=== PATIENT | female | born 1945 | race Asian ===

== ENCOUNTER 2024-04-27 08:39 | Emergency (ER) | payer MEDICARE, SELFPAY ==
--- NOTE | ~2024-04-27 | CT_ITS ---
EXAMINATION: CT head for stroke CLINICAL INFORMATION: R sided deficits COMPARISON: CT head 03/20/2018 TECHNIQUE: Contiguous axial imaging was performed from the skull base to vertex without intravenous contrast. This CT examination was performed using dose optimization techniques as appropriate, variously including the following: * Automated exposure control * Adjustment of mA and/or kV according to patient size (this includes techniques or standardized protocols for targeted exams where dose is matched to indication/reason for exam; i.e. extremities or head) * Use of iterative reconstruction technique DLP: 699 mGy-cm. FINDINGS: There is no evidence of acute intracranial hemorrhage or territorial infarction. Melgar to white matter differentiation is well preserved. No abnormal mass effect or midline shift is seen. No extra-axial fluid collections are identified. No hydrocephalus. Cavum septum pellucidum. No significant volume loss. Patchy periventricular and deep white matter hypoattenuation is consistent with moderate small vessel ischemic changes. The cerebellar tonsils are well positioned. No acute osseous or soft tissue abnormality. There is a stable 0.7 cm likely calcified meningioma along the right para midline frontal skull. Mild hyperostosis frontalis interna. Bilateral lens extraction. Mild mucoperiosteal thickening in the left maxillary sinus. The remaining visualized paranasal sinuses and mastoid air cells are well-aerated. Small volume cerumen in the bilateral external auditory canals. CT/CT head for stroke IMPRESSION: 1. No acute intracranial hemorrhage or territorial infarction. 2. Moderate chronic microangiopathy. These results were discussed with Tsering Gomez DO by telephone on 04/27/2024 at 8:59 AM and it was ascertained that the content of the report was understood at the time of direct communication. Electronically signed by: Natalie Heaton DO 04/27/2024 09:04 AM EDT
--- NOTE | ~2024-04-27 | CT_ITS ---
EXAMINATION: CTA NECK WITH CONTRAST (STROKE) CTA BRAIN WITH CONTRAST (STROKE) CLINICAL INFORMATION: Right-sided deficit, aphasia COMPARISON: None available. TECHNIQUE: CTA of the head and neck was performed in the axial plane from the mediastinum to the skull vertex using 70 mL Omnipaque 350 intravenous contrast. Additional reformatted multiplanar images including maximum intensity projection MIP images are generated on the CT workstation. This CT examination was performed using dose optimization techniques as appropriate, variously including the following: *Automated exposure control *Adjustment of mA and/or kV according to patient size (this includes techniques or standardized protocols for targeted exams where dose is matched to indication/reason for exam; i.e. extremities or head) *Use of iterative reconstruction technique DLP: 1477 mGy-cm FINDINGS: The degree of stenosis determined by criteria similar to NASCET. CTA NECK: Three-vessel aortic arch. Atherosclerotic calcifications at the origins of the great vessels without significant stenosis. The origins and cervical segments of the common carotid arteries are patent bilaterally. The common carotid artery bifurcations demonstrate mural calcifications, worse on the right and extending into the proximal segments of the cervical internal carotid arteries. There is 30% focal stenosis of the right carotid bulb. The remaining cervical segments of the ICAs are patent bilaterally. Atherosclerotic calcifications at the origins of the vertebral arteries resulting in moderate focal stenosis bilaterally. There is asymmetric hypoenhancement to majority of the cervical segments of the right vertebral artery with reconstitution in the very distal V2. The left cervical vertebral arteries is present. No aneurysm. The visualized branches of the external carotid arteries are unremarkable. CTA HEAD: Mild to moderate atherosclerotic calcifications of the bilateral carotid siphons. Anterior circulation: The petrous, cavernous, and supraclinoid segments of the internal carotid arteries are patent bilaterally. There is tapering of contrast opacification through the proximal segment of the left M2 superior division with complete occlusion distally. The remaining major branches of the anterior and middle cerebral arteries as well as anterior communicating artery complex are patent. No saccular aneurysm or dissection. Posterior circulation: The intracranial vertebral arteries are patent bilaterally. The basilar artery is normal in course and caliber. The posterior cerebral and superior cerebellar arteries arise normally from the basilar summit. No aneurysm. No filling defect. No abnormal intraparenchymal Soft tissues: No suspicious neck mass or cervical adenopathy. Lungs: Clear. Bones: No acute osseous abnormality. No lytic or blastic osseous lesions. Multilevel degenerative changes of the visualized spine. 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 -Asymmetric hypoenhancement through the majority of the right cervical vertebral arteries with reconstitution distally in the right V2. Findings are concerning for slow flow. Electronically signed by: Arminda Duron MD 04/27/2024 10:05 AM EDT
[2024-04-27 08:42] VITALS: BP 184/95; PULSE 87; O2SAT 95
--- NOTE | 2024-04-27 08:43 | ECG_ITS ---
Test Reason : WEAKNESS Blood Pressure : / mmHG Vent. Rate : 085 BPM Atrial Rate : 085 BPM P-R Int : 152 ms QRS Dur : 072 ms QT Int : 382 ms P-R-T Axes : 069 012 022 degrees QTc Int : 454 ms Sinus rhythm with Premature atrial complexes Nonspecific ST and T wave abnormality Abnormal ECG When compared with ECG of 20-MAR-2018 20:58, Premature atrial complexes are now Present ST now depressed in Anterior leads Nonspecific T wave abnormality now evident in Anterior leads Referred By: Tsering Gomez Electronically Signed By:AVA QUINTERO MD
[2024-04-27 08:50] VITALS: BP 198/75; PULSE 86; RESP 17; TEMP 37.1; O2SAT 97; BMI 26.1
--- NOTE | 2024-04-27 08:50 | PC.NURSE ---
Pt to ED via EMS from home after pt knocked on neighbor's door. Pt has noticeable right facial drop, global aphasia and right sided weakness. Pt nonverbal at this time, not pt's baseline. Pt taken immediately to CT for imagaging. BP 198/75, MD Gomez made aware.
[2024-04-27 08:51] LABS: Glucose, Whole Blood 149 mg/dL (60-115)
--- NOTE | 2024-04-27 08:59 | ED.NEUROSD ---
HPI - Neuro Symptoms/Deficit General Chief Complaint: Stroke Stated Complaint: ?STROKE,UNK LKWT,NO SPEECH,+DROOP PER EMS Source: EMS and old records reviewed Mode of arrival: EMS Limitations: altered mental status History of Present Illness ED Provider: ANIL DAHL Narrative: 78 yo female with PMH of HTN, DM, HLD, breast cancer this is based off all of her medication lists I see no thinners on it and EMS did not find any bottles of it in the house reportedly patient walked to neighbors this morning and had R facial droop, confusion and complete aphasia. We have no known last well other than patient seemed to have nodded that she was okay prior to bed last night at 9pm and got up to urinate at 2am. She uses her fingers to communicate. On arrival R facial droop, making sounds , diffuse weakness, R hand weakness. Seems to intermittently nod head but is not consistent and is having a hard time following commands. Onset (ago): unknown Last Observed Normal: 02:00 Timing confirmed by: other (self) Location: speech, right face, right arm and altered History of same: No Severity: severe Quality: weak Relieving factors: none Exacerbating factors: none Context: other (unknown) On Anticoagulants: No Associated symptoms: confusion Treatments Prior to Arrival: none Related Data Home Medications ?Medication ?Instructions ?Recorded ?Confirmed allopurinol 100 mg tablet 100 mg PO DAILY 04/27/24 04/27/24 amlodipine 2.5 mg tablet 2.5 mg PO DAILY 04/27/24 04/27/24 anastrozole 1 mg tablet 1 mg PO DAILY 04/27/24 04/27/24 atorvastatin 40 mg tablet 40 mg PO DAILY 04/27/24 04/27/24 lisinopril 40 mg tablet 40 mg PO DAILY 04/27/24 04/27/24 metformin 500 mg tablet 500 mg PO BID 04/27/24 04/27/24 metoprolol succinate 100 mg 100 mg PO DAILY 04/27/24 04/27/24 tablet,extended release 24 hr Allergies Allergy/AdvReac Type Severity Reaction Status Date / Time SEAFOOD Allergy Severe ANAPHYLAXIS Uncoded 04/27/24 09:48 Review of Systems Review of Systems: ROS unable to be obtained due to aphasia PMFSH Past Medical History Attestation statement: The following information was validated with the patient. Source: old records reviewed Medical History Breast cancer Hyperlipidemia Diabetes HTN (hypertension) Social History Social History (Updated 04/27/24 @ 09:04 by Tsering Gomez DO) Patient Tobacco Use Status: Tobacco use Unknown Physical Exam Vital Signs: Vital Signs: Last Vital Signs Temp 98.7 F 04/27/24 08:50 Pulse 88 04/27/24 10:39 Resp 16 04/27/24 10:39 BP 186/82 H 04/27/24 10:39 Pulse Ox 99 04/27/24 10:39 O2 Del Method Room Air 04/27/24 10:39 BMI result Body Mass Index 26.1 Appearance: She is alert she seems to be trying to communicate but is not consistent with shaking hands and is not consistent following commands. Moderate acute distress. she is able to express with nodding and fingers she went to bed at 9pm and was fine. She urinated in the middle of the night at 2am and was normal she holds up 2 fingers on R finger stating she was last okay at 2am. Eyes: Pupils equal, round and reactive to light. ENT: Pharynx normal. atraumatic Neck: Normal inspection. Neck supple. CVS: Normal heart rate and rhythm. Pulses normal. Respiratory: No respiratory distress. Breath sounds normal. Abdomen: Soft and nontender. Skin: Skin warm and dry. Normal skin color. Normal skin turgor. Extremities: No lower extremity edema. No calf ttp Neuro: cannot speak some muffled sounds, aphasia, R facial droop can wiggle both feet, R hand weakness Course Course Course Narrative: able to reach edgardo Williamson [phone] he is not fully aware of her medical issues, he doesn't think she is on blood thinners she has no contraindications to MRI at this time he states she has no metal or PPM. Reevaluation(s) Reevaluation #1: called arnav on CTA report read no discussion with radiologist just report put in system without report of critical findings read noted at 1010am. now read in in delayed 1010am M2 occlusion will review with Dr. Altamirano STAT call out stroke line picked up immediately Dr. Altamirano recommends discussion with neuro IR Dr. Stahl connected from [facility] will take for CT perfusion - send to ED edgardo Williamson he aware of transfer Medications Administered Discontinued Medications Generic Name Dose Route Start Last Admin Trade Name Alva PRN Reason Stop Dose Admin Iohexol 100 ml 04/27/24 08:59 04/27/24 09:00 Iohexol 350 Mg/Ml 100 Ml Infus..Btl IV 04/27/24 09:00 70 ml ONCE ONE Administration Medical Decision Making Medical Decision Making [facility] Narrative: 78 yo female with PMH of HTN, DM, HLD, breast cancer here with c/o R facial droop, R hand weakness, severe aphasia with some muffled sounds but no words after repeat ask and her using her fingers it appears last known well using bathroom was 2am. She got up this AM and was not okay so she walked to her neighbors and asked for help as she couldn't call herself. She has symptoms concerning for stroke - STAT CT head/CTA she is 7 hours out of last known well not a candidate for TNK, It is very hard to get a history from her and she has limited use of her fingers as well. We have put a call out to her sons but no call back and we are asking for records from [facility]. If LVO present she would be candidate to thrombectomy given confirmed last known by patient is 2am. Differential Diagnosis Differential Diagnoses: The differential diagnosis associated with the presentation includes stroke, LVO, ICH Admission/Observation Consideration of admission/observation: Escalation of care including admission/observation considered transfer to [facility] for CT perfusion per Dr. Stahl Consult Healthcare Provider Management of the patient was discussed with: [employer] Lab Data [facility] Lab Attestation statement: I reviewed the patient's lab results. 04/27/24 09:23 04/27/24 09:23 Labs: Lab Results 04/27/24 04/27/24 04/27/24 Range/Units 08:47 09:13 09:22 WBC (4.8-10.8) X10*3/uL RBC (4.20-5.50) X10*6/uL Hgb (12.0-16.0) g/dl Hct (37.0-47.0) % MCV (80.0-98.0) fL MCH (27.0-33.0) pg MCHC (31.0-35.0) g/dl RDW (11.0-16.0) % Plt Count (160-400) X10*3/uL MPV (9.4-12.3) fL Immature Gran % (Auto) (0.0-0.4) % Neut % (Auto) (45-73) % Lymph % (Auto) (20-40) % [place] % (Auto) (2-11) % Eos % (Auto) (0-4) % Baso % (Auto) (0-2) % Lymph # (Auto) (1.2-4.9) X10*3/uL [place] # (Auto) (0.1-1.2) X10*3/uL Eos # (Auto) (0.0-0.4) X10*3/uL Baso # (Auto) (0.0-0.2) X10*3/uL Abs Immat Gran (auto) (0.00-0.03) X10*3/uL Absolute Neuts (auto) (2.0-8.3) x10*3/uL Absolute Nucleated RBC (0.0-0.012) X10*3/uL Nucleated RBC % (auto) (0.0-0.2) /100WBC PT (10.9-12.4) SEC INR (0.9-1.1) APTT (26.0-36.8) SEC Sodium (135-145) mmol/L Potassium (3.3-5.1) mmol/L Chloride (96-108) mmol/L Carbon Dioxide (22-29) mmol/L Anion Gap (12-20) BUN (9-16) mg/dL Creatinine (0.5-1.4) mg/dL Estim Creat Clear Calc Estimated GFR POC Glucose 149 H (60-115) mg/dL Random Glucose (60-115) mg/dL Estimat Average Glucose 128 mg/dL Hemoglobin A1c % 6.1 H (<6.0) % Calcium (8.4-10.2) mg/dL Magnesium (1.6-2.6) mg/dL Total Bilirubin (0.0-1.0) mg/dL Direct Bilirubin (0.0-0.5) mg/dL AST (5-31) U/L ALT (0-31) U/L Alkaline Phosphatase (39-117) U/L Ammonia 30 (13-55) umol/L Total Creatine Kinase (26-140) U/L C-Reactive Protein (< or = 0.50) mg/dL Total Protein (6.5-8.0) g/dL Albumin (3.5-5.0) g/dL Triglycerides (<150) mg/dL Cholesterol (<200) mg/dL LDL Cholesterol, Calc (<100) mg/dL HDL Cholesterol (>40) mg/dL Urine Color Urine Appearance Urine pH (5.0-9.0) Ur Specific [place] (1.005-1.025) Urine Protein (Neg-Trace) mg/dL Urine Glucose (UA) (Negative) mg/dL Urine Ketones (Negative) mg/dL Urine Blood (Negative) Urine Nitrite (Negative) Ur Leukocyte Esterase (Negative) Influenza Type A (PCR) NEGATIVE (Negative) Influenza Type B (PCR) NEGATIVE (Negative) RSV RNA Qual (PCR) NEGATIVE (Negative) SARS-CoV-2 RNA (RT-PCR) POSITIVE A (Negative) 04/27/24 04/27/24 Range/Units 09:23 09:35 WBC 8.5 (4.8-10.8) X10*3/uL RBC 4.56 (4.20-5.50) X10*6/uL Hgb 12.5 (12.0-16.0) g/dl Hct 36.8 L (37.0-47.0) % MCV 80.7 (80.0-98.0) fL MCH 27.4 (27.0-33.0) pg MCHC 34.0 (31.0-35.0) g/dl RDW 13.8 (11.0-16.0) % Plt Count 250 (160-400) X10*3/uL MPV 9.7 (9.4-12.3) fL Immature Gran % (Auto) 0.8 H (0.0-0.4) % Neut % (Auto) 75.3 H (45-73) % Lymph % (Auto) 19.4 L (20-40) % [place] % (Auto) 3.8 (2-11) % Eos % (Auto) 0.5 (0-4) % Baso % (Auto) 0.2 (0-2) % Lymph # (Auto) 1.7 (1.2-4.9) X10*3/uL [place] # (Auto) 0.3 (0.1-1.2) X10*3/uL Eos # (Auto) 0.0 (0.0-0.4) X10*3/uL Baso # (Auto) 0.0 (0.0-0.2) X10*3/uL Abs Immat Gran (auto) 0.07 H (0.00-0.03) X10*3/uL Absolute Neuts (auto) 6.4 (2.0-8.3) x10*3/uL Absolute Nucleated RBC 0.000 (0.0-0.012) X10*3/uL Nucleated RBC % (auto) 0.0 (0.0-0.2) /100WBC PT 11.3 (10.9-12.4) SEC INR 1.0 (0.9-1.1) APTT 34.1 (26.0-36.8) SEC Sodium 143 (135-145) mmol/L Potassium 3.5 (3.3-5.1) mmol/L Chloride 108 (96-108) mmol/L Carbon Dioxide 25 (22-29) mmol/L Anion Gap 14 (12-20) BUN 18 H (9-16) mg/dL Creatinine 0.88 (0.5-1.4) mg/dL Estim Creat Clear Calc 53.8 Estimated GFR > 60 POC Glucose (60-115) mg/dL Random Glucose 151 H (60-115) mg/dL Estimat Average Glucose mg/dL Hemoglobin A1c % (<6.0) % Calcium 9.2 (8.4-10.2) mg/dL Magnesium 1.8 (1.6-2.6) mg/dL Total Bilirubin 0.5 (0.0-1.0) mg/dL Direct Bilirubin 0.2 (0.0-0.5) mg/dL AST 15 (5-31) U/L ALT 13 (0-31) U/L Alkaline Phosphatase 79 (39-117) U/L Ammonia (13-55) umol/L Total Creatine Kinase 59 (26-140) U/L C-Reactive Protein 0.76 H (< or = 0.50) mg/dL Total Protein 7.2 (6.5-8.0) g/dL Albumin 4.1 (3.5-5.0) g/dL Triglycerides 139 (<150) mg/dL Cholesterol 167 (<200) mg/dL LDL Cholesterol, Calc 95 (<100) mg/dL HDL Cholesterol 45 (>40) mg/dL Urine Color Yellow Urine Appearance Clear Urine pH 7.0 (5.0-9.0) Ur Specific [place] 1.020 (1.005-1.025) Urine Protein Negative (Neg-Trace) mg/dL Urine Glucose (UA) Negative (Negative) mg/dL Urine Ketones Negative (Negative) mg/dL Urine Blood Negative (Negative) Urine Nitrite Negative (Negative) Ur Leukocyte Esterase Negative (Negative) Influenza Type A (PCR) (Negative) Influenza Type B (PCR) (Negative) RSV RNA Qual (PCR) (Negative) SARS-CoV-2 RNA (RT-PCR) (Negative) Independent Interpretation I performed an independent interpretation of an: EKG, Plain X-Ray and CT Scan Interpretation: Rate: 85 Rhythm: NSR [place]: normal Normal P waves. Normal DORCAS. Normal QRS complex. ST T wave : inverted t waves v1, nonspecific ST T wave changes lateral leads, no CRISTIANO qTC: 454 prior studies: no acute ischemia, none available The study has been interpreted contemporaneously by me. . Radiology Impression Discussion of test interpretation with radiology: I discussed test interpretation with the radiologist and I have reviewed the radiologist's reading. Radiologist Impression: 859am CT scan dry negative FINDINGS: The degree of stenosis determined by criteria similar to NASCET. CTA NECK: Three-vessel aortic arch. Atherosclerotic calcifications at the origins of the great vessels without significant stenosis. The origins and cervical segments of the common carotid arteries are patent bilaterally. The common carotid artery bifurcations demonstrate mural calcifications, worse on the right and extending into the proximal segments of the cervical internal carotid arteries. There is 30% focal stenosis of the right carotid bulb. The remaining cervical segments of the ICAs are patent bilaterally. Atherosclerotic calcifications at the origins of the vertebral arteries resulting in moderate focal stenosis bilaterally. There is asymmetric hypoenhancement to majority of the cervical segments of the right vertebral artery with reconstitution in the very distal V2. The left cervical vertebral arteries is present. No aneurysm. The visualized branches of the external carotid arteries are unremarkable. CTA HEAD: Mild to moderate atherosclerotic calcifications of the bilateral carotid siphons. Anterior circulation: The petrous, cavernous, and supraclinoid segments of the internal carotid arteries are patent bilaterally. There is tapering of contrast opacification through the proximal segment of the left M2 superior division with complete occlusion distally. The remaining major branches of the anterior and middle cerebral arteries as well as anterior communicating artery complex are patent. No saccular aneurysm or dissection. Posterior circulation: The intracranial vertebral arteries are patent bilaterally. The basilar artery is normal in course and caliber. The posterior cerebral and superior cerebellar arteries arise normally from the basilar summit. No aneurysm. No filling defect. No abnormal intraparenchymal Soft tissues: No suspicious neck mass or cervical adenopathy. Lungs: Clear. Bones: No acute osseous abnormality. No lytic or blastic osseous lesions. Multilevel degenerative changes of the visualized spine. 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 -Asymmetric hypoenhancement through the majority of the right cervical vertebral arteries with reconstitution distally in the right V2. Findings are concerning for slow flow. Electronically signed by: Arminda Duron MD 04/27/2024 10:05 AM EDT Independent Historian Clinical information obtained from an independent historian. History obtained from or confirmed by: EMS External Record Review External record reviewed: Outpatient record NIH Stroke Scale Internal: Initial- Upon Arrival Level of Consciousness: Alert Level of Consciousness Questions: Answers one question correctly Level of Consciousness Commands: Performs one task correctly Best Gaze: Normal Visual: No visual loss Facial Palsy: Partial paralysis Motor Arm (Right): Drift Motor Arm (Left): No drift Motor Leg (Right): No drift Motor Leg (Left): No drift Limb Ataxia: Absent Sensory: Normal Best Language: Mute, global aphasia Dysarthia: Mild to moderate dysarthria Extinction and Inattention: Visual, tactile, auditory, spatial, or personal inattention Score: 10 Critical Care Time Critical Care Time Critical Care Time: Yes Total Critical Care Time: 60 Attestation: stroke protocol, transfer to tertiary center, consult Discharge Plan Discharge Clinical Impression: COVID-19 Cerebrovascular accident Qualifiers: CVA mechanism: occlusion Precerebral and cerebral artery: middle cerebral artery Laterality of affected vessel: left Qualified Code(s): I63.512 - Cerebral infarction due to unspecified occlusion or stenosis of left middle cerebral artery Patient Disposition: [facility] Transfer Details: [facility] Prescriptions: No Action allopurinol 100 mg Tablet 100 mg PO DAILY atorvastatin 40 mg Tablet 40 mg PO DAILY metformin 500 mg Tablet 500 mg PO BID anastrozole 1 mg Tablet 1 mg PO DAILY metoprolol succinate 100 mg Tablet Extended Release 24 Hr 100 mg PO DAILY amlodipine 2.5 mg Tablet 2.5 mg PO DAILY lisinopril 40 mg Tablet 40 mg PO DAILY Print Language: Cypriot
[2024-04-27] MEDS: iohexoL 350 MG/ML 100 ML INFUS..BTL IV (09:00)
[2024-04-27 09:29] LABS: MANUAL DIFF FLAG NO
[2024-04-27 09:32] LABS: Basophils Percent Auto 0.2 % (0-2); Eosinophils Percent Auto 0.5 % (0-4); Hematocrit 36.8 % (37.0-47.0); Hemoglobin 12.5 g/dl (12.0-16.0); Imm Gran Abs Auto 0.07 X10*3/uL (0.00-0.03); Imm Gran Pct Auto 0.8 % (0.0-0.4); Lymphocytes Absolute Auto 1.7 X10*3/uL (1.2-4.9); Lymphocytes Percent Auto 19.4 % (20-40); Mean Corpuscular Hemoglobin 27.4 pg (27.0-33.0); Mean Corpuscular Volume 80.7 fL (80.0-98.0); Mean Platelet Volume 9.7 fL (9.4-12.3); Monocytes Absolute Auto 0.3 X10*3/uL (0.1-1.2); Monocytes Percent Auto 3.8 % (2-11); Neutrophils Absolute Auto 6.4 x10*3/uL (2.0-8.3); Neutrophils Percent Auto 75.3 % (45-73); Platelet Count 250 X10*3/uL (160-400); Red Blood Count 4.56 X10*6/uL (4.20-5.50); Red Cell Distribution Width 13.8 % (11.0-16.0); White Blood Count 8.5 X10*3/uL (4.8-10.8)
[2024-04-27 09:37] LABS: Prothrombin Time 11.3 SEC (10.9-12.4)
[2024-04-27 09:38] LABS: Estimated Average Glucose 128 mg/dL; Hemoglobin A1C 141.5542 umol/L; Hemoglobin A1c % 6.1 % (<6.0); Total Hemoglobin (HGBA1C) 3251.4515 umol/L
[2024-04-27 09:39] LABS: Ammonia 30 umol/L (13-55)
--- NOTE | 2024-04-27 09:39 | PC.NURSE ---
Pt straight catheterized for urine sample, tolerated well.
[2024-04-27 09:40] LABS: Partial Thromboplastin Time 34.1 SEC (26.0-36.8)
[2024-04-27 09:47] LABS: Appearance Urine Clear; Color Urine Yellow; Glucose Urine UA Negative (Negative); Leukocyte Esterase Urine Negative (Negative); Nitrite Urine Negative (Negative); Urine Blood Negative (Negative); Urine Ketones Negative (Negative); Urine Protein Negative (Neg-Trace)
[2024-04-27 09:55] LABS: Alanine Aminotransferase 13 U/L (0-31); Albumin Level 4.1 g/dL (3.5-5.0); Alkaline Phosphatase 79 U/L (39-117); Anion Gap 14 (12-20); Aspartate Amino Transferase 15 U/L (5-31); Bilirubin Direct 0.2 mg/dL (0.0-0.5); Bilirubin Total 0.5 mg/dL (0.0-1.0); Blood Urea Nitrogen 18 mg/dL (9-16); C Reactive Protein 0.76 mg/dL (< or = 0.50); Calcium 9.2 mg/dL (8.4-10.2); Carbon Dioxide 25 mmol/L (22-29); Chloride 108 mmol/L (96-108); Cholesterol 167 mg/dL (<200); Creatinine Clr Calc Pharmacy 53.8; Estimated Glomerular Filt Rate > 60; Glucose Random 151 mg/dL (60-115); HDL Cholesterol 45 mg/dL (>40); LDL Cholesterol Calculated 95 mg/dL (<100); Magnesium 1.8 mg/dL (1.6-2.6); Potassium 3.5 mmol/L (3.3-5.1); Sodium 143 mmol/L (135-145); Total Protein 7.2 g/dL (6.5-8.0); Triglycerides 139 mg/dL (<150)
[2024-04-27 09:58] LABS: Influenza A PCR NEGATIVE (Negative); Influenza B PCR NEGATIVE (Negative); Resp Syncy Virus RNA Qual PCR NEGATIVE (Negative); SARS COV2 PCR INHOUSE POSITIVE (Negative)
--- NOTE | 2024-04-27 10:24 | PC.NURSE ---
Son at the bedside at this time.
[2024-04-27 10:39] VITALS: BP 186/82; PULSE 88; RESP 16; O2SAT 99
[2024-04-27] MEDS: Aspirin 300 MG SUPP.RECT PR (10:42)
--- OUTSIDE RECORDS SUMMARY | 2024-04-27 10:46 | XMS_ITS | Continuity of Care Document ---
Author Organization [facility] Address [address] [place] [address]- Care Team Providers Care Jailkeeper Name Role Phone Kassandra MELCHOR, Sunny Lubin Primary Care Physician [phone] Encounter [facility] Date(s): 03/14/20 - 04/13/20 [facility] Adult [address] [place] [address]- [facility] Allergies, Adverse Reactions, Alerts Substance Reaction Severity Status NKA Active Immunizations Given and Recorded Vaccine Date Status Refusal Reason influenza virus vaccine, inactivated 05/03/18 Brett rded influenza virus vaccine, inactivated 1 05/03/17 Gi addie influenza virus vaccine, inactivated 2 04/30/16 Re corded influenza virus vaccine, inactivated 08/07/15 Give n influenza virus vaccine, inactivated 3 04/20/14 Gi addie influenza virus vaccine, inactivated 4 04/19/13 Gi addie pneumococcal 13-valent vaccine 12/31/14 Given Pneumococcal Vaccine (oldterm) 04/05/12 Given Fluvirin (oldterm) 5 04/01/12 Given Tet/diphth/pertussis, acel (oldterm) 04/08/11 Give n FluLaval (oldterm) 04/08/11 Given 1Result Comment: [05/03/2017] [facility] [id number] [phone] 2Result Comment: [05/08/2016] [facility] 3Admin Note: Fluzone High dose [facility] 4Admin Note: [facility] 5Admin Note: [facility] 04-01- Medications Acetaminophen 0 Refills, Maintenance, 03/27/16 8:06:31 Start Date: 03/27/16 Status: Ordered allopurinol 100 mg oral tablet 100 mg, 1, tablet, By Mouth, Daily, # 90 tablet, Refills 1, Tot. Refills 1, Maintenance, 01/11/20 11:36:00 EDT, Route to Pharmacy Electronically, [facility] #[id number], D/C RX FOR THE 90 DAY SUPPLY PREVIOUSLY SENT, 150.5, cm, 08/02/18 14:01:00 E... Start Date: 01/11/20 Status: Ordered amLODIPine 2.5 mg oral tablet 1 tablet, By Mouth, Daily, # 90 tablet, 1 Refills, Maintenance, 02/27/20 15:44:00 EDT, [facility] #[id number], 150.5, cm, 02/19/20 11:58:00 EDT, Height Start Date: 02/27/20 Status: Ordered aspirin 81 mg oral tablet 1 tablet = 81 mg, By Mouth, Daily, # 30 tablet, 0 Refills, Maintenance Start Date: 10/06/10 Status: Ordered atorvastatin 40 mg oral tablet 1 tablet, By Mouth, Daily at bedtime, # 90 tablet, 3 Refills, Maintenance, 09/18/19 13:19:00 EST, [facility] #[id number], 150.5, cm, 08/02/18 14:01:00 EST, Height Start Date: 09/18/19 Status: Ordered Calcium 600 +D oral tablet 1 tablet, By Mouth, 3 times a day, 0 Refills, Maintenance, 06/28/14 15:57:57 Start Date: 06/28/14 Status: Ordered lisinopril 40 mg oral tablet 1 tablet = 40 mg, By Mouth, Daily, # 60 tablet, 0 Refills, Maintenance, 02/13/20 10:57:00 EDT, Tablet, [facility] #[id number], 150.5, cm, 08/02/18 14:01:00 EST, Height Start Date: 02/13/20 Status: Ordered metFORMIN 500 mg oral tablet 1 tablet = 500 mg, By Mouth, 2 times a day, # 60 tablet, 11 Refills, Maintenance, 07/14/19 16:00:00EST, Tablet, [facility] #[id number], 150.5, cm, 08/02/18 14:01:00 EST, Height Start Date: 07/14/19 Status: Ordered Metoprolol Succinate ER 100 mg oral tablet, extended release 1 tablet = 100 mg, By Mouth, Daily, # 90 tablet, 1 Refills, Maintenance, 01/11/20 11:36:00 EDT, [facility] #[id number], 150.5, cm, 08/02/18 14:01:00 EST, Height Start Date: 01/11/20 Status: Ordered spironolactone 25 mg oral tablet See Instructions, TAKE 1 TABLET BY MOUTH TWICE DAILY LABS NEEDED FOR ADDITIONAL REFILLS, # 180 tablet, Refills 0, Tot. Refills 0, Soft Stop, 03/15/20 8:49:00 EDT, Instructions Replace Required Details, Route to Pharmacy Electronically, [facility]... Start Date: 03/15/20 Status: Ordered Zinc = 140 mg, By Mouth, Daily, 0 Refills, Maintenance, 02/19/20 12:01:00 EDT Start Date: 02/19/20 Status: Ordered Problem List Condition Effective Dates Status Health Status Inform ant Adult-onset obesity(Confirmed) Active Bruit L carotid(Confirmed) Active Diabetes mellitus - adult onset(Confirmed) Active Acute pain of right foot(Confirmed) Active Gout(Confirmed) Active Hypercholesterolemia(Confirmed) Active Hypertension(Confirmed) Active Social History Social History Type Response Smoking Status Never smoker entered on: 10/13/16 Sex
--- OUTSIDE RECORDS SUMMARY | 2024-04-27 10:46 | XMS_ITS | Continuity of Care Document ---
Author Organization [facility] Corona Henrry lt Address [address] [place] [address]- Care Team Providers Care Cardiovascular Invasive Specialist Name Role Phone Devyn MORALES, Elizabeth Novak Primary Care Physician [place] [facility] [place](s): 06/30/22 - 07/30/22 [facility] Adult [address] [place] [address]- Allergies, Adverse Reactions, Alerts Substance Reaction Severity Status Seafood Active Immunizations Given and Recorded Vaccine Date Status Refusal Reason influenza virus vaccine, inactivated 04/22/22 Brett rded influenza virus vaccine, inactivated 04/23/21 Brett rded influenza virus vaccine, inactivated 03/07/20 Brett rded influenza virus vaccine, inactivated 05/03/18 Brett rded influenza virus vaccine, inactivated 1 05/03/17 Gi addie influenza virus vaccine, inactivated 2 04/30/16 Re corded influenza virus vaccine, inactivated 08/07/15 Give n influenza virus vaccine, inactivated 3 04/20/14 Gi addie influenza virus vaccine, inactivated 4 04/19/13 Gi addie Influenza Virus Vaccine (oldterm) 06/19/21 Recorde d SARS-CoV-2 (COVID-19) mRNA BNT-162b2 vac 06/19/21 Recorded SARS-CoV-2 (COVID-19) mRNA BNT-162b2 vac 10/09/20 Recorded SARS-CoV-2 (COVID-19) mRNA BNT-162b2 vac 09/18/20 Recorded pneumococcal 13-valent vaccine 12/31/14 Given Pneumococcal Vaccine (oldterm) 04/05/12 Given Fluvirin (oldterm) 5 04/01/12 Given Tet/diphth/pertussis, acel (oldterm) 04/08/11 Give n FluLaval (oldterm) 04/08/11 Given 1Result Comment: [05/03/2017] [facility] [id number] 2Result Comment: [05/08/2016] [employer] 3Admin Note: Fluzone High dose [facility] 4Admin Note: [facility] 5Admin Note: [facility] 04-01-12 Medications Acetaminophen = 500 mg, By Mouth, Daily at bedtime, 2 tabs, 0 Refills, Maintenance, 03/27/16 8:06:31 EDT Start Date: 03/27/16 Status: Ordered allopurinol 100 mg oral tablet 1, tablet, By Mouth, Daily, # 90 tablet, Refills 3, Tot. Refills 3, 05/20/22 7:38:00 EDT, Route to Pharmacy Electronically, [facility] #[id number], 149.3, cm, 05/12/22 9:17:00 EDT, Height, 75, kg, 05/12/22 9:17:00 EDT, Dry Weight Start Date: 05/20/22 Status: Ordered amLODIPine 2.5 mg oral tablet 1 tablet, By Mouth, Daily, # 90 tablet, 3 Refills, Maintenance, 06/30/22 10:38:00 EST, [facility] #[id number], 149.3, cm, 05/12/22 9:17:00 EDT, Height, 75, kg, 05/12/22 9:17:00 EDT, Dry Weight Start Date: 06/30/22 Status: Ordered anastrozole 1 mg oral tablet 1 tablet, By Mouth, Daily, # 90 tablet, 3 Refills, Maintenance, 05/12/22 22:16:00 EDT, [facility] #[id number], 149.3, cm, 05/12/22 9:17:00 EDT, Height, 75, kg, 05/12/22 9:17:00 EDT, Dry Weight Start Date: 05/12/22 Status: Ordered aspirin 81 mg oral tablet 1 tablet = 81 mg, By Mouth, Daily, # 30 tablet, 0 Refills, Maintenance Start Date: 10/06/10 Status: Ordered atorvastatin 40 mg oral tablet 1 tablet, By Mouth, Daily at bedtime, # 90 tablet, 1 Refills, [facility] #[id number], 149.3, cm, 11/06/21 13:21:00 EDT, Height, 76.3, kg, 11/06/21 13:21:00 EDT, Dry Weight Start Date: 12/30/21 Status: Ordered lisinopril 40 mg oral tablet 1 tablet, By Mouth, Daily, # 90 tablet, 1 Refills, Maintenance, 05/19/22 17:17:00 EDT, [facility] #[id number], 149.3, cm, 05/12/22 9:17:00 EDT, Height, 75, kg, 05/12/22 9:17:00 EDT, Dry Weight Start Date: 05/19/22 Status: Ordered metFORMIN 500 mg oral tablet 1 tablet, By Mouth, 2 times a day, # 60 tablet, 2 Refills, Maintenance, 04/11/22 5:47:00 EDT, [facility] #[id number], 149.3, cm, 02/24/22 7:27:00 EDT, Height, 76.3, kg, 11/06/21 13:21:00 EDT, Dry Weight Start Date: 04/11/22 Status: Ordered Metoprolol Succinate ER 100 mg oral tablet, extended release 1 tablet, By Mouth, Daily, # 90 tablet, 1 Refills, Maintenance, 12/30/21 12:34:00 EDT, [facility] #[id number], 149.3, cm, 11/06/21 13:21:00 EDT, Height, 76.3, kg, 11/06/21 13:21:00 EDT, Dry Weight Start Date: 12/30/21 Status: Ordered Problem List Condition Confirmation Course Effective Dates Status Health Status Informant Adult-onset obesity Confirmed Active Arthritis Confirmed Active Asthma Confirmed Active Bruit L carotid Confirmed Active Diabetes mellitus - adult onset Confirmed Active Gout Confirmed Active Hypercholesterolemia Confirmed Active Hypertension Confirmed Active 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, estrogen receptor positive Confirmed 12/2020 Active Obese class I Confirmed Active Social History Social History Type Response Smoking Status Never smoker entered on: 10/13/16 Sex Patient Care team information Care Team Personnel Name: Zoila Dorsey Position: [facility] Onco RN Member Role: Primary Care Nurse Name: Elizabeth Shepard NP Position: [facility] PCO Associate Professional Member Role: PCP Address: Address: [address] [place] [address]- Care Team Related Persons Name: MAC ZAMORANO Address: home [address] [address] Name: DEBRA ZAMORANO Address: home [facility]
--- OUTSIDE RECORDS SUMMARY | 2024-04-27 10:46 | XMS_ITS | Continuity of Care Document ---
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, estrogen receptor positive(Discharge Diagnosis) - 02/21/21 Gout(Discharge Diagnosis) - 02/21/21 Hypercholesterolemia(Discharge Diagnosis) - 02/21/21 Hypertension(Discharge Diagnosis) - 02/21/21 Attending Physician: Sunny Cannon MD Allergies, Adverse Reactions, Alerts Substance Reaction Severity Status Seafood Active Immunizations Given and Recorded Vaccine Date Status Refusal Reason SARS-CoV-2 (COVID-19) mRNA BNT-162b2 vac 10/09/20 Recorded SARS-CoV-2 (COVID-19) mRNA BNT-162b2 vac 09/18/20 Recorded influenza virus vaccine, inactivated 03/07/20 Brett rded [...] FluLaval (oldterm) 04/08/11 Given 1Result Comment: [05/03/2017] [facility] [id number] Comment: [05/08/2016] [facility]} 3Admin Note: Fluzone High dose [facility] 4Admin Note: [facility] 5Admin Note: [facility] 04-01-12 Medications Acetaminophen = 500 mg, By Mouth, Daily at bedtime, 2 tabs, 0 Refills, Maintenance, 03/27/16 8:06:31 EDT Start Date: 03/27/16 Status: Ordered allopurinol 100 mg oral tablet 100 mg, 1, tablet, By Mouth, Daily, # 90 tablet, Refills 1, Tot. Refills 1, Maintenance, 10/17/20 9:52:00 EDT, Route to Pharmacy Electronically, [facility] #[id number], D/C RX FOR THE 90 DAY SUPPLY PREVIOUSLY SENT, 150.5, cm, 02/19/20 11:58:00 ED... Start Date: 10/17/20 Status: Ordered amLODIPine 2.5 mg oral tablet 1 tablet, By Mouth, Daily, # 90 tablet, 3 Refills, Maintenance, 02/21/21 9:09:00 EDT, [facility] #[id number], 149.3, cm, 02/21/21 8:42:00 EDT, Height, 73.7, kg, 01/23/21 10:06:00 EDT, Dry Weight Start Date: 02/21/21 Stop Date: 08/20/21 Status: Ordered anastrozole 1 mg oral tablet 1 tablet, By Mouth, Daily, # 90 tablet, 0 Refills, Maintenance, 01/21/21 15:10:00 EDT, [facility] #[id number], 149.86, cm, 01/21/21 14:09:00 EDT, Height, 73.8, kg, 01/21/21 14:09:00 EDT, Dry Weight Start Date: 01/21/21 Status: Ordered aspirin 81 mg oral tablet 1 tablet = 81 mg, By Mouth, Daily, # 30 tablet, 0 Refills, Maintenance Start Date: 10/06/10 Status: Ordered atorvastatin 40 mg oral tablet 1 tablet, By Mouth, Daily at bedtime, # 90 tablet, 3 Refills, Maintenance, 09/18/19 13:19:00 EST, [facility] #[id number], 150.5, cm, 08/02/18 14:01:00 EST, Height Start Date: 09/18/19 Status: Ordered lisinopril 40 mg oral tablet 1 tablet = 40 mg, By Mouth, Daily, # 90 tablet, 0 Refills, Maintenance, 12/31/20 15:29:00 EDT, Tablet, [facility] #[id number], Office visit needed for further refills., 150.5, cm, 12/27/20 13:27:00 EDT, Height Start Date: 12/31/20 Status: Ordered metFORMIN 500 mg oral tablet 1 tablet, By Mouth, 2 times a day, # 60 tablet, 2 Refills, Maintenance, 01/16/21 9:01:00 EDT, [facility] #[id number], 149.86, cm, 01/10/21 6:27:00 EDT, Height, 74.2, kg, 01/10/21 6:27:00 EDT, Dry Weight Start Date: 01/16/21 Status: Ordered Metoprolol Succinate ER 100 mg oral tablet, extended release 1 tablet = 100 mg, By Mouth, Daily, # 90 tablet, 1 Refills, Maintenance, 01/11/20 11:36:00 EDT, [facility] #[id number], 150.5, cm, 08/02/18 14:01:00 EST, Height Start Date: 01/11/20 Status: Ordered spironolactone 25 mg oral tablet 1, tablet, By Mouth, 2 times a day, LABS NEEDED FOR ADDITIONAL REFILLS, # 180 tablet, Refills 0, Tot. Refills 0, Maintenance, 07/18/20 17:58:00 EST, Route to Pharmacy Electronically, [facility] #[id number], 150.5, cm, 02/19/20 11:58:00 EDT, Height Start Date: 07/18/20 Status: Ordered Problem List Condition Effective Dates Status Health Status Inform ant Adult-onset obesity(Confirmed) Active Arthritis(Confirmed) Active Asthma(Confirmed) Active Bruit L carotid(Confirmed) Active Diabetes mellitus - adult onset(Confirmed) Active Gout(Confirmed) Active Hypercholesterolemia(Confirmed) Active Hypertension(Confirmed) Active Carcinoma of lower-inner marcus drant of right breast in female, 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 Diagnosis Diagnosis Type Effective Dates Health Status Clinical Service Informant 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, estrogen receptor positive Discharge Diagnosis 02/21/21 Diabetes mellitus - adult onset Discharge Diagnosis 02/21/21 Hypertension Discharge Diagnosis 02/21/21 Hypercholesterolemia Discharge Diagnosis 02/21/21 Gout Discharge Diagnosis 02/21/21 General medical exam Discharge Diagnosis 02/21/21 Vital Signs Most recent to oldest [Reference Range]: 1 2 Height 149.3 cm (02/21/21 8:42 AM) 149.3 cm (02/21/21 8:33 AM) Weight 74.2 kg (02/21/21 8:33 AM) Oxygen Saturation [94-100 %] 98 % (02/21/21 8:33 AM) Pulse Rate [55-90 bpm] 64 bpm (02/21/21 8:33 AM) Body Mass Index [18.5-24.99] 33.29 *>HHI* (02/21/21 8:33 AM) Blood Pressure [90-138/55-84 mm Hg] 108/ 62mm Hg (02/21/21 8:42 AM) 114/62mm Hg (02/21/21 8:33 AM) Temperature [96.8-100.4 DegF] 98.1 DegF (02/21/21 8:33 AM) Mode of Delivery (Oxygen) Room air (02/21/21 8:33 AM) Blood pressure sites Arm, left (02/21/21 8:42 AM) Arm, left (02/21/21 8:33 AM) Temperature Route Oral (02/21/21 8:33 AM) Weight Obtained Via Standing scale (02/21/21 8:33 AM) Social History Social History Type Response Smoking Status Never smoker entered on: 10/13/16 Sex
--- OUTSIDE RECORDS SUMMARY | 2024-04-27 10:46 | XMS_ITS | Continuity of Care Document ---
Author Organization [facility] [employer] ter Address [address] [place] [address]- Care Team Providers Care Director Of Student Financial Aid Name Role Phone Sunny Cannon MD Primary Care Physician [phone] Encounter [facility] Date(s): 02/26/20 - 07/17/[address] [address] Attending Physician: Sunny Cannon MD Admitting Physician: Sunny Cannon MD Referring Physician: Sunny Cannon MD Allergies, Adverse Reactions, [...] FluLaval (oldterm) 04/08/11 Given 1Result Comment: [05/03/2017] [facility] [id number] 2Result Comment: [05/08/2016] [facility] 3Admin Note: Fluzone High dose [facility] 4Admin Note: [facility] 5Admin Note: [facility] 04-01-12 Medications Acetaminophen 0 Refills, Maintenance, 03/27/16 8:06:31 Start Date: 03/27/16 Status: Ordered allopurinol 100 mg oral tablet 100 mg, 1, tablet, By Mouth, Daily, # 90 tablet, Refills 1, Tot. Refills 1, Maintenance, 01/11/20 11:36:00 EDT, Route to Pharmacy Electronically, [facility] #[id number], D/C RX FOR THE 90 DAY SUPPLY PREVIOUSLY SENT, 150.5, cm, 08/02/18 14:01:00 E... Start Date: 01/11/20 Status: Ordered amLODIPine 2.5 mg oral tablet 1 tablet, By Mouth, Daily, # 90 tablet, 1 Refills, Maintenance, 02/27/20 15:44:00 EDT, [facility] #[id number], 150.5, cm, 02/19/20 11:58:00 EDT, Height Start Date: 02/27/20 Status: Ordered aspirin 81 mg oral tablet 1 tablet = 81 mg, By Mouth, Daily, # 30 tablet, 0 Refills, Maintenance Start Date: 10/06/10 Status: Ordered atorvastatin 40 mg oral tablet 1 tablet, By Mouth, Daily at bedtime, # 90 tablet, 3 Refills, Maintenance, 09/18/19 13:19:00 EST, [facility] #[id number], 150.5, cm, 08/02/18 14:01:00 EST, Height Start Date: 09/18/19 Status: Ordered Calcium 600 +D oral tablet 1 tablet, By Mouth, 3 times a day, 0 Refills, Maintenance, 06/28/14 15:57:57 Start Date: 06/28/14 Status: Ordered lisinopril 40 mg oral tablet 1 tablet = 40 mg, By Mouth, Daily, # 90 tablet, 3 Refills, Maintenance, 04/29/20 16:56:00 EDT, Tablet, [facility] #[id number], 150.5, cm, 02/19/20 11:58:00 EDT, Height Start Date: 04/29/20 Status: Ordered metFORMIN 500 mg oral tablet 1 tablet = 500 mg, By Mouth, 2 times a day, # 60 tablet, 11 Refills, Maintenance, 07/14/19 16:00:00EST, Tablet, [facility] #[id number], 150.5, cm, 08/02/18 14:01:00 EST, Height Start Date: 12/27/19 Status: Ordered Metoprolol Succinate ER 100 mg oral tablet, extended release 1 tablet = 100 mg, By Mouth, Daily, # 90 tablet, 1 Refills, Maintenance, 01/11/20 11:36:00 EDT, [facility] #[id number], 150.5, cm, 08/02/18 14:01:00 EST, Height Start Date: 01/11/20 Status: Ordered spironolactone 25 mg oral tablet See Instructions, TAKE 1 TABLET BY MOUTH TWICE DAILY LABS NEEDED FOR ADDITIONAL REFILLS, # 180 tablet, Refills 0, Tot. Refills 0, Soft Stop, 03/15/20 8:49:00 EDT, Instructions Replace Required Details, Route to Pharmacy Electronically, [facility]... Start Date: 03/15/20 Status: Ordered Zinc = [...]
--- OUTSIDE RECORDS SUMMARY | 2024-04-27 10:46 | XMS_ITS | Continuity of Care Document ---
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, estrogen receptor positive(Discharge Diagnosis) - 08/27/21 Diabetes mellitus - adult onset(Discharge Diagnosis) - 08/27/21 Asthma(Discharge Diagnosis) - 08/27/21 Hypertension(Discharge Diagnosis) - 08/27/21 Hypercholesterolemia(Discharge Diagnosis) - 08/27/21 Cerumen impaction(Discharge Diagnosis) - 08/27/21 Attending Physician: Sunny Cannon MD Allergies, Adverse Reactions, Alerts Substance Reaction Severity Status Seafood Active Immunizations Given and Recorded Vaccine Date Status Refusal Reason Influenza Virus Vaccine (oldterm) 06/19/21 Recorde d [...] FluLaval (oldterm) 04/08/11 Given 1Result Comment: [05/03/2017] [facility] [id number] Comment: [05/08/2016] [facility] 3Admin Note: Fluzone High dose [facility] 4Admin Note: [facility] 5Admin Note: [facility] 04-01-12 Medications Acetaminophen = 500 mg, By Mouth, Daily at bedtime, 2 tabs, 0 Refills, Maintenance, 03/27/16 8:06:31 EDT Start Date: 03/27/16 Status: Ordered allopurinol 100 mg oral tablet 1, tablet, By Mouth, Daily, # 90 tablet, Refills 1, Tot. Refills 1, 07/09/21 9:53:00 EST, Route to Pharmacy Electronically, [facility] #[id number], 149.3, cm, 05/27/21 11:52:00 EST, Height, 75, kg, 05/08/21 10:48:00 EDT, Dry Weight Start Date: 07/09/21 Status: Ordered amLODIPine 2.5 mg oral tablet 1 tablet, By Mouth, Daily, # 90 tablet, 3 Refills, Maintenance, 02/21/21 9:09:00 EDT, [facility] #[id number], 149.3, cm, 02/21/21 8:42:00 EDT, Height, 73.7, kg, 01/23/21 10:06:00 EDT, Dry Weight Start Date: 02/21/21 Stop Date: 08/20/21 Status: Ordered anastrozole 1 mg oral tablet 1 tablet, By Mouth, Daily, # 90 tablet, 3 Refills, Maintenance, 04/30/21 16:05:00 EDT, [facility] #[id number], 149.3, cm, 02/21/21 8:42:00 EDT, Height, 73.7, kg, 01/23/21 10:06:00 EDT, Dry Weight Start Date: 04/30/21 Status: Ordered aspirin 81 mg oral tablet 1 tablet = 81 mg, By Mouth, Daily, # 30 tablet, 0 Refills, Maintenance Start Date: 10/06/10 Status: Ordered atorvastatin 40 mg oral tablet 1 tablet, By Mouth, Daily at bedtime, # 90 tablet, 3 Refills, Maintenance, 09/18/19 13:19:00 EST, [facility] #[id number], 150.5, cm, 08/02/18 14:01:00 EST, Height Start Date: 09/18/19 Status: Ordered lisinopril 40 mg oral tablet 1 tablet = 40 mg, By Mouth, Daily, # 90 tablet, 0 Refills, Maintenance, 08/05/21 12:50:00 EST, Tablet, [facility] #[id number], Office visit needed for further refills., 149.3, cm, 05/27/21 11:52:00 EST, Height, 75, kg, 05/08/21 10:48:00 EDT, Dry... Start Date: 08/05/21 Status: Ordered metFORMIN 500 mg oral tablet 1 tablet, By Mouth, 2 times a day, # 60 tablet, 2 Refills, Maintenance, 01/16/21 9:01:00 EDT, [facility] #[id number], 149.86, cm, 01/10/21 6:27:00 EDT, Height, 74.2, kg, 01/10/21 6:27:00 EDT, Dry Weight Start Date: 01/16/21 Status: Ordered Metoprolol Succinate ER 100 mg oral tablet, extended release 1 tablet = 100 mg, By Mouth, Daily, # 90 tablet, 1 Refills, Maintenance, 06/16/21 9:00:00 EST, [facility] #[id number], 149.3, cm, 05/27/21 11:52:00 EST, Height, 75, kg, 05/08/21 10:48:00 EDT, Dry Weight Start Date: 06/16/21 Status: Ordered spironolactone 25 mg oral tablet 1, tablet, By Mouth, 2 times a day, LABS NEEDED FOR ADDITIONAL REFILLS, # 180 tablet, Refills 3, Route to Pharmacy Electronically, [facility] #[id number], 149.3, cm, 02/21/21 8:42:00 EDT, Height, 73.7, kg, 01/23/21 10:06:00 EDT, Dry Weight Start Date: 04/08/21 Status: Ordered Problem List Condition Effective Dates Status Health Status Inform ant Adult-onset obesity(Confirmed) Active Arthritis(Confirmed) Active Asthma(Confirmed) Active Bruit L carotid(Confirmed) Active Diabetes mellitus - adult onset(Confirmed) Active Gout(Confirmed) Active Hypercholesterolemia(Confirmed) Active Hypertension(Confirmed) Active Carcinoma of lower-inner marcus drant of right breast in female, 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 Obese class I(Confirmed) Active Diagnosis Diagnosis Type Effective Dates Health Status Clinical Service Informant 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, estrogen receptor positive Discharge Diagnosis 08/27/21 Diabetes mellitus - adult onset Discharge Diagnosis 08/27/21 Asthma Discharge Diagnosis 08/27/21 Hypertension Discharge Diagnosis 08/27/21 Hypercholesterolemia Discharge Diagnosis 08/27/21 Cerumen impaction Discharge Diagnosis 08/27/21 Vital Signs Most recent to oldest [Reference Range]: 1 2 Height 149.3 cm (08/27/21 9:29 AM) 149.3 cm (08/27/21 9:03 AM) Weight 76.1 kg (08/27/21 9:03 AM) Oxygen Saturation [94-100 %] 100 % (08/27/21 9:03 AM) Pulse Rate [55-90 bpm] 59 bpm (08/27/21 9:03 AM) Body Mass Index [18.5-24.99] 34.14 *>HHI* (08/27/21 9:03 AM) Blood Pressure [90-138/55-84 mm Hg] 130/ 64mm Hg (08/27/21 9:29 AM) 147/80mm Hg *H* (08/27/21 9:03 AM) Temperature [96.8-100.4 DegF] 97.9 DegF (08/27/21 9:03 AM) Blood pressure sites Arm, left (08/27/21 9:03 AM) Temperature Route Oral (08/27/21 9:03 AM) Weight Obtained Via Standing scale (08/27/21 9:03 AM) Social History Social History Type Response Smoking Status Never smoker entered on: 10/13/16 Sex
--- OUTSIDE RECORDS SUMMARY | 2024-04-27 10:46 | XMS_ITS | Continuity of Care Document ---
Author Organization [facility] Henrry lt Address [address] [place] [address]- Care Team Providers Care Back Roller Name Role Phone Devyn MORALES, Elizabeth Novak Primary Care Physician [phone] Encounter [facility] Date(s): 07/23/23 - 08/22/23 [facility] Adult [address] [place] [address]- Allergies, Adverse Reactions, Alerts Substance Reaction Severity Status Seafood Active Immunizations Given and Recorded Vaccine Date Status Refusal Reason Influenza Virus Vaccine (oldterm) 1 04/20/23 Recor ded Influenza Virus Vaccine (oldterm) 06/19/21 Recorde d SARS-CoV-2 mRNA (tldkhhx-dxfw-xezuh) vax 2 04/20/23 Recorded pneumococcal 20-valent conjugate vaccine 03/05/23 Given influenza virus vaccine, inactivated 04/22/22 Brett rded influenza virus vaccine, inactivated 04/23/21 Brett rded influenza virus vaccine, inactivated 03/07/20 Brtet rded influenza virus vaccine, inactivated 05/03/18 Brett rded influenza virus vaccine, inactivated 3 05/03/17 Gi addie influenza virus vaccine, inactivated 4 04/30/16 Re corded influenza virus vaccine, inactivated 08/07/15 Give n influenza virus vaccine, inactivated 5 04/20/14 Gi addie influenza virus vaccine, inactivated 6 04/19/13 Gi addie SARS-CoV-2 (COVID-19) mRNA BNT-162b2 vac 06/19/21 Recorded SARS-CoV-2 (COVID-19) mRNA BNT-162b2 vac 10/09/20 Recorded SARS-CoV-2 (COVID-19) mRNA BNT-162b2 vac 09/18/20 Recorded pneumococcal 13-valent vaccine 12/31/14 Given Pneumococcal Vaccine (oldterm) 04/05/12 Given Fluvirin (oldterm) 7 04/01/12 Given Tet/diphth/pertussis, acel (oldterm) 04/08/11 Give n FluLaval (oldterm) 04/08/11 Given 1Result Comment: [facility] [place] 2Result Comment: [facility] [place] 3Result Comment: [05/03/2017] [facility] [id number] [phone] [id number] 4Result Comment: [05/08/2016] [facility] 5Admin Note: Fluzone High dose [facility] 6Admin Note: [facility] 7Admin Note: [facility] 04-01-12 Medications Acetaminophen = 500 mg, By Mouth, Daily at bedtime, 2 tabs, 0 Refills, Maintenance, 03/27/16 8:06:31 EDT Start Date: 03/27/16 Status: Ordered allopurinol 100 mg oral tablet 1, tablet, By Mouth, Daily, # 90 tablet, Refills 1, Tot. Refills 1, Maintenance, 07/23/23 4:36:00 EST, Route to Pharmacy Electronically, [facility] #[id number], 149.3, cm, 06/17/23 9:58:00 EST, Height, 73.2, kg, 06/17/23 9:58:00 EST, Dry Weight Start Date: 07/23/23 Status: Ordered amLODIPine 2.5 mg oral tablet 1 tablet, By Mouth, Daily, # 90 tablet, 3 Refills, Maintenance, 06/30/22 10:38:00 EST, [facility] #[id number], 149.3, cm, 05/12/22 9:17:00 EDT, Height, 75, kg, 05/12/22 9:17:00 EDT, Dry Weight Start Date: 06/30/22 Status: Ordered anastrozole 1 mg oral tablet 1 tablet, By Mouth, Daily, # 90 tablet, 3 Refills, Maintenance, 06/15/23 17:01:00 EST, [facility] #[id number], 149.3, cm, 03/05/23 8:16:00 EDT, Height, 73.9, kg, 11/11/22 9:18:00 EDT, Dry Weight Start Date: 06/15/23 Status: Ordered aspirin 81 mg oral tablet 1 tablet = 81 mg, By Mouth, Daily, # 30 tablet, 0 Refills, Maintenance Start Date: 10/06/10 Status: Ordered atorvastatin 40 mg oral tablet 1 tablet, By Mouth, Daily at bedtime, # 90 tablet, 2 Refills, 12/24/22 6:43:00 EDT, [facility] #[id number], 149.3, cm, 11/11/22 9:18:00 EDT, Height, 73.9, kg, 11/11/22 9:18:00 EDT, Dry Weight Start Date: 12/24/22 Status: Ordered lisinopril 40 mg oral tablet 1 tablet, By Mouth, Daily, # 90 tablet, 0 Refills, Maintenance, 07/23/23 11:31:00 EST, [facility] #[id number], 149.3, cm, 06/17/23 9:58:00 EST, Height, 73.2, kg, 06/17/23 9:58:00 EST, Dry Weight Start Date: 07/23/23 Status: Ordered metFORMIN 500 mg oral tablet 1 tablet, By Mouth, 2 times a day, # 60 tablet, 2 Refills, Maintenance, 04/11/22 5:47:00 EDT, [facility] #[id number], 149.3, cm, 02/24/22 7:27:00 EDT, Height, 76.3, kg, 11/06/21 13:21:00 EDT, Dry Weight Start Date: 04/11/22 Status: Ordered metFORMIN 500 mg oral tablet 1 tablet = 500 mg, By Mouth, 2 times a day, # 60 tablet, 6 Refills, Maintenance, 03/29/23 13:27:00 EDT, [facility] #[id number], 149.3, cm, 03/05/23 8:16:00 EDT, Height, 73.9, kg, 11/11/22 9:18:00 EDT, Dry Weight Start Date: 03/29/23 Stop Date: 10/25/23 Status: Ordered Metoprolol Succinate ER 100 mg oral tablet, extended release 1 tablet, By Mouth, Daily, # 90 tablet, 1 Refills, Maintenance, 04/24/23 18:25:00 EDT, [facility] #[id number], 149.3, cm, 03/05/23 8:16:00 EDT, Height, 73.9, kg, 11/11/22 9:18:00 EDT, Dry Weight Start Date: 04/24/23 Status: Ordered Problem List Condition Confirmation Course [...] Care Team Personnel Name: Zoila Dorsey Position: [facility] Onco RN Member Role: Primary Care Nurse Name: Elizabeth Shepard NP Position: [facility] PCO Associate Professional Member Role: PCP Address: Address: [address] [place] [address] [place] [address]- Care Team Related Persons Name: MAC ZAMORANO Address: home [address] [place] [address] [place] [address] Name: DEBRA ZAMORANO Address: home
--- OUTSIDE RECORDS SUMMARY | 2024-04-27 10:46 | XMS_ITS | Continuity of Care Document ---
Author Organization [facility] an[facility] Care Address [address] [place] [address]- Care Team Providers Care Chief Embalmer Name Role Phone Devyn MORALES, Elizabeth Novak Primary Care Physician Encounter [facility] Date(s): 05/12/22 - 06/11/22 [facility] Care [address] [place] [id number] Allergies, Adverse Reactions, Alerts Substance Reaction Severity [...] FluLaval (oldterm) 04/08/11 Given 1Result Comment: [05/03/2017] [facility] [id number] 2Result Comment: [05/08/2016] [facility] 3Admin Note: Fluzone High dose [facility] [...] 05/20/22 7:38:00 EDT, Route to Pharmacy Electronically, [facility] #[id number], 149.3, cm, 05/12/22 9:17:00 EDT, Height, 75, kg, 05/12/22 9:17:00 EDT, Dry Weight Start Date: 05/20/22 Status: Ordered amLODIPine 2.5 mg oral tablet 1 tablet, By Mouth, Daily, # 90 tablet, 3 Refills, Maintenance, 02/21/21 9:09:00 EDT, [facility] #[id number], 149.3, cm, 02/21/21 8:42:00 EDT, Height, 73.7, kg, 01/23/21 10:06:00 EDT, Dry Weight Start Date: 02/21/21 Stop Date: 08/20/21 Status: Ordered anastrozole 1 mg oral tablet 1 tablet, By Mouth, Daily, # 90 tablet, 3 Refills, Maintenance, 05/12/22 22:16:00 EDT, [facility] #[id number], 149.3, cm, 05/12/22 9:17:00 EDT, Height, 75, kg, 05/12/22 9:17:00 EDT, Dry Weight Start Date: 05/12/22 Status: Ordered aspirin 81 mg oral tablet 1 tablet = 81 mg, By Mouth, Daily, # 30 tablet, 0 Refills, Maintenance Start Date: 10/06/10 Status: Ordered atorvastatin 40 mg oral tablet 1 tablet, By Mouth, Daily at bedtime, # 90 tablet, 1 Refills, [facility] #38529, 149.3, cm, 11/06/21 13:21:00 EDT, Height, 76.3, kg, 11/06/21 13:21:00 EDT, Dry Weight Start Date: 12/30/21 Status: Ordered lisinopril 40 mg oral tablet 1 tablet, By Mouth, Daily, # 90 tablet, 1 Refills, Maintenance, 05/19/22 17:17:00 EDT, [facility] #[id number], 149.3, cm, 05/12/22 9:17:00 EDT, Height, 75, kg, 05/12/22 9:17:00 EDT, Dry Weight Start Date: 05/19/22 Status: Ordered metFORMIN 500 mg oral tablet 1 tablet, By Mouth, 2 times a day, # 60 tablet, 2 Refills, Maintenance, 04/11/22 5:47:00 EDT, [facility] #[id number], 149.3, cm, 02/24/22 7:27:00 EDT, Height, 76.3, kg, 11/06/21 13:21:00 EDT, Dry Weight Start Date: 04/11/22 Status: Ordered Metoprolol Succinate ER 100 mg oral tablet, extended release 1 tablet, By Mouth, Daily, # 90 tablet, 1 Refills, Maintenance, 12/30/21 12:34:00 EDT, [facility] #[id number], 149.3, cm, 11/06/21 13:21:00 EDT, Height, 76.3, [...] Care Team Personnel Name: Zoila Dorsey Position: [facility] Onco RN Member Role: Primary Care Nurse Name: Devyn MORALES, Elizabeth Novak Position: [facility] PCO Associate Professional Member Role: PCP Address: Address: [address] [facility] [place] [address]- Care Team Related Persons Name: MAC ZAMORANO Address: home [address] [place] [address] Name: DEBRA ZAMORANO Address: home [facility]
--- OUTSIDE RECORDS SUMMARY | 2024-04-27 10:46 | XMS_ITS | Continuity of Care Document ---
Author Organization [facility] Henr[facility] lt Address [address] [place] [address]- Care Team Providers Care Air Export Coordinator Name Role Phone Devyn MORALES, Elizabeth Novak Primary Care Physician Encounter [facility] [id number] Date(s): 09/14/23 - 09/21/23 [facility] Adult [address] [place] [address]- Encounter Diagnosis Hypertension(Discharge Diagnosis) - 09/14/23 Attending Physician: Elizabeth Shepard NP Referring Physician: Leander Greer MD Allergies, Adverse Reactions, Alerts Substance Reaction Severity Status Seafood Active Immunizations Given and Recorded Vaccine Date Status Refusal Reason Influenza Virus Vaccine (oldterm) 1 04/20/23 Recor ded Influenza Virus Vaccine (oldterm) 06/19/21 Recorde d SARS-CoV-2 mRNA (zckttdz-pldd-tvyle) vax 2 04/20/23 Recorded pneumococcal 20-valent conjugate [...] n FluLaval (oldterm) 04/08/11 Given 1Result Comment: [facility] [place] 2Result Comment: [facility] [place] 3Result Comment: [05/03/2017] [facility] [id number] [phone] 4Result Comment: [05/08/2016] [facility] 5Admin [...] 07/23/23 4:36:00 EST, Route to Pharmacy Electronically, [facility] #[id number], 149.3, cm, 06/17/23 9:58:00 EST, Height, 73.2, kg, 06/17/23 9:58:00 EST, Dry Weight Start Date: 07/23/23 Status: Ordered amLODIPine 2.5 mg oral tablet 1 tablet, By Mouth, Daily, # 90 tablet, 3 Refills, Maintenance, 06/30/22 10:38:00 EST, [facility] #[id number], 149.3, cm, 05/12/22 9:17:00 EDT, Height, 75, kg, 05/12/22 9:17:00 EDT, Dry Weight Start Date: 06/30/22 Status: Ordered anastrozole 1 mg oral tablet 1 tablet, By Mouth, Daily, # 90 tablet, 3 Refills, Maintenance, 06/15/23 17:01:00 EST, [facility] #[id number], 149.3, cm, 03/05/23 8:16:00 EDT, Height, 73.9, kg, 11/11/22 9:18:00 EDT, Dry Weight Start Date: 06/15/23 Status: Ordered aspirin 81 mg oral tablet 1 tablet = 81 mg, By Mouth, Daily, # 30 tablet, 0 Refills, Maintenance Start Date: 10/06/10 Status: Ordered atorvastatin 40 mg oral tablet 1 tablet, By Mouth, Daily at bedtime, # 90 tablet, 2 Refills, 12/24/22 6:43:00 EDT, [facility] #[id number], 149.3, cm, 11/11/22 9:18:00 EDT, Height, 73.9, kg, 11/11/22 9:18:00 EDT, Dry Weight Start Date: 12/24/22 Status: Ordered lisinopril 40 mg oral tablet 1 tablet, By Mouth, Daily, # 90 tablet, 0 Refills, Maintenance, 07/23/23 11:31:00 EST, [facility] #[id number], 149.3, cm, 06/17/23 9:58:00 EST, Height, 73.2, kg, 06/17/23 9:58:00 EST, Dry Weight Start Date: 07/23/23 Status: Ordered metFORMIN 500 mg oral tablet 1 tablet = 500 mg, By Mouth, 2 times a day, # 60 tablet, 6 Refills, Maintenance, 03/29/23 13:27:00 EDT, [facility] #[id number], 149.3, cm, 03/05/23 8:16:00 EDT, Height, 73.9, kg, 11/11/22 9:18:00 EDT, Dry Weight Start Date: 03/29/23 Stop Date: 10/25/23 Status: Ordered Metoprolol Succinate ER 100 mg oral tablet, extended release 1 tablet, By Mouth, Daily, # 90 tablet, 1 Refills, Maintenance, 04/24/23 18:25:00 EDT, [facility] #[id number], 149.3, cm, 03/05/23 8:16:00 EDT, Height, 73.9, [...] 12/2020 Active Obese class I Confirmed Active Diagnosis Diagnosis Type Effective Dates Health Status Cl inical Service Informant Hypertension Discharge Diagnosis 09/14/23 Vital Signs Most recent to oldest [Reference Range]: 1 2 3 Height 149.3 cm (09/14/23 8:57 AM) 149.3 cm (09/14/23 8:43 AM) Weight 73.1 kg (09/14/23 8:43 AM) Oxygen Saturation [94-100 %] 100 % (09/14/23 8:43 AM) Pulse Rate [55-90 bpm] 74 bpm (09/14/23 8:43 AM) Body Mass Index [18.5-24.99 kg/m2] 32.79 kg/m2 *>HHI* (09/14/23 8:43 AM) Blood Pressure [90-138/55-84 mm Hg] 140/88mm Hg *H* (09/14/23 9:09 AM) 184/95mm Hg *H* (09/14/23 8:57 AM) 180/93mm Hg *H* (09/14/23 8:43 AM) Blood pressure sites Arm, left (09/14/23 9:09 AM) Arm, left (09/14/23 8:57 AM) Arm, left (09/14/23 8:43 AM) Weight Obtained Via Standing scale (09/14/23 8:43 AM) Social History Social History Type Response Smoking Status Never smoker entered on: 10/13/16 Sex Patient Care team information Care Team Personnel Name: Zoila Dorsey Position: [facility] Onco RN Member Role: Primary Care Nurse Name: Devyn MORALES, Elizabeth Novak Position: [facility] PCO Associate Professional Member Role: PCP Address: Address: [address] [place] [address] [place] [address]- Care Team Related Persons Name: MAC ZAMORANO Address: [address] [place] [address] Name: DEBRA ZAMORANO Address: home
--- OUTSIDE RECORDS SUMMARY | 2024-04-27 10:46 | XMS_ITS | Continuity of Care Document ---
Author Organization [facility] Address [address] [place] [address]- Care Team Providers Care Airport Shuttle Driver Name Role Phone Sunny Cannon MD Primary Care Physician [place] [facility] [place] 05/07/21 - 06/06/21 [facility] [address] [place] [address]- Attending Physician: Admgalileo, Fang Admitting Physician: Admtr, Fang Referring Physician: Admtr, Ar8 Allergies, Adverse Reactions, Alerts Substance Reaction Severity [...] FluLaval (oldterm) 04/08/11 Given 1Result Comment: [05/03/2017] [facility] [id number] 2Result Comment: [05/08/2016] [facility] 3Admin Note: Fluzone High dose [facility] 4Admin Note: [facility] 5Admin Note: [facility] 04-01-12 Medications Acetaminophen = 500 mg, By Mouth, Daily at bedtime, 2 tabs, 0 Refills, Maintenance, 03/27/16 8:06:31 EDT Start Date: 03/27/16 Status: Ordered allopurinol 100 mg oral tablet 1, tablet, By Mouth, Daily, # 90 tablet, Refills 1, Route to Pharmacy Electronically, [facility] #[id number], 149.3, cm, 02/21/21 8:42:00 EDT, Height, 73.7, kg, 01/23/21 10:06:00 EDT, Dry Weight Start Date: 04/15/21 Status: Ordered amLODIPine 2.5 mg oral tablet 1 tablet, By Mouth, Daily, # 90 tablet, 3 Refills, Maintenance, 02/21/21 9:09:00 EDT, [facility] #[id number], 149.3, cm, 02/21/21 8:42:00 EDT, Height, 73.7, kg, 01/23/21 10:06:00 EDT, Dry Weight Start Date: 02/21/21 Stop Date: 08/20/21 Status: Ordered anastrozole 1 mg oral tablet 1 tablet, By Mouth, Daily, # 90 tablet, 3 Refills, Maintenance, 04/30/21 16:05:00 EDT, [facility] #[id number], 149.3, cm, 02/21/21 8:42:00 EDT, Height, 73.7, kg, 01/23/21 10:06:00 EDT, Dry Weight Start Date: 04/30/21 Status: Ordered aspirin 81 mg oral tablet 1 tablet = 81 mg, By Mouth, Daily, # 30 tablet, 0 Refills, Maintenance Start Date: 10/06/10 Status: Ordered atorvastatin 40 mg oral tablet 1 tablet, By Mouth, Daily at bedtime, # 90 tablet, 3 Refills, Maintenance, 09/18/19 13:19:00 EST, [facility] #[id number], 150.5, cm, 08/02/18 14:01:00 EST, Height Start Date: 09/18/19 Status: Ordered lisinopril 40 mg oral tablet 1 tablet = 40 mg, By Mouth, Daily, # 90 tablet, 0 Refills, Maintenance, 12/31/20 15:29:00 EDT, Tablet, [facility] #[id number], Office visit needed for further refills., 150.5, cm, 12/27/20 13:27:00 EDT, Height Start Date: 12/31/20 Status: Ordered metFORMIN 500 mg oral tablet 1 tablet, By Mouth, 2 times a day, # 60 tablet, 2 Refills, Maintenance, 01/16/21 9:01:00 EDT, [facility] #21427, 149.86, cm, 01/10/21 6:27:00 EDT, Height, 74.2, kg, 01/10/21 6:27:00 EDT, Dry Weight Start Date: 01/16/21 Status: Ordered Metoprolol Succinate ER 100 mg oral tablet, extended release 1 tablet = 100 mg, By Mouth, Daily, # 90 tablet, 1 Refills, Maintenance, 01/11/20 11:36:00 EDT, [facility] #[id number], 150.5, cm, 08/02/18 14:01:00 EST, Height Start Date: 01/11/20 Status: Ordered spironolactone 25 mg oral tablet 1, tablet, By Mouth, 2 times a day, LABS NEEDED FOR ADDITIONAL REFILLS, # 180 tablet, Refills 3, Route to Pharmacy Electronically, [facility] #[id number], 149.3, cm, 02/21/21 8:42:00 EDT, Height, 73.7, [...] in female, 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 Social History Social History Type Response Smoking Status Never smoker entered on: 10/13/16 Sex
--- OUTSIDE RECORDS SUMMARY | 2024-04-27 10:46 | XMS_ITS | Continuity of Care Document ---
Author Organization [facility] Hen[facility] lt Address [address] [place] [address]- Care Team Providers Care Java Developer Consultant Name Role Phone Devyn MORALES, Elizabeth Novak Primary Care Physician [phone] Encounter [facility] Date(s): 11/03/23 - 12/03/23 [facility] Adult [address] [place] [address]- Allergies, Adverse Reactions, Alerts Substance Reaction Severity Status Seafood Active Immunizations Given and Recorded Vaccine Date Status Refusal Reason Influenza Virus Vaccine (oldterm) 1 04/20/23 Recor ded Influenza Virus Vaccine (oldterm) 06/19/21 Recorde d SARS-CoV-2 mRNA (sfwmqul-riij-apbls) vax 2 04/20/23 Recorded pneumococcal 20-valent conjugate [...] (oldterm) 04/08/11 Given 1Result Comment: [facility] [place] 2Result Comment: [facility] [place] 3Result Comment: [05/03/2017] [facility] [id number] 4Result Comment: [05/08/2016] [facility] 5Admin [...] 07/23/23 4:36:00 EST, Route to Pharmacy Electronically, [facility] #[id number], 149.3, cm, 06/17/23 9:58:00 EST, Height, 73.2, kg, 06/17/23 9:58:00 EST, Dry Weight Start Date: 07/23/23 Status: Ordered amLODIPine 2.5 mg oral tablet 1 tablet, By Mouth, Daily, # 90 tablet, 0 Refills, Maintenance, 10/06/23 16:30:00 EDT, [facility] #[id number], 149.3, cm, 09/14/23 8:57:00 EST, Height, 73.2, kg, 06/17/23 9:58:00 EST, Dry Weight Start Date: 10/06/23 Status: Ordered anastrozole 1 mg oral tablet 1 tablet, By Mouth, Daily, # 90 tablet, 3 Refills, Maintenance, 06/15/23 17:01:00 EST, [facility] #[id number], 149.3, cm, 03/05/23 8:16:00 EDT, Height, 73.9, kg, 11/11/22 9:18:00 EDT, Dry Weight Start Date: 06/15/23 Status: Ordered aspirin 81 mg oral tablet 1 tablet = 81 mg, By Mouth, Daily, # 30 tablet, 0 Refills, Maintenance Start Date: 10/06/10 Status: Ordered atorvastatin 40 mg oral tablet 1 tablet, By Mouth, Daily at bedtime, # 90 tablet, 1 Refills, Maintenance, 11/17/23 9:07:00 EDT, [facility] #[id number], 149.3, cm, 09/14/23 8:57:00 EST, Height, 73.2, kg, 06/17/23 9:58:00 EST, Dry Weight Start Date: 11/17/23 Status: Ordered lisinopril 40 mg oral tablet 1 tablet, By Mouth, Daily, # 90 tablet, 1 Refills, Maintenance, 11/03/23 0:09:00 EDT, [facility] #[id number], Please ask patient to call the office and schedule an appt for further refills, 149.3, cm, 09/14/23 8:57:00 EST, Height, 73.2, kg, 06/17... Start Date: 11/03/23 Status: Ordered metFORMIN 500 mg oral tablet 1 tablet = 500 mg, By Mouth, 2 times a day, # 60 tablet, 6 Refills, Maintenance, 03/29/23 13:27:00 EDT, [facility] #[id number], 149.3, cm, 03/05/23 8:16:00 EDT, Height, 73.9, kg, 11/11/22 9:18:00 EDT, Dry Weight Start Date: 03/29/23 Stop Date: 10/25/23 Status: Ordered Metoprolol Succinate ER 100 mg oral tablet, extended release 1 tablet, By Mouth, Daily, # 90 tablet, 1 Refills, Maintenance, 11/17/23 9:07:00 EDT, [facility] #09727, 149.3, cm, 09/14/23 8:57:00 EST, Height, 73.2, kg, 06/17/23 9:58:00 EST, Dry Weight Start Date: 11/17/23 Status: Ordered Problem List Condition Confirmation Course [...] Care team information Care Team Personnel Name: Willian , Zoila Position: [facility] Onco RN Member Role: Primary Care Nurse Name: Elizabeth Shepard NP Position: [facility] PCO Associate Professional Member Role: PCP Address: Address: [address] [place] [address]- Care Team Related Persons Name: MAC ZAMORANO Address: home [address] [place] [address] [place] [address] Name: DEBRA ZAMORANO Address: home
--- OUTSIDE RECORDS SUMMARY | 2024-04-27 10:46 | XMS_ITS | Continuity of Care Document ---
Author Organization [facility] lt Address [address] [place] [address]- Care Team Providers Care Gore Seamer Name Role Phone Devyn MORALES, Elizabeth Novak Primary Care Physician Encounter [facility] Date(s): 02/27/22 - 03/29/22 [facility] Adult [address] [place] [address]- Allergies, Adverse Reactions, Alerts Substance Reaction Severity [...] FluLaval (oldterm) 04/08/11 Given 1Result Comment: [05/03/2017] [facility] [id number] 2Result Comment: [05/08/2016] [facility] 3Admin [...] 07/09/21 9:53:00 EST, Route to Pharmacy Electronically, [facility] #[id number], 149.3, cm, 05/27/21 11:52:00 EST, Height, 75, kg, 05/08/21 10:48:00 EDT, Dry Weight Start Date: 07/09/21 Status: Ordered amLODIPine 2.5 mg oral tablet 1 tablet, By Mouth, Daily, # 90 tablet, 3 Refills, Maintenance, 02/21/21 9:09:00 EDT, [facility] #[id number], 149.3, cm, 02/21/21 8:42:00 EDT, Height, 73.7, kg, 01/23/21 10:06:00 EDT, Dry Weight Start Date: 02/21/21 Stop Date: 08/20/21 Status: Ordered anastrozole 1 mg oral tablet 1 tablet, By Mouth, Daily, # 90 tablet, 3 Refills, Maintenance, 04/30/21 16:05:00 EDT, [facility] #[id number], 149.3, cm, 02/21/21 8:42:00 EDT, Height, 73.7, kg, 01/23/21 10:06:00 EDT, Dry Weight Start Date: 04/30/21 Status: Ordered aspirin 81 mg oral tablet 1 tablet = 81 mg, By Mouth, Daily, # 30 tablet, 0 Refills, Maintenance Start Date: 10/06/10 Status: Ordered atorvastatin 40 mg oral tablet 1 tablet, By Mouth, Daily at bedtime, # 90 tablet, 1 Refills, [facility] #27813, 149.3, cm, 11/06/21 13:21:00 EDT, Height, 76.3, kg, 11/06/21 13:21:00 EDT, Dry Weight Start Date: 12/30/21 Status: Ordered lisinopril 40 mg oral tablet 1 tablet = 40 mg, By Mouth, Daily, # 90 tablet, 1 Refills, Maintenance, 11/06/21 8:56:00 EDT, Tablet, [facility] #[id number], 149.3, cm, 08/27/21 9:29:00 EST, Height, 75, kg, 05/08/21 10:48:00 EDT, Dry Weight Start Date: 11/06/21 Status: Ordered metFORMIN 500 mg oral tablet 1 tablet, By Mouth, 2 times a day, # 60 tablet, 5 Refills, Maintenance, 09/30/21 13:26:00 EDT, [facility] #[id number], 149.3, cm, 08/27/21 9:29:00 EST, Height, 75, kg, 05/08/21 10:48:00 EDT, DryWeight Start Date: 09/30/21 Status: Ordered Metoprolol Succinate ER 100 mg oral tablet, extended release 1 tablet, By Mouth, Daily, # 90 tablet, 1 Refills, Maintenance, 12/30/21 12:34:00 EDT, [facility] #[id number], 149.3, cm, 11/06/21 13:21:00 EDT, Height, 76.3, kg, 11/06/21 13:21:00 EDT, Dry Weight Start Date: 12/30/21 Status: Ordered Problem List Condition Effective Dates Status Health Status Inform ant Adult-onset obesity(Confirmed) Active Arthritis(Confirmed) Active Asthma(Confirmed) Active Bruit L carotid(Confirmed) Active Diabetes mellitus - adult onset(Confirmed) Active Gout(Confirmed) Active Hypercholesterolemia(Confirmed) Active Hypertension(Confirmed) Active 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
--- OUTSIDE RECORDS SUMMARY | 2024-04-27 10:47 | XMS_ITS | Continuity of Care Document ---
Author Organization [facility] Corona Henrry lt Address [address] [place] [address]- Care Team Providers Care Sales Recruiter Name Role Phone Devyn MORALES, Elizabeth Novak Primary Care Physician [phone] Encounter [facility] Date(s): 12/19/21 - 01/18/22 [facility] Adult [address] [place] [address]- Allergies, Adverse Reactions, Alerts Substance Reaction Severity [...] FluLaval (oldterm) 04/08/11 Given 1Result Comment: [05/03/2017] [facility] [id number] 2Result Comment: [05/08/2016] pia 3Admin [...] 07/09/21 9:53:00 EST, Route to Pharmacy Electronically, [facility] #[id number], 149.3, cm, 05/27/21 11:52:00 EST, Height, 75, kg, 05/08/21 10:48:00 EDT, Dry Weight Start Date: 07/09/21 Status: Ordered amLODIPine 2.5 mg oral tablet 1 tablet, By Mouth, Daily, # 90 tablet, 3 Refills, Maintenance, 02/21/21 9:09:00 EDT, [facility] #[id number], 149.3, cm, 02/21/21 8:42:00 EDT, Height, 73.7, kg, 01/23/21 10:06:00 EDT, Dry Weight Start Date: 02/21/21 Stop Date: 08/20/21 Status: Ordered anastrozole 1 mg oral tablet 1 tablet, By Mouth, Daily, # 90 tablet, 3 Refills, Maintenance, 04/30/21 16:05:00 EDT, [facility] #[id number], 149.3, cm, 02/21/21 8:42:00 EDT, Height, 73.7, kg, 01/23/21 10:06:00 EDT, Dry Weight Start Date: 04/30/21 Status: Ordered aspirin 81 mg oral tablet 1 tablet = 81 mg, By Mouth, Daily, # 30 tablet, 0 Refills, Maintenance Start Date: 10/06/10 Status: Ordered atorvastatin 40 mg oral tablet 1 tablet, By Mouth, Daily at bedtime, # 90 tablet, 1 Refills, [facility] #[id number], 149.3, cm, 11/06/21 13:21:00 EDT, Height, 76.3, kg, 11/06/21 13:21:00 EDT, Dry Weight Start Date: 12/30/21 Status: Ordered lisinopril 40 mg oral tablet 1 tablet = 40 mg, By Mouth, Daily, # 90 tablet, 1 Refills, Maintenance, 11/06/21 8:56:00 EDT, Tablet, [facility] #[id number], 149.3, cm, 08/27/21 9:29:00 EST, Height, 75, kg, 05/08/21 10:48:00 EDT, Dry Weight Start Date: 11/06/21 Status: Ordered metFORMIN 500 mg oral tablet 1 tablet, By Mouth, 2 times a day, # 60 tablet, 5 Refills, Maintenance, 09/30/21 13:26:00 EDT, [facility] #[id number], 149.3, cm, 08/27/21 9:29:00 EST, Height, 75, kg, 05/08/21 10:48:00 EDT, DryWeight Start Date: 09/30/21 Status: Ordered Metoprolol Succinate ER 100 mg oral tablet, extended release 1 tablet, By Mouth, Daily, # 90 tablet, 1 Refills, Maintenance, 12/30/21 12:34:00 EDT, [facility] #[id number], 149.3, cm, 11/06/21 13:21:00 EDT, Height, 76.3, kg, 11/06/21 13:21:00 EDT, Dry Weight Start Date: 12/30/21 Status: Ordered spironolactone 25 mg oral tablet 1, tablet, By Mouth, 2 times a day, LABS NEEDED FOR ADDITIONAL REFILLS, # 180 tablet, Refills 3, Route to Pharmacy Electronically, [facility] #[id number], 149.3, cm, 02/21/21 8:42:00 EDT, Height, 73.7, [...]
--- OUTSIDE RECORDS SUMMARY | 2024-04-27 10:47 | XMS_ITS | Continuity of Care Document ---
Author Organization [facility] Corona Henrry lt Address [address] [place] [address]- Care Team Providers Care Branch Employment Coordinator Name Role Phone Devyn MORALES, Elizabeth Novak Primary Care Physician [phone] Encounter [facility] Date(s): 11/16/23 - 12/16/23 [facility] Adult [address] [place] [address]- Allergies, Adverse Reactions, Alerts Substance Reaction Severity Status Seafood Active Immunizations Given and Recorded Vaccine Date Status Refusal Reason Influenza Virus Vaccine (oldterm) 1 04/20/23 Recor ded Influenza Virus Vaccine (oldterm) 06/19/21 Recorde d SARS-CoV-2 mRNA ([id number]) vax 2 04/20/23 Recorded pneumococcal 20-valent conjugate [...] (oldterm) 04/08/11 Given 1Result Comment: [facility] [place] 2Result Comment: [facility] [place] 3Result Comment: [05/03/2017] [facility] [id number] 4Result Comment: [05/08/2016] [facility] 5Admin [...] 07/23/23 4:36:00 EST, Route to Pharmacy Electronically, [facility] #[id number], 149.3, cm, 06/17/23 9:58:00 EST, Height, 73.2, kg, 06/17/23 9:58:00 EST, Dry Weight Start Date: 07/23/23 Status: Ordered amLODIPine 2.5 mg oral tablet 1 tablet, By Mouth, Daily, # 90 tablet, 0 Refills, Maintenance, 10/06/23 16:30:00 EDT, [facility] #[id number], 149.3, cm, 09/14/23 8:57:00 EST, Height, 73.2, kg, 06/17/23 9:58:00 EST, Dry Weight Start Date: 10/06/23 Status: Ordered anastrozole 1 mg oral tablet 1 tablet, By Mouth, Daily, # 90 tablet, 3 Refills, Maintenance, 06/15/23 17:01:00 EST, [facility] #[id number], 149.3, cm, 03/05/23 8:16:00 EDT, Height, 73.9, kg, 11/11/22 9:18:00 EDT, Dry Weight Start Date: 06/15/23 Status: Ordered aspirin 81 mg oral tablet 1 tablet = 81 mg, By Mouth, Daily, # 30 tablet, 0 Refills, Maintenance Start Date: 10/06/10 Status: Ordered atorvastatin 40 mg oral tablet 1 tablet, By Mouth, Daily at bedtime, # 90 tablet, 1 Refills, Maintenance, 11/17/23 9:07:00 EDT, [facility] #[id number], 149.3, cm, 09/14/23 8:57:00 EST, Height, 73.2, kg, 06/17/23 9:58:00 EST, Dry Weight Start Date: 11/17/23 Status: Ordered lisinopril 40 mg oral tablet 1 tablet, By Mouth, Daily, # 90 tablet, 1 Refills, Maintenance, 11/03/23 0:09:00 EDT, [facility] #[id number], Please ask patient to call the office and schedule an appt for further refills, 149.3, cm, 09/14/23 8:57:00 EST, Height, 73.2, kg, 06/17... Start Date: 11/03/23 Status: Ordered metFORMIN 500 mg oral tablet 1 tablet = 500 mg, By Mouth, 2 times a day, # 60 tablet, 6 Refills, Maintenance, 03/29/23 13:27:00 EDT, [facility] #[id number], 149.3, cm, 03/05/23 8:16:00 EDT, Height, 73.9, kg, 11/11/22 9:18:00 EDT, Dry Weight Start Date: 03/29/23 Stop Date: 10/25/23 Status: Ordered Metoprolol Succinate ER 100 mg oral tablet, extended release 1 tablet, By Mouth, Daily, # 90 tablet, 1 Refills, Maintenance, 11/17/23 9:07:00 EDT, [facility] #[id number], 149.3, cm, 09/14/23 8:57:00 EST, Height, 73.2, [...] female, estrogen receptor positive Confirmed 12/2020 Active Breast cancer Confirmed Active Obese class I Confirmed Active Osteoporosis Confirmed Active Social History Social History Type Response Smoking Status Never smoker entered on: 10/13/16 Sex Patient Care team information Care Team Personnel Name: Zoila Dorsey Position: [facility] Onco RN Member Role: Primary Care Nurse Name: Elizabeth Shepard NP Position: [facility] PCO Associate Professional Member Role: PCP Address: Address: [address] [place] [id number]- Care Team Related Persons Name: MAC ZAMORANO Address: home [address] [place] [address] [place] [address] Name: DEBRA ZAMORANO Address: home
--- OUTSIDE RECORDS SUMMARY | 2024-04-27 10:47 | XMS_ITS | Continuity of Care Document ---
Author Organization [facility] Address [address] [place] [address]- Care Team Providers Care Webmethods Consultant Name Role Phone Sunny Cannon MD Primary Care Physician [phone] Encounter [facility] Date(s): 12/31/20 - 01/30/21 [facility] [address] [place] [id number] Attending Physician: Fang Parker Admitting Physician: AdmtrFang Referring Physician: Admtr, Fang Allergies, Adverse Reactions, Alerts Substance Reaction Severity [...] FluLaval (oldterm) 04/08/11 Given 1Result Comment: [05/03/2017] [facility] [id number] 2Result Comment: [05/08/2016] p[facility] 3Admin [...] 10/17/20 9:52:00 EDT, Route to Pharmacy Electronically, [facility] #[id number], D/C RX FOR THE 90 DAY SUPPLY PREVIOUSLY SENT, 150.5, cm, 02/19/20 11:58:00 ED... Start Date: 10/17/20 Status: Ordered amLODIPine 2.5 mg oral tablet 1 tablet, By Mouth, Daily, # 90 tablet, 1 Refills, Maintenance, 10/25/20 8:14:00 EDT, [facility] #[id number], 150.5, cm, 02/19/20 11:58:00 EDT, Height Start Date: 10/25/20 Stop Date: 04/23/21 Status: Ordered anastrozole 1 mg oral tablet 1 tablet, By Mouth, Daily, # 90 tablet, 0 Refills, Maintenance, 01/21/21 15:10:00 EDT, [facility] #[id number], 149.86, cm, 01/21/21 14:09:00 EDT, Height, 73.8, kg, 01/21/21 14:09:00 EDT, Dry Weight Start Date: 01/21/21 Status: Ordered aspirin 81 mg oral tablet 1 tablet = 81 mg, By Mouth, Daily, # 30 tablet, 0 Refills, Maintenance Start Date: 10/06/10 Status: Ordered atorvastatin 40 mg oral tablet 1 tablet, By Mouth, Daily at bedtime, # 90 tablet, 3 Refills, Maintenance, 09/18/19 13:19:00 EST, [facility] #[id number], 150.5, cm, 08/02/18 14:01:00 EST, Height Start Date: 09/18/19 Status: Ordered lisinopril 40 mg oral tablet 1 tablet = 40 mg, By Mouth, Daily, # 90 tablet, 0 Refills, Maintenance, 12/31/20 15:29:00 EDT, Tablet, [facility] #[id number], Office visit needed for further refills., 150.5, cm, 12/27/20 13:27:00 EDT, Height Start Date: 12/31/20 Status: Ordered metFORMIN 500 mg oral tablet 1 tablet, By Mouth, 2 times a day, # 60 tablet, 2 Refills, Maintenance, 01/16/21 9:01:00 EDT, [facility] #[id number], 149.86, cm, 01/10/21 6:27:00 EDT, Height, 74.2, kg, 01/10/21 6:27:00 EDT, Dry Weight Start Date: 01/16/21 Status: Ordered Metoprolol Succinate ER 100 mg oral tablet, extended release 1 tablet = 100 mg, By Mouth, Daily, # 90 tablet, 1 Refills, Maintenance, 01/11/20 11:36:00 EDT, [facility] #[id number], 150.5, cm, 08/02/18 14:01:00 EST, Height Start Date: 01/11/20 Status: Ordered spironolactone 25 mg oral tablet 1, tablet, By Mouth, 2 times a day, LABS NEEDED FOR ADDITIONAL REFILLS, # 180 tablet, Refills 0, Tot. Refills 0, Maintenance, 07/18/20 17:58:00 EST, Route to Pharmacy Electronically, [facility] #[id number], 150.5, cm, 02/19/20 11:58:00 EDT, Height Start [...]
--- OUTSIDE RECORDS SUMMARY | 2024-04-27 10:47 | XMS_ITS | Continuity of Care Document ---
Author Organization [facility] Address [address] [place] [address]- Care Team Providers Care Ore Feeder Name Role Phone Devyn MORALES, Elizabeth Novak Primary Care Physician Encounter [facility] R [id number] Date(s): 10/30/21 - 11/29/21 [facility] [address] [place] [id number] Attending Physician: Fang Parker Admitting Physician: AdmtrFang Referring Physician: Admtr, Ar8 Allergies, Adverse Reactions, [...] FluLaval (oldterm) 04/08/11 Given 1Result Comment: [05/03/2017] [facility] [id number] 2Result Comment: [05/08/2016] [facility] 3Admin Note: Fluzone High dose Stop & [...] 07/09/21 9:53:00 EST, Route to Pharmacy Electronically, [facility] #[id number], 149.3, cm, 05/27/21 11:52:00 EST, Height, 75, kg, 05/08/21 10:48:00 EDT, Dry Weight Start Date: 07/09/21 Status: Ordered amLODIPine 2.5 mg oral tablet 1 tablet, By Mouth, Daily, # 90 tablet, 3 Refills, Maintenance, 02/21/21 9:09:00 EDT, [facility] #[id number], 149.3, cm, 02/21/21 8:42:00 EDT, Height, 73.7, kg, 01/23/21 10:06:00 EDT, Dry Weight Start Date: 02/21/21 Stop Date: 08/20/21 Status: Ordered anastrozole 1 mg oral tablet 1 tablet, By Mouth, Daily, # 90 tablet, 3 Refills, Maintenance, 04/30/21 16:05:00 EDT, [facility] #[id number], 149.3, cm, 02/21/21 8:42:00 EDT, Height, 73.7, kg, 01/23/21 10:06:00 EDT, Dry Weight Start Date: 04/30/21 Status: Ordered aspirin 81 mg oral tablet 1 tablet = 81 mg, By Mouth, Daily, # 30 tablet, 0 Refills, Maintenance Start Date: 10/06/10 Status: Ordered atorvastatin 40 mg oral tablet 1 tablet, By Mouth, Daily at bedtime, # 90 tablet, 0 Refills, Maintenance, 09/24/21 12:38:00 EST, [facility] #[id number], 149.3, cm, 08/27/21 9:29:00 EST, Height, 75, kg, 05/08/21 10:48:00 EDT, Dry Weight Start Date: 09/24/21 Status: Ordered lisinopril 40 mg oral tablet 1 tablet = 40 mg, By Mouth, Daily, # 90 tablet, 1 Refills, Maintenance, 11/06/21 8:56:00 EDT, Tablet, [facility] #[id number], 149.3, cm, 08/27/21 9:29:00 EST, Height, 75, kg, 05/08/21 10:48:00 EDT, Dry Weight Start Date: 11/06/21 Status: Ordered metFORMIN 500 mg oral tablet 1 tablet, By Mouth, 2 times a day, # 60 tablet, 5 Refills, Maintenance, 09/30/21 13:26:00 EDT, [facility] #[id number], 149.3, cm, 08/27/21 9:29:00 EST, Height, 75, kg, 05/08/21 10:48:00 EDT, DryWeight Start Date: 09/30/21 Status: Ordered Metoprolol Succinate ER 100 mg oral tablet, extended release 1 tablet = 100 mg, By Mouth, Daily, # 90 tablet, 1 Refills, Maintenance, 06/16/21 9:00:00 EST, [facility] #[id number], 149.3, cm, 05/27/21 11:52:00 EST, Height, 75, kg, 05/08/21 10:48:00 EDT, Dry Weight Start Date: 06/16/21 Status: Ordered spironolactone 25 mg oral tablet 1, tablet, By Mouth, 2 times a day, LABS NEEDED FOR ADDITIONAL REFILLS, # 180 tablet, Refills 3, Route to Pharmacy Electronically, [facility] #[id number], 149.3, cm, 02/21/21 8:42:00 EDT, Height, 73.7, [...]
--- OUTSIDE RECORDS SUMMARY | 2024-04-27 10:47 | XMS_ITS | Continuity of Care Document ---
Author Organization [facility] Corona Henrry lt Address [address] [place] [address]- Care Team Providers Care International Relations Professor Name Role Phone Kassandra MELCHOR, Sunny Lubin Primary Care Physician [phone] Encounter [facility] Date(s): 02/26/20 - 03/27/20 [facility] Adult [address] [place] [address]- [facility] Allergies, Adverse Reactions, Alerts Substance Reaction Severity [...] Given 1Result Comment: [05/03/2017] [facility] [id number] 2Result Comment: [05/08/2016] [facility] 3Admin [...] 01/11/20 11:36:00 EDT, Route to Pharmacy Electronically, [facility] #[id number], D/C RX FOR THE 90 DAY SUPPLY PREVIOUSLY SENT, 150.5, cm, 08/02/18 14:01:00 E... Start Date: 01/11/20 Status: Ordered amLODIPine 2.5 mg oral tablet 1 tablet, By Mouth, Daily, # 90 tablet, 1 Refills, Maintenance, 02/27/20 15:44:00 EDT, [facility] #[id number], 150.5, cm, 02/19/20 11:58:00 EDT, Height Start Date: 02/27/20 Status: Ordered aspirin 81 mg oral tablet 1 tablet = 81 mg, By Mouth, Daily, # 30 tablet, 0 Refills, Maintenance Start Date: 10/06/10 Status: Ordered atorvastatin 40 mg oral tablet 1 tablet, By Mouth, Daily at bedtime, # 90 tablet, 3 Refills, Maintenance, 09/18/19 13:19:00 EST, [facility] #[id number], 150.5, cm, 08/02/18 14:01:00 EST, Height Start Date: 09/18/19 Status: Ordered Calcium 600 +D oral tablet 1 tablet, By Mouth, 3 times a day, 0 Refills, Maintenance, 06/28/14 15:57:57 Start Date: 06/28/14 Status: Ordered lisinopril 40 mg oral tablet 1 tablet = 40 mg, By Mouth, Daily, # 60 tablet, 0 Refills, Maintenance, 02/13/20 10:57:00 EDT, Tablet, [facility] #[id number], 150.5, cm, 08/02/18 14:01:00 EST, Height Start Date: 02/13/20 Status: Ordered metFORMIN 500 mg oral tablet 1 tablet = 500 mg, By Mouth, 2 times a day, # 60 tablet, 11 Refills, Maintenance, 07/14/19 16:00:00EST, Tablet, [facility] #[id number], 150.5, cm, 08/02/18 14:01:00 EST, Height Start Date: 07/14/19 Status: Ordered Metoprolol Succinate ER 100 mg oral tablet, extended release 1 tablet = 100 mg, By Mouth, Daily, # 90 tablet, 1 Refills, Maintenance, 01/11/20 11:36:00 EDT, [facility] #[id number], 150.5, cm, 08/02/18 14:01:00 EST, Height Start Date: 01/11/20 Status: Ordered spironolactone 25 mg oral tablet See Instructions, TAKE 1 TABLET BY MOUTH TWICE DAILY LABS NEEDED FOR ADDITIONAL REFILLS, # 180 tablet, Refills 0, Tot. Refills 0, Soft Stop, 03/15/20 8:49:00 EDT, Instructions Replace Required Details, Route to Pharmacy Electronically, [facility]... Start Date: 03/15/20 Status: Ordered Zinc = [...]
--- OUTSIDE RECORDS SUMMARY | 2024-04-27 10:47 | XMS_ITS | Continuity of Care Document ---
Author Organization [facility] Address [address] [place] [address]- Care Team Providers Care Timber Harvester Operator Name Role Phone Sunny Cannon MD Primary Care Physician Encounter [facility] Date(s): 05/27/21 - 06/26/21 [facility] [address] [place] [address]- Attending Physician: AdmFang gurrola Admitting Physician: Admtr, Fang Referring Physician: Admtr, [...] FluLaval (oldterm) 04/08/11 Given 1Result Comment: [05/03/2017] [facility] [id number] 2Result Comment: [05/08/2016] [facility] 3Admin [...] tablet, Refills 1, Route to Pharmacy Electronically, [facility] #[id number], 149.3, cm, 02/21/21 8:42:00 EDT, Height, 73.7, kg, 01/23/21 10:06:00 EDT, Dry Weight Start Date: 04/15/21 Status: Ordered amLODIPine 2.5 mg oral tablet 1 tablet, By Mouth, Daily, # 90 tablet, 3 Refills, Maintenance, 02/21/21 9:09:00 EDT, [facility] #[id number], 149.3, cm, 02/21/21 8:42:00 EDT, Height, 73.7, kg, 01/23/21 10:06:00 EDT, Dry Weight Start Date: 02/21/21 Stop Date: 08/20/21 Status: Ordered anastrozole 1 mg oral tablet 1 tablet, By Mouth, Daily, # 90 tablet, 3 Refills, Maintenance, 04/30/21 16:05:00 EDT, [facility] #[id number], 149.3, cm, 02/21/21 8:42:00 EDT, Height, 73.7, kg, 01/23/21 10:06:00 EDT, Dry Weight Start Date: 04/30/21 Status: Ordered aspirin 81 mg oral tablet 1 tablet = 81 mg, By Mouth, Daily, # 30 tablet, 0 Refills, Maintenance Start Date: 10/06/10 Status: Ordered atorvastatin 40 mg oral tablet 1 tablet, By Mouth, Daily at bedtime, # 90 tablet, 3 Refills, Maintenance, 09/18/19 13:19:00 EST, [facility] #[id number], 150.5, cm, 08/02/18 14:01:00 EST, Height Start Date: 09/18/19 Status: Ordered lisinopril 40 mg oral tablet 1 tablet = 40 mg, By Mouth, Daily, # 90 tablet, 0 Refills, Maintenance, 12/31/20 15:29:00 EDT, Tablet, [facility] #[id number], Office visit needed for further refills., 150.5, cm, 12/27/20 13:27:00 EDT, Height Start Date: 12/31/20 Status: Ordered metFORMIN 500 mg oral tablet 1 tablet, By Mouth, 2 times a day, # 60 tablet, 2 Refills, Maintenance, 01/16/21 9:01:00 EDT, [facility] #[id number], 149.86, cm, 01/10/21 6:27:00 EDT, Height, 74.2, kg, 01/10/21 6:27:00 EDT, Dry Weight Start Date: 01/16/21 Status: Ordered Metoprolol Succinate ER 100 mg oral tablet, extended release 1 tablet = 100 mg, By Mouth, Daily, # 90 tablet, 1 Refills, Maintenance, 06/16/21 9:00:00 EST, [facility] #[id number], 149.3, cm, 05/27/21 11:52:00 EST, Height, 75, kg, 05/08/21 10:48:00 EDT, Dry Weight Start Date: 06/16/21 Status: Ordered spironolactone 25 mg oral tablet 1, tablet, By Mouth, 2 times a day, LABS NEEDED FOR ADDITIONAL REFILLS, # 180 tablet, Refills 3, Route to Pharmacy Electronically, [facility] #[id number], 149.3, cm, 02/21/21 8:42:00 EDT, Height, 73.7, [...]
--- OUTSIDE RECORDS SUMMARY | 2024-04-27 10:47 | XMS_ITS | Continuity of Care Document ---
Author Organization [facility] Corona Henrry lt Address [address] [place] [address]- Care Team Providers Care Table Games Dealer Name Role Phone Devyn MORALES, Elizabeth Novak Primary Care Physician Encounter [facility] Date(s): 02/25/22 - 03/27/22 [facility] Adult [address] [place] [address]- Allergies, Adverse Reactions, Alerts Substance Reaction Severity [...] Comment: [05/03/2017] [facility] [id number] 2Result Comment: [05/08/2016] p[facility] 3Admin [...] 07/09/21 9:53:00 EST, Route to Pharmacy Electronically, [facility] #[id number], 149.3, cm, 05/27/21 11:52:00 EST, Height, 75, kg, 05/08/21 10:48:00 EDT, Dry Weight Start Date: 07/09/21 Status: Ordered amLODIPine 2.5 mg oral tablet 1 tablet, By Mouth, Daily, # 90 tablet, 3 Refills, Maintenance, 02/21/21 9:09:00 EDT, [facility] #[id number], 149.3, cm, 02/21/21 8:42:00 EDT, Height, 73.7, kg, 01/23/21 10:06:00 EDT, Dry Weight Start Date: 02/21/21 Stop Date: 08/20/21 Status: Ordered anastrozole 1 mg oral tablet 1 tablet, By Mouth, Daily, # 90 tablet, 3 Refills, Maintenance, 04/30/21 16:05:00 EDT, [facility] #[id number], 149.3, cm, 02/21/21 8:42:00 EDT, Height, 73.7, kg, 01/23/21 10:06:00 EDT, Dry Weight Start Date: 04/30/21 Status: Ordered aspirin 81 mg oral tablet 1 tablet = 81 mg, By Mouth, Daily, # 30 tablet, 0 Refills, Maintenance Start Date: 10/06/10 Status: Ordered atorvastatin 40 mg oral tablet 1 tablet, By Mouth, Daily at bedtime, # 90 tablet, 1 Refills, [facility] #[id number], 149.3, cm, 11/06/21 13:21:00 EDT, Height, 76.3, kg, 11/06/21 13:21:00 EDT, Dry Weight Start Date: 12/30/21 Status: Ordered lisinopril 40 mg oral tablet 1 tablet = 40 mg, By Mouth, Daily, # 90 tablet, 1 Refills, Maintenance, 11/06/21 8:56:00 EDT, Tablet, [facility] #[id number], 149.3, cm, 08/27/21 9:29:00 EST, Height, 75, kg, 05/08/21 10:48:00 EDT, Dry Weight Start Date: 11/06/21 Status: Ordered metFORMIN 500 mg oral tablet 1 tablet, By Mouth, 2 times a day, # 60 tablet, 5 Refills, Maintenance, 09/30/21 13:26:00 EDT, [facility] #[id number], 149.3, cm, 08/27/21 9:29:00 EST, Height, 75, kg, 05/08/21 10:48:00 EDT, DryWeight Start Date: 09/30/21 Status: Ordered Metoprolol Succinate ER 100 mg oral tablet, extended release 1 tablet, By Mouth, Daily, # 90 tablet, 1 Refills, Maintenance, 12/30/21 12:34:00 EDT, [facility] #[id number], 149.3, cm, 11/06/21 13:21:00 EDT, Height, 76.3, [...] Team Personnel Name: Elizabeth Shepard NP Address: [address] [place] [id number]
--- OUTSIDE RECORDS SUMMARY | 2024-04-27 10:47 | XMS_ITS | Continuity of Care Document ---
Author Organization [facility] Corona Hernry lt Address [address] [place] [address]- Care Team Providers Care Manager Transplant Name Role Phone Devyn MORALES, Elizabeth Novak Primary Care Physician [phone] Encounter [facility] [place] Date(s): 03/29/23 - 04/28/23 [facility] Adult [address] [place] [address]- Allergies, Adverse Reactions, Alerts Substance Reaction Severity Status Seafood Active Immunizations Given and Recorded Vaccine Date Status Refusal Reason pneumococcal 20-valent conjugate vaccine 03/05/23 Given influenza [...] FluLaval (oldterm) 04/08/11 Given 1Result Comment: [05/03/2017] [facility] [id number] 2Result Comment: [05/08/2016] [facility] 3Admin Note: Fluzone High dose Stop [...] 05/20/22 7:38:00 EDT, Route to Pharmacy Electronically, [facility] #[id number], 149.3, cm, 05/12/22 9:17:00 EDT, Height, 75, kg, 05/12/22 9:17:00 EDT, Dry Weight Start Date: 05/20/22 Status: Ordered amLODIPine 2.5 mg oral tablet 1 tablet, By Mouth, Daily, # 90 tablet, 3 Refills, Maintenance, 06/30/22 10:38:00 EST, [facility] #[id number], 149.3, cm, 05/12/22 9:17:00 EDT, Height, 75, kg, 05/12/22 9:17:00 EDT, Dry Weight Start Date: 06/30/22 Status: Ordered anastrozole 1 mg oral tablet 1 tablet, By Mouth, Daily, # 90 tablet, 3 Refills, Maintenance, 05/12/22 22:16:00 EDT, [facility] #[id number], 149.3, cm, 05/12/22 9:17:00 EDT, Height, 75, kg, 05/12/22 9:17:00 EDT, Dry Weight Start Date: 05/12/22 Status: Ordered aspirin 81 mg oral tablet 1 tablet = 81 mg, By Mouth, Daily, # 30 tablet, 0 Refills, Maintenance Start Date: 10/06/10 Status: Ordered atorvastatin 40 mg oral tablet 1 tablet, By Mouth, Daily at bedtime, # 90 tablet, 2 Refills, 12/24/22 6:43:00 EDT, [facility] #[id number], 149.3, cm, 11/11/22 9:18:00 EDT, Height, 73.9, kg, 11/11/22 9:18:00 EDT, Dry Weight Start Date: 12/24/22 Status: Ordered lisinopril 40 mg oral tablet 1 tablet, By Mouth, Daily, # 90 tablet, 1 Refills, Maintenance, 12/16/22 18:30:00 EDT, [facility] #[id number], 149.3, cm, 11/11/22 9:18:00 EDT, Height, 73.9, kg, 11/11/22 9:18:00 EDT, Dry Weight Start Date: 12/16/22 Status: Ordered metFORMIN 500 mg oral tablet 1 tablet, By Mouth, 2 times a day, # 60 tablet, 2 Refills, Maintenance, 04/11/22 5:47:00 EDT, [facility] #[id number], 149.3, cm, 02/24/22 7:27:00 EDT, Height, 76.3, kg, 11/06/21 13:21:00 EDT, Dry Weight Start Date: 04/11/22 Status: Ordered metFORMIN 500 mg oral tablet 1 tablet = 500 mg, By Mouth, 2 times a day, # 60 tablet, 6 Refills, Maintenance, 03/29/23 13:27:00 EDT, [facility] #[id number], 149.3, cm, 03/05/23 8:16:00 EDT, Height, 73.9, kg, 11/11/22 9:18:00 EDT, Dry Weight Start Date: 03/29/23 Stop Date: 10/25/23 Status: Ordered Metoprolol Succinate ER 100 mg oral tablet, extended release 1 tablet, By Mouth, Daily, # 90 tablet, 1 Refills, Maintenance, 04/24/23 18:25:00 EDT, [facility] #[id number], 149.3, cm, 03/05/23 8:16:00 EDT, Height, 73.9, [...] Care Team Personnel Name: Zoila Dorsey Position: [facility] Onco RN Member Role: Primary Care Nurse Name: Devyn MORALES, Elizabeth Novak Position: [facility] PCO Associate Professional Member Role: PCP Address: Address: [address] [place] [id number]- Care Team Related Persons Name: MAC ZAMORANO Address: home [address] [place] [address] [place] [address] Name: DEBRA ZAMORANO Address: home
--- OUTSIDE RECORDS SUMMARY | 2024-04-27 10:47 | XMS_ITS | Continuity of Care Document ---
Author Organization [facility] Corona Henrry lt Address [address] [place] [address]- Care Team Providers Care Automobile Mechanic Name Role Phone Devyn MORALES, Elizabeth Novak Primary Care Physician [place] [facility] [place]14/23 - 10/14/23 [facility] Adult [address] [place] [address]- Attending Physician: Admtr, Ar8 Admitting Physician: Admtr, Ar8 Referring Physician: Admtr, Ar8 Allergies, Adverse Reactions, Alerts Substance Reaction Severity Status Seafood Active Immunizations Given and Recorded Vaccine Date Status Refusal Reason Influenza Virus Vaccine (oldterm) 1 04/20/23 Recor ded Influenza Virus Vaccine (oldterm) 06/19/21 Recorde d SARS-CoV-2 mRNA ([id number]) vax 2 04/20/23 Recorded pneumococcal 20-valent conjugate [...] n FluLaval (oldterm) 04/08/11 Given 1Result Comment: [facility] in [facility] 2Result Comment: [facility] in [facility] 3Result Comment: [05/03/2017] [facility] [id number] 4Result Comment: [05/08/2016] [facility] 5Admin [...] 07/23/23 4:36:00 EST, Route to Pharmacy Electronically, [facility] #[id number], 149.3, cm, 06/17/23 9:58:00 EST, Height, 73.2, kg, 06/17/23 9:58:00 EST, Dry Weight Start Date: 07/23/23 Status: Ordered amLODIPine 2.5 mg oral tablet 1 tablet, By Mouth, Daily, # 90 tablet, 0 Refills, Maintenance, 10/06/23 16:30:00 EDT, [facility] #[id number], 149.3, cm, 09/14/23 8:57:00 EST, Height, 73.2, kg, 06/17/23 9:58:00 EST, Dry Weight Start Date: 10/06/23 Status: Ordered anastrozole 1 mg oral tablet 1 tablet, By Mouth, Daily, # 90 tablet, 3 Refills, Maintenance, 06/15/23 17:01:00 EST, [facility] #[id number], 149.3, cm, 03/05/23 8:16:00 EDT, Height, 73.9, kg, 11/11/22 9:18:00 EDT, Dry Weight Start Date: 06/15/23 Status: Ordered aspirin 81 mg oral tablet 1 tablet = 81 mg, By Mouth, Daily, # 30 tablet, 0 Refills, Maintenance Start Date: 10/06/10 Status: Ordered atorvastatin 40 mg oral tablet 1 tablet, By Mouth, Daily at bedtime, # 90 tablet, 2 Refills, 12/24/22 6:43:00 EDT, [facility] #[id number], 149.3, cm, 11/11/22 9:18:00 EDT, Height, 73.9, kg, 11/11/22 9:18:00 EDT, Dry Weight Start Date: 12/24/22 Status: Ordered lisinopril 40 mg oral tablet 1 tablet, By Mouth, Daily, # 90 tablet, 0 Refills, Maintenance, 07/23/23 11:31:00 EST, [facility] #[id number], 149.3, cm, 06/17/23 9:58:00 EST, Height, 73.2, kg, 06/17/23 9:58:00 EST, Dry Weight Start Date: 07/23/23 Status: Ordered metFORMIN 500 mg oral tablet 1 tablet = 500 mg, By Mouth, 2 times a day, # 60 tablet, 6 Refills, Maintenance, 03/29/23 13:27:00 EDT, [facility] #[id number], 149.3, cm, 03/05/23 8:16:00 EDT, Height, 73.9, kg, 11/11/22 9:18:00 EDT, Dry Weight Start Date: 03/29/23 Stop Date: 10/25/23 Status: Ordered Metoprolol Succinate ER 100 mg oral tablet, extended release 1 tablet, By Mouth, Daily, # 90 tablet, 1 Refills, Maintenance, 04/24/23 18:25:00 EDT, [facility] #[id number], 149.3, cm, 03/05/23 8:16:00 EDT, Height, 73.9, [...] Status Never smoker entered on: 10/13/16 Sex Cardiology * Event Display: Non BH Cardiovascular Results Authored Date: * Event Display: Cardiology Office Note, Non-BH Authored Date: * Yecenia Vazquez: PERFORM Event Display: Cardiovascular Results Scanned Authored Date: * Susan Sanderson.: PERFORM Event Display: Cardiovascular Results Scanned Authored Date: Cardiology Outpatient Note * Yecenia Vazquez: PERFORM Event Display: Cardiology Note Office Authored Date: Radiology * Event Display: X-Ray Knee, Non- BH Authored Date: * Event Display: X-Ray Hip/Groin, Non- BH Authored Date: * Event Display: Bone Density Authored Date: * Event Display: Radiology Result Scanned Authored Date: * Sunny Cannon MD: REVIEW Event Display: Radiology Result Scanned Authored Date: * Yecenia Gao: PERFORM Event Display: Radiology Results Scanned Authored Date: Patient Care team information Care Team Personnel Name: Zoila Dorsey Position: [facility] Onco RN Member Role: Primary Care Nurse Name: Elizabeth Shepard NP Position: [facility] PCO Associate Professional Member Role: PCP Address: Address: [address] [place] [address]- Care Team Related Persons Name: MAC ZAMORANO Address: home [address] [place] [address] [place] [address] Name: DEBRA ZAMORANO Address: home
--- OUTSIDE RECORDS SUMMARY | 2024-04-27 10:47 | XMS_ITS | Continuity of Care Document ---
Author Organization [facility] Address [address] [facility] [address] [place] [address]- Care Team Providers Care Associate Professor Of Psychology Name Role Phone Kassandra MELCHOR, Sunny Lubin Primary Care Physician Encounter 05/19/21 - 05/26/21 [facility] [address] [facility] [address] [facility], [address] [place] [address]- Attending Physician: Robyn Umaña MD Admitting Physician: Robyn Umaña MD Referring Physician: Robyn Umaña MD Allergies, Adverse Reactions, Alerts Substance Reaction [...] Given 1Result Comment: [05/03/2017] [facility] [id number] 2Result Comment: [05/08/2016] [facility] 3Admin [...] tablet, Refills 1, Route to Pharmacy Electronically, [facility] #[id number], 149.3, cm, 02/21/21 8:42:00 EDT, Height, 73.7, kg, 01/23/21 10:06:00 EDT, Dry Weight Start Date: 04/15/21 Status: Ordered amLODIPine 2.5 mg oral tablet 1 tablet, By Mouth, Daily, # 90 tablet, 3 Refills, Maintenance, 02/21/21 9:09:00 EDT, [facility] #[id number], 149.3, cm, 02/21/21 8:42:00 EDT, Height, 73.7, kg, 01/23/21 10:06:00 EDT, Dry Weight Start Date: 02/21/21 Stop Date: 08/20/21 Status: Ordered anastrozole 1 mg oral tablet 1 tablet, By Mouth, Daily, # 90 tablet, 3 Refills, Maintenance, 04/30/21 16:05:00 EDT, [facility] #[id number], 149.3, cm, 02/21/21 8:42:00 EDT, Height, 73.7, kg, 01/23/21 10:06:00 EDT, Dry Weight Start Date: 04/30/21 Status: Ordered aspirin 81 mg oral tablet 1 tablet = 81 mg, By Mouth, Daily, # 30 tablet, 0 Refills, Maintenance Start Date: 10/06/10 Status: Ordered atorvastatin 40 mg oral tablet 1 tablet, By Mouth, Daily at bedtime, # 90 tablet, 3 Refills, Maintenance, 09/18/19 13:19:00 EST, [facility] #[id number], 150.5, cm, 08/02/18 14:01:00 EST, Height Start Date: 09/18/19 Status: Ordered lisinopril 40 mg oral tablet 1 tablet = 40 mg, By Mouth, Daily, # 90 tablet, 0 Refills, Maintenance, 12/31/20 15:29:00 EDT, Tablet, [facility] #[id number], Office visit needed for further refills., 150.5, cm, 12/27/20 13:27:00 EDT, Height Start Date: 12/31/20 Status: Ordered metFORMIN 500 mg oral tablet 1 tablet, By Mouth, 2 times a day, # 60 tablet, 2 Refills, Maintenance, 01/16/21 9:01:00 EDT, [facility] #[id number], 149.86, cm, 01/10/21 6:27:00 EDT, Height, 74.2, kg, 01/10/21 6:27:00 EDT, Dry Weight Start Date: 01/16/21 Status: Ordered Metoprolol Succinate ER 100 mg oral tablet, extended release 1 tablet = 100 mg, By Mouth, Daily, # 90 tablet, 1 Refills, Maintenance, 01/11/20 11:36:00 EDT, [facility] #[id number], 150.5, cm, 08/02/18 14:01:00 EST, Height Start Date: 01/11/20 Status: Ordered spironolactone 25 mg oral tablet 1, tablet, By Mouth, 2 times a day, LABS NEEDED FOR ADDITIONAL REFILLS, # 180 tablet, Refills 3, Route to Pharmacy Electronically, [facility] #[id number], 149.3, cm, 02/21/21 8:42:00 EDT, Height, 73.7, [...]
--- OUTSIDE RECORDS SUMMARY | 2024-04-27 10:47 | XMS_ITS | Continuity of Care Document ---
Author Organization [facility] Address [address] [place] [address]- Care Team Providers Care Insurance Claims Adjuster Name Role Phone Sunny Cannon MD Primary Care Physician [place] [facility] 05/07[place]21 - 07/08/21 [facility] [address] [place] [address]- Discharge Disposition: A-D/C Home Attending Physician: Robyn Umaña MD Admitting Physician: Robyn Umaña MD Referring Physician: Sunny Cannon MD Allergies, [...] FluLaval (oldterm) 04/08/11 Given 1Result Comment: [05/03/2017] [facility] [id number] 2Result Comment: [05/08/2016] [facility] 3Admin [...] tablet, Refills 1, Route to Pharmacy Electronically, [facility] #[id number], 149.3, cm, 02/21/21 8:42:00 EDT, Height, 73.7, kg, 01/23/21 10:06:00 EDT, Dry Weight Start Date: 04/15/21 Status: Ordered amLODIPine 2.5 mg oral tablet 1 tablet, By Mouth, Daily, # 90 tablet, 3 Refills, Maintenance, 02/21/21 9:09:00 EDT, [facility] #[id number], 149.3, cm, 02/21/21 8:42:00 EDT, Height, 73.7, kg, 01/23/21 10:06:00 EDT, Dry Weight Start Date: 02/21/21 Stop Date: 08/20/21 Status: Ordered anastrozole 1 mg oral tablet 1 tablet, By Mouth, Daily, # 90 tablet, 3 Refills, Maintenance, 04/30/21 16:05:00 EDT, [facility] #[id number], 149.3, cm, 02/21/21 8:42:00 EDT, Height, 73.7, kg, 01/23/21 10:06:00 EDT, Dry Weight Start Date: 04/30/21 Status: Ordered aspirin 81 mg oral tablet 1 tablet = 81 mg, By Mouth, Daily, # 30 tablet, 0 Refills, Maintenance Start Date: 10/06/10 Status: Ordered atorvastatin 40 mg oral tablet 1 tablet, By Mouth, Daily at bedtime, # 90 tablet, 3 Refills, Maintenance, 09/18/19 13:19:00 EST, [facility] #[id number], 150.5, cm, 08/02/18 14:01:00 EST, Height Start Date: 09/18/19 Status: Ordered lisinopril 40 mg oral tablet 1 tablet = 40 mg, By Mouth, Daily, # 90 tablet, 0 Refills, Maintenance, 12/31/20 15:29:00 EDT, Tablet, [facility] #[id number], Office visit needed for further refills., 150.5, cm, 12/27/20 13:27:00 EDT, Height Start Date: 12/31/20 Status: Ordered metFORMIN 500 mg oral tablet 1 tablet, By Mouth, 2 times a day, # 60 tablet, 2 Refills, Maintenance, 01/16/21 9:01:00 EDT, [facility] #60004, 149.86, cm, 01/10/21 6:27:00 EDT, Height, 74.2, kg, 01/10/21 6:27:00 EDT, Dry Weight Start Date: 01/16/21 Status: Ordered Metoprolol Succinate ER 100 mg oral tablet, extended release 1 tablet = 100 mg, By Mouth, Daily, # 90 tablet, 1 Refills, Maintenance, 06/16/21 9:00:00 EST, [facility] #[id number], 149.3, cm, 05/27/21 11:52:00 EST, Height, 75, kg, 05/08/21 10:48:00 EDT, Dry Weight Start Date: 06/16/21 Status: Ordered spironolactone 25 mg oral tablet 1, tablet, By Mouth, 2 times a day, LABS NEEDED FOR ADDITIONAL REFILLS, # 180 tablet, Refills 3, Route to Pharmacy Electronically, [facility] #[id number], 149.3, cm, 02/21/21 8:42:00 EDT, Height, 73.7, [...] in female, 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 Vital Signs Most recent to oldest [Reference Range]: 1 Height 149.3 cm (05/08/21 10:48 AM) Weight 75 kg (05/08/21 10:48 AM) Pulse Rate [55-90 bpm] 76 bpm (05/08/21 10:48 AM) Body Mass Index [18.5-24.99] 33.65 *>HHI* (05/08/21 10:48 AM) Blood Pressure [90-138/55-84 mm Hg] 125/ 65mm Hg (05/08/21 10:48 AM) Temperature [96.8-100.4 DegF] 98.7 DegF (05/08/21 10:48 AM) Blood pressure sites Arm, right (05/08/21 10:48 AM) Temperature Route Temporal (05/08/21 10:48 AM) Dry Weight 75 kg (05/08/21 10:48 AM) Weight Obtained Via Standing scale (05/08/21 10:48 AM) Dry Weight Obtained Via Standing scale (05/08/21 10:48 AM) Social History Social History Type Response Smoking Status Never smoker entered on: 10/13/16 Sex
--- OUTSIDE RECORDS SUMMARY | 2024-04-27 10:47 | XMS_ITS | Continuity of Care Document ---
Author Organization [facility] Address [address] [place] [address]- Care Team Providers Care Fisher Dip Net Name Role Phone Devyn MORALES, Elizabeth Novak Primary Care Physician Encounter [facility] [id number] Date(s): 11/09/22 - 12/09/22 [facility] [address] [place] [id number] Attending Physician: Fang Parker Admitting Physician: [...] (oldterm) 5 04/01/12 Given Tet/diphth/pertussis, acel (oldterm) 9/21/11 Give n FluLaval (oldterm) 04/08/11 Given 1Result Comment: [05/03/2017] [facility] [id number] 2Result Comment: [05/08/2016] [facility] 3Admin [...] 05/20/22 7:38:00 EDT, Route to Pharmacy Electronically, [facility] #[id number], 149.3, cm, 05/12/22 9:17:00 EDT, Height, 75, kg, 05/12/22 9:17:00 EDT, Dry Weight Start Date: 05/20/22 Status: Ordered amLODIPine 2.5 mg oral tablet 1 tablet, By Mouth, Daily, # 90 tablet, 3 Refills, Maintenance, 06/30/22 10:38:00 EST, [facility] #[id number], 149.3, cm, 05/12/22 9:17:00 EDT, Height, 75, kg, 05/12/22 9:17:00 EDT, Dry Weight Start Date: 06/30/22 Status: Ordered anastrozole 1 mg oral tablet 1 tablet, By Mouth, Daily, # 90 tablet, 3 Refills, Maintenance, 05/12/22 22:16:00 EDT, [facility] #[id number], 149.3, cm, 05/12/22 9:17:00 EDT, Height, 75, kg, 05/12/22 9:17:00 EDT, Dry Weight Start Date: 05/12/22 Status: Ordered aspirin 81 mg oral tablet 1 tablet = 81 mg, By Mouth, Daily, # 30 tablet, 0 Refills, Maintenance Start Date: 10/06/10 Status: Ordered atorvastatin 40 mg oral tablet 1 tablet, By Mouth, Daily at bedtime, # 90 tablet, 1 Refills, [facility] #[id number], 149.3, cm, 11/06/21 13:21:00 EDT, Height, 76.3, kg, 11/06/21 13:21:00 EDT, Dry Weight Start Date: 12/30/21 Status: Ordered lisinopril 40 mg oral tablet 1 tablet, By Mouth, Daily, # 90 tablet, 1 Refills, Maintenance, 05/19/22 17:17:00 EDT, [facility] #[id number], 149.3, cm, 05/12/22 9:17:00 EDT, Height, 75, kg, 05/12/22 9:17:00 EDT, Dry Weight Start Date: 05/19/22 Status: Ordered metFORMIN 500 mg oral tablet 1 tablet, By Mouth, 2 times a day, # 60 tablet, 2 Refills, Maintenance, 04/11/22 5:47:00 EDT, [facility] #[id number], 149.3, cm, 02/24/22 7:27:00 EDT, Height, 76.3, kg, 11/06/21 13:21:00 EDT, Dry Weight Start Date: 04/11/22 Status: Ordered metFORMIN 500 mg oral tablet See Instructions, TAKE 1 TABLET BY MOUTH TWICE DAILY, # 60 tablet, 0 Refills, Maintenance, :56:00 EST, [facility] #[id number], 149.3, cm, 08/27/22 8:35:00 EST, Height, 75, kg, :17:00 EDT, Dry Weight Start Date: 08/27/22 Status: Ordered Metoprolol Succinate ER 100 mg oral tablet, extended release 1 tablet, By Mouth, Daily, # 90 tablet, 1 Refills, Maintenance, 12/30/21 12:34:00 EDT, [facility] #[id number], 149.3, cm, 11/06/21 13:21:00 EDT, Height, 76.3, [...] Care Team Personnel Name: Zoila Dorsey Position: [facility] Onco RN Member Role: Primary Care Nurse Name: Elizabeth Shepard NP Position: [facility] PCO Associate Professional Member Role: PCP Address: Address: [address] [place] [address]- Care Team Related Persons Name: MAC ZAMORANO Address: home [address] [place] [address] [place] [address] Name: DEBRA ZAMORANO Address: home
--- OUTSIDE RECORDS SUMMARY | 2024-04-27 10:47 | XMS_ITS | Continuity of Care Document ---
Author Organization [facility] Prashanth Jeter Henrry lt Address [address] [place] [address]- Care Team Providers Care Education Finance Processor Name Role Phone Sunny Cannon MD Primary Care Physician [facility]counter [facility] Date(s): 01/22/21 - 02/21/21 [facility] Adult [address] [place] [address]- Allergies, Adverse Reactions, Alerts Substance Reaction Severity [...] FluLaval (oldterm) 04/08/11 Given 1Result Comment: [05/03/2017] [facility] [id number] 401 [id number] 2Result Comment: [05/08/2016] [facility] 3Admin Note: Fluzone High dose Stop & [...] 10/17/20 9:52:00 EDT, Route to Pharmacy Electronically, [facility] #[id number], D/C RX FOR THE 90 DAY SUPPLY PREVIOUSLY SENT, 150.5, cm, 02/19/20 11:58:00 ED... Start Date: 10/17/20 Status: Ordered amLODIPine 2.5 mg oral tablet 1 tablet, By Mouth, Daily, # 90 tablet, 3 Refills, Maintenance, 02/21/21 9:09:00 EDT, [facility] #[id number], 149.3, cm, 02/21/21 8:42:00 EDT, Height, 73.7, kg, 01/23/21 10:06:00 EDT, Dry Weight Start Date: 02/21/21 Stop Date: 08/20/21 Status: Ordered anastrozole 1 mg oral tablet 1 tablet, By Mouth, Daily, # 90 tablet, 0 Refills, Maintenance, 01/21/21 15:10:00 EDT, [facility] #[id number], 149.86, cm, 01/21/21 14:09:00 EDT, Height, 73.8, kg, 01/21/21 14:09:00 EDT, Dry Weight Start Date: 01/21/21 Status: Ordered aspirin 81 mg oral tablet 1 tablet = 81 mg, By Mouth, Daily, # 30 tablet, 0 Refills, Maintenance Start Date: 10/06/10 Status: Ordered atorvastatin 40 mg oral tablet 1 tablet, By Mouth, Daily at bedtime, # 90 tablet, 3 Refills, Maintenance, 09/18/19 13:19:00 EST, [facility] #42639, 150.5, cm, 08/02/18 14:01:00 EST, Height Start Date: 09/18/19 Status: Ordered lisinopril 40 mg oral tablet 1 tablet = 40 mg, By Mouth, Daily, # 90 tablet, 0 Refills, Maintenance, 12/31/20 15:29:00 EDT, Tablet, [facility] #21294, Office visit needed for further refills., 150.5, cm, 12/27/20 13:27:00 EDT, Height Start Date: 12/31/20 Status: Ordered metFORMIN 500 mg oral tablet 1 tablet, By Mouth, 2 times a day, # 60 tablet, 2 Refills, Maintenance, 01/16/21 9:01:00 EDT, [facility] #08389, 149.86, cm, 01/10/21 6:27:00 EDT, Height, 74.2, kg, 01/10/21 6:27:00 EDT, Dry Weight Start Date: 01/16/21 Status: Ordered Metoprolol Succinate ER 100 mg oral tablet, extended release 1 tablet = 100 mg, By Mouth, Daily, # 90 tablet, 1 Refills, Maintenance, 01/11/20 11:36:00 EDT, [facility] #45081, 150.5, cm, 08/02/18 14:01:00 EST, Height Start Date: 01/11/20 Status: Ordered spironolactone 25 mg oral tablet 1, tablet, By Mouth, 2 times a day, LABS NEEDED FOR ADDITIONAL REFILLS, # 180 tablet, Refills 0, Tot. Refills 0, Maintenance, 07/18/20 17:58:00 EST, Route to Pharmacy Electronically, [facility] #[id number], 150.5, cm, 02/19/20 11:58:00 EDT, Height Start [...]
--- OUTSIDE RECORDS SUMMARY | 2024-04-27 10:47 | XMS_ITS | Continuity of Care Document ---
Author Organization [facility] Address [address] [place] [address]- Care Team Providers Care Cable Tower Operator Name Role Phone Kassandra MELCHOR, Sunny Lubin Primary Care Physician [phone] [place] [facility] [place]s): 05/08/21 - 06/07/21 [facility] [address] [place] [address] Allergies, Adverse Reactions, Alerts Substance Reaction [...] (oldterm) 04/08/11 Given 1Result Comment: [05/03/2017] [facility] [id number] 401 [id number] 2Result Comment: [05/08/2016] [facility] 3Admin [...] tablet, Refills 1, Route to Pharmacy Electronically, [facility] #38195, 149.3, cm, 02/21/21 8:42:00 EDT, Height, 73.7, kg, 01/23/21 10:06:00 EDT, Dry Weight Start Date: 04/15/21 Status: Ordered amLODIPine 2.5 mg oral tablet 1 tablet, By Mouth, Daily, # 90 tablet, 3 Refills, Maintenance, 02/21/21 9:09:00 EDT, [facility] #[id number], 149.3, cm, 02/21/21 8:42:00 EDT, Height, 73.7, kg, 01/23/21 10:06:00 EDT, Dry Weight Start Date: 02/21/21 Stop Date: 08/20/21 Status: Ordered anastrozole 1 mg oral tablet 1 tablet, By Mouth, Daily, # 90 tablet, 3 Refills, Maintenance, 04/30/21 16:05:00 EDT, [facility] #61454, 149.3, cm, 02/21/21 8:42:00 EDT, Height, 73.7, kg, 01/23/21 10:06:00 EDT, Dry Weight Start Date: 04/30/21 Status: Ordered aspirin 81 mg oral tablet 1 tablet = 81 mg, By Mouth, Daily, # 30 tablet, 0 Refills, Maintenance Start Date: 10/06/10 Status: Ordered atorvastatin 40 mg oral tablet 1 tablet, By Mouth, Daily at bedtime, # 90 tablet, 3 Refills, Maintenance, 09/18/19 13:19:00 EST, [facility] #73205, 150.5, cm, 08/02/18 14:01:00 EST, Height Start Date: 09/18/19 Status: Ordered lisinopril 40 mg oral tablet 1 tablet = 40 mg, By Mouth, Daily, # 90 tablet, 0 Refills, Maintenance, 12/31/20 15:29:00 EDT, Tablet, [facility] #65475, Office visit needed for further refills., 150.5, cm, 12/27/20 13:27:00 EDT, Height Start Date: 12/31/20 Status: Ordered metFORMIN 500 mg oral tablet 1 tablet, By Mouth, 2 times a day, # 60 tablet, 2 Refills, Maintenance, 01/16/21 9:01:00 EDT, [facility] #51859, 149.86, cm, 01/10/21 6:27:00 EDT, Height, 74.2, kg, 01/10/21 6:27:00 EDT, Dry Weight Start Date: 01/16/21 Status: Ordered Metoprolol Succinate ER 100 mg oral tablet, extended release 1 tablet = 100 mg, By Mouth, Daily, # 90 tablet, 1 Refills, Maintenance, 01/11/20 11:36:00 EDT, [facility] #[id number], 150.5, cm, 08/02/18 14:01:00 EST, Height Start Date: 01/11/20 Status: Ordered spironolactone 25 mg oral tablet 1, tablet, By Mouth, 2 times a day, LABS NEEDED FOR ADDITIONAL REFILLS, # 180 tablet, Refills 3, Route to Pharmacy Electronically, [facility] #[id number], 149.3, cm, 02/21/21 8:42:00 EDT, Height, 73.7, [...]
--- OUTSIDE RECORDS SUMMARY | 2024-04-27 10:47 | XMS_ITS | Continuity of Care Document ---
Author Organization [facility] ancer Care Address [address] [place] [address]- Care Team Providers Care Mobile Patrol Officer Name Role Phone Devyn MORALES, Elizabeth Novak Primary Care Physician En[place] [facility] [place] Date(s): 06/17/23 - 07/17/23 [facility] Care [address] [place] [id number] Allergies, Adverse Reactions, Alerts Substance Reaction Severity Status Seafood Active Immunizations Given and Recorded Vaccine Date Status Refusal Reason Influenza Virus Vaccine (oldterm) 1 04/20/23 Recor ded Influenza Virus Vaccine (oldterm) 06/19/21 Recorde d SARS-CoV-2 mRNA (rattktu-rcpt-vdyva) vax 2 04/20/23 Recorded pneumococcal 20-valent conjugate [...] n FluLaval (oldterm) 04/08/11 Given 1Result Comment: [facility] [place] 2Result Comment: [facility] [place] 3Result Comment: [05/03/2017[facility] [id number] 4Result Comment: [05/08/2016] [facility] 5Admin Note: Fluzone High dose [facility] 6Admin Note[facility] 7Admin Note: [facility] 04-01-12 Medications Acetaminophen = 500 mg, By Mouth, Daily at bedtime, 2 tabs, 0 Refills, Maintenance, 03/27/16 8:06:31 EDT Start Date: 03/27/16 Status: Ordered allopurinol 100 mg oral tablet 1, tablet, By Mouth, Daily, # 90 tablet, Refills 0, Tot. Refills 0, 06/15/23 17:20:00 EST, Route toPharmacy Electronically, [facility] #[id number], 149.3, cm, 03/05/23 8:16:00 EDT, Height, 73.9, kg, 11/11/22 9:18:00 EDT, Dry Weight Start Date: 06/15/23 Status: Ordered amLODIPine 2.5 mg oral tablet 1 tablet, By Mouth, Daily, # 90 tablet, 3 Refills, Maintenance, 06/30/22 10:38:00 EST, [facility] #[id number], 149.3, cm, 05/12/22 9:17:00 EDT, Height, 75, kg, 05/12/22 9:17:00 EDT, Dry Weight Start Date: 06/30/22 Status: Ordered anastrozole 1 mg oral tablet 1 tablet, By Mouth, Daily, # 90 tablet, 3 Refills, Maintenance, 06/15/23 17:01:00 EST, [facility] #[id number], 149.3, cm, 03/05/23 8:16:00 EDT, Height, 73.9, kg, 11/11/22 9:18:00 EDT, Dry Weight Start Date: 06/15/23 Status: Ordered aspirin 81 mg oral tablet 1 tablet = 81 mg, By Mouth, Daily, # 30 tablet, 0 Refills, Maintenance Start Date: 10/06/10 Status: Ordered atorvastatin 40 mg oral tablet 1 tablet, By Mouth, Daily at bedtime, # 90 tablet, 2 Refills, 12/24/22 6:43:00 EDT, [facility] #[id number], 149.3, cm, 11/11/22 9:18:00 EDT, Height, 73.9, kg, 11/11/22 9:18:00 EDT, Dry Weight Start Date: 12/24/22 Status: Ordered lisinopril 40 mg oral tablet 1 tablet, By Mouth, Daily, # 90 tablet, 1 Refills, Maintenance, 12/16/22 18:30:00 EDT, [facility] [place] #[id number], 149.3, cm, 11/11/22 9:18:00 EDT, Height, 73.9, kg, 11/11/22 9:18:00 EDT, Dry Weight Start Date: 12/16/22 Status: Ordered metFORMIN 500 mg oral tablet 1 tablet, By Mouth, 2 times a day, # 60 tablet, 2 Refills, Maintenance, 04/11/22 5:47:00 EDT, [facility] #[id number], 149.3, cm, 02/24/22 7:27:00 EDT, Height, 76.3, kg, 11/06/21 13:21:00 EDT, Dry Weight Start Date: 04/11/22 Status: Ordered metFORMIN 500 mg oral tablet 1 tablet = 500 mg, By Mouth, 2 times a day, # 60 tablet, 6 Refills, Maintenance, 03/29/23 13:27:00 EDT, [facility] #[id number], 149.3, cm, 03/05/23 8:16:00 EDT, Height, 73.9, kg, 11/11/22 9:18:00 EDT, Dry Weight Start Date: 03/29/23 Stop Date: 10/25/23 Status: Ordered Metoprolol Succinate ER 100 mg oral tablet, extended release 1 tablet, By Mouth, Daily, # 90 tablet, 1 Refills, Maintenance, 04/24/23 18:25:00 EDT, [facility] #[id number], 149.3, cm, 03/05/23 8:16:00 EDT, Height, 73.9, [...] Care Team Personnel Name: Zoila Dorsey Position: [facility] Onco RN Member Role: Primary Care Nurse Name: Devyn MORALES, Elizabeth Novak Position: [facility] PCO Associate Professional Member Role: PCP Address: Address: [address] [place] [address]- Care Team Related Persons Name: MAC ZAMORANO Address: home [address] [place] [address] [place] [address] Name: DEBRA ZAMORANO Address: home
--- OUTSIDE RECORDS SUMMARY | 2024-04-27 10:47 | XMS_ITS | Continuity of Care Document ---
Author Organization [facility] lt Address [address] [place] [address]- Care Team Providers Care Medical Practice Assistant Name Role Phone Devyn MORALES, Elizabeth Novak Primary Care Physician [place] [facility] [place](s): 03/16/22 - 04/15/22 [facility] Adult [address] [place] [address]- Allergies, Adverse Reactions, Alerts Substance Reaction Severity [...] FluLaval (oldterm) 04/08/11 Given 1Result Comment: [05/03/2017] [facility] [id number] 2Result Comment: [05/08/2016] [facility] 3[facility] [...] 07/09/21 9:53:00 EST, Route to Pharmacy Electronically, [facility] #[id number], 149.3, cm, 05/27/21 11:52:00 EST, Height, 75, kg, 05/08/21 10:48:00 EDT, Dry Weight Start Date: 07/09/21 Status: Ordered amLODIPine 2.5 mg oral tablet 1 tablet, By Mouth, Daily, # 90 tablet, 3 Refills, Maintenance, 02/21/21 9:09:00 EDT, [facility] #[id number], 149.3, cm, 02/21/21 8:42:00 EDT, Height, 73.7, kg, 01/23/21 10:06:00 EDT, Dry Weight Start Date: 02/21/21 Stop Date: 08/20/21 Status: Ordered anastrozole 1 mg oral tablet 1 tablet, By Mouth, Daily, # 90 tablet, 3 Refills, Maintenance, 04/30/21 16:05:00 EDT, [facility] #[id number], 149.3, cm, 02/21/21 8:42:00 EDT, Height, 73.7, kg, 01/23/21 10:06:00 EDT, Dry Weight Start Date: 04/30/21 Status: Ordered aspirin 81 mg oral tablet 1 tablet = 81 mg, By Mouth, Daily, # 30 tablet, 0 Refills, Maintenance Start Date: 10/06/10 Status: Ordered atorvastatin 40 mg oral tablet 1 tablet, By Mouth, Daily at bedtime, # 90 tablet, 1 Refills, [facility] #[id number], 149.3, cm, 11/06/21 13:21:00 EDT, Height, 76.3, kg, 11/06/21 13:21:00 EDT, Dry Weight Start Date: 12/30/21 Status: Ordered lisinopril 40 mg oral tablet 1 tablet = 40 mg, By Mouth, Daily, # 90 tablet, 1 Refills, Maintenance, 11/06/21 8:56:00 EDT, Tablet, [facility] #[id number], 149.3, cm, 08/27/21 9:29:00 EST, Height, 75, kg, 05/08/21 10:48:00 EDT, Dry Weight Start Date: 11/06/21 Status: Ordered metFORMIN 500 mg oral tablet 1 tablet, By Mouth, 2 times a day, # 60 tablet, 2 Refills, Maintenance, 04/11/22 5:47:00 EDT, [facility] #[id number], 149.3, cm, 02/24/22 7:27:00 EDT, Height, 76.3, kg, 11/06/21 13:21:00 EDT, Dry Weight Start Date: 04/11/22 Status: Ordered Metoprolol Succinate ER 100 mg oral tablet, extended release 1 tablet, By Mouth, Daily, # 90 tablet, 1 Refills, Maintenance, 12/30/21 12:34:00 EDT, [facility] #[id number], 149.3, cm, 11/06/21 13:21:00 EDT, Height, 76.3, [...] on: 10/13/16 Sex Patient Care team information Personnel Name: Elizabeth Shepard NP Address: Address: [address] [place] [id number]
--- OUTSIDE RECORDS SUMMARY | 2024-04-27 10:47 | XMS_ITS | Continuity of Care Document ---
Author Organization [facility] Address [address] [place] [address]- Care Team Providers Care Fabricator Artificial Breast Name Role Phone Devyn MORALES, Elizabeth Novak Primary Care Physician Encounter [facility] Date(s): 02/07/24 - 03/08/24 [facility] [address] [place] [id number] Attending Physician: AdmFang gurrola Admitting Physician: Admtr, Fang Referring Physician: Admtr, Ar8 Allergies, Adverse Reactions, Alerts Substance Reaction Severity Status Seafood Active Immunizations Given and Recorded Vaccine Date Status Refusal Reason Influenza Virus Vaccine (oldterm) 1 04/20/23 Recor ded Influenza Virus Vaccine (oldterm) 06/19/21 Recorde d SARS-CoV-2 mRNA (qqjwkli-vydd-nydle) vax 2 04/20/23 Recorded pneumococcal 20-valent conjugate [...] n FluLaval (oldterm) 04/08/11 Given 1Result Comment: [facility] [place] 2Result Comment: [facility] [place] 3Result Comment: [05/03/2017] [facility] [id number] 4Result Comment: [05/08/2016] [facility] 5Admin Note: Fluzone High dose [facility] 6Admin Note: [facility] 7Admin Note: [facility] 04-01-12 Medications Acetaminophen = 500 mg, By Mouth, Daily at bedtime, 2 tabs, 0 Refills, Maintenance, 03/27/16 8:06:31 EDT Start Date: 03/27/16 Status: Ordered alendronate 70 mg oral tablet 1 tablet = 70 mg, By Mouth, Every week, # 13 tablet, 3 Refills, Maintenance, 02/07/24 14:39:00 EDT,[facility] #[id number], Partial fill upon patient request if the prescription is for a schedule II opioid drug., 148.7, cm, 02/07/24 14:21:00 EDT,... Start Date: 02/07/24 Stop Date: 02/01/25 Status: Ordered allopurinol 100 mg oral tablet 1, tablet, By Mouth, Daily, # 90 tablet, Refills 1, Tot. Refills 1, Maintenance, 07/23/23 4:36:00 EST, Route to Pharmacy Electronically, [facility] #[id number], 149.3, cm, 06/17/23 9:58:00 EST, Height, 73.2, kg, 06/17/23 9:58:00 EST, Dry Weight Start Date: 07/23/23 Status: Ordered amLODIPine 2.5 mg oral tablet 1 tablet, By Mouth, Daily, # 90 tablet, 1 Refills, Maintenance, 01/13/24 13:57:00 EDT, [facility] #[id number], 149.3, cm, 12/15/23 9:10:00 EDT, Height, 72.8, kg, 12/15/23 9:36:00 EDT, Dry Weight Start Date: 01/13/24 Status: Ordered anastrozole 1 mg oral tablet 1 tablet, By Mouth, Daily, # 90 tablet, 3 Refills, Maintenance, 06/15/23 17:01:00 EST, [facility] #[id number], 149.3, cm, 03/05/23 8:16:00 EDT, Height, 73.9, kg, 11/11/22 9:18:00 EDT, Dry Weight Start Date: 06/15/23 Status: Ordered aspirin 81 mg oral tablet 1 tablet = 81 mg, By Mouth, Daily, # 30 tablet, 0 Refills, Maintenance Start Date: 10/06/10 Status: Ordered atorvastatin 40 mg oral tablet 1 tablet, By Mouth, Daily at bedtime, # 90 tablet, 1 Refills, Maintenance, 11/17/23 9:07:00 EDT, [facility] #[id number], 149.3, cm, 09/14/23 8:57:00 EST, Height, 73.2, kg, 06/17/23 9:58:00 EST, Dry Weight Start Date: 11/17/23 Status: Ordered lisinopril 40 mg oral tablet 1 tablet, By Mouth, Daily, # 90 tablet, 1 Refills, Maintenance, 11/03/23 0:09:00 EDT, [facility] #[id number], Please ask patient to call the office and schedule an appt for further refills, 149.3, cm, 09/14/23 8:57:00 EST, Height, 73.2, kg, 06/17... Start Date: 11/03/23 Status: Ordered metFORMIN 500 mg oral tablet 1 tablet = 500 mg, By Mouth, 2 times a day, # 60 tablet, 6 Refills, Maintenance, 03/29/23 13:27:00 EDT, [facility] #[id number], 149.3, cm, 03/05/23 8:16:00 EDT, Height, 73.9, kg, 11/11/22 9:18:00 EDT, Dry Weight Start Date: 03/29/23 Stop Date: 10/25/23 Status: Ordered Metoprolol Succinate ER 100 mg oral tablet, extended release 1 tablet, By Mouth, Daily, # 90 tablet, 1 Refills, Maintenance, 11/17/23 9:07:00 EDT, [facility] #[id number], 149.3, cm, 09/14/23 8:57:00 EST, Height, 73.2, [...] Care Team Personnel Name: Zoila Dorsey Position: [facility] Onco RN Member Role: Primary Care Nurse Name: Elizabeth Shepard NP Position: [facility] PCO Associate Professional Member Role: PCP Address: Address: [address] [place] [address]- Care Team Related Persons Name: MAC ZAMORANO Address: home [address] [place] [address] [place] [address] Name: DEBRA ZAMORANO Address: home
--- OUTSIDE RECORDS SUMMARY | 2024-04-27 10:47 | XMS_ITS | Continuity of Care Document ---
Author Organization [facility] Hen[facility] lt Address [address] [place] [address]- Care Team Providers Care Professor Of Musicology Name Role Phone Devyn MORALES, Elizabeth Novak Primary Care Physician [place] [facility] [place] 04/25/23 [facility] Adult [address] [place] [address]- Attending Physician: Admtr, Ar8 Admitting Physician: Admtr, [...] FluLaval (oldterm) 04/08/11 Given 1Result Comment: [05/03/2017] [facility] [id number] 2Result Comment: [05/08/2016] [facility] 3Admin Note: Fluzone High dose [facility] [...] 05/20/22 7:38:00 EDT, Route to Pharmacy Electronically, [facility] #[id number], 149.3, cm, 05/12/22 9:17:00 EDT, Height, 75, kg, 05/12/22 9:17:00 EDT, Dry Weight Start Date: 05/20/22 Status: Ordered amLODIPine 2.5 mg oral tablet 1 tablet, By Mouth, Daily, # 90 tablet, 3 Refills, Maintenance, 06/30/22 10:38:00 EST, [facility] #[id number], 149.3, cm, 05/12/22 9:17:00 EDT, Height, 75, kg, 05/12/22 9:17:00 EDT, Dry Weight Start Date: 06/30/22 Status: Ordered anastrozole 1 mg oral tablet 1 tablet, By Mouth, Daily, # 90 tablet, 3 Refills, Maintenance, 05/12/22 22:16:00 EDT, [facility] #[id number], 149.3, cm, 05/12/22 9:17:00 EDT, Height, 75, kg, 05/12/22 9:17:00 EDT, Dry Weight Start Date: 05/12/22 Status: Ordered aspirin 81 mg oral tablet 1 tablet = 81 mg, By Mouth, Daily, # 30 tablet, 0 Refills, Maintenance Start Date: 10/06/10 Status: Ordered atorvastatin 40 mg oral tablet 1 tablet, By Mouth, Daily at bedtime, # 90 tablet, 2 Refills, 12/24/22 6:43:00 EDT, [facility] #[id number], 149.3, cm, 11/11/22 9:18:00 EDT, Height, 73.9, kg, 11/11/22 9:18:00 EDT, Dry Weight Start Date: 12/24/22 Status: Ordered lisinopril 40 mg oral tablet 1 tablet, By Mouth, Daily, # 90 tablet, 1 Refills, Maintenance, 12/16/22 18:30:00 EDT, [facility] #[id number], 149.3, cm, 11/11/22 9:18:00 EDT, Height, 73.9, kg, 11/11/22 9:18:00 EDT, Dry Weight Start Date: 12/16/22 Status: Ordered metFORMIN 500 mg oral tablet 1 tablet, By Mouth, 2 times a day, # 60 tablet, 2 Refills, Maintenance, 04/11/22 5:47:00 EDT, [facility] #[id number], 149.3, cm, 02/24/22 7:27:00 EDT, Height, 76.3, kg, 11/06/21 13:21:00 EDT, Dry Weight Start Date: 04/11/22 Status: Ordered metFORMIN 500 mg oral tablet 1 tablet = 500 mg, By Mouth, 2 times a day, # 60 tablet, 6 Refills, Maintenance, 03/29/23 13:27:00 EDT, [facility] #[id number], 149.3, cm, 03/05/23 8:16:00 EDT, Height, 73.9, kg, 11/11/22 9:18:00 EDT, Dry Weight Start Date: 03/29/23 Stop Date: 10/25/23 Status: Ordered Metoprolol Succinate ER 100 mg oral tablet, extended release 1 tablet, By Mouth, Daily, # 90 tablet, 1 Refills, Maintenance, 04/24/23 18:25:00 EDT, [facility] #[id number], 149.3, cm, 03/05/23 8:16:00 EDT, Height, 73.9, [...] Care Team Personnel Name: Zoila Dorsey Position: [facility] Onco RN Member Role: Primary Care Nurse Name: Elizabeth Shepard NP Position: [facility] PCO Associate Professional Member Role: PCP Address: Address: [address] [place] [id number]- Care Team Related Persons Name: MAC ZAMORANO Address: [address] [place] [address] Name: DEBRA ZAMORANO Address: home
--- OUTSIDE RECORDS SUMMARY | 2024-04-27 10:48 | XMS_ITS | Continuity of Care Document ---
Author Organization [facility] Address [address] [place] [address]- Care Team Providers Care Fisher Hand Line Name Role Phone Devyn MORALES, Elizabeth Novak Primary Care Physician Encounter [facility] R [id number] Date(s): 05/10/23 - 06/09/23 [facility] [address] [place] [id number] Attending Physician: Fang Parker Admitting Physician: AdmtrFang Referring Physician: Admtr, ArJulita Allergies, Adverse Reactions, Alerts Substance Reaction Severity Status Seafood Active Immunizations Given and Recorded Vaccine Date Status Refusal Reason Influenza Virus Vaccine (oldterm) 1 04/20/23 Recor ded Influenza Virus Vaccine (oldterm) 06/19/21 Recorde d SARS-CoV-2 mRNA (rxalddp-cyca-mkean) vax 2 04/20/23 Recorded pneumococcal 20-valent conjugate [...] n FluLaval (oldterm) 04/08/11 Given 1Result Comment: [facility] [place] 2Result Comment: [facility] [place] 3Result Comment: [05/03/2017] [facility] [id number] 4Result Comment: [05/08/2016] [facility] 5Admin [...] 05/20/22 7:38:00 EDT, Route to Pharmacy Electronically, [facility] #[id number], 149.3, cm, 05/12/22 9:17:00 EDT, Height, 75, kg, 05/12/22 9:17:00 EDT, Dry Weight Start Date: 05/20/22 Status: Ordered amLODIPine 2.5 mg oral tablet 1 tablet, By Mouth, Daily, # 90 tablet, 3 Refills, Maintenance, 06/30/22 10:38:00 EST, [facility] #[id number], 149.3, cm, 05/12/22 9:17:00 EDT, Height, 75, kg, 05/12/22 9:17:00 EDT, Dry Weight Start Date: 06/30/22 Status: Ordered anastrozole 1 mg oral tablet 1 tablet, By Mouth, Daily, # 90 tablet, 3 Refills, Maintenance, 05/12/22 22:16:00 EDT, [facility] #[id number], 149.3, cm, 05/12/22 9:17:00 EDT, Height, 75, kg, 05/12/22 9:17:00 EDT, Dry Weight Start Date: 05/12/22 Status: Ordered aspirin 81 mg oral tablet 1 tablet = 81 mg, By Mouth, Daily, # 30 tablet, 0 Refills, Maintenance Start Date: 10/06/10 Status: Ordered atorvastatin 40 mg oral tablet 1 tablet, By Mouth, Daily at bedtime, # 90 tablet, 2 Refills, 12/24/22 6:43:00 EDT, [facility] #[id number], 149.3, cm, 11/11/22 9:18:00 EDT, Height, 73.9, kg, 11/11/22 9:18:00 EDT, Dry Weight Start Date: 12/24/22 Status: Ordered lisinopril 40 mg oral tablet 1 tablet, By Mouth, Daily, # 90 tablet, 1 Refills, Maintenance, 12/16/22 18:30:00 EDT, [facility] #[id number], 149.3, cm, 11/11/22 9:18:00 EDT, Height, 73.9, kg, 11/11/22 9:18:00 EDT, Dry Weight Start Date: 12/16/22 Status: Ordered metFORMIN 500 mg oral tablet 1 tablet, By Mouth, 2 times a day, # 60 tablet, 2 Refills, Maintenance, 04/11/22 5:47:00 EDT, [facility] #[id number], 149.3, cm, 02/24/22 7:27:00 EDT, Height, 76.3, kg, 11/06/21 13:21:00 EDT, Dry Weight Start Date: 04/11/22 Status: Ordered metFORMIN 500 mg oral tablet 1 tablet = 500 mg, By Mouth, 2 times a day, # 60 tablet, 6 Refills, Maintenance, 03/29/23 13:27:00 EDT, [facility] #[id number], 149.3, cm, 03/05/23 8:16:00 EDT, Height, 73.9, kg, 11/11/22 9:18:00 EDT, Dry Weight Start Date: 03/29/23 Stop Date: 10/25/23 Status: Ordered Metoprolol Succinate ER 100 mg oral tablet, extended release 1 tablet, By Mouth, Daily, # 90 tablet, 1 Refills, Maintenance, 04/24/23 18:25:00 EDT, [facility] #[id number], 149.3, cm, 03/05/23 8:16:00 EDT, Height, 73.9, [...] Care Team Personnel Name: Zoila Dorsey Position: [facility] Onco RN Member Role: Primary Care Nurse Name: Elizabeth Shepard NP Position: [facility] PCO Associate Professional Member Role: PCP Address: Address: [address] [place] [id number]- Care Team Related Persons Name: MAC ZAMORANO Address: home [address] [place] [address] [place] [address] Name: DEBRA ZAMORANO Address: home
--- OUTSIDE RECORDS SUMMARY | 2024-04-27 10:48 | XMS_ITS | Continuity of Care Document ---
Author Organization [facility] Henrry lt Address [address] [place] [address]- Care Team Providers Care Senior J2Ee Developer Name Role Phone Devyn MORALES, Elizabeth Novak Primary Care Physician Encounter 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, estrogen receptor positive(Discharge Diagnosis) - 08/27/22 Diabetes mellitus - adult onset(Discharge Diagnosis) - 08/27/22 Hypertension(Discharge Diagnosis) - 08/27/22 Hypercholesterolemia(Discharge Diagnosis) - 08/27/22 Attending Physician: Devyn MORALES, Elizabeth Novak Referring Physician: Leander Greer MD Allergies, Adverse [...] FluLaval (oldterm) 04/08/11 Given 1Result Comment: [05/03/2017] [facility] [id number] 2Result Comment: [05/08/2016] [facility] 3Admin Note: Fluzone High dose Stop & [...] 05/20/22 7:38:00 EDT, Route to Pharmacy Electronically, [facility] #[id number], 149.3, cm, 05/12/22 9:17:00 EDT, Height, 75, kg, 05/12/22 9:17:00 EDT, Dry Weight Start Date: 05/20/22 Status: Ordered amLODIPine 2.5 mg oral tablet 1 tablet, By Mouth, Daily, # 90 tablet, 3 Refills, Maintenance, 06/30/22 10:38:00 EST, [facility] #[id number], 149.3, cm, 05/12/22 9:17:00 EDT, Height, 75, kg, 05/12/22 9:17:00 EDT, Dry Weight Start Date: 06/30/22 Status: Ordered anastrozole 1 mg oral tablet 1 tablet, By Mouth, Daily, # 90 tablet, 3 Refills, Maintenance, 05/12/22 22:16:00 EDT, [facility] #[id number], 149.3, cm, 05/12/22 9:17:00 EDT, Height, 75, kg, 05/12/22 9:17:00 EDT, Dry Weight Start Date: 05/12/22 Status: Ordered aspirin 81 mg oral tablet 1 tablet = 81 mg, By Mouth, Daily, # 30 tablet, 0 Refills, Maintenance Start Date: 10/06/10 Status: Ordered atorvastatin 40 mg oral tablet 1 tablet, By Mouth, Daily at bedtime, # 90 tablet, 1 Refills, [facility] #[id number], 149.3, cm, 11/06/21 13:21:00 EDT, Height, 76.3, kg, 11/06/21 13:21:00 EDT, Dry Weight Start Date: 12/30/21 Status: Ordered lisinopril 40 mg oral tablet 1 tablet, By Mouth, Daily, # 90 tablet, 1 Refills, Maintenance, 05/19/22 17:17:00 EDT, [facility] #[id number], 149.3, cm, 05/12/22 9:17:00 EDT, Height, 75, kg, 05/12/22 9:17:00 EDT, Dry Weight Start Date: 05/19/22 Status: Ordered metFORMIN 500 mg oral tablet 1 tablet, By Mouth, 2 times a day, # 60 tablet, 2 Refills, Maintenance, 04/11/22 5:47:00 EDT, [facility] #[id number], 149.3, cm, 02/24/22 7:27:00 EDT, Height, 76.3, kg, 11/06/21 13:21:00 EDT, Dry Weight Start Date: 04/11/22 Status: Ordered metFORMIN 500 mg oral tablet See Instructions, TAKE 1 TABLET BY MOUTH TWICE DAILY, # 60 tablet, 0 Refills, Maintenance, :56:00 EST, [facility] #[id number], 149.3, cm, 08/27/22 8:35:00 EST, Height, 75, kg, :17:00 EDT, Dry Weight Start Date: 08/27/22 Status: Ordered Metoprolol Succinate ER 100 mg oral tablet, extended release 1 tablet, By Mouth, Daily, # 90 tablet, 1 Refills, Maintenance, 12/30/21 12:34:00 EDT, [facility] #[id number], 149.3, cm, 11/06/21 13:21:00 EDT, Height, 76.3, [...] Effective Dates Health Status Clinical Service Informant Asthma Discharge Diagnosis 08/27/22 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, estrogen receptor positive Discharge Diagnosis 08/27/22 Diabetes mellitus - adult onset Discharge Diagnosis 08/27/22 Hypertension Discharge Diagnosis 08/27/22 Hypercholesterolemia Discharge Diagnosis 08/27/22 Vital Signs Most recent to oldest [Reference Range]: 1 Height 149.3 cm (08/27/22 8:35 AM) Weight 75.8 kg (08/27/22 8:35 AM) Oxygen Saturation [94-100 %] 100 % (08/27/22 8:35 AM) Pulse Rate [55-90 bpm] 56 bpm (08/27/22 8:35 AM) Body Mass Index [18.5-24.99 kg/m2] 34.01 kg/m2 *>HHI* (08/27/22 8:35 AM) Blood Pressure [90-138/55-84 mm Hg] 122/ 72mm Hg (08/27/22 8:35 AM) Blood pressure sites Arm, left (08/27/22 8:35 AM) Weight Obtained Via Standing scale (08/27/22 8:35 AM) Social History Social History Type Response Smoking Status Never smoker entered on: 10/13/16 Sex Note * Yecenia Landers: PERFORM, SIGN, VERIFY Event Display: Patient Education/Instruction Authored Date: [id number] [facility] *STEVEN Aguirre Clinical Summary Name GURWINDER ZAMORANO Age 77 Years 1945 PCP Devyn MORALES, Elizabeth Novak PCP Visit Date 08/27/2022 08:32:00 Additional Instructions: Scheduled Appointments?? Future Appointments ?No Future Appointments Scheduled Follow-Up Instructions ?? With: Address: When: Devyn MORALES, Elizabeth Novak [address] [place] [address] [phone] In 6 months Comments: AWV Diagnosis Type 2 diabetes mellitus without complications; Pure hypercholesterolemia, unspecified; Unspecifiedasthma, uncomplicated; Malignant neoplasm of lower-inner quadrant of right female breast; Essential(primary) hypertension Medications: Please continue your medications until treatment is completed or stopped by your provider. Discuss any questions related to medications with your provider. Medications to Continue Taking That Have Changed These medications were not printed or sent to your pharmacy - Metformin (metFORMIN 500 mg oral tablet) TAKE 1 TABLET BY MOUTH TWICE DAILY. Refills: 0. Next Dose: - Metformin (metFORMIN 500 mg oral tablet) 1 tab(s) Oral twice a day. Refills: 2. Next Dose: Medications to Continue with No Changes These medications were not printed or sent to your pharmacy Acetaminophen 500 Milligram Oral Daily at Bedtime. 2 tabs. Next Dose: Allopurinol (allopurinol 100 mg oral tablet) 1 tab(s) Oral Daily. Refills: 3. Next Dose: Amlodipine (amLODIPine 2.5 mg oral tablet) 1 tab(s) Oral Daily. Refills: 3. Next Dose: Anastrozole (anastrozole 1 mg oral tablet) 1 tab(s) Oral Daily. Refills: 3. Next Dose: Aspirin (aspirin 81 mg oral tablet) 1 tab(s) Oral Daily. Refills: 0. Next Dose: Atorvastatin (atorvastatin 40 mg oral tablet) 1 tab(s) Oral Daily at Bedtime. Refills: 1. Next Dose: Lisinopril (lisinopril 40 mg oral tablet) 1 tab(s) Oral Daily. Refills: 1. Next Dose: Metoprolol (Metoprolol Succinate ER 100 mg oral tablet, extended release) 1 tab(s) Oral Daily. Refills: 1. Next Dose: Allergy Info:?? Seafood Medications Given This Visit Future Orders ?No future orders Vital Signs Height 149.3 cm Weight 75.8 kg BMI 34.01 kg/m2 Blood Pressure 122 mm Hg/72 mm Hg Temperature Pulse Rate 56 bpm Respiratory Rate 02 Sat Mode of Delivery 100 %/ You can now view a summary of your hospital visit from the comfort of your home through a free online portal called [employer]. [employer] is a website that allows you to securely view your medical information including discharge summary, medications and follow-up visits. ??You can alsosend a secure electronic message to your doctor???s office to request appointments, renew medications or just ask a question. You can enroll at [email or web address] or register during your next office visit. Disclaimer:?? The information provided is of a general nature and is intended to be used in conjunction with the recommendations and advice of your health care practitioner. ??Every effort has been made to ensure that the information provided is accurate and complete at the time it is provided to you however, as your needs change, or, as new ??information becomes available, different or additional instructions may be required. If you have questions, please consult with your primary care provider or pharmacist, as appropriate. ??This information is not intended to serve as substitution for assessment and evaluation by a qualified health care provider. If you do not have a primary care provider, you may find a [facility] provider by calling [facility] at [phone]. For information about the plan of care including goals and instructions for your diagnosis, please see the patient education orders section of this document. Patient Education Materials?? The content of this educational material or handout may have been modified, supplemented, or adapted from its original content and format to support your individualized medical care. Patient Care team information Care Team Personnel Name: Zoila Dorsey Position: [facility] Onco RN Member Role: Primary Care Nurse Name: Elizabeth Shepard NP Position: [facility] PCO Associate Professional Member Role: PCP Address: Address: [address] [place] [address]- Care Team Related Persons Name: MAC ZAMORANO Address: home [address] [place] [address] [place] [address] Name: DEBRA ZAMORANO Address: home
--- OUTSIDE RECORDS SUMMARY | 2024-04-27 10:48 | XMS_ITS | Continuity of Care Document ---
Author Organization [facility] Henrry lt Address [address] [place] [address]- Care Team Providers Care Retail Cosmetics Sales Beauty Advisor Name Role Phone Devyn MORALES, Elizabeth Novak Primary Care Physician [phone] [place] [facility] Date(s): 03/05/23 - 03/12/23 [facility] Adult [address] [place] [address]- Encounter Diagnosis Medicare annual wellness visit, subsequent(Discharge Diagnosis) - 03/05/23 Asthma(Discharge Diagnosis) - 03/05/23 Diabetes mellitus - adult onset(Discharge Diagnosis) - 03/05/23 Hypertension(Discharge Diagnosis) - 03/05/23 Hypercholesterolemia(Discharge Diagnosis) - 03/05/23 Cerumen impaction(Discharge Diagnosis) - 03/05/23 Attending Physician: Elizabeth Shepard NP Referring Physician: [...] (oldterm) 04/08/11 Given 1Result Comment: [05/03/2017] [facility] [id number] [phone] [id number] 2Result Comment: [05/08/2016] [facility] 3Admin Note: Fluzone High dose Stop & [...] 05/20/22 7:38:00 EDT, Route to Pharmacy Electronically, [facility] #[id number], 149.3, cm, 05/12/22 9:17:00 EDT, Height, 75, kg, 05/12/22 9:17:00 EDT, Dry Weight Start Date: 05/20/22 Status: Ordered amLODIPine 2.5 mg oral tablet 1 tablet, By Mouth, Daily, # 90 tablet, 3 Refills, Maintenance, 06/30/22 10:38:00 EST, [facility] #[id number], 149.3, cm, 05/12/22 9:17:00 EDT, Height, 75, kg, 05/12/22 9:17:00 EDT, Dry Weight Start Date: 06/30/22 Status: Ordered anastrozole 1 mg oral tablet 1 tablet, By Mouth, Daily, # 90 tablet, 3 Refills, Maintenance, 05/12/22 22:16:00 EDT, [facility] #[id number], 149.3, cm, 05/12/22 9:17:00 EDT, Height, 75, kg, 05/12/22 9:17:00 EDT, Dry Weight Start Date: 05/12/22 Status: Ordered aspirin 81 mg oral tablet 1 tablet = 81 mg, By Mouth, Daily, # 30 tablet, 0 Refills, Maintenance Start Date: 10/06/10 Status: Ordered atorvastatin 40 mg oral tablet 1 tablet, By Mouth, Daily at bedtime, # 90 tablet, 2 Refills, 12/24/22 6:43:00 EDT, [facility] #[id number], 149.3, cm, 11/11/22 9:18:00 EDT, Height, 73.9, kg, 11/11/22 9:18:00 EDT, Dry Weight Start Date: 12/24/22 Status: Ordered lisinopril 40 mg oral tablet 1 tablet, By Mouth, Daily, # 90 tablet, 1 Refills, Maintenance, 12/16/22 18:30:00 EDT, [facility] #[id number], 149.3, cm, 11/11/22 9:18:00 EDT, Height, 73.9, kg, 11/11/22 9:18:00 EDT, Dry Weight Start Date: 12/16/22 Status: Ordered metFORMIN 500 mg oral tablet 1 tablet, By Mouth, 2 times a day, # 60 tablet, 2 Refills, Maintenance, 04/11/22 5:47:00 EDT, [facility] #[id number], 149.3, cm, 02/24/22 7:27:00 EDT, Height, 76.3, kg, 11/06/21 13:21:00 EDT, Dry Weight Start Date: 04/11/22 Status: Ordered metFORMIN 500 mg oral tablet See Instructions, TAKE 1 TABLET BY MOUTH TWICE DAILY, # 60 tablet, 0 Refills, Maintenance, :56:00 EST, [facility] #[id number], 149.3, cm, 08/27/22 8:35:00 EST, Height, 75, kg, :17:00 EDT, Dry Weight Start Date: 08/27/22 Status: Ordered Metoprolol Succinate ER 100 mg oral tablet, extended release 1 tablet, By Mouth, Daily, # 90 tablet, 1 Refills, Maintenance, 12/30/21 12:34:00 EDT, [facility] #[id number], 149.3, cm, 11/06/21 13:21:00 EDT, Height, 76.3, [...] Effective Dates Health Status Clinical Service Informant Medicare annual wellness visit, subsequent Discharge Diagnosis 03/05/23 Asthma Discharge Diagnosis 03/05/23 Diabetes mellitus - adult onset Discharge Diagnosis 03/05/23 Hypertension Discharge Diagnosis 03/05/23 Hypercholesterolemia Discharge Diagnosis 03/05/23 Cerumen impaction Discharge Diagnosis 03/05/23 Vital Signs Most recent to oldest [Reference Range]: 1 Height 149.3 cm (03/05/23 8:16 AM) Weight 74.2 kg (03/05/23 8:16 AM) Oxygen Saturation [94-100 %] 98 % (03/05/23 8:16 AM) Pulse Rate [55-90 bpm] 51 bpm *L* (03/05/23 8:16 AM) Body Mass Index [18.5-24.99 kg/m2] 33.29 kg/m2 *>HHI* (03/05/23 8:16 AM) Blood Pressure [90-138/55-84 mm Hg] 105/ 65mm Hg (03/05/23 8:16 AM) Blood pressure sites Arm, right (03/05/23 8:16 AM) Weight Obtained Via Standing scale (03/05/23 8:16 AM) Social History Social History Type Response Smoking Status Never smoker entered on: 10/13/16 Sex Note * Josefa Onofre: PERFORM, SIGN, VERIFY Event Display: Patient Education/Instruction Authored Date: [id number] [facility] *BMP Marija Aguirre Clinical Summary Name GURWINDER ZAMORANO Age 77 Years 1945 PCP Elizabeth Shepard NP PCP Visit Date 03/05/2023 08:12:00 Additional Instructions: Scheduled Appointments?? Future Appointments ?No Future Appointments Scheduled Follow-Up Instructions ?? With: Address: When: Elizabeth Shepard NP [address] [place] [address] In 6 months Comments: long Diagnosis Type 2 diabetes mellitus without complications; Impacted cerumen, unspecified ear; Unspecified asthma, uncomplicated; Encounter for general adult medical examination without abnormal findings; Pure hypercholesterolemia, unspecified; Essential (primary) hypertension Medications: Please continue your medications until treatment is completed or stopped by your provider. Discuss any questions related to medications with your provider. Medications to Continue with No Changes These [...] 1 tab(s) Oral Daily at Bedtime. Refills: 2. Next Dose: Lisinopril (lisinopril 40 mg oral tablet) 1 tab(s) Oral Daily. Refills: 1. Next Dose: Metformin (metFORMIN 500 mg oral tablet) 1 tab(s) Oral twice a day. Refills: 2. Next Dose: Metformin (metFORMIN 500 mg oral tablet) TAKE 1 TABLET BY MOUTH TWICE DAILY. Refills: 0. Next Dose: Metoprolol (Metoprolol Succinate ER 100 mg oral tablet, extended release) 1 tab(s) Oral Daily. Refills: 1. Next Dose: Allergy Info:?? Seafood Medications Given This Visit Medication Dose Route pneumococcal 20-valent conjugate vaccine (pneumococcal 20-valent vacc) 0.5 mL Intramuscular Future Orders ?Hemoglobin A1C (Monitoring)? Order Date:03/05/23?- Complete on or after?03/05/23 ?Comprehensive Metabolic Panel? Order Date:03/05/23?- Complete on or after?03/05/23 ?Lipid Panel? Order Date:03/05/23?- Complete on or after?03/05/23 ?Uric Acid? Order Date:03/05/23?- Complete on or after?03/05/23 Vital Signs Height 149.3 cm Weight 74.2 kg BMI 33.29 kg/m2 Blood Pressure 105 mm Hg/65 mm Hg Temperature Pulse Rate 51 bpm Respiratory Rate 02 Sat Mode of Delivery 98 %/ You can now view a summary of your hospital visit from the comfort of your home through a free online portal called [email or web address]. [email or web address] is a website that allows you to securely view your medical information including discharge summary, medications and follow-up visits. ??You can alsosend a secure electronic message to your doctor???s office to request appointments, renew medications or just ask a question. You can enroll at [email or web address] or register during your next office visit. [...] primary care provider, you may find a [facility] provider by calling [facility] [employer] at [phone]. For information about the plan of care [...] Care Team Personnel Name: Zoila Dorsey Position: [facility] Onco RN Member Role: Primary Care Nurse Name: Elizabeth Shepard NP Position: [facility] PCO Associate Professional Member Role: PCP Address: Address: [address] [place] [address]- Care Team Related Persons Name: MAC ZAMORANO Address: home [address] [address] Name: DEBRA ZAMORANO Address: home
--- OUTSIDE RECORDS SUMMARY | 2024-04-27 10:48 | XMS_ITS | Continuity of Care Document ---
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 Role Phone Devyn MORALES, Elizabeth Novak Primary Care Physician Encounter [facility] Date(s): 03/26/23 - 04/25/23 [facility] Adult [address] [place] [address]- Allergies, Adverse Reactions, Alerts Substance Reaction Severity [...] FluLaval (oldterm) 04/08/11 Given 1Result Comment: [05/03/2017] [facility] [id number] 2Result Comment: [05/08/2016] [facility] 3Admin Note: Fluzone High dose Stop & [...] 05/20/22 7:38:00 EDT, Route to Pharmacy Electronically, [facility] #[id number], 149.3, cm, 05/12/22 9:17:00 EDT, Height, 75, kg, 05/12/22 9:17:00 EDT, Dry Weight Start Date: 05/20/22 Status: Ordered amLODIPine 2.5 mg oral tablet 1 tablet, By Mouth, Daily, # 90 tablet, 3 Refills, Maintenance, 06/30/22 10:38:00 EST, [facility] #[id number], 149.3, cm, 05/12/22 9:17:00 EDT, Height, 75, kg, 05/12/22 9:17:00 EDT, Dry Weight Start Date: 06/30/22 Status: Ordered anastrozole 1 mg oral tablet 1 tablet, By Mouth, Daily, # 90 tablet, 3 Refills, Maintenance, 05/12/22 22:16:00 EDT, [facility] #[id number], 149.3, cm, 05/12/22 9:17:00 EDT, Height, 75, kg, 05/12/22 9:17:00 EDT, Dry Weight Start Date: 05/12/22 Status: Ordered aspirin 81 mg oral tablet 1 tablet = 81 mg, By Mouth, Daily, # 30 tablet, 0 Refills, Maintenance Start Date: 10/06/10 Status: Ordered atorvastatin 40 mg oral tablet 1 tablet, By Mouth, Daily at bedtime, # 90 tablet, 2 Refills, 12/24/22 6:43:00 EDT, [facility] #[id number], 149.3, cm, 11/11/22 9:18:00 EDT, Height, 73.9, kg, 11/11/22 9:18:00 EDT, Dry Weight Start Date: 12/24/22 Status: Ordered lisinopril 40 mg oral tablet 1 tablet, By Mouth, Daily, # 90 tablet, 1 Refills, Maintenance, 12/16/22 18:30:00 EDT, [facility] #[id number], 149.3, cm, 11/11/22 9:18:00 EDT, Height, 73.9, kg, 11/11/22 9:18:00 EDT, Dry Weight Start Date: 12/16/22 Status: Ordered metFORMIN 500 mg oral tablet 1 tablet, By Mouth, 2 times a day, # 60 tablet, 2 Refills, Maintenance, 04/11/22 5:47:00 EDT, [facility] #[id number], 149.3, cm, 02/24/22 7:27:00 EDT, Height, 76.3, kg, 11/06/21 13:21:00 EDT, Dry Weight Start Date: 04/11/22 Status: Ordered metFORMIN 500 mg oral tablet 1 tablet = 500 mg, By Mouth, 2 times a day, # 60 tablet, 6 Refills, Maintenance, 03/29/23 13:27:00 EDT, [facility] #[id number], 149.3, cm, 03/05/23 8:16:00 EDT, Height, 73.9, kg, 11/11/22 9:18:00 EDT, Dry Weight Start Date: 03/29/23 Stop Date: 10/25/23 Status: Ordered Metoprolol Succinate ER 100 mg oral tablet, extended release 1 tablet, By Mouth, Daily, # 90 tablet, 1 Refills, Maintenance, 04/24/23 18:25:00 EDT, [facility] #[id number], 149.3, cm, 03/05/23 8:16:00 EDT, Height, 73.9, [...] Care Team Personnel Name: Zoila Dorsey Position: [facility] Onco RN Member Role: Primary Care Nurse Name: Devyn MORALES, Elizabeth Novak Position: [facility] PCO Associate Professional Member Role: PCP Address: Address: [address] [place] [address] [place] [address]- Care Team Related Persons Name: MAC ZAMORANO Address: home [address] [place] [address] [place] [address] Name: DEBRA ZAMORANO Address: home
--- OUTSIDE RECORDS SUMMARY | 2024-04-27 10:48 | XMS_ITS | Continuity of Care Document ---
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 Role Phone Devyn MORALES, Elizabeth Novak Primary Care Physician Encounter [facility] Date(s): 10/20/23 - 11/19/23 [facility] Care [address] [place] [id number] Allergies, Adverse Reactions, Alerts Substance Reaction Severity Status Seafood Active Immunizations Given and Recorded Vaccine Date Status Refusal Reason Influenza Virus Vaccine (oldterm) 1 04/20/23 Recor ded Influenza Virus Vaccine (oldterm) 06/19/21 Recorde d SARS-CoV-2 mRNA ([id number]) vax 2 04/20/23 Recorded pneumococcal 20-valent conjugate [...] (oldterm) 04/08/11 Given 1Result Comment: [facility] [place] 2Result Comment: [facility] [place] 3Result Comment: [05/03/2017] [facility] [id number] 4Result Comment: [05/08/2016] [facility] 5Admin [...] 07/23/23 4:36:00 EST, Route to Pharmacy Electronically, [facility] #[id number], 149.3, cm, 06/17/23 9:58:00 EST, Height, 73.2, kg, 06/17/23 9:58:00 EST, Dry Weight Start Date: 07/23/23 Status: Ordered amLODIPine 2.5 mg oral tablet 1 tablet, By Mouth, Daily, # 90 tablet, 0 Refills, Maintenance, 10/06/23 16:30:00 EDT, [facility] #[id number], 149.3, cm, 09/14/23 8:57:00 EST, Height, 73.2, kg, 06/17/23 9:58:00 EST, Dry Weight Start Date: 10/06/23 Status: Ordered anastrozole 1 mg oral tablet 1 tablet, By Mouth, Daily, # 90 tablet, 3 Refills, Maintenance, 06/15/23 17:01:00 EST, [facility] #[id number], 149.3, cm, 03/05/23 8:16:00 EDT, Height, 73.9, kg, 11/11/22 9:18:00 EDT, Dry Weight Start Date: 06/15/23 Status: Ordered aspirin 81 mg oral tablet 1 tablet = 81 mg, By Mouth, Daily, # 30 tablet, 0 Refills, Maintenance Start Date: 10/06/10 Status: Ordered atorvastatin 40 mg oral tablet 1 tablet, By Mouth, Daily at bedtime, # 90 tablet, 1 Refills, Maintenance, 11/17/23 9:07:00 EDT, [facility] #[id number], 149.3, cm, 09/14/23 8:57:00 EST, Height, 73.2, kg, 06/17/23 9:58:00 EST, Dry Weight Start Date: 11/17/23 Status: Ordered lisinopril 40 mg oral tablet 1 tablet, By Mouth, Daily, # 90 tablet, 1 Refills, Maintenance, 11/03/23 0:09:00 EDT, [facility] #[id number], Please ask patient to call the office and schedule an appt for further refills, 149.3, cm, 09/14/23 8:57:00 EST, Height, 73.2, kg, 06/17... Start Date: 11/03/23 Status: Ordered metFORMIN 500 mg oral tablet 1 tablet = 500 mg, By Mouth, 2 times a day, # 60 tablet, 6 Refills, Maintenance, 03/29/23 13:27:00 EDT, [facility] #[id number], 149.3, cm, 03/05/23 8:16:00 EDT, Height, 73.9, kg, 11/11/22 9:18:00 EDT, Dry Weight Start Date: 03/29/23 Stop Date: 10/25/23 Status: Ordered Metoprolol Succinate ER 100 mg oral tablet, extended release 1 tablet, By Mouth, Daily, # 90 tablet, 1 Refills, Maintenance, 11/17/23 9:07:00 EDT, [facility] #[id number], 149.3, cm, 09/14/23 8:57:00 EST, Height, 73.2, [...] Care Team Personnel Name: Zoila Dorsey Position: [facility] Onco RN Member Role: Primary Care Nurse Name: Devyn MORALES, Elizabeth Novak Position: [facility] PCO Associate Professional Member Role: PCP Address: Address: [address] [place] [address]- Care Team Related Persons Name: MAC ZAMORANO Address: home [address] [place] [address] [place] [address] Name: DEBRA ZAMORANO Address: home
--- OUTSIDE RECORDS SUMMARY | 2024-04-27 10:48 | XMS_ITS | Continuity of Care Document ---
Author Organization [facility] Henrry lt Address [address] [place] [address]- Care Team Providers Care Firer Kiln Name Role Phone Devyn MORALES, Elizabeth Novak Primary Care Physician Encounter [facility] Date(s): 11/10/23 - 12/10/23 [facility] Adult [address] [place] [address]- Allergies, Adverse Reactions, Alerts Substance Reaction Severity Status Seafood Active Immunizations Given and Recorded Vaccine Date Status Refusal Reason Influenza Virus Vaccine (oldterm) 1 04/20/23 Recor ded Influenza Virus Vaccine (oldterm) 06/19/21 Recorde d SARS-CoV-2 mRNA ([id number]) vax 2 04/20/23 Recorded pneumococcal 20-valent conjugate [...] 13-valent vaccine 12/31/14 Given Pneumococcal Vaccine (oldterm) 9/18/12 Given Fluvirin (oldterm) 7 04/01/12 Given Tet/diphth/pertussis, acel (oldterm) 04/08/11 Give n FluLaval (oldterm) 04/08/11 Given 1Result Comment: [facility] [place] 2Result Comment: [facility] [place] 3Result Comment: [05/03/2017] [facility] [id number] 4Result Comment: [05/08/2016] [facility] 5Admin [...] 07/23/23 4:36:00 EST, Route to Pharmacy Electronically, [id number], 149.3, cm, 06/17/23 9:58:00 EST, Height, 73.2, kg, 06/17/23 9:58:00 EST, Dry Weight Start Date: 07/23/23 Status: Ordered amLODIPine 2.5 mg oral tablet 1 tablet, By Mouth, Daily, # 90 tablet, 0 Refills, Maintenance, 10/06/23 16:30:00 EDT, [facility] #[id number], 149.3, cm, 09/14/23 8:57:00 EST, Height, 73.2, kg, 06/17/23 9:58:00 EST, Dry Weight Start Date: 10/06/23 Status: Ordered anastrozole 1 mg oral tablet 1 tablet, By Mouth, Daily, # 90 tablet, 3 Refills, Maintenance, 06/15/23 17:01:00 EST, [facility] #[id number], 149.3, cm, 03/05/23 8:16:00 EDT, Height, 73.9, kg, 11/11/22 9:18:00 EDT, Dry Weight Start Date: 06/15/23 Status: Ordered aspirin 81 mg oral tablet 1 tablet = 81 mg, By Mouth, Daily, # 30 tablet, 0 Refills, Maintenance Start Date: 10/06/10 Status: Ordered atorvastatin 40 mg oral tablet 1 tablet, By Mouth, Daily at bedtime, # 90 tablet, 1 Refills, Maintenance, 11/17/23 9:07:00 EDT, [facility] #[id number], 149.3, cm, 09/14/23 8:57:00 EST, Height, 73.2, kg, 06/17/23 9:58:00 EST, Dry Weight Start Date: 11/17/23 Status: Ordered lisinopril 40 mg oral tablet 1 tablet, By Mouth, Daily, # 90 tablet, 1 Refills, Maintenance, 11/03/23 0:09:00 EDT, [facility] #[id number], Please ask patient to call the office and schedule an appt for further refills, 149.3, cm, 09/14/23 8:57:00 EST, Height, 73.2, kg, 06/17... Start Date: 11/03/23 Status: Ordered metFORMIN 500 mg oral tablet 1 tablet = 500 mg, By Mouth, 2 times a day, # 60 tablet, 6 Refills, Maintenance, 03/29/23 13:27:00 EDT, [facility] #[id number], 149.3, cm, 03/05/23 8:16:00 EDT, Height, 73.9, kg, 11/11/22 9:18:00 EDT, Dry Weight Start Date: 03/29/23 Stop Date: 10/25/23 Status: Ordered Metoprolol Succinate ER 100 mg oral tablet, extended release 1 tablet, By Mouth, Daily, # 90 tablet, 1 Refills, Maintenance, 11/17/23 9:07:00 EDT, [facility] #[id number], 149.3, cm, 09/14/23 8:57:00 EST, Height, 73.2, [...] Team Personnel Name: Willian , Zoila Position: [facility] Onco RN Member Role: Primary Care Nurse Name: Elizabeth Shepard NP Position: [facility] PCO Associate Professional Member Role: PCP Address: Address: [address] [place] [address] [place] [address]- Care Team Related Persons Name: MAC ZAMORANO Address: home [address] [place] [address] [place] [address] Name: DEBRA ZAMORANO Address: home
--- OUTSIDE RECORDS SUMMARY | 2024-04-27 10:48 | XMS_ITS | Continuity of Care Document ---
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, estrogen receptor positive(Discharge Diagnosis) - 02/24/22 Hypercholesterolemia(Discharge Diagnosis) - 02/24/22 Attending Physician: Elizabeth Shepard NP Referring Physician: Percy MELCHOR, Leander Sen Allergies, Adverse Reactions, Alerts Substance Reaction Severity [...] FluLaval (oldterm) 04/08/11 Given 1Result Comment: [05/03/2017] [facility] [id number] 2Result Comment: [05/08/2016] [facility] 3[facility] Note: Fluzone High dose Stop & [...] 07/09/21 9:53:00 EST, Route to Pharmacy Electronically, [facility] #[id number], 149.3, cm, 05/27/21 11:52:00 EST, Height, 75, kg, 05/08/21 10:48:00 EDT, Dry Weight Start Date: 07/09/21 Status: Ordered amLODIPine 2.5 mg oral tablet 1 tablet, By Mouth, Daily, # 90 tablet, 3 Refills, Maintenance, 02/21/21 9:09:00 EDT, [facility] #[id number], 149.3, cm, 02/21/21 8:42:00 EDT, Height, 73.7, kg, 01/23/21 10:06:00 EDT, Dry Weight Start Date: 02/21/21 Stop Date: 08/20/21 Status: Ordered anastrozole 1 mg oral tablet 1 tablet, By Mouth, Daily, # 90 tablet, 3 Refills, Maintenance, 04/30/21 16:05:00 EDT, [facility] #[id number], 149.3, cm, 02/21/21 8:42:00 EDT, Height, 73.7, kg, 01/23/21 10:06:00 EDT, Dry Weight Start Date: 04/30/21 Status: Ordered aspirin 81 mg oral tablet 1 tablet = 81 mg, By Mouth, Daily, # 30 tablet, 0 Refills, Maintenance Start Date: 10/06/10 Status: Ordered atorvastatin 40 mg oral tablet 1 tablet, By Mouth, Daily at bedtime, # 90 tablet, 1 Refills, [facility] #[id number], 149.3, cm, 11/06/21 13:21:00 EDT, Height, 76.3, kg, 11/06/21 13:21:00 EDT, Dry Weight Start Date: 12/30/21 Status: Ordered lisinopril 40 mg oral tablet 1 tablet = 40 mg, By Mouth, Daily, # 90 tablet, 1 Refills, Maintenance, 11/06/21 8:56:00 EDT, Tablet, [facility] #[id number], 149.3, cm, 08/27/21 9:29:00 EST, Height, 75, kg, 05/08/21 10:48:00 EDT, Dry Weight Start Date: 11/06/21 Status: Ordered metFORMIN 500 mg oral tablet 1 tablet, By Mouth, 2 times a day, # 60 tablet, 5 Refills, Maintenance, 09/30/21 13:26:00 EDT, [facility] #[id number], 149.3, cm, 08/27/21 9:29:00 EST, Height, 75, kg, 05/08/21 10:48:00 EDT, DryWeight Start Date: 09/30/21 Status: Ordered Metoprolol Succinate ER 100 mg oral tablet, extended release 1 tablet, By Mouth, Daily, # 90 tablet, 1 Refills, Maintenance, 12/30/21 12:34:00 EDT, [facility] #[id number], 149.3, cm, 11/06/21 13:21:00 EDT, Height, 76.3, [...] Medicare annual wellness visit, subsequent Discharge Diagnosis 02/24/22 Asthma Discharge Diagnosis 02/24/22 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, estrogen receptor positive Discharge Diagnosis 02/24/22 Hypercholesterolemia Discharge Diagnosis 02/24/22 Vital Signs Most recent to oldest [Reference Range]: 1 Height 149.3 cm (02/24/22 7:27 AM) Weight 72.4 kg (02/24/22 7:27 AM) Oxygen Saturation [94-100 %] 98 % (02/24/22 7:27 AM) Pulse Rate [55-90 bpm] 51 bpm *L* (02/24/22 7:27 AM) Body Mass Index [18.5-24.99] 32.48 *>HHI* (02/24/22 7:27 AM) Blood Pressure [90-138/55-84 mm Hg] 109/ 49mm Hg (02/24/22 7:27 AM) Temperature [96.8-100.4 DegF] 97.1 DegF (02/24/22 7:27 AM) Blood pressure sites Arm, right (02/24/22 7:27 AM) Temperature Route Temporal (02/24/22 7:27 AM) Weight Obtained Via Standing scale (02/24/22 7:27 AM) Social History Social History Type Response Smoking Status Never smoker entered on: 10/13/16 Sex
--- OUTSIDE RECORDS SUMMARY | 2024-04-27 10:48 | XMS_ITS | Continuity of Care Document ---
Author Organization [facility] Care Address [address] [place] [address]- Care Team Providers Care Nursing Program Coordinator Name Role Phone Devyn MORALES, Elizabeth Novak Primary Care Physician Encounter [facility] Date(s): 06/17/23 - 07/17/23 [facility] [address] [place] [id number] Allergies, Adverse Reactions, Alerts Substance Reaction Severity Status Seafood Active Immunizations Given and Recorded Vaccine Date Status Refusal Reason Influenza Virus Vaccine (oldterm) 1 04/20/23 Recor ded Influenza Virus Vaccine (oldterm) 06/19/21 Recorde d SARS-CoV-2 mRNA ([id number]) vax 2 04/20/23 Recorded pneumococcal 20-valent conjugate [...] (oldterm) 04/08/11 Given 1Result Comment: [facility] [place] 2Result Comment: [facility] [place] 3Result Comment: [05/03/2017] [facility] [id number] 4Result Comment: [05/08/2016] [facility] 5Admin [...] 0, 06/15/23 17:20:00 EST, Route toPharmacy Electronically, [facility] #[id number], 149.3, cm, 03/05/23 8:16:00 EDT, Height, 73.9, kg, 11/11/22 9:18:00 EDT, Dry Weight Start Date: 06/15/23 Status: Ordered amLODIPine 2.5 mg oral tablet 1 tablet, By Mouth, Daily, # 90 tablet, 3 Refills, Maintenance, 06/30/22 10:38:00 EST, [facility] #[id number], 149.3, cm, 05/12/22 9:17:00 EDT, Height, 75, kg, 05/12/22 9:17:00 EDT, Dry Weight Start Date: 06/30/22 Status: Ordered anastrozole 1 mg oral tablet 1 tablet, By Mouth, Daily, # 90 tablet, 3 Refills, Maintenance, 06/15/23 17:01:00 EST, [facility] #[id number], 149.3, cm, 03/05/23 8:16:00 EDT, Height, 73.9, kg, 11/11/22 9:18:00 EDT, Dry Weight Start Date: 06/15/23 Status: Ordered aspirin 81 mg oral tablet 1 tablet = 81 mg, By Mouth, Daily, # 30 tablet, 0 Refills, Maintenance Start Date: 10/06/10 Status: Ordered atorvastatin 40 mg oral tablet 1 tablet, By Mouth, Daily at bedtime, # 90 tablet, 2 Refills, 12/24/22 6:43:00 EDT, [facility] #[id number], 149.3, cm, 11/11/22 9:18:00 EDT, Height, 73.9, kg, 11/11/22 9:18:00 EDT, Dry Weight Start Date: 12/24/22 Status: Ordered lisinopril 40 mg oral tablet 1 tablet, By Mouth, Daily, # 90 tablet, 1 Refills, Maintenance, 12/16/22 18:30:00 EDT, [facility] #[id number], 149.3, cm, 11/11/22 9:18:00 EDT, Height, 73.9, kg, 11/11/22 9:18:00 EDT, Dry Weight Start Date: 12/16/22 Status: Ordered metFORMIN 500 mg oral tablet 1 tablet, By Mouth, 2 times a day, # 60 tablet, 2 Refills, Maintenance, 04/11/22 5:47:00 EDT, [facility] #[id number], 149.3, cm, 02/24/22 7:27:00 EDT, Height, 76.3, kg, 11/06/21 13:21:00 EDT, Dry Weight Start Date: 04/11/22 Status: Ordered metFORMIN 500 mg oral tablet 1 tablet = 500 mg, By Mouth, 2 times a day, # 60 tablet, 6 Refills, Maintenance, 03/29/23 13:27:00 EDT, [facility] #[id number], 149.3, cm, 03/05/23 8:16:00 EDT, Height, 73.9, kg, 11/11/22 9:18:00 EDT, Dry Weight Start Date: 03/29/23 Stop Date: 10/25/23 Status: Ordered Metoprolol Succinate ER 100 mg oral tablet, extended release 1 tablet, By Mouth, Daily, # 90 tablet, 1 Refills, Maintenance, 04/24/23 18:25:00 EDT, [facility] #[id number], 149.3, cm, 03/05/23 8:16:00 EDT, Height, 73.9, [...] Care Team Personnel Name: Zoila Dorsey Position: [facility] Onco RN Member Role: Primary Care Nurse Name: Elizabeth Shepard NP Position: [facility] PCO Associate Professional Member Role: PCP Address: Address: [address] [place] [id number]- Care Team Related Persons Name: MAC ZAMORANO Address: home [address] [place] [address] [place] [address] Name: DEBRA ZAMORANO Address: home
--- OUTSIDE RECORDS SUMMARY | 2024-04-27 10:48 | XMS_ITS | Continuity of Care Document ---
Author Organization [facility] Henrry lt Address [address] [place] [address]- Care Team Providers Care Mines Inspector Name Role Phone Devyn MORALES, Elizabeth Novak Primary Care Physician [phone] Encounter [facility] Date(s): 01/13/24 - 02/12/24 [facility] Adult [address] [place] [address]- Allergies, Adverse Reactions, Alerts Substance Reaction Severity Status Seafood Active Immunizations Given and Recorded Vaccine Date Status Refusal Reason Influenza Virus Vaccine (oldterm) 1 04/20/23 Recor ded Influenza Virus Vaccine (oldterm) 06/19/21 Recorde d SARS-CoV-2 mRNA ([id number]) vax 2 04/20/23 Recorded pneumococcal 20-valent conjugate [...] (oldterm) 04/08/11 Given 1Result Comment: [facility] [place] 2Result Comment: [facility] [place] 3Result Comment: [05/03/2017] [facility] [id number] 4Result Comment: [05/08/2016] [facility] 5Admin [...] 13 tablet, 3 Refills, Maintenance, 02/07/24 14:39:00 EDT,[facility] #[id number], Partial fill upon patient request if the prescription is for a schedule II opioid drug., 148.7, cm, 02/07/24 14:21:00 EDT,... Start Date: 02/07/24 Stop Date: 02/01/25 Status: Ordered allopurinol 100 mg oral tablet 1, tablet, By Mouth, Daily, # 90 tablet, Refills 1, Tot. Refills 1, Maintenance, 07/23/23 4:36:00 EST, Route to Pharmacy Electronically, [facility] #[id number], 149.3, cm, 06/17/23 9:58:00 EST, Height, 73.2, kg, 06/17/23 9:58:00 EST, Dry Weight Start Date: 07/23/23 Status: Ordered amLODIPine 2.5 mg oral tablet 1 tablet, By Mouth, Daily, # 90 tablet, 1 Refills, Maintenance, 01/13/24 13:57:00 EDT, [facility] #[id number], 149.3, cm, 12/15/23 9:10:00 EDT, Height, 72.8, kg, 12/15/23 9:36:00 EDT, Dry Weight Start Date: 01/13/24 Status: Ordered anastrozole 1 mg oral tablet 1 tablet, By Mouth, Daily, # 90 tablet, 3 Refills, Maintenance, 06/15/23 17:01:00 EST, [facility] #[id number], 149.3, cm, 03/05/23 8:16:00 EDT, Height, 73.9, kg, 11/11/22 9:18:00 EDT, Dry Weight Start Date: 06/15/23 Status: Ordered aspirin 81 mg oral tablet 1 tablet = 81 mg, By Mouth, Daily, # 30 tablet, 0 Refills, Maintenance Start Date: 10/06/10 Status: Ordered atorvastatin 40 mg oral tablet 1 tablet, By Mouth, Daily at bedtime, # 90 tablet, 1 Refills, Maintenance, 11/17/23 9:07:00 EDT, [facility] #[id number], 149.3, cm, 09/14/23 8:57:00 EST, Height, 73.2, kg, 06/17/23 9:58:00 EST, Dry Weight Start Date: 11/17/23 Status: Ordered lisinopril 40 mg oral tablet 1 tablet, By Mouth, Daily, # 90 tablet, 1 Refills, Maintenance, 11/03/23 0:09:00 EDT, [facility] #[id number], Please ask patient to call the office and schedule an appt for further refills, 149.3, cm, 09/14/23 8:57:00 EST, Height, 73.2, kg, 06/17... Start Date: 11/03/23 Status: Ordered metFORMIN 500 mg oral tablet 1 tablet = 500 mg, By Mouth, 2 times a day, # 60 tablet, 6 Refills, Maintenance, 03/29/23 13:27:00 EDT, [facility] #[id number], 149.3, cm, 03/05/23 8:16:00 EDT, Height, 73.9, kg, 11/11/22 9:18:00 EDT, Dry Weight Start Date: 03/29/23 Stop Date: 10/25/23 Status: Ordered Metoprolol Succinate ER 100 mg oral tablet, extended release 1 tablet, By Mouth, Daily, # 90 tablet, 1 Refills, Maintenance, 11/17/23 9:07:00 EDT, [facility] #[id number], 149.3, cm, 09/14/23 8:57:00 EST, Height, 73.2, [...] Professional Member Role: PCP Address: Address: [address] [place] [id number]- Care Team Related Persons Name: MAC ZAMORANO Address: home [address] [place] [address] [place] [address] Name: DEBRA ZAMORANO Address: home
--- OUTSIDE RECORDS SUMMARY | 2024-04-27 10:48 | XMS_ITS | Continuity of Care Document ---
Author Organization [facility] Address [address] [place] [address]- Care Team Providers Care Shoe Fitter Name Role Phone Kassandra MELCHOR, Sunny Lubin Primary Care Physician [phone] Encounter [facility] Date(s): 01/02/21 - 02/01/21 [facility] [address] [place], [place] [address] Allergies, Adverse Reactions, Alerts Substance [...] 04/08/11 Given 1Result Comment: [05/03/2017] [facility] [phone] 2Result Comment: [05/08/2016] [facility]Admin [...] 10/17/20 9:52:00 EDT, Route to Pharmacy Electronically, [facility] #[id number], D/C RX FOR THE 90 DAY SUPPLY PREVIOUSLY SENT, 150.5, cm, 02/19/20 11:58:00 ED... Start Date: 10/17/20 Status: Ordered amLODIPine 2.5 mg oral tablet 1 tablet, By Mouth, Daily, # 90 tablet, 1 Refills, Maintenance, 10/25/20 8:14:00 EDT, [facility] #[id number], 150.5, cm, 02/19/20 11:58:00 EDT, Height Start Date: 10/25/20 Stop Date: 04/23/21 Status: Ordered anastrozole 1 mg oral tablet 1 tablet, By Mouth, Daily, # 90 tablet, 0 Refills, Maintenance, 01/21/21 15:10:00 EDT, [facility] #[id number], 149.86, cm, 01/21/21 14:09:00 EDT, Height, 73.8, kg, 01/21/21 14:09:00 EDT, Dry Weight Start Date: 01/21/21 Status: Ordered aspirin 81 mg oral tablet 1 tablet = 81 mg, By Mouth, Daily, # 30 tablet, 0 Refills, Maintenance Start Date: 10/06/10 Status: Ordered atorvastatin 40 mg oral tablet 1 tablet, By Mouth, Daily at bedtime, # 90 tablet, 3 Refills, Maintenance, 09/18/19 13:19:00 EST, [facility] #[id number], 150.5, cm, 08/02/18 14:01:00 EST, Height Start Date: 09/18/19 Status: Ordered lisinopril 40 mg oral tablet 1 tablet = 40 mg, By Mouth, Daily, # 90 tablet, 0 Refills, Maintenance, 12/31/20 15:29:00 EDT, Tablet, [facility] #[id number], Office visit needed for further refills., 150.5, cm, 12/27/20 13:27:00 EDT, Height Start Date: 12/31/20 Status: Ordered metFORMIN 500 mg oral tablet 1 tablet, By Mouth, 2 times a day, # 60 tablet, 2 Refills, Maintenance, 01/16/21 9:01:00 EDT, [facility] #[id number], 149.86, cm, 01/10/21 6:27:00 EDT, Height, 74.2, kg, 01/10/21 6:27:00 EDT, Dry Weight Start Date: 01/16/21 Status: Ordered Metoprolol Succinate ER 100 mg oral tablet, extended release 1 tablet = 100 mg, By Mouth, Daily, # 90 tablet, 1 Refills, Maintenance, 01/11/20 11:36:00 EDT, [facility] #[id number], 150.5, cm, 08/02/18 14:01:00 EST, Height Start Date: 01/11/20 Status: Ordered spironolactone 25 mg oral tablet 1, tablet, By Mouth, 2 times a day, LABS NEEDED FOR ADDITIONAL REFILLS, # 180 tablet, Refills 0, Tot. Refills 0, Maintenance, 07/18/20 17:58:00 EST, Route to Pharmacy Electronically, [facility] #[id number], 150.5, cm, 02/19/20 11:58:00 EDT, Height Start [...]
--- OUTSIDE RECORDS SUMMARY | 2024-04-27 10:48 | XMS_ITS | Continuity of Care Document ---
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 Care [address] [place] [id number] Allergies, Adverse Reactions, Alerts Substance [...] (oldterm) 04/08/11 Given 1Result Comment: [05/03/2017] [facility] [id number] 2Result Comment: [05/08/2016] [facility] [...] tablet, Refills 1, Route to Pharmacy Electronically, [facility] #[id number], 149.3, cm, 02/21/21 8:42:00 EDT, Height, 73.7, kg, 01/23/21 10:06:00 EDT, Dry Weight Start Date: 04/15/21 Status: Ordered amLODIPine 2.5 mg oral tablet 1 tablet, By Mouth, Daily, # 90 tablet, 3 Refills, Maintenance, 02/21/21 9:09:00 EDT, [facility] #[id number], 149.3, cm, 02/21/21 8:42:00 EDT, Height, 73.7, kg, 01/23/21 10:06:00 EDT, Dry Weight Start Date: 02/21/21 Stop Date: 08/20/21 Status: Ordered anastrozole 1 mg oral tablet 1 tablet, By Mouth, Daily, # 90 tablet, 3 Refills, Maintenance, 04/30/21 16:05:00 EDT, [facility] #[id number], 149.3, cm, 02/21/21 8:42:00 EDT, Height, 73.7, kg, 01/23/21 10:06:00 EDT, Dry Weight Start Date: 04/30/21 Status: Ordered aspirin 81 mg oral tablet 1 tablet = 81 mg, By Mouth, Daily, # 30 tablet, 0 Refills, Maintenance Start Date: 10/06/10 Status: Ordered atorvastatin 40 mg oral tablet 1 tablet, By Mouth, Daily at bedtime, # 90 tablet, 3 Refills, Maintenance, 09/18/19 13:19:00 EST, [facility] #[id number], 150.5, cm, 08/02/18 14:01:00 EST, Height Start Date: 09/18/19 Status: Ordered lisinopril 40 mg oral tablet 1 tablet = 40 mg, By Mouth, Daily, # 90 tablet, 0 Refills, Maintenance, 12/31/20 15:29:00 EDT, Tablet, [facility] #[id number], Office visit needed for further refills., 150.5, cm, 12/27/20 13:27:00 EDT, Height Start Date: 12/31/20 Status: Ordered metFORMIN 500 mg oral tablet 1 tablet, By Mouth, 2 times a day, # 60 tablet, 2 Refills, Maintenance, 01/16/21 9:01:00 EDT, [facility] #[id number], 149.86, cm, 01/10/21 6:27:00 EDT, Height, 74.2, kg, 01/10/21 6:27:00 EDT, Dry Weight Start Date: 01/16/21 Status: Ordered Metoprolol Succinate ER 100 mg oral tablet, extended release 1 tablet = 100 mg, By Mouth, Daily, # 90 tablet, 1 Refills, Maintenance, 01/11/20 11:36:00 EDT, [facility] #[id number], 150.5, cm, 08/02/18 14:01:00 EST, Height Start Date: 01/11/20 Status: Ordered spironolactone 25 mg oral tablet 1, tablet, By Mouth, 2 times a day, LABS NEEDED FOR ADDITIONAL REFILLS, # 180 tablet, Refills 3, Route to Pharmacy Electronically, [facility] #[id number], 149.3, cm, 02/21/21 8:42:00 EDT, Height, 73.7, [...]
--- OUTSIDE RECORDS SUMMARY | 2024-04-27 10:48 | XMS_ITS | Continuity of Care Document ---
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 Name Role Phone Devyn MORALES, Elizabeth Novak Primary Care Physician Encounter [facility] Date(s): 05/08/22 - 07/12/22 [facility] Care [address] [place] [address]- Discharge Disposition: A-D/C Home Attending Physician: Robyn Umaña MD Admitting Physician: Robyn Umaña MD Referring Physician: Devyn MORALES, Elizabeth Novak Allergies, Adverse Reactions, Alerts Substance Reaction Severity [...] FluLaval (oldterm) 04/08/11 Given 1Result Comment: [05/03/2017] [facility] [id number] 2Result Comment: [05/08/2016] [facility] 3Admin Note: Fluzone High dose Stop [facility] [...] 05/20/22 7:38:00 EDT, Route to Pharmacy Electronically, [facility] #[id number], 149.3, cm, 05/12/22 9:17:00 EDT, Height, 75, kg, 05/12/22 9:17:00 EDT, Dry Weight Start Date: 05/20/22 Status: Ordered amLODIPine 2.5 mg oral tablet 1 tablet, By Mouth, Daily, # 90 tablet, 3 Refills, Maintenance, 06/30/22 10:38:00 EST, [facility] #[id number], 149.3, cm, 05/12/22 9:17:00 EDT, Height, 75, kg, 05/12/22 9:17:00 EDT, Dry Weight Start Date: 06/30/22 Status: Ordered anastrozole 1 mg oral tablet 1 tablet, By Mouth, Daily, # 90 tablet, 3 Refills, Maintenance, 05/12/22 22:16:00 EDT, [facility] #[id number], 149.3, cm, 05/12/22 9:17:00 EDT, Height, 75, kg, 05/12/22 9:17:00 EDT, Dry Weight Start Date: 05/12/22 Status: Ordered aspirin 81 mg oral tablet 1 tablet = 81 mg, By Mouth, Daily, # 30 tablet, 0 Refills, Maintenance Start Date: 10/06/10 Status: Ordered atorvastatin 40 mg oral tablet 1 tablet, By Mouth, Daily at bedtime, # 90 tablet, 1 Refills, [facility] #[id number], 149.3, cm, 11/06/21 13:21:00 EDT, Height, 76.3, kg, 11/06/21 13:21:00 EDT, Dry Weight Start Date: 12/30/21 Status: Ordered lisinopril 40 mg oral tablet 1 tablet, By Mouth, Daily, # 90 tablet, 1 Refills, Maintenance, 05/19/22 17:17:00 EDT, [facility] #[id number], 149.3, cm, 05/12/22 9:17:00 EDT, Height, 75, kg, 05/12/22 9:17:00 EDT, Dry Weight Start Date: 05/19/22 Status: Ordered metFORMIN 500 mg oral tablet 1 tablet, By Mouth, 2 times a day, # 60 tablet, 2 Refills, Maintenance, 04/11/22 5:47:00 EDT, [facility] #[id number], 149.3, cm, 02/24/22 7:27:00 EDT, Height, 76.3, kg, 11/06/21 13:21:00 EDT, Dry Weight Start Date: 04/11/22 Status: Ordered Metoprolol Succinate ER 100 mg oral tablet, extended release 1 tablet, By Mouth, Daily, # 90 tablet, 1 Refills, Maintenance, 12/30/21 12:34:00 EDT, [facility] #[id number], 149.3, cm, 11/06/21 13:21:00 EDT, Height, 76.3, [...] 12/2020 Active Obese class I Confirmed Active Vital Signs Most recent to oldest [Reference Range]: 1 Height 149.3 cm (05/12/22 9:17 AM) Weight 75.0 kg (05/12/22 9:17 AM) Oxygen Saturation [94-100 %] 100 % (05/12/22 9:17 AM) Pulse Rate [55-90 bpm] 65 bpm (05/12/22 9:17 AM) Body Mass Index [18.5-24.99 kg/m2] 33.65 kg/m2 *>HHI* (05/12/22 9:17 AM) Blood Pressure [90-138/55-84 mm Hg] 138/ 51mm Hg (05/12/22 9:17 AM) Temperature [96.8-100.4 DegF] 97.6 DegF (05/12/22 9:17 AM) Mode of Delivery (Oxygen) Room air (05/12/22 9:17 AM) Blood pressure sites Arm, left (05/12/22 9:17 AM) Temperature Route Temporal (05/12/22 9:17 AM) Dry Weight 75.0 kg (05/12/22 9:17 AM) Weight Obtained Via Standing scale (05/12/22 9:17 AM) Dry Weight Obtained Via Standing scale (05/12/22 9:17 AM) Social History Social History Type Response Smoking Status Never smoker entered on: 10/13/16 Sex Note * Jocelyn Lynch: PERFORM, SIGN, VERIFY Event Display: Patient Education/Instruction Authored Date: [id number] [facility] *Heme/Onc Adult Clinical Summary Name GURWINDER ZAMORANO Age 76 Years 1945 PCP Devyn MORALES, Elizabeth Novak PCP [facility]# [id number] Visit Date 05/08/2022 14:36:00 Additional Instructions: Scheduled Appointments?? Future Appointments ?No Future Appointments Scheduled Follow-Up Instructions ?? With: Address: When: Robyn [facility], [facility] [place] [address] Business (1) 05/18/2023 9:00 AM Diagnosis Medications: Please continue your medications until treatment [...] tab(s) Oral Daily. Refills: 1. Next Dose: Amlodipine (amLODIPine 2.5 mg oral [...] twice a day. Refills: 2. Next Dose: Metoprolol (Metoprolol Succinate ER 100 mg oral tablet, extended release) 1 tab(s) Oral Daily. Refills: 1. Next Dose: Allergy Info:?? Seafood Medications Given This Visit Future Orders ?No future orders Vital Signs Height 149.3 cm Weight 75.0 kg BMI 33.65 kg/m2 Blood Pressure 138 mm Hg/51 mm Hg Temperature 97.6 DegF Pulse Rate 65 bpm Respiratory Rate 02 Sat Mode of Delivery 100 %/Room air You can now view a summary of your hospital visit from the comfort of your home through a free online portal called [facility]. [facility] is a website that allows you to securely view your medical information including discharge summary, medications and follow-up visits. ??You can alsosend a secure electronic message to your doctor???s office to request appointments, renew medications or just ask a question. You can enroll at [email or web address] or register during your next office [...] primary care provider, you may find a [facility] provider by calling [facility] abcdexperts Link at [phone]. For information about the plan of care [...] Care Team Personnel Name: Zoila Dorsey Position: [facility] Onco RN Member Role: Primary Care Nurse Name: Devyn MORALES, Elizabeth Novak Position: [facility] PCO Associate Professional Member Role: PCP Address: Address: [address] [place] [address]- Care Team Related Persons Name: MAC ZAMORANO Address: [address] [place] [address] Name: DEBRA ZAMORANO Address: home
--- OUTSIDE RECORDS SUMMARY | 2024-04-27 10:48 | XMS_ITS | Continuity of Care Document ---
Author Organization [facility] Address [address] [place] [address]- Care Team Providers Care Traffic Maintenance Officer Name Role Phone Devyn MORALES, Elizabeth Novak Primary Care Physician [phone] Encounter [facility] Date(s): 08/28/21 - 09/27/21 [facility] Adult [address] [place] [address]- Allergies, Adverse Reactions, Alerts Substance Reaction Severity [...] Comment: [05/03/2017] [facility] [id number] 2Result Comment: [05/08/2016] [facility] 3Admin [...] 07/09/21 9:53:00 EST, Route to Pharmacy Electronically, [facility] #[id number], 149.3, cm, 05/27/21 11:52:00 EST, Height, 75, kg, 05/08/21 10:48:00 EDT, Dry Weight Start Date: 07/09/21 Status: Ordered amLODIPine 2.5 mg oral tablet 1 tablet, By Mouth, Daily, # 90 tablet, 3 Refills, Maintenance, 02/21/21 9:09:00 EDT, [facility] #[id number], 149.3, cm, 02/21/21 8:42:00 EDT, Height, 73.7, kg, 01/23/21 10:06:00 EDT, Dry Weight Start Date: 02/21/21 Stop Date: 08/20/21 Status: Ordered anastrozole 1 mg oral tablet 1 tablet, By Mouth, Daily, # 90 tablet, 3 Refills, Maintenance, 04/30/21 16:05:00 EDT, [facility] #[id number], 149.3, cm, 02/21/21 8:42:00 EDT, Height, 73.7, kg, 01/23/21 10:06:00 EDT, Dry Weight Start Date: 04/30/21 Status: Ordered aspirin 81 mg oral tablet 1 tablet = 81 mg, By Mouth, Daily, # 30 tablet, 0 Refills, Maintenance Start Date: 10/06/10 Status: Ordered atorvastatin 40 mg oral tablet 1 tablet, By Mouth, Daily at bedtime, # 90 tablet, 0 Refills, Maintenance, 09/24/21 12:38:00 EST, [facility] #[id number], 149.3, cm, 08/27/21 9:29:00 EST, Height, 75, kg, 05/08/21 10:48:00 EDT, Dry Weight Start Date: 09/24/21 Status: Ordered lisinopril 40 mg oral tablet 1 tablet = 40 mg, By Mouth, Daily, # 90 tablet, 0 Refills, Maintenance, 08/05/21 12:50:00 EST, Tablet, [facility] #[id number], Office visit needed for further refills., 149.3, cm, 05/27/21 11:52:00 EST, Height, 75, kg, 05/08/21 10:48:00 EDT, Dry... Start Date: 08/05/21 Status: Ordered metFORMIN 500 mg oral tablet 1 tablet, By Mouth, 2 times a day, # 60 tablet, 2 Refills, Maintenance, 01/16/21 9:01:00 EDT, [facility] #[id number], 149.86, cm, 01/10/21 6:27:00 EDT, Height, 74.2, kg, 01/10/21 6:27:00 EDT, Dry Weight Start Date: 01/16/21 Status: Ordered Metoprolol Succinate ER 100 mg oral tablet, extended release 1 tablet = 100 mg, By Mouth, Daily, # 90 tablet, 1 Refills, Maintenance, 06/16/21 9:00:00 EST, [facility] #[id number], 149.3, cm, 05/27/21 11:52:00 EST, Height, 75, kg, 05/08/21 10:48:00 EDT, Dry Weight Start Date: 06/16/21 Status: Ordered spironolactone 25 mg oral tablet 1, tablet, By Mouth, 2 times a day, LABS NEEDED FOR ADDITIONAL REFILLS, # 180 tablet, Refills 3, Route to Pharmacy Electronically, [facility] #[id number], 149.3, cm, 02/21/21 8:42:00 EDT, Height, 73.7, [...]
--- OUTSIDE RECORDS SUMMARY | 2024-04-27 10:48 | XMS_ITS | Continuity of Care Document ---
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 Name Role Phone Devyn MORALES, Elizabeth Novak Primary Care Physician Encounter [facility] Date(s): 12/09/23 - 02/14/24 [facility] [address] [place] [address] Encounter Diagnosis Osteoporosis(Discharge Diagnosis) - 12/15/23 Breast cancer(Discharge Diagnosis) - 12/15/23 Discharge Disposition: A-D/C Home Attending Physician: Francesco Graff MD Admitting Physician: Francesco Graff MD Referring Physician: Elizabeth Shepard NP Allergies, Adverse Reactions, Alerts Substance Reaction Severity Status Seafood Active Immunizations Given and Recorded Vaccine Date Status Refusal Reason Influenza Virus Vaccine (oldterm) 1 04/20/23 Recor ded Influenza Virus Vaccine (oldterm) 06/19/21 Recorde d SARS-CoV-2 mRNA ([id number]) vax 2 04/20/23 Recorded pneumococcal 20-valent conjugate [...] (oldterm) 04/08/11 Given 1Result Comment: [facility] [place] 2Result Comment: [facility] [place] 3Result Comment: [05/03/2017] [facility] [id number] [phone] 4Result Comment: [05/08/2016] [facility] 5Admin Note: Fluzone High dose [facility] 6Admin Note: [facility] 7Admin Note: [facility] 04-01-12 Medications Acetaminophen = 500 mg, By Mouth, Daily at bedtime, 2 tabs, 0 Refills, Maintenance, 03/27/16 8:06:31 EDT Start Date: 03/27/16 Status: Ordered alendronate 70 mg oral tablet 1 tablet = 70 mg, By Mouth, Every week, # 13 tablet, 3 Refills, Maintenance, 02/07/24 14:39:00 EDT,[facility] #[id number], Partial fill upon patient request if the prescription is for a schedule II opioid drug., 148.7, cm, 02/07/24 14:21:00 EDT,... Start Date: 02/07/24 Stop Date: 02/01/25 Status: Ordered allopurinol 100 mg oral tablet 1, tablet, By Mouth, Daily, # 90 tablet, Refills 1, Tot. Refills 1, Maintenance, 07/23/23 4:36:00 EST, Route to Pharmacy Electronically, [facility] #[id number], 149.3, cm, 06/17/23 9:58:00 EST, Height, 73.2, kg, 06/17/23 9:58:00 EST, Dry Weight Start Date: 07/23/23 Status: Ordered amLODIPine 2.5 mg oral tablet 1 tablet, By Mouth, Daily, # 90 tablet, 1 Refills, Maintenance, 01/13/24 13:57:00 EDT, [facility] #[id number], 149.3, cm, 12/15/23 9:10:00 EDT, Height, 72.8, kg, 12/15/23 9:36:00 EDT, Dry Weight Start Date: 01/13/24 Status: Ordered anastrozole 1 mg oral tablet 1 tablet, By Mouth, Daily, # 90 tablet, 3 Refills, Maintenance, 06/15/23 17:01:00 EST, [facility] #[id number], 149.3, cm, 03/05/23 8:16:00 EDT, Height, 73.9, kg, 11/11/22 9:18:00 EDT, Dry Weight Start Date: 06/15/23 Status: Ordered aspirin 81 mg oral tablet 1 tablet = 81 mg, By Mouth, Daily, # 30 tablet, 0 Refills, Maintenance Start Date: 10/06/10 Status: Ordered atorvastatin 40 mg oral tablet 1 tablet, By Mouth, Daily at bedtime, # 90 tablet, 1 Refills, Maintenance, 11/17/23 9:07:00 EDT, [facility] #[id number], 149.3, cm, 09/14/23 8:57:00 EST, Height, 73.2, kg, 06/17/23 9:58:00 EST, Dry Weight Start Date: 11/17/23 Status: Ordered lisinopril 40 mg oral tablet 1 tablet, By Mouth, Daily, # 90 tablet, 1 Refills, Maintenance, 11/03/23 0:09:00 EDT, [facility] #[id number], Please ask patient to call the office and schedule an appt for further refills, 149.3, cm, 09/14/23 8:57:00 EST, Height, 73.2, kg, 06/17... Start Date: 11/03/23 Status: Ordered metFORMIN 500 mg oral tablet 1 tablet = 500 mg, By Mouth, 2 times a day, # 60 tablet, 6 Refills, Maintenance, 03/29/23 13:27:00 EDT, [facility] #[id number], 149.3, cm, 03/05/23 8:16:00 EDT, Height, 73.9, kg, 11/11/22 9:18:00 EDT, Dry Weight Start Date: 03/29/23 Stop Date: 10/25/23 Status: Ordered Metoprolol Succinate ER 100 mg oral tablet, extended release 1 tablet, By Mouth, Daily, # 90 tablet, 1 Refills, Maintenance, 11/17/23 9:07:00 EDT, [facility] #[id number], 149.3, cm, 09/14/23 8:57:00 EST, Height, 73.2, [...] class I Confirmed Active Osteoporosis Confirmed Active Diagnosis Diagnosis Type Effective Dates Health Status Cl inical Service Informant Osteoporosis Discharge Diagnosis 12/15/23 Breast cancer Discharge Diagnosis 12/15/23 Vital Signs Most recent to oldest [Reference Range]: 1 Height 149.3 cm (12/15/23 9:10 AM) Weight 72.8 kg (12/15/23 9:10 AM) Oxygen Saturation [94-100 %] 98 % (12/15/23 9:10 AM) Pulse Rate [55-90 bpm] 61 bpm (12/15/23 9:10 AM) Body Mass Index [18.5-24.99 kg/m2] 32.66 kg/m2 *>HHI* (12/15/23 9:10 AM) Blood Pressure [90-138/55-84 mm Hg] 155/ 64mm Hg *H* (12/15/23 9:10 AM) Temperature [96.8-100.4 DegF] 97.4 DegF (12/15/23 9:10 AM) Mode of Delivery (Oxygen) Room air (12/15/23 9:10 AM) Blood pressure sites Arm, right (12/15/23 9:10 AM) Temperature Route Oral (12/15/23 9:10 AM) Dry Weight 72.8 kg (12/15/23 9:10 AM) Weight Obtained Via Standing scale (12/15/23 9:10 AM) Dry Weight Obtained Via Standing scale (12/15/23 9:10 AM) Social History Social History Type Response Smoking Status Never smoker entered on: 10/13/16 Sex Patient Care team information Care Team Personnel Name: Zoila Dorsey [facility] Onco RN Member Role: Primary Care Nurse Name: Devyn MORALES, Elizabeth Novak Position[facility] PCO Associate Professional Member Role: PCP Address: Address: [address] [place] [address]- Name: Francesco Graff MD Position: [facility] Physician - Oncology Med Service: Hematology & Oncology Member Role: Admitting Physician Address: Address: [address] [place] [address] [place] [address]- Care Team Related Persons Name: MAC ZAMORANO Address: [address] [place] [address] Name: DEBRA ZAMORANO Address: home
--- OUTSIDE RECORDS SUMMARY | 2024-04-27 10:48 | XMS_ITS | Continuity of Care Document ---
Author Organization [facility] Address [address] [place] [address]- Care Team Providers Care Teaching Aide Name Role Phone Devyn MORALES, Elizabeth Novak Primary Care Physician [phone] Encounter [facility] Date(s): 07/23/23 - 08/22/23 [facility] Adult [address] [place] [address]- Allergies, Adverse Reactions, Alerts Substance Reaction Severity Status Seafood Active Immunizations Given and Recorded Vaccine Date Status Refusal Reason Influenza Virus Vaccine (oldterm) 1 04/20/23 Recor ded Influenza Virus Vaccine (oldterm) 06/19/21 Recorde d SARS-CoV-2 mRNA ([id number]) vax 2 04/20/23 Recorded pneumococcal 20-valent conjugate [...] (oldterm) 04/08/11 Given 1Result Comment: [facility] [place] 2Result Comment: [facility] [place] 3Result Comment: [05/03/2017] [facility] [id number] 4Result Comment: [05/08/2016] [facility] 5Admin [...] 07/23/23 4:36:00 EST, Route to Pharmacy Electronically, [facility] #[id number], 149.3, cm, 06/17/23 9:58:00 EST, Height, 73.2, kg, 06/17/23 9:58:00 EST, Dry Weight Start Date: 07/23/23 Status: Ordered amLODIPine 2.5 mg oral tablet 1 tablet, By Mouth, Daily, # 90 tablet, 3 Refills, Maintenance, 06/30/22 10:38:00 EST, [facility] #[id number], 149.3, cm, 05/12/22 9:17:00 EDT, Height, 75, kg, 05/12/22 9:17:00 EDT, Dry Weight Start Date: 06/30/22 Status: Ordered anastrozole 1 mg oral tablet 1 tablet, By Mouth, Daily, # 90 tablet, 3 Refills, Maintenance, 06/15/23 17:01:00 EST, [facility] #[id number], 149.3, cm, 03/05/23 8:16:00 EDT, Height, 73.9, kg, 11/11/22 9:18:00 EDT, Dry Weight Start Date: 06/15/23 Status: Ordered aspirin 81 mg oral tablet 1 tablet = 81 mg, By Mouth, Daily, # 30 tablet, 0 Refills, Maintenance Start Date: 10/06/10 Status: Ordered atorvastatin 40 mg oral tablet 1 tablet, By Mouth, Daily at bedtime, # 90 tablet, 2 Refills, 12/24/22 6:43:00 EDT, [facility] #[id number], 149.3, cm, 11/11/22 9:18:00 EDT, Height, 73.9, kg, 11/11/22 9:18:00 EDT, Dry Weight Start Date: 12/24/22 Status: Ordered lisinopril 40 mg oral tablet 1 tablet, By Mouth, Daily, # 90 tablet, 0 Refills, Maintenance, 07/23/23 11:31:00 EST, [facility] #[id number], 149.3, cm, 06/17/23 9:58:00 EST, Height, 73.2, kg, 06/17/23 9:58:00 EST, Dry Weight Start Date: 07/23/23 Status: Ordered metFORMIN 500 mg oral tablet 1 tablet, By Mouth, 2 times a day, # 60 tablet, 2 Refills, Maintenance, 04/11/22 5:47:00 EDT, [facility] #[id number], 149.3, cm, 02/24/22 7:27:00 EDT, Height, 76.3, kg, 11/06/21 13:21:00 EDT, Dry Weight Start Date: 04/11/22 Status: Ordered metFORMIN 500 mg oral tablet 1 tablet = 500 mg, By Mouth, 2 times a day, # 60 tablet, 6 Refills, Maintenance, 03/29/23 13:27:00 EDT, [facility] #[id number], 149.3, cm, 03/05/23 8:16:00 EDT, Height, 73.9, kg, 11/11/22 9:18:00 EDT, Dry Weight Start Date: 03/29/23 Stop Date: 10/25/23 Status: Ordered Metoprolol Succinate ER 100 mg oral tablet, extended release 1 tablet, By Mouth, Daily, # 90 tablet, 1 Refills, Maintenance, 04/24/23 18:25:00 EDT, [facility] #[id number], 149.3, cm, 03/05/23 8:16:00 EDT, Height, 73.9, [...] Care Team Personnel Name: Zoila Dorsey Position: [facility] Onco RN Member Role: Primary Care Nurse Name: Elizabeth Shepard NP Position: [facility] PCO Associate Professional Member Role: PCP Address: Address: [address] [place] [address] [place] [address]- Care Team Related Persons Name: MAC ZAMORANO Address: home [address] [place] [address] [place] [address] Name: DEBRA ZAMORANO Address: home
--- OUTSIDE RECORDS SUMMARY | 2024-04-27 10:48 | XMS_ITS | Continuity of Care Document ---
Author Organization [facility] Address [address] [place] [address]- Care Team Providers Care Tool And Die Manager Name Role Phone Devyn MORALES, Elizabeth Novak Primary Care Physician [phone] Encounter [facility] Date(s): 08/28/22 - 09/27/22 [facility] Adult [address] [place] [address]- Allergies, Adverse Reactions, Alerts Substance Reaction Severity [...] (oldterm) 04/08/11 Given 1Result Comment: [05/03/2017] [facility] [id number] [phone] 2Result Comment: [05/08/2016] [facility] 3Admin Note: Fluzone High dose [facility] [...] 05/20/22 7:38:00 EDT, Route to Pharmacy Electronically, [facility] #[id number], 149.3, cm, 05/12/22 9:17:00 EDT, Height, 75, kg, 05/12/22 9:17:00 EDT, Dry Weight Start Date: 05/20/22 Status: Ordered amLODIPine 2.5 mg oral tablet 1 tablet, By Mouth, Daily, # 90 tablet, 3 Refills, Maintenance, 06/30/22 10:38:00 EST, [facility] #[id number], 149.3, cm, 05/12/22 9:17:00 EDT, Height, 75, kg, 05/12/22 9:17:00 EDT, Dry Weight Start Date: 06/30/22 Status: Ordered anastrozole 1 mg oral tablet 1 tablet, By Mouth, Daily, # 90 tablet, 3 Refills, Maintenance, 05/12/22 22:16:00 EDT, [facility] #[id number], 149.3, cm, 05/12/22 9:17:00 EDT, Height, 75, kg, 05/12/22 9:17:00 EDT, Dry Weight Start Date: 05/12/22 Status: Ordered aspirin 81 mg oral tablet 1 tablet = 81 mg, By Mouth, Daily, # 30 tablet, 0 Refills, Maintenance Start Date: 10/06/10 Status: Ordered atorvastatin 40 mg oral tablet 1 tablet, By Mouth, Daily at bedtime, # 90 tablet, 1 Refills, [facility] #[id number], 149.3, cm, 11/06/21 13:21:00 EDT, Height, 76.3, kg, 11/06/21 13:21:00 EDT, Dry Weight Start Date: 12/30/21 Status: Ordered lisinopril 40 mg oral tablet 1 tablet, By Mouth, Daily, # 90 tablet, 1 Refills, Maintenance, 05/19/22 17:17:00 EDT, [facility] #[id number], 149.3, cm, 05/12/22 9:17:00 EDT, Height, 75, kg, 05/12/22 9:17:00 EDT, Dry Weight Start Date: 05/19/22 Status: Ordered metFORMIN 500 mg oral tablet 1 tablet, By Mouth, 2 times a day, # 60 tablet, 2 Refills, Maintenance, 04/11/22 5:47:00 EDT, [facility] #[id number], 149.3, cm, 02/24/22 7:27:00 EDT, Height, 76.3, kg, 11/06/21 13:21:00 EDT, Dry Weight Start Date: 04/11/22 Status: Ordered metFORMIN 500 mg oral tablet See Instructions, TAKE 1 TABLET BY MOUTH TWICE DAILY, # 60 tablet, 0 Refills, Maintenance, :56:00 EST, [facility] #[id number], 149.3, cm, 08/27/22 8:35:00 EST, Height, 75, kg, :17:00 EDT, Dry Weight Start Date: 08/27/22 Status: Ordered Metoprolol Succinate ER 100 mg oral tablet, extended release 1 tablet, By Mouth, Daily, # 90 tablet, 1 Refills, Maintenance, 12/30/21 12:34:00 EDT, [facility] #[id number], 149.3, cm, 11/06/21 13:21:00 EDT, Height, 76.3, [...] Care Team Personnel Name: Zoila Dorsey Position: [facility] Onco RN Member Role: Primary Care Nurse Name: Devyn MORALES, Elizabeth Novak Position: [facility] PCO Associate Professional Member Role: PCP Address: Address: [address] [place] [address]- Care Team Related Persons Name: MCA ZAMORANO Address: home [address] [place] [address] [place] [address] Name: DEBRA ZAMORANO Address: home
--- OUTSIDE RECORDS SUMMARY | 2024-04-27 10:48 | XMS_ITS | Continuity of Care Document ---
Author Organization [facility] Address [address] [place] [address]- Care Team Providers Care Architectural Superintendent Name Role Phone Devyn MORALES, Elizabeth Novak Primary Care Physician [place] [facility] [facility] [place](s[place] 10/30/21 - 01/06/22 [facility] [address] [place] [address]- Discharge Disposition: A-D/C Home Attending Physician: Robyn Umaña MD Admitting Physician: Robyn Umaña MD Referring Physician: Elizabeth Shepard NP Allergies, [...] FluLaval (oldterm) 04/08/11 Given 1Result Comment: [05/03/2017] [facility] [id number] [phone] 2Result Comment: [05/08/2016] [facility] 3Admin Note: Fluzone High dose Stop & [...] 07/09/21 9:53:00 EST, Route to Pharmacy Electronically, [facility] #[id number], 149.3, cm, 05/27/21 11:52:00 EST, Height, 75, kg, 05/08/21 10:48:00 EDT, Dry Weight Start Date: 07/09/21 Status: Ordered amLODIPine 2.5 mg oral tablet 1 tablet, By Mouth, Daily, # 90 tablet, 3 Refills, Maintenance, 02/21/21 9:09:00 EDT, [facility] #[id number], 149.3, cm, 02/21/21 8:42:00 EDT, Height, 73.7, kg, 01/23/21 10:06:00 EDT, Dry Weight Start Date: 02/21/21 Stop Date: 08/20/21 Status: Ordered anastrozole 1 mg oral tablet 1 tablet, By Mouth, Daily, # 90 tablet, 3 Refills, Maintenance, 04/30/21 16:05:00 EDT, [facility] #[id number], 149.3, cm, 02/21/21 8:42:00 EDT, Height, 73.7, kg, 01/23/21 10:06:00 EDT, Dry Weight Start Date: 04/30/21 Status: Ordered aspirin 81 mg oral tablet 1 tablet = 81 mg, By Mouth, Daily, # 30 tablet, 0 Refills, Maintenance Start Date: 10/06/10 Status: Ordered atorvastatin 40 mg oral tablet 1 tablet, By Mouth, Daily at bedtime, # 90 tablet, 1 Refills, [facility] #[id number], 149.3, cm, 11/06/21 13:21:00 EDT, Height, 76.3, kg, 11/06/21 13:21:00 EDT, Dry Weight Start Date: 12/30/21 Status: Ordered lisinopril 40 mg oral tablet 1 tablet = 40 mg, By Mouth, Daily, # 90 tablet, 1 Refills, Maintenance, 11/06/21 8:56:00 EDT, Tablet, [facility] #[id number], 149.3, cm, 08/27/21 9:29:00 EST, Height, 75, kg, 05/08/21 10:48:00 EDT, Dry Weight Start Date: 11/06/21 Status: Ordered metFORMIN 500 mg oral tablet 1 tablet, By Mouth, 2 times a day, # 60 tablet, 5 Refills, Maintenance, 09/30/21 13:26:00 EDT, [facility] #[id number], 149.3, cm, 08/27/21 9:29:00 EST, Height, 75, kg, 05/08/21 10:48:00 EDT, DryWeight Start Date: 09/30/21 Status: Ordered Metoprolol Succinate ER 100 mg oral tablet, extended release 1 tablet, By Mouth, Daily, # 90 tablet, 1 Refills, Maintenance, 12/30/21 12:34:00 EDT, [facility] #[id number], 149.3, cm, 11/06/21 13:21:00 EDT, Height, 76.3, kg, 11/06/21 13:21:00 EDT, Dry Weight Start Date: 12/30/21 Status: Ordered spironolactone 25 mg oral tablet 1, tablet, By Mouth, 2 times a day, LABS NEEDED FOR ADDITIONAL REFILLS, # 180 tablet, Refills 3, Route to Pharmacy Electronically, [facility] #[id number], 149.3, cm, 02/21/21 8:42:00 EDT, Height, 73.7, [...] positive(Confirmed) 12/2020 Active Obese class I(Confirmed) Active Vital Signs Most recent to oldest [Reference Range]: 1 Height 149.3 cm (11/06/21 1:21 PM) Weight 76.3 kg (11/06/21 1:21 PM) Pulse Rate [55-90 bpm] 60 bpm (11/06/21 1:21 PM) Body Mass Index [18.5-24.99] 34.23 *>HHI* (11/06/21 1:21 PM) Blood Pressure [90-138/55-84 mm Hg] 130/ 58mm Hg (11/06/21 1:21 PM) Temperature [96.8-100.4 DegF] 97.8 DegF (11/06/21 1:21 PM) Blood pressure sites Arm, left (11/06/21 1:21 PM) Temperature Route Temporal (11/06/21 1:21 PM) Dry Weight 76.3 kg (11/06/21 1:21 PM) Weight Obtained Via Standing scale (11/06/21 1:21 PM) Dry Weight Obtained Via Standing scale (11/06/21 1:21 PM) Social History Social History Type Response Smoking Status Never smoker entered on: 10/13/16 Sex
--- OUTSIDE RECORDS SUMMARY | 2024-04-27 10:48 | XMS_ITS | Continuity of Care Document ---
Author Organization [facility] Address [address] [place] [address]- Care Team Providers Care Buncher Machine Name Role Phone Devyn MORALES, Elizabeth Novak Primary Care Physician [phone] [place] [facility] [place] 10/16/23 [facility] Adult [address] [place] [address]- Allergies, Adverse Reactions, Alerts Substance Reaction Severity Status Seafood Active Immunizations Given and Recorded Vaccine Date Status Refusal Reason Influenza Virus Vaccine (oldterm) 1 04/20/23 Recor ded Influenza Virus Vaccine (oldterm) 06/19/21 Recorde d SARS-CoV-2 mRNA ([id number]) vax 2 04/20/23 Recorded pneumococcal 20-valent conjugate [...] (oldterm) 04/08/11 Given 1Result Comment: [facility] [place] 2Result Comment: [facility] [place] 3Result Comment: [05/03/2017] [facility] [id number] [phone] 4Result Comment: [05/08/2016] [facility] 5Admin [...] 07/23/23 4:36:00 EST, Route to Pharmacy Electronically, [facility] #[id number], 149.3, cm, 06/17/23 9:58:00 EST, Height, 73.2, kg, 06/17/23 9:58:00 EST, Dry Weight Start Date: 07/23/23 Status: Ordered amLODIPine 2.5 mg oral tablet 1 tablet, By Mouth, Daily, # 90 tablet, 0 Refills, Maintenance, 10/06/23 16:30:00 EDT, [facility] #[id number], 149.3, cm, 09/14/23 8:57:00 EST, Height, 73.2, kg, 06/17/23 9:58:00 EST, Dry Weight Start Date: 10/06/23 Status: Ordered anastrozole 1 mg oral tablet 1 tablet, By Mouth, Daily, # 90 tablet, 3 Refills, Maintenance, 06/15/23 17:01:00 EST, [facility] #[id number], 149.3, cm, 03/05/23 8:16:00 EDT, Height, 73.9, kg, 11/11/22 9:18:00 EDT, Dry Weight Start Date: 06/15/23 Status: Ordered aspirin 81 mg oral tablet 1 tablet = 81 mg, By Mouth, Daily, # 30 tablet, 0 Refills, Maintenance Start Date: 10/06/10 Status: Ordered atorvastatin 40 mg oral tablet 1 tablet, By Mouth, Daily at bedtime, # 90 tablet, 2 Refills, 12/24/22 6:43:00 EDT, [facility] #[id number], 149.3, cm, 11/11/22 9:18:00 EDT, Height, 73.9, kg, 11/11/22 9:18:00 EDT, Dry Weight Start Date: 12/24/22 Status: Ordered lisinopril 40 mg oral tablet 1 tablet, By Mouth, Daily, # 90 tablet, 0 Refills, Maintenance, 07/23/23 11:31:00 EST, [facility] #[id number], 149.3, cm, 06/17/23 9:58:00 EST, Height, 73.2, kg, 06/17/23 9:58:00 EST, Dry Weight Start Date: 07/23/23 Status: Ordered metFORMIN 500 mg oral tablet 1 tablet = 500 mg, By Mouth, 2 times a day, # 60 tablet, 6 Refills, Maintenance, 03/29/23 13:27:00 EDT, [facility] #[id number], 149.3, cm, 03/05/23 8:16:00 EDT, Height, 73.9, kg, 11/11/22 9:18:00 EDT, Dry Weight Start Date: 03/29/23 Stop Date: 10/25/23 Status: Ordered Metoprolol Succinate ER 100 mg oral tablet, extended release 1 tablet, By Mouth, Daily, # 90 tablet, 1 Refills, Maintenance, 04/24/23 18:25:00 EDT, [facility] #[id number], 149.3, cm, 03/05/23 8:16:00 EDT, Height, 73.9, [...] Care Team Personnel Name: Zoila Dorsey Position: [facility] Onco RN Member Role: Primary Care Nurse Name: Elizabeth Shepard NP Position: [facility] PCO Associate Professional Member Role: PCP Address: Address: [address] [place] [address]- Care Team Related Persons Name: MAC ZAMORANO Address: home [address] [place] [address] [place] [address] Name: DBERA ZAMORANO Address: home
--- OUTSIDE RECORDS SUMMARY | 2024-04-27 10:48 | XMS_ITS | Continuity of Care Document ---
Author Organization [facility] Address [address] [place] [address]- Care Team Providers Care Grinder Hand Name Role Phone Devyn MORALES, Elizabeth Novak Primary Care Physician Encounter [facility] [place] [id number] Date(s): 12/09/23 - 01/08/24 [facility] [address] [place] [address] Attending Physician: Fang Parker Admitting Physician: AdmtrFang Referring Physician: Admtr, ArJulita Allergies, Adverse Reactions, Alerts Substance Reaction Severity Status Seafood Active Immunizations Given and Recorded Vaccine Date Status Refusal Reason Influenza Virus Vaccine (oldterm) 1 04/20/23 Recor ded Influenza Virus Vaccine (oldterm) 06/19/21 Recorde d SARS-CoV-2 mRNA ([id number]) vax 2 04/20/23 Recorded pneumococcal 20-valent conjugate [...] (oldterm) 04/08/11 Given 1Result Comment: [facility] [place] 2Result Comment: [facility] [place] 3Result Comment: [05/03/2017] [facility] [address] [phone] 4Result Comment: [05/08/2016] [facility] 5Admin [...] 07/23/23 4:36:00 EST, Route to Pharmacy Electronically, [email or web address] #[id number], 149.3, cm, 06/17/23 9:58:00 EST, Height, 73.2, kg, 06/17/23 9:58:00 EST, Dry Weight Start Date: 07/23/23 Status: Ordered amLODIPine 2.5 mg oral tablet 1 tablet, By Mouth, Daily, # 90 tablet, 0 Refills, Maintenance, 10/06/23 16:30:00 EDT, [facility] #[id number], 149.3, cm, 09/14/23 8:57:00 EST, Height, 73.2, kg, 06/17/23 9:58:00 EST, Dry Weight Start Date: 10/06/23 Status: Ordered anastrozole 1 mg oral tablet 1 tablet, By Mouth, Daily, # 90 tablet, 3 Refills, Maintenance, 06/15/23 17:01:00 EST, [facility] #[id number], 149.3, cm, 03/05/23 8:16:00 EDT, Height, 73.9, kg, 11/11/22 9:18:00 EDT, Dry Weight Start Date: 06/15/23 Status: Ordered aspirin 81 mg oral tablet 1 tablet = 81 mg, By Mouth, Daily, # 30 tablet, 0 Refills, Maintenance Start Date: 10/06/10 Status: Ordered atorvastatin 40 mg oral tablet 1 tablet, By Mouth, Daily at bedtime, # 90 tablet, 1 Refills, Maintenance, 11/17/23 9:07:00 EDT, [facility] #[id number], 149.3, cm, 09/14/23 8:57:00 EST, Height, 73.2, kg, 06/17/23 9:58:00 EST, Dry Weight Start Date: 11/17/23 Status: Ordered lisinopril 40 mg oral tablet 1 tablet, By Mouth, Daily, # 90 tablet, 1 Refills, Maintenance, 11/03/23 0:09:00 EDT, [email or web address] #[id number], Please ask patient to call the office and schedule an appt for further refills, 149.3, cm, 09/14/23 8:57:00 EST, Height, 73.2, kg, 06/17... Start Date: 11/03/23 Status: Ordered metFORMIN 500 mg oral tablet 1 tablet = 500 mg, By Mouth, 2 times a day, # 60 tablet, 6 Refills, Maintenance, 03/29/23 13:27:00 EDT, [facility] #[id number], 149.3, cm, 03/05/23 8:16:00 EDT, Height, 73.9, kg, 11/11/22 9:18:00 EDT, Dry Weight Start Date: 03/29/23 Stop Date: 10/25/23 Status: Ordered Metoprolol Succinate ER 100 mg oral tablet, extended release 1 tablet, By Mouth, Daily, # 90 tablet, 1 Refills, Maintenance, 11/17/23 9:07:00 EDT, [facility] #[id number], 149.3, cm, 09/14/23 8:57:00 EST, Height, 73.2, [...] Associate Professional Member Role: PCP Address: Address: [address] [place] [address]- Care Team Related Persons Name: MAC ZAMORANO Address: home [address] [place] [address] [place] [address] Name: DEBRA ZAMORANO Address: home
--- OUTSIDE RECORDS SUMMARY | 2024-04-27 10:48 | XMS_ITS | Continuity of Care Document ---
Author Organization [facility] Address [address] [place] [address]- Care Team Providers Care Pleat Taper Name Role Phone Devyn MORALES, Elizabeth Novak Primary Care Physician Encounter [facility] [place] Date(s): 11/09/22 - 01/11/23 [facility] [address] [place] [address]- Discharge Disposition: A-D/C Home Attending Physician: Robyn [...] [05/03/2017] [facility] [id number] [phone] 2Result Comment: [05/08/2016] [email or web address] 3Admin Note: Fluzone High dose Stop & [...] 05/20/22 7:38:00 EDT, Route to Pharmacy Electronically, [facility] #[id number], 149.3, cm, 05/12/22 9:17:00 EDT, Height, 75, kg, 05/12/22 9:17:00 EDT, Dry Weight Start Date: 05/20/22 Status: Ordered amLODIPine 2.5 mg oral tablet 1 tablet, By Mouth, Daily, # 90 tablet, 3 Refills, Maintenance, 06/30/22 10:38:00 EST, [facility] #[id number], 149.3, cm, 05/12/22 9:17:00 EDT, Height, 75, kg, 05/12/22 9:17:00 EDT, Dry Weight Start Date: 06/30/22 Status: Ordered anastrozole 1 mg oral tablet 1 tablet, By Mouth, Daily, # 90 tablet, 3 Refills, Maintenance, 05/12/22 22:16:00 EDT, [facility] #[id number], 149.3, cm, 05/12/22 9:17:00 EDT, Height, 75, kg, 05/12/22 9:17:00 EDT, Dry Weight Start Date: 05/12/22 Status: Ordered aspirin 81 mg oral tablet 1 tablet = 81 mg, By Mouth, Daily, # 30 tablet, 0 Refills, Maintenance Start Date: 10/06/10 Status: Ordered atorvastatin 40 mg oral tablet 1 tablet, By Mouth, Daily at bedtime, # 90 tablet, 2 Refills, 12/24/22 6:43:00 EDT, [facility] #[id number], 149.3, cm, 11/11/22 9:18:00 EDT, Height, 73.9, kg, 11/11/22 9:18:00 EDT, Dry Weight Start Date: 12/24/22 Status: Ordered lisinopril 40 mg oral tablet 1 tablet, By Mouth, Daily, # 90 tablet, 1 Refills, Maintenance, 12/16/22 18:30:00 EDT, [facility] #[id number], 149.3, cm, 11/11/22 9:18:00 EDT, Height, 73.9, kg, 11/11/22 9:18:00 EDT, Dry Weight Start Date: 12/16/22 Status: Ordered metFORMIN 500 mg oral tablet 1 tablet, By Mouth, 2 times a day, # 60 tablet, 2 Refills, Maintenance, 04/11/22 5:47:00 EDT, [facility] #[id number], 149.3, cm, 02/24/22 7:27:00 EDT, Height, 76.3, kg, 11/06/21 13:21:00 EDT, Dry Weight Start Date: 04/11/22 Status: Ordered metFORMIN 500 mg oral tablet See Instructions, TAKE 1 TABLET BY MOUTH TWICE DAILY, # 60 tablet, 0 Refills, Maintenance, :56:00 EST, [facility] #[id number], 149.3, cm, 08/27/22 8:35:00 EST, Height, 75, kg, :17:00 EDT, Dry Weight Start Date: 08/27/22 Status: Ordered Metoprolol Succinate ER 100 mg oral tablet, extended release 1 tablet, By Mouth, Daily, # 90 tablet, 1 Refills, Maintenance, 12/30/21 12:34:00 EDT, [facility] #[id number], 149.3, cm, 11/06/21 13:21:00 EDT, Height, 76.3, [...] oldest [Reference Range]: 1 Height 149.3 cm (11/11/22 9:18 AM) Weight 73.9 kg (11/11/22 9:18 AM) Oxygen Saturation [94-100 %] 100 % (11/11/22 9:18 AM) Pulse Rate [55-90 bpm] 56 bpm (11/11/22 9:18 AM) Body Mass Index [18.5-24.99 kg/m2] 33.15 kg/m2 *>HHI* (11/11/22 9:18 AM) Blood Pressure [90-138/55-84 mm Hg] 137/ 69mm Hg (11/11/22 9:18 AM) Temperature [96.8-100.4 DegF] 98 DegF (11/11/22 9:18 AM) Mode of Delivery (Oxygen) Room air (11/11/22 9:18 AM) Blood pressure sites Arm, left (11/11/22 9:18 AM) Temperature Route Temporal (11/11/22 9:18 AM) Dry Weight 73.9 kg (11/11/22 9:18 AM) Weight Obtained Via Standing scale (11/11/22 9:18 AM) Dry Weight Obtained Via Standing scale (11/11/22 9:18 AM) Social History Social History Type Response Smoking Status Never smoker entered on: 10/13/16 Sex Patient Care team information Care Team Personnel Name: Zoila Dorsey Position: [facility] Onco RN Member Role: Primary Care Nurse Name: Elizabeth hSepard NP Position: [facility] PCO Associate Professional Member Role: PCP Address: Address: [address] [place] [address]- Care Team Related Persons Name: MAC ZAMORANO Address: [address] [place] [address] Name: DEBRA ZAMORANO Address: home
--- OUTSIDE RECORDS SUMMARY | 2024-04-27 10:49 | XMS_ITS | Continuity of Care Document ---
Author Organization [facility] Address [address] [place] [address]- Care Team Providers Care Supervisor Alteration Workroom Name Role Phone Devyn MORALES, Elizabeth Novak Primary Care Physician Encounter [facility] ACCT R [id number] Date(s): 05/08/22 - 06/07/22 [facility] [address] [place] [address] Attending Physician: Fang Parker Admitting Physician: [...] FluLaval (oldterm) 04/08/11 Given 1Result Comment: [05/03/2017] [facility] [id number] [phone] 2Result Comment: [05/08/2016] [facility] [...] 05/20/22 7:38:00 EDT, Route to Pharmacy Electronically, [facility] #[id number], 149.3, cm, 05/12/22 9:17:00 EDT, Height, 75, kg, 05/12/22 9:17:00 EDT, Dry Weight Start Date: 05/20/22 Status: Ordered amLODIPine 2.5 mg oral tablet 1 tablet, By Mouth, Daily, # 90 tablet, 3 Refills, Maintenance, 02/21/21 9:09:00 EDT, [facility] #[id number], 149.3, cm, 02/21/21 8:42:00 EDT, Height, 73.7, kg, 01/23/21 10:06:00 EDT, Dry Weight Start Date: 02/21/21 Stop Date: 08/20/21 Status: Ordered anastrozole 1 mg oral tablet 1 tablet, By Mouth, Daily, # 90 tablet, 3 Refills, Maintenance, 05/12/22 22:16:00 EDT, [facility] #[id number], 149.3, cm, 05/12/22 9:17:00 EDT, Height, 75, kg, 05/12/22 9:17:00 EDT, Dry Weight Start Date: 05/12/22 Status: Ordered aspirin 81 mg oral tablet 1 tablet = 81 mg, By Mouth, Daily, # 30 tablet, 0 Refills, Maintenance Start Date: 10/06/10 Status: Ordered atorvastatin 40 mg oral tablet 1 tablet, By Mouth, Daily at bedtime, # 90 tablet, 1 Refills, [facility] #[id number], 149.3, cm, 11/06/21 13:21:00 EDT, Height, 76.3, kg, 11/06/21 13:21:00 EDT, Dry Weight Start Date: 12/30/21 Status: Ordered lisinopril 40 mg oral tablet 1 tablet, By Mouth, Daily, # 90 tablet, 1 Refills, Maintenance, 05/19/22 17:17:00 EDT, [facility] #[id number], 149.3, cm, 05/12/22 9:17:00 EDT, Height, 75, kg, 05/12/22 9:17:00 EDT, Dry Weight Start Date: 05/19/22 Status: Ordered metFORMIN 500 mg oral tablet 1 tablet, By Mouth, 2 times a day, # 60 tablet, 2 Refills, Maintenance, 04/11/22 5:47:00 EDT, [facility] #[id number], 149.3, cm, 02/24/22 7:27:00 EDT, Height, 76.3, kg, 11/06/21 13:21:00 EDT, Dry Weight Start Date: 04/11/22 Status: Ordered Metoprolol Succinate ER 100 mg oral tablet, extended release 1 tablet, By Mouth, Daily, # 90 tablet, 1 Refills, Maintenance, 12/30/21 12:34:00 EDT, [facility] #[id number], 149.3, cm, 11/06/21 13:21:00 EDT, Height, 76.3, [...] Care Team Personnel Name: Zoila Dorsey Position: [facility] Onco RN Member Role: Primary Care Nurse Name: Devyn MORALES, Elizabeth Novak Position: [facility] PCO Associate Professional Member Role: PCP Address: Address: [address] [place] [address]- Care Team Related Persons Name: MAC ZAMORANO Address: home [address] [place] [address] [place] [address] Name: DEBRA ZAMORANO Address: home
--- OUTSIDE RECORDS SUMMARY | 2024-04-27 10:49 | XMS_ITS | Summary of Care ---
Author Organization [facility] Address [address] [place] [address]- Encounter 04/02/16 - 04/14/16 [facility] [address] [place] [address]- Discharge Diagnosis: Arthritis Discharge Diagnosis: Diabetes mellitus Discharge Diagnosis: HTN - Hypertension Discharge Diagnosis: Hyperlipidemia Discharge Disposition: Discharged to Home or Self Care Attending Physician: Lakia Gonzalez MD Vital Signs Most recent to oldest [Reference Range]: 1 2 3 Temperature Oral F [96.4-99.1 DegF] 96.7 DegF (04/14/16 6:52 AM) 96.3 DegF *LOW* (04/13/16 3:46 PM) 97 DegF (04/13/16 5:22 AM) Peripheral Pulse Rate [60-100 bpm] 64 bpm (04/14/16 9:27 AM) 58 bpm *LOW* (04/14/16 6:52 AM) 59 bpm *LOW* (04/13/16 3:46 PM) Respiratory Rate [14-20 br/min] 18 br/min (04/14/16 6:52 AM) 18 br/min (04/13/16 3:46 PM) 20 br/min (04/13/16 5:22 AM) Blood Pressure [90-140/60-90 mmHg] 108/55mmHg (04/14/16 9:27 AM) Systolic Blood Pressure [90-140 mmHg] 152 mmHg *HI* (04/14/16 6:52 AM) 121 mmHg (04/13/16 3:46 PM) Diastolic Blood Pressure [60-90 mmHg] 65 mmHg (04/14/16 6:52 AM) 58 mmHg *LOW* (04/13/16 3:46 PM) Temperature Oral [36-37 DegC] 36 DegC (04/14/16 6:52 AM) 36 DegC (04/13/16 3:46 PM) 36 DegC (04/13/16 5:22 AM) Problem List Condition Effective Dates Status Health Status Inform ant Arthritis(Confirmed) Active Diabetes mellitus(Confirmed) Active HTN - Hypertension(Confirmed) Active Hyperlipidemia(Confirmed) Active Allergies, Adverse Reactions, Alerts Substance Reaction Severity Status Seafood Active Medications allopurinol 100 mg oral tablet 100 mg, = 1 tab, Tab, Oral, Daily, 30 tab, Refills 0, Print Requisition, 0 Start Date: 04/13/16 Status: Ordered aspirin 81 mg oral tablet, chewable 81 mg, = 1 tab, Tab-Chew, Oral, Daily, Refills 0 Start Date: 04/13/16 Status: Ordered lisinopril 20 mg oral tablet 40 mg, = 2 tab, Tab, Oral, Daily, 60 tab, Refills 0, Print Requisition, 0 Start Date: 04/13/16 Status: Ordered metFORMIN 500 mg oral tablet 500 mg, = 1 tab, Tab, Oral, BIDWM, 60 tab, Refills 0, Print Requisition, 0 Start Date: 04/13/16 Status: Ordered metoprolol succinate 50 mg oral tablet, extended release 100 mg, 2 tab, Tab-ER, Oral, Daily, 60 tab, Refills 0, Print Requisition, 0 Start Date: 04/13/16 Status: Ordered Protonix 40 mg oral delayed release tablet 40 mg, = 1 tab, Tab-DR, Oral, Before breakfast, 30 tab, Refills 0, Print Requisition, 0 Start Date: 04/13/16 Status: Ordered spironolactone 25 mg oral tablet 25 mg, = 1 tab, Tab, Oral, BID, 60 tab, Refills 0, Print Requisition, 0 Start Date: 04/13/16 Status: Ordered Results LABORATORY Most recent to oldest [Reference Range]: 1 2 3 Glucose POC RALS [74-106 mg/dL] 87 mg/dL (04/14/16 5:43 AM) 149 mg/dL *HI* (04/13/16 4:13 PM) 97 mg/dL (04/13/16 5:55 AM) Estimated Creatinine Clearance 33.48 mL/min (04/13/16 3:14 PM) 35.07 mL/min (04/12/16 6:24 AM) 35.07 mL/min (04/10/16 10:52 AM) Creatinine Level 1.10 mg/dL (04/13/16 3:14 PM) 1.05 mg/dL (04/10/16 10:52 AM) 1.04 mg/dL (04/03/16 11:46 AM) Immunizations No data available for this section Procedures No data available for this section Social History No data available for this section Assessment and Plan No data available for this section
--- OUTSIDE RECORDS SUMMARY | 2024-04-27 10:49 | XMS_ITS | Continuity of Care Document ---
Author Organization [facility]ona Henrry lt Address [address] [place] [address]- Care Team Providers Care Surety Bond Agent Name Role Phone Devyn MORLAES, Elizabeth Novak Primary Care Physician [phone] En[place] [facility] Date(s): 10/06/23 - 11/05/23 [facility] Adult [address] [place] [address]- Allergies, Adverse Reactions, Alerts Substance Reaction Severity Status Seafood Active Immunizations Given and Recorded Vaccine Date Status Refusal Reason Influenza Virus Vaccine (oldterm) 1 04/20/23 Recor ded Influenza Virus Vaccine (oldterm) 06/19/21 Recorde d SARS-CoV-2 mRNA (myiypyt-mudb-ljkum) vax 2 04/20/23 Recorded pneumococcal 20-valent conjugate [...] (oldterm) 04/08/11 Given 1Result Comment: [facility] [place] 2Result Comment: [facility] [place] 3Result Comment: [05/03/2017] [facility] [id number] 4Result Comment: [05/08/2016] [facility] 5Admin [...] 07/23/23 4:36:00 EST, Route to Pharmacy Electronically, [facility] #[id number], 149.3, cm, 06/17/23 9:58:00 EST, Height, 73.2, kg, 06/17/23 9:58:00 EST, Dry Weight Start Date: 07/23/23 Status: Ordered amLODIPine 2.5 mg oral tablet 1 tablet, By Mouth, Daily, # 90 tablet, 0 Refills, Maintenance, 10/06/23 16:30:00 EDT, [facility] #[id number], 149.3, cm, 09/14/23 8:57:00 EST, Height, 73.2, kg, 06/17/23 9:58:00 EST, Dry Weight Start Date: 10/06/23 Status: Ordered anastrozole 1 mg oral tablet 1 tablet, By Mouth, Daily, # 90 tablet, 3 Refills, Maintenance, 06/15/23 17:01:00 EST, [facility] #[id number], 149.3, cm, 03/05/23 8:16:00 EDT, Height, 73.9, kg, 11/11/22 9:18:00 EDT, Dry Weight Start Date: 06/15/23 Status: Ordered aspirin 81 mg oral tablet 1 tablet = 81 mg, By Mouth, Daily, # 30 tablet, 0 Refills, Maintenance Start Date: 10/06/10 Status: Ordered atorvastatin 40 mg oral tablet 1 tablet, By Mouth, Daily at bedtime, # 90 tablet, 2 Refills, 12/24/22 6:43:00 EDT, [facility] #[id number], 149.3, cm, 11/11/22 9:18:00 EDT, Height, 73.9, kg, 11/11/22 9:18:00 EDT, Dry Weight Start Date: 12/24/22 Status: Ordered lisinopril 40 mg oral tablet 1 tablet, By Mouth, Daily, # 90 tablet, 1 Refills, Maintenance, 11/03/23 0:09:00 EDT, [facility] #[id number], Please ask patient to call the office and schedule an appt for further refills, 149.3, cm, 09/14/23 8:57:00 EST, Height, 73.2, kg, 06/17... Start Date: 11/03/23 Status: Ordered metFORMIN 500 mg oral tablet 1 tablet = 500 mg, By Mouth, 2 times a day, # 60 tablet, 6 Refills, Maintenance, 03/29/23 13:27:00 EDT, [facility] #[id number], 149.3, cm, 03/05/23 8:16:00 EDT, Height, 73.9, kg, 11/11/22 9:18:00 EDT, Dry Weight Start Date: 03/29/23 Stop Date: 10/25/23 Status: Ordered Metoprolol Succinate ER 100 mg oral tablet, extended release 1 tablet, By Mouth, Daily, # 90 tablet, 1 Refills, Maintenance, 04/24/23 18:25:00 EDT, [facility] #[id number], 149.3, cm, 03/05/23 8:16:00 EDT, Height, 73.9, [...] Associate Professional Member Role: PCP Address: Address: [address] [place] [address]- Care Team Related Persons Name: MAC ZAMORANO Address: home [address] [place] [address] [place] [address] Name: DEBRA ZAMORANO Address: home
--- OUTSIDE RECORDS SUMMARY | 2024-04-27 10:49 | XMS_ITS | Continuity of Care Document ---
Author Organization [facility] Corona Henrry lt Address [address] [place] [address]- Care Team Providers Care Casino Floor Person Name Role Phone Kassandra MELCHOR, Sunny Lubin Primary Care Physician [phone] Encounter [facility] Date(s): 02/19/20 - 03/20/20 [facility] Adult [address] [place] [address]- [facility] Attending Physician: Admtr, [id number] Admitting Physician: Admtr, Ar8 Referring Physician: Admtr, Ar8 Allergies, Adverse Reactions, Alerts Substance Reaction Severity Status NKA Active Immunizations Given and Recorded Vaccine Date Status Refusal Reason influenza virus vaccine, inactivated 05/03/18 Brtet rded influenza virus vaccine, inactivated 1 05/03/17 [...] (oldterm) 04/08/11 Given 1Result Comment: [05/03/2017] [facility] [id number] 2Result Comment: [05/08/2016] [facility] [...] 01/11/20 11:36:00 EDT, Route to Pharmacy Electronically, [facility] #[id number], D/C RX FOR THE 90 DAY SUPPLY PREVIOUSLY SENT, 150.5, cm, 08/02/18 14:01:00 E... Start Date: 01/11/20 Status: Ordered amLODIPine 2.5 mg oral tablet 1 tablet, By Mouth, Daily, # 90 tablet, 1 Refills, Maintenance, 02/27/20 15:44:00 EDT, [facility] #[id number], 150.5, cm, 02/19/20 11:58:00 EDT, Height Start Date: 02/27/20 Status: Ordered aspirin 81 mg oral tablet 1 tablet = 81 mg, By Mouth, Daily, # 30 tablet, 0 Refills, Maintenance Start Date: 10/06/10 Status: Ordered atorvastatin 40 mg oral tablet 1 tablet, By Mouth, Daily at bedtime, # 90 tablet, 3 Refills, Maintenance, 09/18/19 13:19:00 EST, [facility] #[id number], 150.5, cm, 08/02/18 14:01:00 EST, Height Start Date: 09/18/19 Status: Ordered Calcium 600 +D oral tablet 1 tablet, By Mouth, 3 times a day, 0 Refills, Maintenance, 06/28/14 15:57:57 Start Date: 06/28/14 Status: Ordered lisinopril 40 mg oral tablet 1 tablet = 40 mg, By Mouth, Daily, # 60 tablet, 0 Refills, Maintenance, 02/13/20 10:57:00 EDT, Tablet, [facility] #[id number], 150.5, cm, 08/02/18 14:01:00 EST, Height Start Date: 02/13/20 Status: Ordered metFORMIN 500 mg oral tablet 1 tablet = 500 mg, By Mouth, 2 times a day, # 60 tablet, 11 Refills, Maintenance, 07/14/19 16:00:00EST, Tablet, [facility] #[id number], 150.5, cm, 08/02/18 14:01:00 EST, Height Start Date: 07/14/19 Status: Ordered Metoprolol Succinate ER 100 mg oral tablet, extended release 1 tablet = 100 mg, By Mouth, Daily, # 90 tablet, 1 Refills, Maintenance, 01/11/20 11:36:00 EDT, [facility] #[id number], 150.5, cm, 08/02/18 14:01:00 EST, Height Start Date: 01/11/20 Status: Ordered spironolactone 25 mg oral tablet See Instructions, TAKE 1 TABLET BY MOUTH TWICE DAILY LABS NEEDED FOR ADDITIONAL REFILLS, # 180 tablet, Refills 0, Tot. Refills 0, Soft Stop, 03/15/20 8:49:00 EDT, Instructions Replace Required Details, Route to Pharmacy Electronically, [facility]... Start Date: 03/15/20 Status: Ordered Zinc = [...]
--- OUTSIDE RECORDS SUMMARY | 2024-04-27 10:49 | XMS_ITS | Continuity of Care Document ---
Author Organization [facility] Address [address] [place] [address]- Care Team Providers Care Pants Maker Name Role Phone Kassandra MELCHOR, Sunny Lubin Primary Care Physician [phone] Encounter [facility] Date(s): 01/22/21 - 02/21/21 [facility] [address] [place] [address] Allergies, Adverse Reactions, Alerts Substance [...] FluLaval (oldterm) 04/08/11 Given 1Result Comment: [facility]05/03/2017] [facility] [id number] 2Result Comment: [05/08/2016] [facility] 3[facility] [...] 10/17/20 9:52:00 EDT, Route to Pharmacy Electronically, [facility] #[id number], D/C RX FOR THE 90 DAY SUPPLY PREVIOUSLY SENT, 150.5, cm, 02/19/20 11:58:00 ED... Start Date: 10/17/20 Status: Ordered amLODIPine 2.5 mg oral tablet 1 tablet, By Mouth, Daily, # 90 tablet, 3 Refills, Maintenance, 02/21/21 9:09:00 EDT, [facility] #[id number], 149.3, cm, 02/21/21 8:42:00 EDT, Height, 73.7, kg, 01/23/21 10:06:00 EDT, Dry Weight Start Date: 02/21/21 Stop Date: 08/20/21 Status: Ordered anastrozole 1 mg oral tablet 1 tablet, By Mouth, Daily, # 90 tablet, 0 Refills, Maintenance, 01/21/21 15:10:00 EDT, [facility] #[id number], 149.86, cm, 01/21/21 14:09:00 EDT, Height, 73.8, kg, 01/21/21 14:09:00 EDT, Dry Weight Start Date: 01/21/21 Status: Ordered aspirin 81 mg oral tablet 1 tablet = 81 mg, By Mouth, Daily, # 30 tablet, 0 Refills, Maintenance Start Date: 10/06/10 Status: Ordered atorvastatin 40 mg oral tablet 1 tablet, By Mouth, Daily at bedtime, # 90 tablet, 3 Refills, Maintenance, 09/18/19 13:19:00 EST, [facility] #[id number], 150.5, cm, 08/02/18 14:01:00 EST, Height Start Date: 09/18/19 Status: Ordered lisinopril 40 mg oral tablet 1 tablet = 40 mg, By Mouth, Daily, # 90 tablet, 0 Refills, Maintenance, 12/31/20 15:29:00 EDT, Tablet, [facility] #[id number], Office visit needed for further refills., 150.5, cm, 12/27/20 13:27:00 EDT, Height Start Date: 12/31/20 Status: Ordered metFORMIN 500 mg oral tablet 1 tablet, By Mouth, 2 times a day, # 60 tablet, 2 Refills, Maintenance, 01/16/21 9:01:00 EDT, [facility] #[id number], 149.86, cm, 01/10/21 6:27:00 EDT, Height, 74.2, kg, 01/10/21 6:27:00 EDT, Dry Weight Start Date: 01/16/21 Status: Ordered Metoprolol Succinate ER 100 mg oral tablet, extended release 1 tablet = 100 mg, By Mouth, Daily, # 90 tablet, 1 Refills, Maintenance, 01/11/20 11:36:00 EDT, [facility] #[id number], 150.5, cm, 08/02/18 14:01:00 EST, Height Start Date: 01/11/20 Status: Ordered spironolactone 25 mg oral tablet 1, tablet, By Mouth, 2 times a day, LABS NEEDED FOR ADDITIONAL REFILLS, # 180 tablet, Refills 0, Tot. Refills 0, Maintenance, 07/18/20 17:58:00 EST, Route to Pharmacy Electronically, [facility] #[id number], 150.5, cm, 02/19/20 11:58:00 EDT, Height Start [...]
--- OUTSIDE RECORDS SUMMARY | 2024-04-27 10:49 | XMS_ITS | Continuity of Care Document ---
Author Organization [facility] Prashanth Jeter Henrry lt Address [address] [place] [address]- Care Team Providers Care Assistant Professor Of Economics Name Role Phone Sunny Cannon MD Primary Care Physician [phone] [facility] Date(s): 02/19/20 - 02/26/20 [facility] Adult [address] [place] [address]- [facility] Encounter Diagnosis Diabetes mellitus - adult onset(Discharge Diagnosis) - 02/19/20 Gout(Discharge Diagnosis) - 02/19/20 Hypercholesterolemia(Discharge Diagnosis) - 02/19/20 Hypertension(Discharge Diagnosis) - 02/19/20 Attending Physician: Sunny Cannon MD Allergies, Adverse [...] FluLaval (oldterm) 04/08/11 Given 1Result Comment: [05/03/2017] [facility] [id number] 2Result Comment: [05/08/2016] [facility] 3[facility] [...] 01/11/20 11:36:00 EDT, Route to Pharmacy Electronically, [facility] #[id number], D/C RX FOR THE 90 DAY SUPPLY PREVIOUSLY SENT, 150.5, cm, 08/02/18 14:01:00 E... Start Date: 01/11/20 Status: Ordered amLODIPine 2.5 mg oral tablet 1 tablet, By Mouth, Daily, # 30 tablet, 1 Refills, Maintenance, 11/21/19 12:09:00 EDT, [facility] #[id number], 150.5, cm, 08/02/18 14:01:00 EST, Height Start Date: 11/21/19 Status: Ordered aspirin 81 mg oral tablet 1 tablet = 81 mg, By Mouth, Daily, # 30 tablet, 0 Refills, Maintenance Start Date: 10/06/10 Status: Ordered atorvastatin 40 mg oral tablet 1 tablet, By Mouth, Daily at bedtime, # 90 tablet, 3 Refills, Maintenance, 09/18/19 13:19:00 EST, [facility] #[id number], 150.5, cm, 08/02/18 14:01:00 EST, Height Start Date: 09/18/19 Status: Ordered Calcium 600 +D oral tablet 1 tablet, By Mouth, 3 times a day, 0 Refills, Maintenance, 06/28/14 15:57:57 Start Date: 06/28/14 Status: Ordered lisinopril 40 mg oral tablet 1 tablet = 40 mg, By Mouth, Daily, # 60 tablet, 0 Refills, Maintenance, 02/13/20 10:57:00 EDT, Tablet, [facility] #[id number], 150.5, cm, 08/02/18 14:01:00 EST, Height Start Date: 02/13/20 Status: Ordered metFORMIN 500 mg oral tablet 1 tablet = 500 mg, By Mouth, 2 times a day, # 60 tablet, 11 Refills, Maintenance, 07/14/19 16:00:00EST, Tablet, [facility] #[id number], 150.5, cm, 08/02/18 14:01:00 EST, Height Start Date: 07/14/19 Status: Ordered Metoprolol Succinate ER 100 mg oral tablet, extended release 1 tablet = 100 mg, By Mouth, Daily, # 90 tablet, 1 Refills, Maintenance, 01/11/20 11:36:00 EDT, [facility] #[id number], 150.5, cm, 08/02/18 14:01:00 EST, Height Start Date: 01/11/20 Status: Ordered spironolactone 25 mg oral tablet See Instructions, # 180 tablet, TAKE 1 TABLET BY MOUTH TWICE DAILY LABS NEEDED FOR ADDITIONAL REFILLS, [facility] [id number] Start Date: 12/30/18 Status: Ordered Zinc = 140 mg, By Mouth, Daily, 0 Refills, Maintenance, 02/19/20 12:01:00 EDT Start Date: 02/19/20 Status: Ordered Problem List Condition Effective Dates Status Health Status Inform ant Adult-onset obesity(Confirmed) Active Bruit L carotid(Confirmed) Active Diabetes mellitus - adult onset(Confirmed) Active Acute pain of right foot(Confirmed) Active Gout(Confirmed) Active Hypercholesterolemia(Confirmed) Active Hypertension(Confirmed) Active Diagnosis Diagnosis Type Effective Dates Health Status Clinical Service Informant Diabetes mellitus - adult onset Discharge Diagnosis 02/19/20 Gout Discharge Diagnosis 02/19/20 Hypercholesterolemia Discharge Diagnosis 02/19/20 Hypertension Discharge Diagnosis 02/19/20 Vital Signs Most recent to oldest [Reference Range]: 1 Height 150.5 cm (02/19/20 11:58 AM) Social History Social History Type Response Smoking Status Never smoker entered on: 10/13/16 Sex
--- OUTSIDE RECORDS SUMMARY | 2024-04-27 10:49 | XMS_ITS | Continuity of Care Document ---
Author Organization [facility] Corona Henrry lt Address [address] [place] [address]- Care Team Providers Care Director Of Home Health Services Name Role Phone Sunny Cannon MD Primary Care Physician [facility]counter [facility] Date(s): 04/30/21 - 05/30/21 [facility] Adult [address] [place] [address]- Allergies, Adverse Reactions, Alerts Substance Reaction Severity [...] (oldterm) 04/08/11 Given 1Result Comment: [05/03/2017] [facility] [id number] 2Result Comment: [05/08/2016] [facility] [...] tablet, Refills 1, Route to Pharmacy Electronically, [facility] #[id number], 149.3, cm, 02/21/21 8:42:00 EDT, Height, 73.7, kg, 01/23/21 10:06:00 EDT, Dry Weight Start Date: 04/15/21 Status: Ordered amLODIPine 2.5 mg oral tablet 1 tablet, By Mouth, Daily, # 90 tablet, 3 Refills, Maintenance, 02/21/21 9:09:00 EDT, [facility] #[id number], 149.3, cm, 02/21/21 8:42:00 EDT, Height, 73.7, kg, 01/23/21 10:06:00 EDT, Dry Weight Start Date: 02/21/21 Stop Date: 08/20/21 Status: Ordered anastrozole 1 mg oral tablet 1 tablet, By Mouth, Daily, # 90 tablet, 3 Refills, Maintenance, 04/30/21 16:05:00 EDT, [facility] #[id number], 149.3, cm, 02/21/21 8:42:00 EDT, Height, 73.7, kg, 01/23/21 10:06:00 EDT, Dry Weight Start Date: 04/30/21 Status: Ordered aspirin 81 mg oral tablet 1 tablet = 81 mg, By Mouth, Daily, # 30 tablet, 0 Refills, Maintenance Start Date: 10/06/10 Status: Ordered atorvastatin 40 mg oral tablet 1 tablet, By Mouth, Daily at bedtime, # 90 tablet, 3 Refills, Maintenance, 09/18/19 13:19:00 EST, [facility] #[id number], 150.5, cm, 08/02/18 14:01:00 EST, Height Start Date: 09/18/19 Status: Ordered lisinopril 40 mg oral tablet 1 tablet = 40 mg, By Mouth, Daily, # 90 tablet, 0 Refills, Maintenance, 12/31/20 15:29:00 EDT, Tablet, [facility] #[id number], Office visit needed for further refills., 150.5, cm, 12/27/20 13:27:00 EDT, Height Start Date: 12/31/20 Status: Ordered metFORMIN 500 mg oral tablet 1 tablet, By Mouth, 2 times a day, # 60 tablet, 2 Refills, Maintenance, 01/16/21 9:01:00 EDT, [facility] #[id number], 149.86, cm, 01/10/21 6:27:00 EDT, Height, 74.2, kg, 01/10/21 6:27:00 EDT, Dry Weight Start Date: 01/16/21 Status: Ordered Metoprolol Succinate ER 100 mg oral tablet, extended release 1 tablet = 100 mg, By Mouth, Daily, # 90 tablet, 1 Refills, Maintenance, 01/11/20 11:36:00 EDT, [facility] #[id number], 150.5, cm, 08/02/18 14:01:00 EST, Height Start Date: 01/11/20 Status: Ordered spironolactone 25 mg oral tablet 1, tablet, By Mouth, 2 times a day, LABS NEEDED FOR ADDITIONAL REFILLS, # 180 tablet, Refills 3, Route to Pharmacy Electronically, [facility] #[id number], 149.3, cm, 02/21/21 8:42:00 EDT, Height, 73.7, [...]
--- OUTSIDE RECORDS SUMMARY | 2024-04-27 10:49 | XMS_ITS | Continuity of Care Document ---
Author Organization [facility] Address [address] [place] [address]- Care Team Providers Care Radiation Protection Technician Name Role Phone Devyn MORALES, Elizabeth Novak Primary Care Physician [phone] Encounter [facility] Date(s): 05/10/23 - 10/01/23 [facility] [address] [place] [address]- Discharge Disposition: A-D/C Home Attending Physician: Robyn Umaña MD Admitting Physician: Robyn Umaña MD Referring Physician: Elizabeth Shepard NP Allergies, Adverse Reactions, Alerts Substance Reaction Severity Status Seafood Active Immunizations Given and Recorded Vaccine Date Status Refusal Reason Influenza Virus Vaccine (oldterm) 1 04/20/23 Recor ded Influenza Virus Vaccine (oldterm) 06/19/21 Recorde d SARS-CoV-2 mRNA ([id number]) vax 2 04/20/23 Recorded pneumococcal 20-valent conjugate [...] (oldterm) 04/08/11 Given 1Result Comment: [facility] [place] 2Result Comment: [facility] [place] 3Result Comment: [05/03/2017] [facility] [id number] 4Result Comment: [05/08/2016] [facility] 5Admin Note: Fluzone High dose Stop & [...] 07/23/23 4:36:00 EST, Route to Pharmacy Electronically, [facility] #[id number], 149.3, cm, 06/17/23 9:58:00 EST, Height, 73.2, kg, 06/17/23 9:58:00 EST, Dry Weight Start Date: 07/23/23 Status: Ordered amLODIPine 2.5 mg oral tablet 1 tablet, By Mouth, Daily, # 90 tablet, 3 Refills, Maintenance, 06/30/22 10:38:00 EST, [facility] #[id number], 149.3, cm, 05/12/22 9:17:00 EDT, Height, 75, kg, 05/12/22 9:17:00 EDT, Dry Weight Start Date: 06/30/22 Status: Ordered anastrozole 1 mg oral tablet 1 tablet, By Mouth, Daily, # 90 tablet, 3 Refills, Maintenance, 06/15/23 17:01:00 EST, [facility] #[id number], 149.3, cm, 03/05/23 8:16:00 EDT, Height, 73.9, kg, 11/11/22 9:18:00 EDT, Dry Weight Start Date: 06/15/23 Status: Ordered aspirin 81 mg oral tablet 1 tablet = 81 mg, By Mouth, Daily, # 30 tablet, 0 Refills, Maintenance Start Date: 10/06/10 Status: Ordered atorvastatin 40 mg oral tablet 1 tablet, By Mouth, Daily at bedtime, # 90 tablet, 2 Refills, 12/24/22 6:43:00 EDT, [facility] #[id number], 149.3, cm, 11/11/22 9:18:00 EDT, Height, 73.9, kg, 11/11/22 9:18:00 EDT, Dry Weight Start Date: 12/24/22 Status: Ordered lisinopril 40 mg oral tablet 1 tablet, By Mouth, Daily, # 90 tablet, 0 Refills, Maintenance, 07/23/23 11:31:00 EST, [facility] #[id number], 149.3, cm, 06/17/23 9:58:00 EST, Height, 73.2, kg, 06/17/23 9:58:00 EST, Dry Weight Start Date: 07/23/23 Status: Ordered metFORMIN 500 mg oral tablet 1 tablet = 500 mg, By Mouth, 2 times a day, # 60 tablet, 6 Refills, Maintenance, 03/29/23 13:27:00 EDT, [facility] #[id number], 149.3, cm, 03/05/23 8:16:00 EDT, Height, 73.9, kg, 11/11/22 9:18:00 EDT, Dry Weight Start Date: 03/29/23 Stop Date: 10/25/23 Status: Ordered Metoprolol Succinate ER 100 mg oral tablet, extended release 1 tablet, By Mouth, Daily, # 90 tablet, 1 Refills, Maintenance, 04/24/23 18:25:00 EDT, [facility] #[id number], 149.3, cm, 03/05/23 8:16:00 EDT, Height, 73.9, [...] oldest [Reference Range]: 1 Height 149.3 cm (06/17/23 9:58 AM) Weight 73.2 kg (06/17/23 9:58 AM) Oxygen Saturation [94-100 %] 99 % (06/17/23 9:58 AM) Pulse Rate [55-90 bpm] 77 bpm (06/17/23 9:58 AM) Body Mass Index [18.5-24.99 kg/m2] 32.84 kg/m2 *>HHI* (06/17/23 9:58 AM) Blood Pressure [90-138/55-84 mm Hg] 166/ 79mm Hg *H* (06/17/23 9:58 AM) Temperature [96.8-100.4 DegF] 98.9 DegF (06/17/23 9:58 AM) Mode of Delivery (Oxygen) Room air (06/17/23 9:58 AM) Blood pressure sites Arm, left (06/17/23 9:58 AM) Temperature Route Oral (06/17/23 9:58 AM) Dry Weight 73.2 kg (06/17/23 9:58 AM) Weight Obtained Via Standing scale (06/17/23 9:58 AM) Dry Weight Obtained Via Standing scale (06/17/23 9:58 AM) Social History Social History Type Response Smoking Status Never smoker entered on: 10/13/16 Sex Patient Care team information Care Team Personnel Name: Zoila Dorsey Position: [facility] Onco RN Member Role: Primary Care Nurse Name: Elizabeth Shepard NP Position: [facility] PCO Associate Professional Member Role: PCP Address: Address: [address] [place] [id number]- [place] Name: Robyn Umaña MD Position: [facility] Physician - Oncology Med Service: Hematology & Oncology Member Role: Admitting Physician Address: Address: [address] [place] [address] for Cancer [facility] [place] [address]- Care Team Related Persons Name: MAC ZAMORANO Address: home [address] [place] [place] [address] Name: DEBRA ZAMORANO Address: home [place]
--- OUTSIDE RECORDS SUMMARY | 2024-04-27 10:49 | XMS_ITS | Continuity of Care Document ---
Author Organization [facility] Address [address] [place] [address]- Care Team Providers Care Running Rigger Name Role Phone Devyn MORALES, Elizabeth Novak Primary Care Physician [phone] Encounter [facility] Date(s): 02/08/24 - 03/09/24 [facility] [address] [place] [address] Allergies, Adverse Reactions, Alerts Substance Reaction Severity Status Seafood Active Immunizations Given and Recorded Vaccine Date Status Refusal Reason Influenza Virus Vaccine (oldterm) 1 04/20/23 Recor ded Influenza Virus Vaccine (oldterm) 06/19/21 Recorde d SARS-CoV-2 mRNA ([id number]) vax 2 04/20/23 Recorded pneumococcal 20-valent conjugate [...] (oldterm) 04/08/11 Given 1Result Comment: [facility] [place] 2Result Comment: [facility] [place] 3Result Comment: [05/03/2017] [facility] [id number] [phone] 4Result Comment: [05/08/2016] [facility] 5Admin [...] 13 tablet, 3 Refills, Maintenance, 02/07/24 14:39:00 EDT,[facility] #[id number], Partial fill upon patient request if the prescription is for a schedule II opioid drug., 148.7, cm, 02/07/24 14:21:00 EDT,... Start Date: 02/07/24 Stop Date: 02/01/25 Status: Ordered allopurinol 100 mg oral tablet 1, tablet, By Mouth, Daily, # 90 tablet, Refills 1, Tot. Refills 1, Maintenance, 07/23/23 4:36:00 EST, Route to Pharmacy Electronically, [facility] #[id number], 149.3, cm, 06/17/23 9:58:00 EST, Height, 73.2, kg, 06/17/23 9:58:00 EST, Dry Weight Start Date: 07/23/23 Status: Ordered amLODIPine 2.5 mg oral tablet 1 tablet, By Mouth, Daily, # 90 tablet, 1 Refills, Maintenance, 01/13/24 13:57:00 EDT, [facility] #[id number], 149.3, cm, 12/15/23 9:10:00 EDT, Height, 72.8, kg, 12/15/23 9:36:00 EDT, Dry Weight Start Date: 01/13/24 Status: Ordered anastrozole 1 mg oral tablet 1 tablet, By Mouth, Daily, # 90 tablet, 3 Refills, Maintenance, 06/15/23 17:01:00 EST, [facility] #[id number], 149.3, cm, 03/05/23 8:16:00 EDT, Height, 73.9, kg, 11/11/22 9:18:00 EDT, Dry Weight Start Date: 06/15/23 Status: Ordered aspirin 81 mg oral tablet 1 tablet = 81 mg, By Mouth, Daily, # 30 tablet, 0 Refills, Maintenance Start Date: 10/06/10 Status: Ordered atorvastatin 40 mg oral tablet 1 tablet, By Mouth, Daily at bedtime, # 90 tablet, 1 Refills, Maintenance, 11/17/23 9:07:00 EDT, [facility] #[id number], 149.3, cm, 09/14/23 8:57:00 EST, Height, 73.2, kg, 06/17/23 9:58:00 EST, Dry Weight Start Date: 11/17/23 Status: Ordered lisinopril 40 mg oral tablet 1 tablet, By Mouth, Daily, # 90 tablet, 1 Refills, Maintenance, 11/03/23 0:09:00 EDT, [facility] #[id number], Please ask patient to call the office and schedule an appt for further refills, 149.3, cm, 09/14/23 8:57:00 EST, Height, 73.2, kg, 06/17... Start Date: 11/03/23 Status: Ordered metFORMIN 500 mg oral tablet 1 tablet = 500 mg, By Mouth, 2 times a day, # 60 tablet, 6 Refills, Maintenance, 03/29/23 13:27:00 EDT, [facility] #[id number], 149.3, cm, 03/05/23 8:16:00 EDT, Height, 73.9, kg, 11/11/22 9:18:00 EDT, Dry Weight Start Date: 03/29/23 Stop Date: 10/25/23 Status: Ordered Metoprolol Succinate ER 100 mg oral tablet, extended release 1 tablet, By Mouth, Daily, # 90 tablet, 1 Refills, Maintenance, 11/17/23 9:07:00 EDT, [facility] #[id number], 149.3, cm, 09/14/23 8:57:00 EST, Height, 73.2, [...] Personnel Name: Zoila Dorsey Position: [facility] Onco RN Member Role: Primary Care Nurse Name: Elizabeth Shepard NP Position: [facility] PCO Associate Professional Member Role: PCP Address: Address: [address] [place] [id number]- Care Team Related Persons Name: MAC ZAMORANO Address: home [address] [place] [address] [place] [address] Name: DEBRA ZAMORANO Address: home
--- OUTSIDE RECORDS SUMMARY | 2024-04-27 10:49 | XMS_ITS | Continuity of Care Document ---
Author Organization [facility] Address [address] [place] [address]- Care Team Providers Care Chair Inspector Name Role Phone Sunny Cannon MD Primary Care Physician [phone] Encounter [facility] Date(s): 12/31/20 - 03/25/21 [facility] [address] [place] [address]- Discharge Disposition: A-D/C Home Attending Physician: Kath Barillas MD Admitting Physician: Kath Barillas MD Referring Physician: Florence Muñoz MD Allergies, Adverse Reactions, Alerts Substance Reaction [...] Comment: [05/03/2017] [facility] [id number] [phone] 2Result Comment: [05/08/2016] [facility] [...] 10/17/20 9:52:00 EDT, Route to Pharmacy Electronically, [facility] #[id number], D/C RX FOR THE 90 DAY SUPPLY PREVIOUSLY SENT, 150.5, cm, 02/19/20 11:58:00 ED... Start Date: 10/17/20 Status: Ordered amLODIPine 2.5 mg oral tablet 1 tablet, By Mouth, Daily, # 90 tablet, 3 Refills, Maintenance, 02/21/21 9:09:00 EDT, [facility] #[id number], 149.3, cm, 02/21/21 8:42:00 EDT, Height, 73.7, kg, 01/23/21 10:06:00 EDT, Dry Weight Start Date: 02/21/21 Stop Date: 08/20/21 Status: Ordered anastrozole 1 mg oral tablet 1 tablet, By Mouth, Daily, # 90 tablet, 0 Refills, Maintenance, 01/21/21 15:10:00 EDT, [facility] #[id number], 149.86, cm, 01/21/21 14:09:00 EDT, Height, 73.8, kg, 01/21/21 14:09:00 EDT, Dry Weight Start Date: 01/21/21 Status: Ordered aspirin 81 mg oral tablet 1 tablet = 81 mg, By Mouth, Daily, # 30 tablet, 0 Refills, Maintenance Start Date: 10/06/10 Status: Ordered atorvastatin 40 mg oral tablet 1 tablet, By Mouth, Daily at bedtime, # 90 tablet, 3 Refills, Maintenance, 09/18/19 13:19:00 EST, [facility] #[id number], 150.5, cm, 08/02/18 14:01:00 EST, Height Start Date: 09/18/19 Status: Ordered lisinopril 40 mg oral tablet 1 tablet = 40 mg, By Mouth, Daily, # 90 tablet, 0 Refills, Maintenance, 12/31/20 15:29:00 EDT, Tablet, [facility] #[id number], Office visit needed for further refills., 150.5, cm, 12/27/20 13:27:00 EDT, Height Start Date: 12/31/20 Status: Ordered metFORMIN 500 mg oral tablet 1 tablet, By Mouth, 2 times a day, # 60 tablet, 2 Refills, Maintenance, 01/16/21 9:01:00 EDT, [facility] #[id number], 149.86, cm, 01/10/21 6:27:00 EDT, Height, 74.2, kg, 01/10/21 6:27:00 EDT, Dry Weight Start Date: 01/16/21 Status: Ordered Metoprolol Succinate ER 100 mg oral tablet, extended release 1 tablet = 100 mg, By Mouth, Daily, # 90 tablet, 1 Refills, Maintenance, 01/11/20 11:36:00 EDT, [facility] #[id number], 150.5, cm, 08/02/18 14:01:00 EST, Height Start Date: 01/11/20 Status: Ordered spironolactone 25 mg oral tablet 1, tablet, By Mouth, 2 times a day, LABS NEEDED FOR ADDITIONAL REFILLS, # 180 tablet, Refills 0, Tot. Refills 0, Maintenance, 07/18/20 17:58:00 EST, Route to Pharmacy Electronically, [facility] #[id number], 150.5, cm, 02/19/20 11:58:00 EDT, Height Start [...] to oldest [Reference Range]: 1 2 Height 149 cm (01/23/21 10:06 AM) 149.86 cm (01/21/21 2:09 PM) Weight 73.7 kg (01/23/21 10:06 AM) 73.8 kg (01/21/21 2:09 PM) Oxygen Saturation [94-100 %] 99 % (01/21/21 2:09 PM) Pulse Rate [55-90 bpm] 54 bpm *L* (01/23/21 10:06 AM) 57 bpm (01/21/21 2:09 PM) Body Mass Index [18.5-24.99] 33.2 *>HHI* (01/23/21 10:06 AM) 32.86 *>HHI* (01/21/21 2:09 PM) Blood Pressure [90-138/55-84 mm Hg] 140/ 55mm Hg *H* (01/23/21 10:06 AM) 154/59mm Hg *H* (01/21/21 2:09 PM) Respiratory Rate [16-30 br/min] 16 br/mi n (01/21/21 2:09 PM) Temperature [96.8-100.4 DegF] 98.5 DegF (01/23/21 10:06 AM) 98.7 DegF (01/21/21 2:09 PM) Mode of Delivery (Oxygen) Room air (01/21/21 2:09 PM) Blood pressure sites Arm, right (01/23/21 10:06 AM) Arm, left (01/21/21 2:09 PM) Temperature Route Temporal (01/23/21 10:06 AM) Temporal (01/21/21 2:09 PM) Dry Weight 73.7 kg (01/23/21 10:06 AM) 73.8 kg (01/21/21 2:09 PM) Weight Obtained Via Standing scale (01/23/21 10:06 AM) Standing scale (01/21/21 2:09 PM) Dry Weight Obtained Via Standing scale (01/23/21 10:06 AM) Standing scale (01/21/21 2:09 PM) Social History Social History Type Response Smoking Status Never smoker entered on: 10/13/16 Sex
--- OUTSIDE RECORDS SUMMARY | 2024-04-27 10:49 | XMS_ITS | Continuity of Care Document ---
Author Organization [facility] ter Address [address] [place] [address]- Care Team Providers Care Marketing Research Coordinator Name Role Phone Sunny Cannon MD Primary Care Physician [phone] Encounter [facility] Date(s): 01/10/21 - 01/10/[address] [address] Discharge Disposition: A-D/C Home Attending Physician: Florence Muñoz MD Admitting Physician: Florence Muñoz MD Referring Physician: Florence Muñoz MD Allergies, [...] (oldterm) 04/08/11 Given 1Result Comment: [05/03/2017] [facility] [id number] [phone] 2Result Comment: [05/08/2016] [facility] [...] 10/17/20 9:52:00 EDT, Route to Pharmacy Electronically, [facility] #[id number], D/C RX FOR THE 90 DAY SUPPLY PREVIOUSLY SENT, 150.5, cm, 02/19/20 11:58:00 ED... Start Date: 10/17/20 Status: Ordered amLODIPine 2.5 mg oral tablet 1 tablet, By Mouth, Daily, # 90 tablet, 1 Refills, Maintenance, 10/25/20 8:14:00 EDT, [facility] #[id number], 150.5, cm, 02/19/20 11:58:00 EDT, Height Start Date: 10/25/20 Stop Date: 04/23/21 Status: Ordered aspirin 81 mg oral tablet 1 tablet = 81 mg, By Mouth, Daily, # 30 tablet, 0 Refills, Maintenance Start Date: 10/06/10 Status: Ordered atorvastatin 40 mg oral tablet 1 tablet, By Mouth, Daily at bedtime, # 90 tablet, 3 Refills, Maintenance, 09/18/19 13:19:00 EST, [facility] #[id number], 150.5, cm, 08/02/18 14:01:00 EST, Height Start Date: 09/18/19 Status: Ordered lisinopril 40 mg oral tablet 1 tablet = 40 mg, By Mouth, Daily, # 90 tablet, 0 Refills, Maintenance, 12/31/20 15:29:00 EDT, Tablet, [facility] #[id number], Office visit needed for further refills., 150.5, cm, 12/27/20 13:27:00 EDT, Height Start Date: 12/31/20 Status: Ordered metFORMIN 500 mg oral tablet 1 tablet = 500 mg, By Mouth, 2 times a day, # 60 tablet, 2 Refills, Maintenance, 10/17/20 9:52:00 EDT, Tablet, [facility] #[id number], 150.5, cm, 02/19/20 11:58:00 EDT, Height Start Date: 10/17/20 Status: Ordered Metoprolol Succinate ER 100 mg oral tablet, extended release 1 tablet = 100 mg, By Mouth, Daily, # 90 tablet, 1 Refills, Maintenance, 01/11/20 11:36:00 EDT, [facility] #[id number], 150.5, cm, 08/02/18 14:01:00 EST, Height Start Date: 01/11/20 Status: Ordered oxyCODONE 5 mg oral tablet 5 mg, 1, tablet, By Mouth, Every 6 hours, PRN, # 5 tablet, Refills 0, Tot. Refills 0, Maintenance, as needed for pain, 01/10/21 7:13:00 EDT, Route to Pharmacy Electronically, [facility] #[id number], Partial fill upon patient request if the prescr... Start Date: 01/10/21 Status: Ordered spironolactone 25 mg oral tablet 1, tablet, By Mouth, 2 times a day, LABS NEEDED FOR ADDITIONAL REFILLS, # 180 tablet, Refills 0, Tot. Refills 0, Maintenance, 07/18/20 17:58:00 EST, Route to Pharmacy Electronically, [facility] #[id number], 150.5, cm, 02/19/20 11:58:00 EDT, Height Start [...] oldest [Reference Range]: 1 2 3 Height 149.86 cm (01/10/21 6:27 AM) 149.86 cm (01/02/21 2:03 PM) Weight 74.2 kg (01/10/21 6:27 AM) 71.36 kg (01/02/21 2:03 PM) Oxygen Saturation [94-100 %] 98 % (01/10/21 8:45 AM) 98 % (01/10/21 8:43 AM) 100 % (01/10/21 6:27 AM) Pulse Rate [55-90 bpm] 79 bpm (01/10/21 6:27 AM) Body Mass Index [18.5-24.99] 33.04 *>HHI* (01/10/21 6:27 AM) 31.77 *>HHI* (01/02/21 2:03 PM) Blood Pressure [90-138/55-84 mm Hg] 157/57mm Hg *H* (01/10/21 8:45 AM) 175/56mm Hg *H* (01/10/21 8:43 AM) 167/80mm Hg *H* (01/10/21 6:27 AM) Respiratory Rate [16-30 br/min] 9 br/min *L* (01/10/21 8:43 AM) 22 br/min (01/10/21 6:27 AM) Temperature [96.8-100.4 DegF] 98.4 DegF (01/10/21 9:30 AM) 97.6 DegF (01/10/21 8:43 AM) 99.9 DegF (01/10/21 6:27 AM) Mode of Delivery (Oxygen) Room air (01/10/21 9:30 AM) Room air (01/10/21 8:45 AM) Room air (01/10/21 8:43 AM) Blood pressure sites Arm, left (01/10/21 8:43 AM) Arm, left (01/10/21 6:27 AM) Temperature Route Temporal (01/10/21 9:30 AM) Temporal (01/10/21 8:43 AM) Temporal (01/10/21 6:27 AM) Dry Weight 74.2 kg (01/10/21 6:27 AM) 71.36 kg (01/02/21 2:03 PM) Weight Obtained Via Standing scale (01/10/21 6:27 AM) Patient/family stated (01/02/21 2:03 PM) Dry Weight Obtained Via Standing scale (01/10/21 6:27 AM) Patient/family stated (01/02/21 2:03 PM) Social History Social History Type Response Smoking Status Never smoker entered on: 10/13/16 Sex
[2024-04-27 10:57] VITALS: BP 186/82; PULSE 88; RESP 16; TEMP 37.1; O2SAT 99
== END 2024-04-27 11:04 | disposition short-term general hospital (02) ==
PROVIDERS: Emergency Provider Emergency Medicine; PCP Hospitalist
DX: U07.1 COVID-19 (principal); I63.512 Cerebral infarction due to unspecified occlusion or stenosis of left middle cerebral artery; M79.601 Pain in right arm; I10 Essential (primary) hypertension; R79.89 Other specified abnormal findings of blood chemistry; R94.31 Abnormal electrocardiogram [ECG] [EKG]; Z79.899 Other long term (current) drug therapy
CPT/HCPCS: 0241U; 36415; 70450; 70496; 70498; 80048; 80061; 80076; 81003; 82140; 82550; 82947; 83036; 83735; 84484; 85025; 85610; 85730; 86140; 93005; 99285; Q9967

== ENCOUNTER → 2024-04-27 08:43 | Outpatient (BNV) | payer MEDICARE, SELFPAY | PROVIDERS: Emergency Provider Emergency Medicine; PCP Hospitalist; Visit Provider Internal Medicine Cardiovascular Disease | DX: R94.31 Abnormal electrocardiogram [ECG] [EKG] (principal) | CPT/HCPCS: 93010 ==

== ENCOUNTER 2025-02-15 17:29 | Emergency (ER) | payer MEDICARE, SELFPAY ==
--- NOTE | 2025-02-15 | ECG_ITS ---
Test Reason : hypertensive Blood Pressure : */* mmHG Vent. Rate : 72 BPM Atrial Rate : 72 BPM P-R Int : 144 ms QRS Dur : 78 ms QT Int : 402 ms P-R-T Axes : 58 10 81 degrees QTcB Int : 440 ms Normal sinus rhythm Nonspecific ST and T wave abnormality Abnormal ECG When compared with ECG of 27-Apr-2024 09:27, Premature atrial complexes are no longer Present Nonspecific T wave abnormality no longer evident in Inferior leads Referred By: Generic ED Physician Electronically Signed By: AVA QUINTERO MD
--- NOTE | ~2025-02-15 | XR_ITS ---
CLINICAL HISTORY: HTN 1 view chest x-ray Comparison: None provided Findings: No consolidation or effusion. There is enlargement of the cardiopericardial silhouette. No acute fracture. IMPRESSION: 1. No acute findings. Cardiomegaly. This document has been electronically signed by: Zenia Renteria MD on 02/15/2025 19:01:42
[2025-02-15 17:35] VITALS: BP 140/70; BP 168/74; PULSE 75; RESP 16; TEMP 36.6; O2SAT 96; O2SAT 98; BMI 25.4
--- NOTE | 2025-02-15 18:54 | MHC.EDTECH ---
Brother Nav- [phone]. In [place] cant come up to see her.
[2025-02-15 19:19] LABS: MANUAL DIFF FLAG NO
[2025-02-15 19:20] LABS: Hematocrit 36.2 % (37.0-47.0); Hemoglobin 12.3 g/dl (12.0-16.0); Imm Gran Abs Auto 0.03 X10*3/uL (0.00-0.03); Imm Gran Pct Auto 0.4 % (0.0-0.4); Lymphocytes Absolute Auto 2.8 X10*3/uL (1.2-4.9); Mean Corpuscular HGB Conc 34.0 g/dl (31.0-35.0); Mean Corpuscular Hemoglobin 27.8 pg (27.0-33.0); Mean Corpuscular Volume 81.7 fL (80.0-98.0); NRBC Abs Auto 0.000 X10*3/uL (0.0-0.012); NRBC Pct Auto 0.0 /100WBC (0.0-0.2); Platelet Count 196 X10*3/uL (160-400); Red Blood Count 4.43 X10*6/uL (4.20-5.50); White Blood Count 8.2 X10*3/uL (4.8-10.8)
[2025-02-15 19:46] LABS: Alanine Aminotransferase 25 U/L (0-31); Albumin Level 4.6 g/dL (3.5-5.0); Alkaline Phosphatase 68 U/L (39-117); Anion Gap 15 (12-20); Aspartate Amino Transferase 30 U/L (5-31); Blood Urea Nitrogen 15 mg/dL (9-16); Calcium 9.2 mg/dL (8.4-10.2); Carbon Dioxide 26 mmol/L (22-29); Chloride 108 mmol/L (96-108); Creatinine Clr Calc Pharmacy 46.7; Estimated Glomerular Filt Rate > 60; Magnesium 1.8 mg/dL (1.6-2.6); Potassium 3.8 mmol/L (3.3-5.1); Sodium 145 mmol/L (135-145); Total Protein 7.3 g/dL (6.5-8.0)
[2025-02-15 19:55] VITALS: BP 167/73; PULSE 62; RESP 17; TEMP 37.1; O2SAT 98
[2025-02-15 19:55] LABS: Troponin-I High Sensitivity 4.4 ng/L (<3.5-17.0)
--- NOTE | 2025-02-15 20:25 | ED.GENADULT ---
HPI - General Adult General Chief complaint: General Medical Stated complaint: light headed, htn Time Seen by Provider: 02/15/25 18:18 Source: patient Limitations: no limitations and other (Impaired speech from prior stroke) History of Present Illness ED Provider: Chloe Rojas PA-C HPI narrative: 79 year old female with pmhx of a stroke in April 2024, diabetes, gout, and HTN who presents to the ED with a concern of high blood pressure. She reports a nurse from [facility] took her blood pressure and reported it to be 170/76 . The nurse called an ambulance for her to be assessed. She reports taking her medication as prescribed. She reports alterations being made to her lisinopril. She denies N/V, headaches, dizziness, and vision changes. Denies chest pain or shortness of breath. The patient has no physical concerns complaints at all at this time. Related Data Home Medications ?Medication ?Instructions ?Recorded ?Confirmed allopurinol 100 mg tablet 100 mg PO DAILY 04/27/24 04/27/24 amlodipine 2.5 mg tablet 2.5 mg PO DAILY 04/27/24 04/27/24 anastrozole 1 mg tablet 1 mg PO DAILY 04/27/24 04/27/24 atorvastatin 40 mg tablet 40 mg PO DAILY 04/27/24 04/27/24 lisinopril 40 mg tablet 40 mg PO DAILY 04/27/24 04/27/24 metformin 500 mg tablet 500 mg PO BID 04/27/24 04/27/24 metoprolol succinate 100 mg 100 mg PO DAILY 04/27/24 04/27/24 tablet,extended release 24 hr Allergies Allergy/AdvReac Type Severity Reaction Status Date / Time SEAFOOD Allergy Severe ANAPHYLAXIS Uncoded 02/15/25 17:41 Review of Systems Review of Systems: Yes all other systems are reviewed and are negative Constitutional: Constitutional: Denies fatigue, Denies fever(s) and Denies headache(s) Eyes: Eyes: Denies change in vision ENT: Denies dizziness and Denies headache(s) Cardiovascular: Cardiovascular: Denies chest pain and Denies dyspnea Respiratory: Respiratory: Denies dyspnea Gastrointestinal: Gastrointestinal: Denies nausea and Denies vomiting Neurologic: Denies dizziness and Denies headache(s) Endocrine: Endocrine: Denies fatigue PMFSH Past Medical History Attestation statement: The following information was validated with the patient. Medical History Breast cancer Hyperlipidemia Diabetes HTN (hypertension) Social History Social History (Updated 04/27/24 @ 09:04 by Tsering Gomez DO) Patient Tobacco Use Status: Tobacco use Unknown Advance Directives: Yes Advance Directives Information Provided: No Advance Directives on File: No Physical Exam ED Vital Signs: Vital Signs - 24 hr 02/15/25 17:35 02/15/25 19:55 Temperature 97.9 F 98.7 F Pulse Rate 75 62 Respiratory Rate 16 17 Blood Pressure 168/74 H 167/73 H Pulse Oximetry 96 98 Oxygen Delivery Method Room Air Room Air BMI result Body Mass Index 25.4 Const Other: Alert Orientation/consciousness: patient oriented x3 Resp Effort & Inspection: normal respiratory effort Cardio Other: Normal peripheral perfusion Skin Other: Warm dry no rash Neuro Other: Subtle left facial droop from residual CVA, subtly weak on the left, dysarthria noted General: patient oriented x3 and gait normal Psych Other: Cooperative Medical Decision Making Medical Decision Making MDM Narrative: 79 year old female with pmhx of a stroke in April 2024, diabetes, gout, and HTN who presents to the ED with a concern of high blood pressure. She reports a nurse from [facility] took her blood pressure and reported it to be 170/76 . The nurse called an ambulance for her to be assessed. She reports taking her medication as prescribed. She reports alterations being made to her lisinopril. She denies N/V, headaches, dizziness, and vision changes. Denies chest pain or shortness of breath. The patient has no physical concerns complaints at all at this time. Problem: Age, hypertension, diabetes History: Per patient I have considered the following differential diagnoses: Hypertensive urgency, hypertensive emergency, ACS, end-organ damage Plan: Screening labs including cardiac enzymes EKG chest x-ray were obtained, assessing for organ damage. To note, the patient is not hypertensive. She has no symptoms she has no complaints. I have independently reviewed the following tests: Labs: No leukocytosis, not anemic, no electrolyte abnormality, renal function unchanged, troponin 4.4, EKG: Chest x-ray:IMPRESSION: 1. No acute findings. Cardiomegaly. Lab Data 02/15/25 19:03 02/15/25 19:03 Labs: Lab Results 02/15/25 Range/Units 19:03 WBC 8.2 (4.8-10.8) X10*3/uL RBC 4.43 (4.20-5.50) X10*6/uL Hgb 12.3 (12.0-16.0) g/dl Hct 36.2 L (37.0-47.0) % MCV 81.7 (80.0-98.0) fL MCH 27.8 (27.0-33.0) pg MCHC 34.0 (31.0-35.0) g/dl RDW 15.1 (11.0-16.0) % Plt Count 196 (160-400) X10*3/uL MPV 9.7 (9.4-12.3) fL Immature Gran % (Auto) 0.4 (0.0-0.4) % Neut % (Auto) 59.7 (45-73) % Lymph % (Auto) 34.5 (20-40) % Person % (Auto) 4.8 (2-11) % Eos % (Auto) 0.4 (0-4) % Baso % (Auto) 0.2 (0-2) % Lymph # (Auto) 2.8 (1.2-4.9) X10*3/uL Person # (Auto) 0.4 (0.1-1.2) X10*3/uL Eos # (Auto) 0.0 (0.0-0.4) X10*3/uL Baso # (Auto) 0.0 (0.0-0.2) X10*3/uL Abs Immat Gran (auto) 0.03 (0.00-0.03) X10*3/uL Absolute Neuts (auto) 4.9 (2.0-8.3) x10*3/uL Absolute Nucleated RBC 0.000 (0.0-0.012) X10*3/uL Nucleated RBC % (auto) 0.0 (0.0-0.2) /100WBC Sodium 145 (135-145) mmol/L Potassium 3.8 (3.3-5.1) mmol/L Chloride 108 (96-108) mmol/L Carbon Dioxide 26 (22-29) mmol/L Anion Gap 15 (12-20) BUN 15 (9-16) mg/dL Creatinine 0.81 (0.5-1.4) mg/dL Estim Creat Clear Calc 46.7 Estimated GFR > 60 Random Glucose 114 (60-115) mg/dL Calcium 9.2 (8.4-10.2) mg/dL Magnesium 1.8 (1.6-2.6) mg/dL Total Bilirubin 0.4 (0.0-1.0) mg/dL AST 30 (5-31) U/L ALT 25 (0-31) U/L Alkaline Phosphatase 68 (39-117) U/L Troponin I High Sens 4.4 D (<3.5-17.0) ng/L Total Protein 7.3 (6.5-8.0) g/dL Albumin 4.6 (3.5-5.0) g/dL Discharge Plan Discharge Clinical Impression: Hypertension Patient Disposition: Home, Self-Care Instructions: Chronic Hypertension (ED) Additional Instructions: All of your screening labs including a cardiac enzymes were normal, a chest x-ray was obtained that was normal as well. You were not noted to be hypertensive here in the emergency department. Perhaps there was an issue with your home blood pressure cuff. Follow up with your primary care provider as needed. Prescriptions: No Action allopurinol 100 mg Tablet 100 mg PO DAILY atorvastatin 40 mg Tablet 40 mg PO DAILY metformin 500 mg Tablet 500 mg PO BID anastrozole 1 mg Tablet 1 mg PO DAILY metoprolol succinate 100 mg Tablet Extended Release 24 Hr 100 mg PO DAILY amlodipine 2.5 mg Tablet 2.5 mg PO DAILY lisinopril 40 mg Tablet 40 mg PO DAILY Print Language: Urdu
[2025-02-15 21:49] VITALS: BP 167/73; PULSE 62; RESP 17; TEMP 37.1; O2SAT 98
--- NOTE | 2025-02-15 22:57 | MHC.EDTECH ---
Patient went to the bathroom and she did urinate but about 20cc went in the hat but the rest went into the toilet. Nurse aware and she called the lab. I scanned and saved the label but did not send any down. They said if I do get a sample just put labels on them with my numonics (spelling)
== END 2025-02-15 21:54 | disposition home or self-care (01) ==
PROVIDERS: Physician Assistant Medical; Emergency Provider Emergency Medicine; PCP Hospitalist
DX: R42 Dizziness and giddiness (principal); I10 Essential (primary) hypertension; R94.31 Abnormal electrocardiogram [ECG] [EKG]; E11.9 Type 2 diabetes mellitus without complications; Z79.899 Other long term (current) drug therapy
CPT/HCPCS: 36415; 71045; 80053; 83735; 84484; 85025; 93005; 99283; 99284

== ENCOUNTER → 2025-02-15 17:38 | Outpatient (BNV) | payer MEDICARE, SELFPAY | PROVIDERS: Emergency Provider Emergency Medicine; PCP Hospitalist; Visit Provider Internal Medicine Cardiovascular Disease | DX: R94.31 Abnormal electrocardiogram [ECG] [EKG] (principal); I10 Essential (primary) hypertension | CPT/HCPCS: 93010 ==

== ENCOUNTER → 2025-02-15 18:25 | Outpatient (BNV) | payer MEDICARE, SELFPAY | PROVIDERS: Emergency Provider Emergency Medicine; PCP Hospitalist; Visit Provider Nuclear Medicine | DX: I51.7 Cardiomegaly (principal) | CPT/HCPCS: 71045 ==

== ENCOUNTER 2025-05-11 17:39 | Inpatient (IN) | payer MEDICARE, SELFPAY ==
--- NOTE | ~2025-05-11 | CT_ITS ---
CLINICAL HISTORY: dysarthria and or aphasia Exam: Contrast-enhanced CTA head and neck with multiplanar reformats. Comparison: 04/27/2024. Findings: CTA head: There is good opacification of the bilateral anterior and posterior intracranial arterial circulations. No large vessel occlusion or significant intracranial arterial stenoses. No definable truncation of flow. No aneurysm or vascular malformation. No venous thrombosis or enhancing parenchymal lesions. CTA neck: Aortic arch reveals calcific athero sclerosis. Common carotid arteries are patent bilaterally. Internal carotid arteries are patent bilaterally. Significant calcific athero sclerosis at left ICA origin (6; 464) does not result in hemodynamically significant appearing stenoses. Basilar arteries are patent bilaterally. No occlusion, hemodynamically significant stenoses or evidence of dissection. Visualized pulmonary apices are clear. No neck masses or adenopathy. No destructive osseous lesions. Impression: 1. Unremarkable CTA of the head and neck. This document has been electronically signed by: Stephen Edgar MD on 05/11/2025 18:19:56
--- NOTE | ~2025-05-11 | CT_ITS ---
CLINICAL HISTORY: Stroke Protocol CT head without contrast Comparison: 04/27/2024 Findings: No intracranial mass, midline shift, hydrocephalus, or acute hemorrhage. No CT evidence of acute ischemia. There is new left frontal encephalomalacia compared with the prior exam. 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 Visualized paranasal sinuses and mastoid air cells normal. Orbits unremarkable. No skull fracture. Impression: 1. No acute intracranial abnormalities. This document has been electronically signed by: Stephen Edgar MD on 05/11/2025 18:12:42
--- NOTE | ~2025-05-11 | CT_ITS ---
CLINICAL HISTORY: Evaluate for CVA --- Additional Notes or Special Instructions: Pt has been refusing MRI due to dizziness from previous MRI. CT head without contrast Comparison: CT - CT HEAD NECK ANGIOGRAPHY WITH IV CONTRAST STROKE - 05/11/25 17:40 EDT Findings: Scattered subcortical and periventricular hypoattenuation, likely in keeping with chronic small vessel ischemic disease. Parenchymal volume loss with compensatory prominence of the ventricles and CSF spaces. No acute territorial infarction, intracranial hemorrhage, midline shift or hydrocephalus. New encephalomalacia/gliosis in the left frontal lobe and insula and anterior right frontal lobe. Mild ex vacuo dilatation of the left lateral ventricle. Cavum septum pellucidum and vergae. The visualized paranasal sinuses and mastoid air cells are normal. The orbits are unremarkable. There is no acute fracture. Bilateral lens extraction. IMPRESSION: 1. No acute intracranial hemorrhage or territorial infarction. 2. Additional findings as described. This document has been electronically signed by: William Neal MD on 05/13/2025 18:00:07
--- NOTE | 2025-05-11 17:49 | ECG_ITS ---
Test Reason : stroke protocol Blood Pressure : */* mmHG Vent. Rate : 85 BPM Atrial Rate : 85 BPM P-R Int : 244 ms QRS Dur : 72 ms QT Int : 352 ms P-R-T Axes : * 13 -56 degrees QTcB Int : 418 ms Sinus rhythm with 1st degree A-V block ST & T wave abnormality, consider inferior ischemia ST & T wave abnormality, consider anterolateral ischemia Abnormal ECG When compared with ECG of 15-Feb-2025 17:38, ID interval has increased T wave inversion now evident in Inferior leads Inverted T waves have replaced nonspecific T wave abnormality in Lateral leads Referred By: Charlie Slater Electronically Signed By: AVA QUINTERO MD
--- NOTE | 2025-05-11 17:51 | ED.AMS ---
HPI - Altered Mental Status General Chief Complaint: Stroke Stated Complaint: Fast ed 3, r side facial drooping, hx stroke Time Seen by Provider: 05/11/25 17:48 History of Present Illness ED Provider: arden HPI narrative: 79 patient is poor historian not only due to what appears to be an acute or chronic edentulous status and dysarthria due to the possible acute or chronic clinical condition versus simply having difficulty explaining timing of her symptom onset. It was called in his a 30 minute prior to onset deficit patient tells me that around noon she started feeling unwell with walking and dizzy off balance. Patient reports Plavix among other medications she was activated stroke alert on arrival. My initial assessment does shows profound dysarthria right-sided facial droop no motor deficits. She is euglycemic on arrival very difficult to establish last on last known well on my history taking. Given the unreliability the patient's current taking of Plavix and the appearance to me on the noncontrast CT of ischemic changes I do not think this patient would benefit in fact may have higher risk profile for thrombolytic therapy. Arrival NIH stroke scale below approximately 555p NIH Stroke Scale/Score (NIHSS) from [email or web address] on 05/11/2025 All calculations should be rechecked by clinician prior to use RESULT SUMMARY: 3 points NIH Stroke Scale INPUTS: 1A: Level of consciousness ?> 0 = Alert; keenly responsive 1B: Ask month and age ?> 0 = Both questions right 1C: 'Blink eyes' & 'squeeze hands' ?> 0 = Performs both tasks 2: Horizontal extraocular movements ?> 0 = Normal 3: Visual nowak ?> 0 = No visual loss 4: Facial palsy ?> 1 = Minor paralysis (flat nasolabial fold, smile asymmetry) 5A: Left arm motor drift ?> 0 = No drift for 10 seconds 5B: Right arm motor drift ?> 0 = No drift for 10 seconds 6A: Left leg motor drift ?> 0 = No drift for 5 seconds 6B: Right leg motor drift ?> 0 = No drift for 5 seconds 7: Limb Ataxia ?> 0 = No ataxia 8: Sensation ?> 0 = Normal; no sensory loss 9: Language/aphasia ?> 1 = Mild-moderate aphasia: some obvious changes, without significant limitation 10: Dysarthria ?> 1 = Mild-moderate dysarthria: slurring but can be understood 11: Extinction/inattention ?> 0 = No abnormality Related Data Home Medications ?Medication ?Instructions ?Recorded ?Confirmed allopurinol 100 mg tablet 100 mg PO DAILY 04/27/24 05/11/25 atorvastatin 40 mg tablet 40 mg PO BEDTIME 04/27/24 05/11/25 metformin 500 mg tablet 500 mg PO BID 04/27/24 05/11/25 alendronate 70 mg tablet 70 mg PO ROYAL 05/11/25 05/11/25 amlodipine 5 mg tablet 5 mg PO DAILY 05/11/25 05/11/25 clopidogrel 75 mg tablet 75 mg PO DAILY 05/11/25 05/11/25 lisinopril 5 mg tablet 5 mg PO DAILY 05/11/25 05/11/25 Allergies Allergy/AdvReac Type Severity Reaction Status Date / Time SEAFOOD Allergy Severe ANAPHYLAXIS Uncoded 05/11/25 18:03 [facility] Past Medical History Medical History Breast cancer Hyperlipidemia Diabetes HTN (hypertension) Social History Social History (Updated 04/27/24 @ 09:04 by Tsering Gomez DO) Household Members: None Housing: Apartment Do you presently have visiting nurse or other home services: Yes Patient Tobacco Use Status: Never used Tobacco Smoked in Last 30 Days: No Use of substances other than those prescribed or required for medical reasons: No Currently Displaying Signs/Symptoms of Drug Intoxication Withdrawal: No Have you been hit, kicked, punched, or otherwise hurt by someone within the past year? If so, by whom?: No Do you feel safe in your current relationship?: No Current Relationship Is there a partner from a previous relationship who is making you feel unsafe now?: No Are you made to feel afraid or neglected: No Advance Directives: No Advance Directives Information Provided: No Advance Directives on File: No Do you have a plan to hurt others: No Plan Recently lost weight without trying: No How much weight loss: 24-33 pounds Eating poorly because of decreased appetite: Yes Nutrition screen score: 4 Nutrition Risks: Dental problems, Difficulty chewing, On aspiration precautions and Poor intake 0-25% >4 days Patient : No : No Poor oral hygiene: No service: No Physical Exam ED Exam Exam: GENERAL: Well appearing. No apparent distress. Alert. Near edentulous, large tongue dysarthric speech flattened nasolabial fold moving extremities voluntarily. No distress HEAD/NECK: Normal to inspection. Neck supple. No cervical lymphadenopathy. EYES: Normal to inspection. Sclera non-icteric. ENMT: External nose normal. RESPIRATORY: Respiratory effort normal. Lungs clear to auscultation bilaterally. CARDIOVASCULAR: Regular rate. Normal rhythm. No murmur. No rubs. GI: Soft, non-tender, non-distended. No rebound or guarding. No masses palpable. No hepatosplenomegaly. SKIN: No jaundice. NEUROLOGICAL: Alert. PSYCHIATRIC: Alert. Appearance appropriate for situation. Attitude cooperative. OTHER: Comprehensive Neuro exam: Asymmetric smile, no motor deficits no sensory deficits, EOMI, pupils 3-4 mm symmetric reactive. Intact and symmetric shoulder shrug. No gross visual field deficits reported. Aphasia verse dysarthria. Language barrier as well she speaks Lisa. Vital Signs: BMI result Body Mass Index 24.8 Medications Administered Generic Name Dose Route Start Last Admin Trade Name Juan Fq PRN Reason Stop Dose Admin Allopurinol 100 mg 05/13/25 12:00 05/13/25 12:49 Allopurinol 100 Mg Tablet PO 100 mg DAILY ALFREDO Administration Amlodipine Besylate 5 mg 05/13/25 12:00 05/13/25 12:49 Amlodipine Besylate 5 Mg Tablet PO 5 mg DAILY ALFREDO Administration Protocol Aspirin 81 mg 05/12/25 09:00 05/13/25 12:49 Aspirin Enteric Coated 81 Mg Tablet.Dr PO 81 mg DAILY ALFREDO Administration Atorvastatin Calcium 80 mg 05/12/25 09:00 05/13/25 12:49 Atorvastatin Calcium 80 Mg Tablet PO 80 mg DAILY ALFREDO Administration Clopidogrel Bisulfate 75 mg 05/13/25 12:00 05/13/25 12:48 Clopidogrel Bisulfate 75 Mg Tablet PO 75 mg DAILY ALFREDO Administration Insulin Human Lispro 0 unit 05/11/25 21:00 05/13/25 12:49 Insulin Lispro 100 Unit/Ml 3 Ml Vial SUBCUT Not Given QIDACHS [facility] Protocol Lisinopril 5 mg 05/13/25 12:00 05/13/25 12:48 Lisinopril 5 Mg Tablet PO 5 mg DAILY ALFREDO Administration Protocol Sodium Chloride 3 ml 05/12/25 00:00 05/13/25 07:53 0.9 % Sodium Chloride Flush 3 Ml Syringe IVFLUSH Not Given QSHIFT ALFREDO Discontinued Medications Generic Name Dose Route Start Last Admin Trade Name Alva PRN Reason Stop Dose Admin Aspirin 300 mg 05/12/25 15:10 05/13/25 13:06 Aspirin 300 Mg Supp.Rect NV Not Given DAILY ALFREDO Dextrose/Lactated Ringer's 1,000 mls @ 100 mls/hr 05/12/25 15:30 05/13/25 13:07 D5lr IVCONT Not Given .Q10H ALFREDO Iohexol 100 ml 05/11/25 18:02 05/11/25 18:02 Iohexol 350 Mg/Ml 100 Ml Infus..Btl IV 05/11/25 18:03 70 ml ONCE ONE Administration Medical Decision Making Medical Decision Making MDM Narrative: Medical Decision Making: [age] female with greater than 4-1/2 hours of speech changes. Not in the window for TNK. Dysarthria versus aphasia. No motor deficits. Presumed CVA. No mass or LVO on CT imaging. No indication for TNK or transfer for neuro intervention. Preliminary Favored Differential Diagnosis: CVA, TIA, brain mass, complex seizure among additional considered etiologies Testing Interpreted Independently: ?See below for details Radiology or Lab testing Results Reviewed: ?See below for details Consults: ?See below for details Independent Historians/External Chart Reviews: ?See below for details Social Determinants of Health Impacting MDM/Planning: ?See below for details Lab Data MDM Lab Attestation statement: I reviewed the patient's lab results. 05/12/25 08:34 05/13/25 08:53 Labs: Lab Results 05/11/25 05/11/25 Range/Units 17:41 17:44 WBC 9.2 (4.8-10.8) X10*3/uL RBC 4.34 (4.20-5.50) X10*6/uL Hgb 11.9 L (12.0-16.0) g/dl Hct 35.1 L (37.0-47.0) % MCV 80.9 (80.0-98.0) fL MCH 27.4 (27.0-33.0) pg MCHC 33.9 (31.0-35.0) g/dl RDW 15.0 (11.0-16.0) % Plt Count 184 (160-400) X10*3/uL MPV 10.3 (9.4-12.3) fL Immature Gran % (Auto) 0.2 (0.0-0.4) % Neut % (Auto) 38.0 L (45-73) % Lymph % (Auto) 56.1 H (20-40) % [place] % (Auto) 4.5 (2-11) % Eos % (Auto) 0.9 (0-4) % Baso % (Auto) 0.3 (0-2) % Lymph # (Auto) 5.2 H (1.2-4.9) X10*3/uL [place] # (Auto) 0.4 (0.1-1.2) X10*3/uL Eos # (Auto) 0.1 (0.0-0.4) X10*3/uL Baso # (Auto) 0.0 (0.0-0.2) X10*3/uL Abs Immat Gran (auto) 0.02 (0.00-0.03) X10*3/uL Absolute Neuts (auto) 3.5 (2.0-8.3) x10*3/uL Absolute Nucleated RBC 0.000 (0.0-0.012) X10*3/uL Nucleated RBC % (auto) 0.0 (0.0-0.2) /100WBC Smear Tech's Comments VERIFIED PT 10.8 L (10.9-12.4) SEC INR 0.9 (0.9-1.1) APTT 37.1 H (26.7-34.1) SEC Sodium 145 (135-145) mmol/L Potassium 3.5 (3.3-5.1) mmol/L Chloride 110 H (96-108) mmol/L Carbon Dioxide 22 (22-29) mmol/L Anion Gap 17 (12-20) BUN 16 (9-16) mg/dL Creatinine 0.79 (0.5-1.4) mg/dL Estim Creat Clear Calc 49.4 Estimated GFR > 60 POC Glucose 103 (60-115) mg/dL Random Glucose 93 (60-115) mg/dL Calcium 9.5 (8.4-10.2) mg/dL Troponin I High Sens 3.4 (<3.5-17.0) ng/L Triglycerides 110 (<150) mg/dL Cholesterol 132 (<200) mg/dL LDL Cholesterol, Calc 51 (<100) mg/dL HDL Cholesterol 59 (>40) mg/dL Hold Yellow Top See Note Critical Care Time Critical Care Time Critical Care Time: Yes Total Critical Care Time: 30 Attestation: ED Critical Care: Authorized and Performed by: Charlie Slater MD Total critical care time: Approximately 30 min Due to a high probability of clinically significant, life threatening deterioration, the patient required my highest level of preparedness to intervene emergently and I personally spent this critical care time directly and personally managing the patient. This critical care time included obtaining a history; examining the patient; pulse oximetry; ordering and review of studies; arranging urgent treatment with development of a management plan; evaluation of patient's response to treatment; frequent reassessment; and, discussions with other providers. This critical care time was performed to assess and manage the high probability of imminent, life-threatening deterioration that could result in multi-organ failure. It was exclusive of separately billable procedures and treating other patients and teaching time. Discharge Plan Discharge Clinical Impression: Aphagia Patient Disposition: Admitted As Inpatient Interventions: Admission Worksheet (ED) Last Done: 05/11/25 21:30 Discharge Date/Time: 05/11/25 21:31
[2025-05-11 17:53] LABS: Glucose, Whole Blood 103 mg/dL (60-115)
[2025-05-11 18:01] VITALS: BP 155/78; BP 164/70; PULSE 80; PULSE 86; RESP 16; TEMP 36.8; O2SAT 100; BMI 24.8
[2025-05-11] MEDS: iohexoL 350 MG/ML 100 ML INFUS..BTL IV (18:02)
[2025-05-11 18:10] VITALS: BP 164/70; PULSE 86; RESP 16; TEMP 36.8; O2SAT 100
[2025-05-11 18:14] LABS: Hematocrit 35.1 % (37.0-47.0); Hemoglobin 11.9 g/dl (12.0-16.0); Imm Gran Abs Auto 0.02 X10*3/uL (0.00-0.03); Imm Gran Pct Auto 0.2 % (0.0-0.4); Lymphocytes Absolute Auto 5.2 X10*3/uL (1.2-4.9); MANUAL DIFF FLAG SCAN; Mean Corpuscular HGB Conc 33.9 g/dl (31.0-35.0); Mean Corpuscular Hemoglobin 27.4 pg (27.0-33.0); Mean Corpuscular Volume 80.9 fL (80.0-98.0); NRBC Abs Auto 0.000 X10*3/uL (0.0-0.012); NRBC Pct Auto 0.0 /100WBC (0.0-0.2); Platelet Count 184 X10*3/uL (160-400); Red Blood Count 4.34 X10*6/uL (4.20-5.50); SCAN SMEAR FLAG 1; White Blood Count 9.2 X10*3/uL (4.8-10.8)
[2025-05-11 18:16] VITALS: BP 160/61; PULSE 78; RESP 17; O2SAT 96
[2025-05-11 18:20] LABS: Anion Gap 17 (12-20); Blood Urea Nitrogen 16 mg/dL (9-16); Calcium 9.5 mg/dL (8.4-10.2); Carbon Dioxide 22 mmol/L (22-29); Chloride 110 mmol/L (96-108); Cholesterol 132 mg/dL (<200); Creatinine Clr Calc Pharmacy 49.4; Estimated Glomerular Filt Rate > 60; HDL Cholesterol 59 mg/dL (>40); INTERNATIONAL NORM RATIO 0.9 (0.9-1.1); Partial Thromboplastin Time 37.1 SEC (26.7-34.1); Potassium 3.5 mmol/L (3.3-5.1); Prothrombin Time 10.8 SEC (10.9-12.4); Sodium 145 mmol/L (135-145); Stroke Lab Use COMPLETE; Triglycerides 110 mg/dL (<150)
[2025-05-11 18:27] LABS: Troponin-I High Sensitivity 3.4 ng/L (<3.5-17.0)
--- NOTE | 2025-05-11 18:36 | HO.NURTONUR ---
79 yr female comes to ED as a stroke alert. Initial reports from EMS received stating that Pt felt she had slurred speech approx 30 minutes prior to ED arrival and went to a neighboring apartment to ask for help. In further Pt interview, she reports at 1200 she noted a R side facial droop and felt dizzy while walking. Pt reports a history of stroke and is currently on thinners. On arrival: A&Ox3 and protecting her airway. 20g to RFA placed and blood labs obtained. CT completed. VSS, afebrile. Speech is noted to be garbled/slurred but understandable if Pt speaks slowly. Pt is able to write out her thoughts for those that cannot be understood. Bedside nursing swallow eval failed. Pt struggles to keep water in mouth with lips. Pt able to ambulate. 1 assist provided for safety. GCS 15 Pt resting quietly. Awaiting dispo.
--- NOTE | 2025-05-11 18:55 | PM.IMHP ---
History of Present Illness Date of Service: 05/11/25 Chief Complaint: Dizziness 79-year-old with a past medical history of HTN, HLD, dm, breast cancer presented to the hospital today with a chief complaint of difficulty speaking. Patient had difficult time finding words to explain her symptoms. Has been complaining of dizziness. Denies any chest pain or palpitations. Denies any fever chills cough or sputum production. Review of all other systems is limited. ER course: Per ER team, patient has equal strength bilaterally; sensations intact; noted to have profound dysarthria associated with right facial droop. NIH stroke scale was 3. Patient was out of window for tPA. CT head and CT angio head and neck were done which showed new encephalomalacia and no acute LVO. [facility] Medical History Breast cancer Hyperlipidemia Diabetes HTN (hypertension) Social History (Updated 04/27/24 @ 09:04 by Tsering Gomez DO) Patient Tobacco Use Status: Tobacco use Unknown Smoked in Last 30 Days: No Use of substances other than those prescribed or required for medical reasons: No Do you have a plan to hurt others: No Plan Meds Allergies Allergy/AdvReac Type Severity Reaction Status Date / Time SEAFOOD Allergy Severe ANAPHYLAXIS Uncoded 05/11/25 18:03 Home Medications ?Medication ?Instructions ?Recorded ?Confirmed ?Last Taken ?Type allopurinol 100 mg tablet 100 mg PO DAILY 04/27/24 04/27/24 Unknown History amlodipine 2.5 mg tablet 2.5 mg PO DAILY 04/27/24 04/27/24 Unknown History anastrozole 1 mg tablet 1 mg PO DAILY 04/27/24 04/27/24 Unknown History atorvastatin 40 mg tablet 40 mg PO DAILY 04/27/24 04/27/24 Unknown History lisinopril 40 mg tablet 40 mg PO DAILY 04/27/24 04/27/24 Unknown History metformin 500 mg tablet 500 mg PO BID 04/27/24 04/27/24 Unknown History metoprolol succinate 100 mg 100 mg PO DAILY 04/27/24 04/27/24 Unknown History tablet,extended release 24 hr Physical Exam Vital Signs and Narrative: Vital Signs: Last Vital Signs Temp 98.3 F 05/11/25 18:10 Pulse 78 05/11/25 18:16 Resp 17 05/11/25 18:16 BP 160/61 H 05/11/25 18:16 Pulse Ox 96 05/11/25 18:16 O2 Del Method Room Air 05/11/25 18:16 BMI result Body Mass Index 24.8 Gen: Appears be in no acute distress HEENT: NCAT, Moist mucosa. Pulmonary: Vesicular breath sounds, fair air entry CVS: Normal S1-S2 Abdomen: BS+, Soft, Nontender Extremities: Warm well perfused Neuro: Alert and awake. Dysarthric. Sensations intact. Strength equal bilaterally. Right facial droop present. Results Labs 05/11/25 17:44 05/11/25 17:44 Labs: Laboratory Results - last 24 hr 05/11/25 05/11/25 17:41 17:44 MCV 80.9 MCH 27.4 MCHC 33.9 RDW 15.0 Plt Count 184 MPV 10.3 Immature Gran % (Auto) 0.2 Neut % (Auto) 38.0 L Lymph % (Auto) 56.1 H [place] % (Auto) 4.5 Eos % (Auto) 0.9 Baso % (Auto) 0.3 Lymph # (Auto) 5.2 H [place] # (Auto) 0.4 Eos # (Auto) 0.1 Baso # (Auto) 0.0 Abs Immat Gran (auto) 0.02 Absolute Neuts (auto) 3.5 Absolute Nucleated RBC 0.000 Nucleated RBC % (auto) 0.0 Smear Tech's Comments VERIFIED PT 10.8 L INR 0.9 APTT 37.1 H Anion Gap 17 Estim Creat Clear Calc 49.4 Estimated GFR > 60 POC Glucose 103 Random Glucose 93 Calcium 9.5 Troponin I High Sens 3.4 Triglycerides 110 Cholesterol 132 LDL Cholesterol, Calc 51 HDL Cholesterol 59 Hold Yellow Top See Note Assessment and Plan (1) CVA (cerebral vascular accident): Qualifiers: CVA mechanism: unspecified Qualified Code(s): I63.9 - Cerebral infarction, unspecified Status: Acute Plan 79-year-old with a past medical history of HTN, HLD, dm, breast cancer presented to the hospital today with a chief complaint of difficulty speaking/right facial droop. CVA: Dysarthria: Right facial droop: Patient NIH stroke scale on presentation was 3. Out of window for tPA. CT head showed new encephalomalacia CT angio head and neck showed no acute large vessel occlusion. Telemetry PT/OT/HAND STEMMER eval MRI brain Echocardiogram Aspirin, statin TSH, lipid profile Neurology consult Fall precautions Aspiration precautions Diabetes: Insulin sliding scale Hypertension: Hold home antihypertensives for now DVT prophylaxis: SCD boots Code status: Full code Quality Stroke Does the patient have a stroke diagnosis?: No VTE Prior VTE?: No VTE Risk Level:: Medical - moderate - high VTE Device Contraindication: N/A - Device Ordered VTE Drug Contraindication: Treatment Not Indicated
--- OUTSIDE RECORDS SUMMARY | 2025-05-11 19:06 | XMS_ITS | Data Portability ---
Author Organization [facility], [address] Address [address] [place] [address] Assessment No assessment recorded. Plan of Treatment Reminders Order Date Submit Date Provider Last Modified By Organization Details Last Modified Time Details Appointments None recorded. Lab rapid SARS CoV 2 Ag, QL IA, respiratory specimen 2022 [facility], [address] [place] [address], [place], [id number], 14:34:25 Referral None recorded. Procedures None recorded. Surgeries None recorded. Imaging None recorded. Medication Orders Augmentin 875 mg-125 mg tablet 2022 023 [id number], [address], [place], [id number], 3 14:44:22 Allergy Relief (fluticason e) 50 mcg/actuati on nasal spray,suspe nsion 2022 023 [facility] #[id number], [address], [place], [id number], 14:44:24 Patient TargetsNo targets recorded. Patient Instructions Encounter Date Encounter Id Patient Instructions Last Modified By Organization Details Last Modified Time 10/08/2022 [id number] Sinusitis is an infection of the lining of the sinus cavities in your head. Sinusitis often follows a cold. It causes pain and pressure in your head and face. In most cases, sinusitis gets better on its own in 1 to 2 weeks. But some mild symptoms may last for several weeks. Sometimes antibiotics are needed. if you are having problems. It's also a good idea to know your test results and keep a list of the medicines you take. How can you care for yourself at home? Take an otsd-kqz-glkcunm pain medicine. Avoid Ibuprofen, Aleve and Aspirin if . If the doctor prescribed antibiotics, take them as directed. Do not stop taking them just because you feel better. You need to take the full course of antibiotics. Be careful when taking dewb-zqd-kqhmhhy cold or influenza (flu) medicines and Tylenol at the same time. Many of these medicines have acetaminophen, which is Tylenol. Read the labels to make sure that you are not taking more than the recommended dose. Too much acetaminophen (Tylenol) can be harmful. Breathe warm, moist air from a steamy shower, a hot bath, or a sink filled with hot water. Avoid cold, dry air. Using a humidifier in your home may help. Follow the directions for cleaning the machine. Use saline (saltwater) nasal washes. This can help keep your nasal passages open and wash out mucus and bacteria. You can buy saline nose drops at a grocery store or drugstore. Or you can make your own at home by adding 1 teaspoon (5 millilitres) of salt and 1 teaspoon (5 millilitres) of baking soda to 2 cups (500 mL) of distilled water. If you make your own, fill a bulb syringe with the solution, insert the tip into your nostril, and squeeze gently. Blow your nose. Put a hot, wet towel or a warm gel pack on your face 3 or 4 times a day for 5 to 10 minutes each time. Try a decongestant nasal spray like oxymetazoline (Drixoral). Do not use it for more than 3 days in a row. Using it for more than 3 days can make your congestion worse. [email or web address] Not available 10/08/2022 14:32:56 If you test positive for COVID-19, stay home for at least 5 days and isolate from others in your home. You are likely most infectious during these first 5 days. Wear a high-quality mask if you must be around others at home and in public. Do not go places where you are unable to wear a mask. For travel guidance, see [facility] s Travel webpage. Do not travel. Stay home and separate from others as much as possible. Use a separate bathroom, if possible. Take steps to improve ventilation at home, if possible. Don t share personal household items, like cups, towels, and utensils. Monitor your symptoms. If you have an emergency warning sign (like trouble breathing), seek emergency medical care immediately. If you had symptoms and: Your symptoms are improving You may end isolation after day 5 if: You are fever-free for 24 hours (without the use of fever-reducing medication). Your symptoms are not improving Continue to isolate until: You are fever-free for 24 hours (without the use of fever-reducing medication). Your symptoms are improving. Regardless of when you end isolation Until at least day 11: Avoid being around people who are more likely to get very sick from COVID-19. Remember to wear a high-quality mask when indoors around others at home and in public. Do not go places where you are unable to wear a mask until you are able to discontinue masking (see below). For travel guidance, see [facility] s Travel webpage. [email or web address] Not available 10/08/2022 14:32:47 Reason for Referral None Reported. Results Created Date Observation Date Name Description Value Unit Range Abnormal Flag Note LastModifiedBy Organization Detail LastModifiedTime 10/09/1910/08/2022 rapid SARS CoV 2 Ag, QL IA, respi rator y speci men Unknown Analyte Normal =Negat stiven Not Available [facility] [address] [place] [address], [id number], 10/08/2022 14:13:14 10/09/1910/08/2022 rapid SARS CoV 2 Ag, QL IA, respi rator y speci men Unknown Analyte negati ve Not Available [address] [address] [place], [address], 10/08/2022 14:13:14 Result Notes None recorded. Problems Name Problem SNOMED Code Status Onset Date Resolution Date Notes Provider Name and Address Organization Details Recorded Time Malignant neoplasm of breast 074267626 Completed 202009/16/2020 LEONID Alexander - [facility] 3 14:11:15 Diabetes mellitus 21441820 Active 2022 PHONGGEOVANNA GONZALEZ LEONID telles [facility] 3 14:10:42 Hypertensiv e disorder 86898752 Active 2022 PHONG GONZALEZ LEONID telles [facility] 3 14:10:47 Hyperlipide dorothy 96193422 Active 2022 PHONG GONZALEZ LEONID telles [facility] 3 14:11:40 Problem Notes None recorded. Procedures Surgical History Date Name Laterality Status Provider Name and Address Organization Details Recorded Time lumpectomy of breast completed PHONG SHERMANDARLENE [facility] 10/08/2022 14:11:28 Imaging Results None recorded. Procedure Notes None recorded. Medical Equipment None Reported. Allergies No known drug allergies Medications Name Sig Start Date Stop Date Status Note LastModified by Organization Details LastModified Time atorvastatin 40 mg tablet TAKE 1 TABLET BY MOUTH DAILY AT BEDTIME active Not Available Not Available N ot Available metformin 500 mg tablet TAKE 1 TABLET BY MOUTH TWICE DAILY active Not Available Not Available No t Available Augmentin 875 mg-125 mg tablet Take 1 tablet every 12 hours by oral route with meals for 10 days. 2022 active Not Available Not Available Not Avai lable anastrozole 1 mg tablet TAKE 1 TABLET BY MOUTH DAILY active Not Available Not Available Not Available metoprolol succinate ER 100 mg tablet,exten ded release 24 hr TAKE 1 TABLET BY MOUTH DAILY active Not Available Not Available Not Available amlodipine 2.5 mg tablet TAKE 1 TABLET BY MOUTH DAILY active Not Available Not Available Not Available allopurinol 100 mg tablet TAKE 1 TABLET BY MOUTH DAILY active Not Available Not Available Not Available spironolacto ne 25 mg tablet TAKE 1 TABLET BY MOUTH TWICE DAILY. LABS NEEDED FOR ADDITIONAL REFILLS active Not Available Not Available No t Available lisinopril 40 mg tablet TAKE 1 TABLET BY MOUTH DAILY active Not Available Not Available Not Available Allergy Relief (fluticasone ) 50 mcg/actuatio n nasal spray,suspen jose luis Hammond 1 spray every day by intranasal route as needed for 30 days. 2022 active Not Available Not Available Not Avai lable Vitals Date Recorded Body height Body mass index (BMI) Body weight Pain severity - 0-10 verbal numeric rating [Score] - Reported Oxygen saturation Oxygen saturation in Arterial blood by Pulse oximetry Heart rate Respiratory rate Body temperature Systolic And Diastolic Provider Name and Address Organization Details Last Updated DateTime 149.86 cm 13.5 kg/m2 20196.6 9 g 0 99 % 99 % 62 /min 18 /min 98.3 [degF] 146/83 mm[Hg] PHONG SHERMANEY [place] - [facility] 14:14:15 Social History Question Answer Notes LastModified by [employer] Details LastModified Time Tobacco Smoking Status Never Smoker PHONG telles [place] - [facility] 10/08/2022 14:13:09 Have You Recently Traveled Abroad? No [email or web address] Information not available 10/08/2022 Sex: Unknown Functional Status Question Answer Note LastModified by [employer] Details LastModified Time Do you use any illicit or recreational drugs? No Information not available 10/08/2022 Do you or have you ever used any other forms of tobacco or nicotine? No Information not available 10/08/2022 What is your level of alcohol consumption? None [email or web address] Information not available 10/08/2022 Mental Status None recorded. Family History Relationship Description Onset Age of this Age Resolved Age Notes LastModified by Organization Details LastModified Time Father No current problems or disability [email or web address] Not available 10/08 14:12:53 Mother No current problems or disability [email or web address] Not available 10/08 14:12:53 Medical History No medical history recorded. Gynecological HistoryNo gynecological history recorded. Obstetrics History GPAL:G 0 P 0 0 0 0 Past Encounters Encounter ID Performer Location Encounter Start Date Encounter Closed Date Diagnosis/Indication Diagnosis SNOMED-CT Code Diagnosis ICD10 Code Diagnosis IMO Codes Diagnosis Note [id number] [facility] [address] [address] 02/14/2016 18:34:16 02/14/2016 19:40:52 [id number] [place] [address] [address] 10/08/2022 12:58:27 10/08/2022 14:45:25 Exposure to SARS-CoV-2 140804189 Z20.822 Acute sinusitis 71008018 J01.90 Health Concerns Section Related Observation LastModified by Organization Detai ls LastModified Time None Recorded Concern Status LastModified by Organization Details LastModified Time None Recorded Advance Directives Directive None Recorded Payers Insurance Date Sequence Insurance Name Policy Number Policy Stokes Covered Member ID Stokes Member ID Guarantor Name 10/09/2022 1 MEDICARE B-[place]: [employer] Ashaazul Barrera [id number] Asha Barrera 10/22/2022 2 [facility] - [facility]REFERR[facility] (MEDICARE SUPPLEMENT) CORE Asha Barrera [id number] Asha Barrera Notes Date Note Type Note Provider Name and Address Organization Details Recorded Time 10/08/2022 text/html CongestionReport ed by Patientnasal congestion with post nasal drip x 2 weeks. denies any fever or fever with chills. no SOB or respiratory distress. Italo Everett NP [address] [place], [address], [place] - [facility] 10/08/2022 14:44:43 OBGyn Episode No OBEpisode recorded.
[2025-05-11 19:16] VITALS: BP 172/76; PULSE 78; RESP 20; TEMP 36.7; O2SAT 100
--- NOTE | 2025-05-11 20:27 | PHA.MEDREC ---
Addendum entered by Caty Muller RPh 05/11/25 20:40: MED REC REVIEWED BY [facility] Original Note: Pharmacy Consult ? Medication Reconciliation Pharmacy has completed the medication reconciliation. Spoke with pt and she confirmed her medications. Pt takes Alendronate on Sundays and confirmed she took it this past Sunday 05/06.
--- NOTE | 2025-05-11 20:29 | PC.NURSE ---
mri form done with patient, being taken to mri with patient transport.
--- NOTE | 2025-05-11 20:57 | PC.NURSE ---
this RN was called by it support technician stating patient is refusing the MRI. this RN went down to MRI and patient continued to refuse MRI. difficult to understand the reasoning d/t speech deficit. MD Kent aware and okay with reattempt for tomorrow. patient returned to ed10. report is in and will be transported to [facility].
[2025-05-11 21:52] LABS: Glucose, Whole Blood 103 mg/dL (60-115)
[2025-05-11 21:55] VITALS: BMI 23.9
[2025-05-11 21:58] VITALS: BP 147/71; PULSE 72; RESP 16; TEMP 36.4; O2SAT 98
[2025-05-11] MEDS: 0.9 % Sodium Chloride Flush 3 ML SYRINGE IVFLUSH (22:55)
[2025-05-11 23:36] VITALS: BP 128/60; PULSE 57; RESP 16; TEMP 36.3; O2SAT 96
[2025-05-12] VITALS (7 sets, daily range): BP systolic 103–158; BP diastolic 56–79; PULSE 50–69; RESP 16–18; TEMP 35.7–36.7; O2SAT 95–99
--- NOTE | 2025-05-12 | ECG_ITS ---
Test Reason : Atrial tachycardia Blood Pressure : */* mmHG Vent. Rate : 57 BPM Atrial Rate : 57 BPM P-R Int : 148 ms QRS Dur : 78 ms QT Int : 442 ms P-R-T Axes : 71 24 46 degrees QTcB Int : 430 ms Sinus bradycardia Low voltage QRS Borderline ECG When compared with ECG of 11-May-2025 18:23, WI interval has decreased Vent. rate has decreased by 28 bpm T wave inversion no longer evident in Inferior leads T wave inversion no longer evident in Anterolateral leads Referred By: Heather Stokes Electronically Signed By: AVA QUINTERO MD
[2025-05-12] MEDS: 0.9 % Sodium Chloride Flush 3 ML SYRINGE IVFLUSH ×3 (07:53→20:18)
[2025-05-12 07:56] LABS: Glucose, Whole Blood 89 mg/dL (60-115)
--- NOTE | 2025-05-12 08:18 | MHC.CM.PN ---
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 Original Note: CM met with Patient at bedside and addressed IMM with her, providing Patient with the original and a copy has been placed on the chart. Patient preferred to respond to some questions by writing them down on a piece of paper. 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 PCP is Dr. Elizabeth Shepard and Son/HCP/Chris will transport to home at dc.
[2025-05-12 08:38] LABS: MANUAL DIFF FLAG NO
[2025-05-12 08:41] LABS: Hematocrit 37.4 % (37.0-47.0); Hemoglobin 12.6 g/dl (12.0-16.0); Imm Gran Abs Auto 0.02 X10*3/uL (0.00-0.03); Imm Gran Pct Auto 0.2 % (0.0-0.4); Lymphocytes Absolute Auto 3.1 X10*3/uL (1.2-4.9); Mean Corpuscular HGB Conc 33.7 g/dl (31.0-35.0); Mean Corpuscular Hemoglobin 27.3 pg (27.0-33.0); Mean Corpuscular Volume 81.0 fL (80.0-98.0); NRBC Abs Auto 0.000 X10*3/uL (0.0-0.012); NRBC Pct Auto 0.0 /100WBC (0.0-0.2); Platelet Count 175 X10*3/uL (160-400); Red Blood Count 4.62 X10*6/uL (4.20-5.50); White Blood Count 8.1 X10*3/uL (4.8-10.8)
[2025-05-12 08:52] LABS: Alanine Aminotransferase 16 U/L (0-31); Albumin Level 4.4 g/dL (3.5-5.0); Alkaline Phosphatase 53 U/L (39-117); Anion Gap 16 (12-20); Aspartate Amino Transferase 34 U/L (5-31); Blood Urea Nitrogen 10 mg/dL (9-16); Calcium 8.9 mg/dL (8.4-10.2); Carbon Dioxide 22 mmol/L (22-29); Chloride 112 mmol/L (96-108); Cholesterol 145 mg/dL (<200); Creatinine Clr Calc Pharmacy 52.5; Estimated Glomerular Filt Rate > 60; HDL Cholesterol 59 mg/dL (>40); Potassium 3.5 mmol/L (3.3-5.1); Sodium 146 mmol/L (135-145); Total Protein 7.3 g/dL (6.5-8.0); Triglycerides 86 mg/dL (<150)
[2025-05-12 09:17] LABS: Thyroid Stimulating Hormone 1.40 uIU/mL (0.32-4.0)
--- NOTE | 2025-05-12 10:00 | CA_ITS ---
Transthoracic Echocardiogram Patient (Last, First, Middle): Asha Barrera, Gender: Female Date of : 1945 Age: 79 Procedure Date: 05/12/2025 Procedure Type: Transthoracic Echocardiogram Location: [facility] Height: 154.94 cm Weight: 57.15 kg BSA: 1.55 m2 Heart Rate: 64 bpm BP: 138 / 79 mmHg Lens Blank Gauger: SB Referring MD: Hipolito Kent MD Small Arms Artillery Repairer: Sawyer Rowe MD Symptoms: cva Study Quality: Adequate ECG Rhythm: Sinus Conclusions: - 1. Normal LV ejection fraction of 65-70% with impaired relaxation filling pattern 2. Normal cardiac valvular Dopplers 3. Possible small mass attached of the aortic valve, consider BEN. 4. No gross pericardial effusion Findings Left Ventricle Normal left ventricular size, thickness, and systolic function. The visually estimated ejection fraction is between 65-70%. Spectral Doppler is indicative of an impaired relaxation filling pattern. E/E prime ratio is <8, consistent with normal filling pressures. Evidence suggests grade I (mild) diastolic dysfunction. Right Ventricle Normal right ventricular cavity size and systolic function. Atria Both atria are normal in size. Interatrial shunt cannot be excluded. Aortic Valve There is mild thickening of the aortic valve. There is no aortic valve stenosis. There is a small mobile mass on the aortic valve. There is no aortic valve regurgitation. small mobile mass attached which could represent calcified nodule versus possible fibroelastoma. Consider BEN Mitral Valve There is mild anterior and posterior mitral leaflet thickening. There is trace mitral valve regurgitation. There is no mitral valve stenosis. Pulmonic Valve The pulmonic valve is likely normal. Tricuspid Valve Normal tricuspid valve structure. Tricuspid regurgitation envelope is inadequate for calculation of right ventricular systolic pressure. Normal right atrial pressure. Great Vessels All visible segments of the aorta are normal in size. The pulmonary artery was not well visualized. There is no dilatation of the ascending aorta measuring 3.30 cm. Venous The inferior vena cava is normal in size and collapses greater than 50% with inspiration. Pericardium/Pleural There is no evidence of pericardial effusion. Prior Study Comparison Changes noted compared to prior study dated: 03/22/2018. possible small aortic valve mass. Consider BEN Recommendations, Care & Conclusions Consider a BEN if clinically appropriate. Measurements 2D Linear Measurements IVSd: 1.12 0.6-0.9/0.6-1.0 cm LVIDd: 3.91 3.9-5.3/4.2-5.9 cm LVIDd Index: 2.52 2.4-3.2/2.2-3.1 cm/m2 LVIDs: 2.52 2.0-3.6 cm LVPWd: 0.69 0.7-1.1 cm LA Diam: 3.80 2.7-3.8/3.0-4.0 cm LAIDs Index: 2.45 1.5-2.3 cm/m2 LV Mass: 132.77 67-162/88-224 g LV Mass Index: 85.66 43-95/49-115 g/m2 LVOT Diam: 1.80 3.0+(-)1.3 cm 2D Systolic Function EF 4C: 74.20 >55% EF 2C: 57.40 >55% EF BiP: 68.60 >55% Mitral Valve MV Pk E: 0.84 MV PK A: 0.79 MV Decel Time: 212.00 E/A: 1.10 E'Lateral: 7.40 E'Medial: 4.24 E/E' Med: 19.80 E/E' Lat: 11.40 PHT: 62.00 MVA PHT: 3.55 Decel [place]: 3.95 Aortic Valve AoV Pk Sincere: 1.51 AoV Mn Sincere: 1.04 AoV VTI: 0.34 AoV Pk Grad: 9.00 Aov Mn Grad: 5.00 SHAYLA Cont.VTI: 2.20 LVOT LVOT Pk Sincere: 1.04 LVOT Mn Sincere: 0.82 LVOT VTI: 0.29 LVOT Pk Grad: 4.00 LVOT Mn Grad: 3.00 LVOT Diam: 1.80 LVOT Area: 2.54 Diastolic Function MV Pk E: 0.84 MV Pk A: 0.79 E/A: 1.10 E'Medial: 4.24 E/E' Med: 19.80 E' Laterial: 7.40 E/E' Lat: 11.40 Right Ventricle TAPSE (mm): 19.30 TVS' Sincere: 15.10 Tricuspid Valve RA Press: 3.00 Great Vessels Aorta Sinus of Valsalva: 2.80 2.0-3.5 cm Ao Asc: 3.30 2.1-3.4 cm Pulmonary Veins Pulm Vein S/D 1.80 Pulmonary Valve PV Pk Sincere: 0.83 Peak PV Grad: 3.00 [place] Pk Sincere: 2.12 Updated in Other Vendor System with Status of Final Sawyer Rowe MD electronically signed on 05/13/2025 12:07:21 PM with status of Final
--- NOTE | 2025-05-12 10:30 | PM.NEUROCN ---
History of Present Illness Data of Consult Service Date: 05/12/25 Primary Care Provider: Elizabeth Shepard NP HPI Reason for consult: Difficulty speaking 79-year-old with a past medical history of HTN, HLD, dm, breast cancer presented to the hospital today with a chief complaint of difficulty speaking. Patient had difficult time finding words to explain her symptoms. There was no associated pain or headache or focal arm or leg weakness or numbness. She was able to tell me that the problem was difficulty speaking. Review of Systems Review of Systems: No recent headache chest pain shortness of breath palpitation trauma seizure or any focal arm or leg weakness. PENDING SALE TO [facility] Past Medical History Medical History Breast cancer Hyperlipidemia Diabetes HTN (hypertension) Social History Social History (Updated 04/27/24 @ 09:04 by Tsering Gomez DO) Household Members: None Housing: Apartment Do you presently have visiting nurse or other home services: Yes Patient Tobacco Use Status: Never used Tobacco Smoked in Last 30 Days: No Use of substances other than those prescribed or required for medical reasons: No Have you been hit, kicked, punched, or otherwise hurt by someone within the past year? If so, by whom?: No Do you feel safe in your current relationship?: No Current Relationship Is there a partner from a previous relationship who is making you feel unsafe now?: No Are you made to feel afraid or neglected: No Advance Directives: No Advance Directives Information Provided: No Advance Directives on File: No Do you have a plan to hurt others: No Plan Recently lost weight without trying: No How much weight loss: 24-33 pounds Eating poorly because of decreased appetite: Yes Nutrition screen score: 4 Nutrition Risks: Dental problems, Difficulty chewing, On aspiration precautions and Poor intake 0-25% >4 days Patient : No : No Poor oral hygiene: No service: No Meds Allergies Allergy/AdvReac Type Severity Reaction Status Date / Time SEAFOOD Allergy Severe ANAPHYLAXIS Uncoded 05/11/25 18:03 Active Medications: Current Medications Acetaminophen (Acetaminophen 325 Mg Tablet) 650 mg PO Q6H PRN PRN Reason: Pain, Mild 1-3,fever,headache Aspirin (Aspirin Enteric Coated 81 Mg Tablet.) 81 mg PO DAILY [facility] Last Admin: 05/12/25 07:56 Dose: Not Given Atorvastatin Calcium (Atorvastatin Calcium 80 Mg Tablet) 80 mg PO DAILY [facility] Last Admin: 05/12/25 07:56 Dose: Not Given Calcium Carbonate (Calcium Carbonate 750 Mg Tab.Chew) 750 mg PO Q4H PRN PRN Reason: Heartburn Dextrose (Dextrose 50 % 25 Gm/50 Ml Syringe) 25 gm IVPUSH Q15M PRN; Protocol PRN Reason: per Hypoglycemia Standing Ord. Glucose (Glucose Gel 15 Gm Gel..Gram.) 15 gm PO Q15M PRN; Protocol PRN Reason: per Hypoglycemia Standing Ord. Insulin Human Lispro (Insulin Lispro 100 Unit/Ml 3 Ml Vial) 0 unit [facility]BCUT [facility]; Protocol Last Admin: 05/12/25 08:01 Dose: Not Given Magnesium Hydroxide (Milk Of Magnesia 30 Ml Oral.Susp) 30 ml PO DAILY PRN PRN Reason: Constipation Melatonin (Melatonin 3 Mg Tablet) 6 mg PO BEDTIME PRN PRN Reason: Insomnia Sodium Chloride (0.9 % Sodium Chloride Flush 3 Ml Syringe) 3 ml IVFLUSH [facility] Last Admin: 05/12/25 07:53 Dose: 3 ml Home Medications ?Medication ?Instructions ?Recorded ?Confirmed ?Last Taken ?Type allopurinol 100 mg tablet 100 mg PO DAILY 04/27/24 05/11/25 05/11/25 History atorvastatin 40 mg tablet 40 mg PO BEDTIME 04/27/24 05/11/25 05/10/25 History metformin 500 mg tablet 500 mg PO BID 04/27/24 05/11/25 05/11/25 History alendronate 70 mg tablet 70 mg PO ROYAL 05/11/25 05/11/25 05/06/25 History amlodipine 5 mg tablet 5 mg PO DAILY 05/11/25 05/11/25 05/11/25 History clopidogrel 75 mg tablet 75 mg PO DAILY 05/11/25 05/11/25 05/11/25 History lisinopril 5 mg tablet 5 mg PO DAILY 05/11/25 05/11/25 05/11/25 History Physical Exam Vital Signs: Vital Signs: Last Vital Signs Temp 98.1 F 05/12/25 08:00 Pulse 64 05/12/25 08:08 Resp 18 05/12/25 08:00 BP 138/79 05/12/25 08:08 Pulse Ox 97 05/12/25 08:08 O2 Del Method Room Air 05/12/25 08:00 BMI result Body Mass Index 23.9 Neuro: Other: Mental Status: She is alert and awake with normal spontaneity of speech fluency comprehension and affect. She is able to follow commands. Cranial Nerves: CN II: Visual nowak full to confrontation, visual acuity intact. CN III, IV, : Pupils equal, round, reactive to light and accommodation. Extraocular movements are normal. CN V: Facial sensation is normal. CN VII: Facial movements symmetrical. CN VIII: Hearing intact to bedside conversation is normal. CN IX, X: Palate elevates symmetrically. CN XI: Shoulder shrug and head turn symmetrical. CN XII: Tongue midline without atrophy or fasciculations. Deep tendon reflexes are trace to absent with flexor plantars. Extrapyramidal: Full facial expressions and blinking. No rigidity. Movements are appropriate with no tremor or abnormality. Speech: Somewhat garbled. Most of the teeth are missing and I am not sure if her speech is because of that or the speech problem is new. Results Labs 05/12/25 08:34 05/12/25 07:25 Labs: Short CBC 05/11/25 05/12/25 Range/Units 17:44 08:34 WBC 9.2 8.1 (4.8-10.8) X10*3/uL Hgb 11.9 L 12.6 (12.0-16.0) g/dl Hct 35.1 L 37.4 (37.0-47.0) % Plt Count 184 175 (160-400) X10*3/uL BMP 05/11/25 05/12/25 17:44 07:25 Sodium 145 146 H Potassium 3.5 3.5 Chloride 110 H 112 H Carbon Dioxide 22 22 BUN 16 10 Creatinine 0.79 0.73 Calcium 9.5 8.9 D Liver Function 05/12/25 Range/Units 07:25 Total Bilirubin 0.6 (0.0-1.0) mg/dL AST 34 H (5-31) U/L ALT 16 (0-31) U/L Alkaline Phosphatase 53 (39-117) U/L Albumin 4.4 (3.5-5.0) g/dL CLINICAL HISTORY: Stroke Protocol CT head without contrast Comparison: 04/27/2024 Findings: No intracranial mass, midline shift, hydrocephalus, or acute hemorrhage. No CT evidence of acute ischemia. There is new left frontal encephalomalacia compared with the prior exam. 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 Visualized paranasal sinuses and mastoid air cells normal. Orbits unremarkable. No skull fracture. Impression: 1. No acute intracranial abnormalities. Exam: Contrast-enhanced CTA head and neck with multiplanar reformats. Comparison: 04/27/2024. Findings: CTA head: There is good opacification of the bilateral anterior and posterior intracranial arterial circulations. No large vessel occlusion or significant intracranial arterial stenoses. No definable truncation of flow. No aneurysm or vascular malformation. No venous thrombosis or enhancing parenchymal lesions. CTA neck: Aortic arch reveals calcific athero sclerosis. Common carotid arteries are patent bilaterally. Internal carotid arteries are patent bilaterally. Significant calcific athero sclerosis at left ICA origin (6; 464) does not result in hemodynamically significant appearing stenoses. Basilar arteries are patent bilaterally. No occlusion, hemodynamically significant stenoses or evidence of dissection. Visualized pulmonary apices are clear. No neck masses or adenopathy. No destructive osseous lesions. Impression: 1. Unremarkable CTA of the head and neck. Assessment and Plan (1) Difficulty speaking: Status: Acute 79 years old woman with hypertension came to hospital with difficulty speaking. On examination her speech seems to be dysarthric. Her head CT revealed significant cerebellar and cortical atrophy, which does not explain the symptom. CTA did not reveal any large vessel disease. A noncontrast MRI of brain is recommended to rule out ischemic infarct. In the meantime blood pressure control with anti-platelet agent is recommended Procedures Date of Service Date of Service: 05/12/25
[2025-05-12 11:33] LABS: Glucose, Whole Blood 87 mg/dL (60-115)
--- NOTE | 2025-05-12 14:48 | PC.NURSE ---
Pt continues to refuse MRI. provider made aware.
--- NOTE | 2025-05-12 15:08 | HO.PM.IMPN ---
Subjective Subjective Date of Service: 05/12/25 Interval History: Continues to have difficulty speaking and right-sided facial droop Pt has been refusing the MRI, though she is unable to articulate exactly why she does not want to have it Attempted to contact family but was unable to do so Denies headache or vision changes No chest pain or pressure Denies difficulty breathing or SOB Review of Systems Review of Systems: Yes all other systems are reviewed and are negative Physical Exam Exam: Exam: General: AOx3, no acute distress Resp: CTA bilaterally CVS: S1, S2, RRR GI: +BS, NT, no distention Skin: Warm, dry Neuro: Significant dysarthria and right-sided facial droop noted. No tongue deviation. Motor grossly intact bilaterally with preserved and symmetric strength of upper and lower extremities. Sensation to light touch intact on face, arms, and legs. Negative pronator drift Extremities: No edema Psych: Appropriate affect Vital Signs: Vital Signs: Last Vital Signs Temp 97.5 F 05/12/25 11:56 Pulse 66 05/12/25 11:56 Resp 18 05/12/25 11:56 BP 103/74 05/12/25 11:56 Pulse Ox 99 05/12/25 11:56 O2 Del Method Room Air 05/12/25 11:56 BMI result Body Mass Index 23.9 Objective Data Active Medications Acetaminophen (Acetaminophen 325 Mg Tablet) 650 mg PO Q6H PRN PRN Reason: Pain, Mild 1-3,fever,headache Aspirin (Aspirin Enteric Coated 81 Mg Tablet.) 81 mg PO DAILY [facility] Last Admin: 05/12/25 07:56 Dose: Not Given Documented By: ERIBERTO Non-Admin Reason: NPO Atorvastatin Calcium (Atorvastatin Calcium 80 Mg Tablet) 80 mg PO DAILY [facility] Last Admin: 05/12/25 07:56 Dose: Not Given Documented By: ERIBERTO Non-Admin Reason: NPO Calcium Carbonate (Calcium Carbonate 750 Mg Tab.Chew) 750 mg PO Q4H PRN PRN Reason: Heartburn Dextrose (Dextrose 50 % 25 Gm/50 Ml Syringe) 25 gm IVPUSH Q15M PRN; Protocol PRN Reason: per Hypoglycemia Standing Ord. Glucose (Glucose Gel 15 Gm Gel..Gram.) 15 gm PO Q15M PRN; Protocol PRN Reason: per Hypoglycemia Standing Ord. Insulin Human Lispro (Insulin Lispro 100 Unit/Ml 3 Ml Vial) 0 unit SUBCUT QIDACHS [facility]; Protocol Last Admin: 05/12/25 12:48 Dose: Not Given Documented By: ERIBERTO Non-Admin Reason: No Insulin Coverage Magnesium Hydroxide (Milk Of Magnesia 30 Ml Oral.Susp) 30 ml PO DAILY PRN PRN Reason: Constipation Melatonin (Melatonin 3 Mg Tablet) 6 mg PO BEDTIME PRN PRN Reason: Insomnia Sodium Chloride (0.9 % Sodium Chloride Flush 3 Ml Syringe) 3 ml IVFLUSH [facility] Last Admin: 05/12/25 07:53 Dose: 3 ml Documented By: ERIBERTO Labs 05/12/25 08:34 05/12/25 07:25 Labs: Laboratory Results - last 24 hr 05/11/25 05/11/25 05/11/25 17:41 17:44 21:49 MCV 80.9 MCH 27.4 MCHC 33.9 RDW 15.0 Plt Count 184 MPV 10.3 Immature Gran % (Auto) 0.2 Neut % (Auto) 38.0 L Lymph % (Auto) 56.1 H Gibson % (Auto) 4.5 Eos % (Auto) 0.9 Baso % (Auto) 0.3 Lymph # (Auto) 5.2 H Gibson # (Auto) 0.4 Eos # (Auto) 0.1 Baso # (Auto) 0.0 Abs Immat Gran (auto) 0.02 Absolute Neuts (auto) 3.5 Absolute Nucleated RBC 0.000 Nucleated RBC % (auto) 0.0 Smear Tech's Comments VERIFIED PT 10.8 L INR 0.9 APTT 37.1 H Anion Gap 17 Estim Creat Clear Calc 49.4 Estimated GFR > 60 POC Glucose 103 103 Random Glucose 93 Calcium 9.5 Total Bilirubin AST ALT Alkaline Phosphatase Troponin I High Sens 3.4 Total Protein Albumin Triglycerides 110 Cholesterol 132 LDL Cholesterol, Calc 51 HDL Cholesterol 59 TSH Hold Yellow Top See Note 05/12/25 05/12/25 05/12/25 07:25 07:53 08:34 MCV 81.0 MCH 27.3 MCHC 33.7 RDW 15.1 Plt Count 175 MPV 9.6 Immature Gran % (Auto) 0.2 Neut % (Auto) 56.1 Lymph % (Auto) 37.9 Gibson % (Auto) 4.8 Eos % (Auto) 0.6 Baso % (Auto) 0.4 Lymph # (Auto) 3.1 Gibson # (Auto) 0.4 Eos # (Auto) 0.1 Baso # (Auto) 0.0 Abs Immat Gran (auto) 0.02 Absolute Neuts (auto) 4.5 Absolute Nucleated RBC 0.000 Nucleated RBC % (auto) 0.0 Smear Tech's Comments PT INR APTT Anion Gap 16 Estim Creat Clear Calc 52.5 Estimated GFR > 60 POC Glucose 89 Random Glucose 81 Calcium 8.9 D Total Bilirubin 0.6 AST 34 H ALT 16 Alkaline Phosphatase 53 Troponin I High Sens Total Protein 7.3 Albumin 4.4 Triglycerides 86 Cholesterol 145 LDL Cholesterol, Calc 69 HDL Cholesterol 59 TSH 1.40 Hold Yellow Top 05/12/25 11:30 MCV MCH MCHC RDW Plt Count MPV Immature Gran % (Auto) Neut % (Auto) Lymph % (Auto) Gibson % (Auto) Eos % (Auto) Baso % (Auto) Lymph # (Auto) Gibson # (Auto) Eos # (Auto) Baso # (Auto) Abs Immat Gran (auto) Absolute Neuts (auto) Absolute Nucleated RBC Nucleated RBC % (auto) Smear Tech's Comments PT INR APTT Anion Gap Estim Creat Clear Calc Estimated GFR POC Glucose 87 Random Glucose Calcium Total Bilirubin AST ALT Alkaline Phosphatase Troponin I High Sens Total Protein Albumin Triglycerides Cholesterol LDL Cholesterol, Calc HDL Cholesterol TSH Hold Yellow Top Assessment and Plan (1) Dysarthria: Status: Acute Plan 79-year-old with a past medical history of HTN, HLD, dm, breast cancer, and CVA in 04/2024 presented to the hospital today with a chief complaint of difficulty speaking/right facial droop. Dysarthria and right-sided facial droop Concerning for acute CVA Patient NIH stroke scale on presentation was 3. Out of window for tPA. CT head showed new encephalomalacia CT angio head and neck showed no acute large vessel occlusion. Pt has been refusing MRI; may need to get repeat CT Failed bedside swallow; not seen by STITCHING MACHINE FEEDER OR OFFBEARER yet D5 while NPO TSH, lipid profile WNL Echocardiogram Aspirin, statin Neurology consulted Fall precautions, aspiration precautions Atrial tachycardia Pt with short run of atrial tachycardia noted on tele Will get EKG Echo as above Will start on metoprolol if tachycardia returns Diabetes Insulin sliding scale, hold metformin Diabetic diet Hypertension Hold home antihypertensives for now for permissive HTN DVT prophylaxis: SCD boots Code status: Full code Pt will require continued hospitalization as she is not back to baseline and unable to tolerate p.o. intake. Pt will require continued evaluation and additional workup. Quality Stroke Does the patient have a stroke diagnosis?: No VTE Prior VTE?: No VTE Risk Level:: Medical - moderate - high VTE Device Contraindication: N/A - Device Ordered VTE Drug Contraindication: Treatment Not Indicated
[2025-05-12 15:30] LABS: Glucose, Whole Blood 82 mg/dL (60-115)
[2025-05-12] MEDS: Dextrose 5 % and Lactated Ring 1,000 ML 100 ML IVCONT (15:55)
[2025-05-12 20:27] LABS: Glucose, Whole Blood 101 mg/dL (60-115)
[2025-05-13] MEDS: Dextrose 5 % and Lactated Ring 1,000 ML 100 ML IVCONT (01:12)
[2025-05-13 03:06] VITALS: BP 170/70; PULSE 50; RESP 18; TEMP 36.4; O2SAT 97
[2025-05-13 07:24] LABS: Glucose, Whole Blood 129 mg/dL (60-115)
[2025-05-13 07:35] VITALS: BP 169/77; PULSE 54; RESP 16; TEMP 37.6; O2SAT 96
[2025-05-13 09:50] LABS: Anion Gap 14 (12-20); Blood Urea Nitrogen 9 mg/dL (9-16); Calcium 8.5 mg/dL (8.4-10.2); Carbon Dioxide 22 mmol/L (22-29); Chloride 113 mmol/L (96-108); Creatinine Clr Calc Pharmacy 60.9; Estimated Glomerular Filt Rate > 60; Potassium 3.3 mmol/L (3.3-5.1); Sodium 146 mmol/L (135-145)
[2025-05-13 11:56] VITALS: BP 149/73; PULSE 64; RESP 18; TEMP 36.4; O2SAT 100
[2025-05-13 12:22] LABS: Glucose, Whole Blood 177 mg/dL (60-115)
[2025-05-13] MEDS: Aspirin Enteric Coated 81 MG TABLET.DR PO (12:49)
--- NOTE | 2025-05-13 12:57 | MHC.SP.ADU ---
Referring provider: Dr. Kent Reason for Referral: Stroke Alert/Difficulty Speaking Type of Treatment: 44823 Assessment of Aphasia Date of Plan of Treatment: 05/13/25 Onset of Symptoms/Illness: 05/11/25 Date Treatment Started: 05/13/25 Medical Diagnosis: Dysarthria Primary Speech Language Diagnosis: R47.1 Dysarthria Secondary Speech Language Diagnosis: R13.10 Dysphagia History Patient is a 79 year old woman who presented to the ED due to having difficulty speaking and increased right facial droop. Presentation was concerning for acute stroke, Patient NIH stroke scale on presentation was 3. Out of window for tPA. CT head showed new encephalomalacia. CT angio head and neck showed no acute large vessel occlusion. Patient reported history of CVA 05/11. To this therapist, patient reported that she has had Speech Therapy at home through the [facility] for roughly a year. 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 Patient is bilingual Setswana/Dialect of Lisa. Patient seen today for Clinical Swallow and Speech/Language CVA Screening. Medical History: Other: CVA Breast cancer Hyperlipidemia Diabetes HTN Medication List: Please see chart Recent Hospitalizations: No Respiratory Needs: Room Air Patient Orientation: Alert & Oriented x 4 Social History: Current Living Situation: Patient lives alone in a private apartment. Assistive Devices in use: Comment: Past Speech Language Therapy: Has [facility] LICENSED MASSAGE THERAPIST X3 weekly, reported having this service for one year. Other Therapies Seen in Current Calendar Year: Speech Therapy Other: Swallowing History: Dysphagia Specific: Oral Phase Dysphagia Comments: Patient seen for Clinical Swallow Assessment, currently NPO at time of evaluation. Oral Motor: Mild unilateral Right weakness of tongue, lips, gaps in dentition, all other aspects WFL. Swallow: Normal Oral and Pharyngeal phases of swallow with adequate laryngeal elevation and timing on swallow of liquid (water) and puree (pudding). On ground (crushed cracker in puree) and chopped (whole piece of cracker dipped in puree), moderately prolonged period of mastication, timely swallow, mild oral residual after swallow, cleared by sip of liquid. No clinical signs of aspiration. Summary: Mild oral phase dysphagia secondary to mild unilateral R weakness, decreased dentition. Recommend START diet of Chopped/Advanced (NDD3) with THIN liquids, pills WHOLE with liquid. MD/RD notified of recommendation by secure text, RN in person. Pre-eval Risk for Aspiration: Neurological Condition Pre-evaluation Dietary Consistencies: NPO Pre-eval Liquid Intake: NPO Pre-eval Medication Intake: NPO Reported Speech, Language, Cognition difficulties: Speaking Comments: Patient presents with moderate-severe dysarthria, which is patient's current baseline, s/p stroke 05/11. Patient is currently receiving LICENSED MASSAGE THERAPIST services at home through [facility] X[facility] weekly. Quality of Life: Good Patient Stated Goal of Speech-Language Therapy: Assess for any new onset symptoms related to possible new CVA/TIA Assessment Speech Production: Dysarthric Clinical Impression: Impaired Observations: Patient presents with moderate to severe dysarthria, which is likely patient's baseline secondary to stroke (05/11). Patient evidenced ability to articulate at the word level with significantly greater accuracy, likely due to speech therapy intervention for the past year. At word level, some sounds are still omitted (e.g. /th/) however this is likely secondary to ESL issues. In connected speech, Patient is severely dysarthric, with multiple consonants imprecise or omitted, speech is slurred, at times unintelligible. Informal Voice Assessment: Voice Loudness: Normal Voice Nasal Resonance: Normal Voice Oral Resonance: Normal Voice Phonatory-based Quality: Normal Voice Pitch: Normal Voice Other Observations: Clinical Impression: Intact Clinicial Observations: Tests of Speech & Lang Adults: BDAE Clinical Impression: Intact Observations: Stroke Alert Speech Language Screening Patient was seen today for a Speech/Language Screening secondary to admission on ?Stroke Alert. Subtests from the short form of the [place] Diagnostic Aphasia Examination were used to briefly assess receptive and expressive language and speech articulation: [place] Naming Test (BNT) Short Form: - errors secondary to unfamiliar words/not in patient's vocabulary/Setswana is secondary language (not word finding) Cookie Theft Picture (Narrative/Word finding in context): n/a Word Comprehension: 100% Complex Ideational Material: 100% Oral Expression: Clearer articulation on single words, marked dysarthria on multi-syllabic words, phrases, sentences and connected speech. Summary: On screening, patient presenting with receptive and expressive language broadly WFL (no evidence of aphasia), moderate to severe dysarthria, which patient acknowledged as baseline/residual from previous CVA. Tests of Cognition: Clinical Impression: Observations: Augmentative and Alternative Communication: Observations: Impressions and Recommendations Summary: 1. Patient presents with mild oral phase dysphagia, secondary to mild unilateral Right oral motor weakness and missing dentition, with pharyngeal phase of swallow WFL. Recommend UPGRADE from NPO to Chopped/Advanced (NDD3) with THIN liquids, pills whole with liquid. 2. Patient presents with moderate to severe dysarthria, which patient reports is baseline s/p CVA 05/11. Patient has been receiving direct speech therapy services at home for the past year. Patient is able to more clearly articulate at the single word level (evidence of speech intervention) but struggles in connected speech, which is mostly unintelligible due to dysarthria. On screening of receptive and expressive language skills are judged to be WFL, no evidence of new onset aphasia. Recommend patient return to receiving [facility] LICENSED MASSAGE THERAPIST at home if that is discharge disposition, or speech therapy at next level of care. Impact on Daily Function/Activity Limitations: Daily Activities: Moderate Interpersonal Interactions: Moderate Community: Moderate Prognosis for Improvement: Good Comment: Recommendation for Speech Therapy: Inpatient Speech Therapy Speech Therapy through [facility] Patient Education: Completed: Yes Patient/Caregiver Education: Described Results of Evaluation Patient expressed understanding of evaluation Patient agrees with goals and treatment plan Comments/Barriers to Learning: Gravel Roofer Clinican/Clinical Fellow: No Supervisory Statement: N/A Speech Language Pathologist: Esthela Leon M.A., [facility]-LICENSED MASSAGE THERAPIST
--- NOTE | 2025-05-13 13:08 | MHC.SL.SWA ---
Speech Pathologist Impression: Oral Phase Dysphagia Risk of Aspiration Due to: Neurological Condition Dysphasia Diet Status: Liquid Consistency and Strategies for Safe Swallow: Liquid Intake Recommendation: Thin Liquid Intake Strategies: Solid Food Consistency: Dietary Recommendations: Chopped/Advanced (NDD3) Additional Modifications to Solid Foods: Oral Medication Intake: Whole with Liquid Please contact the pharmacy regarding appropriate crushable or liquid drug formulations that are available whenever modified delivery is recommended. Compensatory Strategies and Precautions to be Taken for Safe Swallow: Supervision While Eating and Drinking for Safe Swallow: Tray Set Up Foods to Avoid: Difficult to chew solids Swallowing Recommended Treatments: Recommendation for Speech: Inpatient Speech Therapy Comment: Oral Motor: Mild unilateral Right weakness of tongue, lips, gaps in dentition, all other aspects WFL. Swallow: Normal Oral and Pharyngeal phases of swallow with adequate laryngeal elevation and timing on swallow of liquid (water) and puree (pudding). On ground (crushed cracker in puree) and chopped (whole piece of cracker dipped in puree), moderately prolonged period of mastication, timely swallow, mild oral residual after swallow, cleared by sip of liquid. No clinical signs of aspiration. Summary: Mild oral phase dysphagia secondary to mild unilateral R weakness, decreased dentition. Recommend START diet of Chopped/Advanced (NDD3) with THIN liquids, pills WHOLE with liquid. MD/RD notified of recommendation by secure text, RN in person. Frequency/Duration: Date Range for Service Req: Timeline to reassess: Utility Sales Representative Clinican/Clinical Fellow: No Supervisory Statement: I have reviewed and agree with the student/clinical fellow's documentation: N/A Speech Language Pathologist: Esthela Leon M.A., [facility]
[2025-05-13 15:30] VITALS: BP 162/61; PULSE 64; RESP 18; TEMP 36.3; O2SAT 97
--- NOTE | 2025-05-13 15:35 | P.PNIM_ITS ---
Subjective Subjective Date of Service: 05/13/25 Interval History: Pt denies any significant medical complaints Reports her speech is now back to baseline Seen and evaluated by speech who recommended chopped/advanced NDD3 diet Echo showing possible vegetation Continues to refuse MRI; will get CT of head instead Review of Systems Review of Systems: Yes all other systems are reviewed and are negative Physical Exam 2 Exam: Exam: General: AOx3, no acute distress Resp: CTA bilaterally CVS: S1, S2, RRR GI: +BS, NT, no distention Skin: Warm, dry Neuro: Significant dysarthrianoted, and right-sided facial droop. Unlcear if acute or chronic. No tongue deviation. Motor grossly intact bilaterally with preserved and symmetric strength of upper and lower extremities. Sensation to light touch intact on face, arms, and legs. Negative pronator drift Extremities: No edema Psych: Appropriate affect Vital Signs: Vital Signs: Last Vital Signs Temp 97.3 F 05/13/25 15:30 Pulse 64 05/13/25 15:30 Resp 18 05/13/25 15:30 BP 177/87 H 05/13/25 15:30 Pulse Ox 97 05/13/25 15:30 O2 Del Method Room Air 05/13/25 15:30 BMI result Body Mass Index 23.9 Objective Data Active Medications Acetaminophen (Acetaminophen 325 Mg Tablet) 650 mg PO Q6H PRN PRN Reason: Pain, Mild 1-3,fever,headache Allopurinol (Allopurinol 100 Mg Tablet) 100 mg PO DAILY [facility] Last Admin: 05/13/25 12:49 Dose: 100 mg Documented By: ERIBERTO Amlodipine Besylate (Amlodipine Besylate 5 Mg Tablet) 5 mg PO DAILY [facility]; Protocol Last Admin: 05/13/25 12:49 Dose: 5 mg Documented By: ERIBERTO Aspirin (Aspirin Enteric Coated 81 Mg Tablet.) 81 mg PO DAILY [facility] Last Admin: 05/13/25 12:49 Dose: 81 mg Documented By: ERIBERTO Atorvastatin Calcium (Atorvastatin Calcium 80 Mg Tablet) 80 mg PO DAILY [facility] Last Admin: 05/13/25 12:49 Dose: 80 mg Documented By: ERIBERTO Calcium Carbonate (Calcium Carbonate 750 Mg Tab.Chew) 750 mg PO Q4H PRN PRN Reason: Heartburn Clopidogrel Bisulfate (Clopidogrel Bisulfate 75 Mg Tablet) 75 mg PO DAILY [facility] Last Admin: 05/13/25 12:48 Dose: 75 mg Documented By: ERIBERTO Dextrose (Dextrose 50 % 25 Gm/50 Ml Syringe) 25 gm IVPUSH Q15M PRN; Protocol PRN Reason: per Hypoglycemia Standing Ord. Glucose (Glucose Gel 15 Gm Gel..Gram.) 15 gm PO Q15M PRN; Protocol PRN Reason: per Hypoglycemia Standing Ord. Insulin Human Lispro (Insulin Lispro 100 Unit/Ml 3 Ml Vial) 0 unit SUBCUT QIDACHS [facility]; Protocol Last Admin: 05/13/25 12:49 Dose: Not Given Documented By: ERIBERTO Non-Admin Reason: NPO Comments: Lisinopril (Lisinopril 5 Mg Tablet) 5 mg PO DAILY [facility]; Protocol Last Admin: 05/13/25 12:48 Dose: 5 mg Documented By: ERIBERTO Magnesium Hydroxide (Milk Of Magnesia 30 Ml Oral.Susp) 30 ml PO DAILY PRN PRN Reason: Constipation Melatonin (Melatonin 3 Mg Tablet) 6 mg PO BEDTIME PRN PRN Reason: Insomnia Sodium Chloride (0.9 % Sodium Chloride Flush 3 Ml Syringe) 3 ml IVFLUSH QSDEFT [facility] Last Admin: 05/13/25 07:53 Dose: Not Given Documented By: ERIBERTO Non-Admin Reason: IV Running Labs 05/12/25 08:34 05/13/25 08:53 Labs: Laboratory Results - last 24 hr 05/12/25 05/13/25 05/13/25 20:23 07:20 08:53 Anion Gap 14 Estim Creat Clear Calc 60.9 Estimated GFR > 60 POC Glucose 101 129 H Random Glucose 135 H Calcium 8.5 05/13/25 11:59 Anion Gap Estim Creat Clear Calc Estimated GFR POC Glucose 177 H Random Glucose Calcium Assessment and Plan (1) Dysarthria: Status: Acute Plan 79-year-old with a past medical history of HTN, HLD, dm, breast cancer, and CVA in 04/2024 presented to the hospital today with a chief complaint of difficulty speaking/right facial droop. Dysarthria and right-sided facial droop Concerning for acute CVA Patient NIH stroke scale on presentation was 3. Out of window for tPA. CT head showed new encephalomalacia but no acute stroke CT angio head and neck showed no acute large vessel occlusion. Pt has been refusing MRI due to dizziness and feeling unwell [place] [facility] [place] will instead get repeat dry CT of head Pt reports dysarthria chronic, now back at baseline [employer] recommend chopped/advanced NDD3 diet with thin liquids TSH, lipid profile WNL Echocardiogram with normal LVEF of 65-70% with impaired relaxation filling pattern, and small possible mass attached to aortic valve Continue clopidogrel; statin increased to 80mg; hold on adding aspirin Neurology consulted Fall precautions, aspiration precautions Question of aortic valve mass Echo showing possible small mass attached to aortic valve Cardiology consult for possible BEN, perhaps on Wednesday at the earliest Does not require anticoagulation at the moment, per Cardiology Atrial tachycardia Pt with short run of atrial tachycardia noted on tele EKG with sinus bradycardia Monitor on telemetry Cardiology consult as above Aaf-ojslcog-[id number] type 2 diabetes Insulin sliding scale, hold metformin Diabetic diet Hypertension Continue amlodipine, lisinopril DVT prophylaxis: SCD boots Code status: Full code Pt will require continued hospitalization as she will require additional workup and evaluation by Cardiology for possible BEN. Quality Stroke Does the patient have a stroke diagnosis?: No VTE Prior VTE?: No VTE Risk Level:: Medical - moderate - high VTE Device Contraindication: N/A - Device Ordered VTE Drug Contraindication: Treatment Not Indicated
[2025-05-13 15:53] LABS: Glucose, Whole Blood 94 mg/dL (60-115)
[2025-05-13] MEDS: 0.9 % Sodium Chloride Flush 3 ML SYRINGE IVFLUSH ×2 (16:26→21:35)
[2025-05-13 19:54] VITALS: BP 121/59; PULSE 64; RESP 18; TEMP 37.2; O2SAT 97
[2025-05-13 21:23] LABS: Glucose, Whole Blood 118 mg/dL (60-115)
[2025-05-13 23:28] VITALS: BP 143/65; PULSE 54; RESP 18; TEMP 36.7; O2SAT 98
[2025-05-14 03:50] VITALS: BP 139/68; PULSE 52; RESP 18; TEMP 36.6; O2SAT 96
[2025-05-14 07:34] LABS: Glucose, Whole Blood 93 mg/dL (60-115)
[2025-05-14 08:00] VITALS: BP 146/76; PULSE 58; RESP 20; TEMP 36.8; O2SAT 96
[2025-05-14] MEDS: 0.9 % Sodium Chloride Flush 3 ML SYRINGE IVFLUSH (08:02)
[2025-05-14 10:39] VITALS: BP 146/76; PULSE 58; O2SAT 96
[2025-05-14 11:12] LABS: Prothrombin Time Whole Bld POC 11.4 sec (11.1-13.5); ~PT, ~INR - Anti Coag Clinic 1.0 (0.9-1.1)
[2025-05-14 11:16] LABS: Glucose, Whole Blood 145 mg/dL (60-115)
--- NOTE | 2025-05-14 11:41 | PM.CNCAR ---
History of Present Illness History of Present Illness Date of Service: 05/14/25 Chief complaint: CVA Narrative: This is a cardiology consultation regarding question of aortic mass. Patient herself does not have any previous cardiac history. Denies any coronary artery disease or myocardial infarction or cardiomyopathy or in fact any other cardiac issues. Current admissions because of stroke. In this context, echocardiogram is completed and there was question of aortic calcification with something else like fibroelastoma. Hence we are consulted. Patient denies any cardiac symptoms like angina. Has comorbidities including diabetes, hypertension, dyslipidemia and breast cancer. She presented with complaints of difficulty speaking and CT head reported have encephalomalacia. Review of Systems Review of Systems: Yes all other systems are reviewed and are negative Constitutional: Constitutional: Reports as per HPI and Reports no additional constitutional complaints Eyes: Eyes: Reports as per HPI and Denies no additional eye complaints ENT: Denies system reviewed and no additional complaints, except as documented and Reports as per HPI Cardiovascular: Cardiovascular: Reports as per HPI, Reports no additional cardiovascular complaints, Denies acrocyanosis, Denies cool extremities, Denies chest pain, Denies leg edema, Denies lightheadedness, Denies palpitations and Denies dyspnea Respiratory: Respiratory: Reports as per HPI, Denies no additional respiratory complaints and Denies dyspnea Gastrointestinal: Gastrointestinal: Reports as per HPI and Denies no additional gastrointestinal complaints Genitourinary: Genitourinary: Reports as per HPI Musculoskeletal: Musculoskeletal: Reports no additional musculoskeletal complaints and Reports as per HPI Integumentary/Breasts: Skin/Breast: Reports system reviewed and no additional complaints, except as docu Neurologic: Reports system reviewed and no additional complaints, except as documented and Reports as per HPI Psychiatric: Psychiatric: Reports no additional psychiatric complaints and Reports as per HPI Endocrine: Endocrine: Reports no additional endocrine complaints, Reports as per HPI and Denies palpitations Hematologic/Lymphatic: Hematologic/Lymphatic: Reports no additional hematologic/lymphatic complaints and Reports as per HPI Allergic/Immunologic: Allergic/Immunologic: Reports no additional allergic/immunologic complaints and Reports as per HPI [facility] Past Medical History Medical History Breast cancer Hyperlipidemia Diabetes HTN (hypertension) Family History Pertinent family history: No pertinent family history Social History Social History (Updated 04/27/24 @ 09:04 by Tsering Gomez DO) Household Members: None Housing: Apartment Do you presently have visiting nurse or other home services: Yes Patient Tobacco Use Status: Never used Tobacco Smoked in Last 30 Days: No Use of substances other than those prescribed or required for medical reasons: No Currently Displaying Signs/Symptoms of Drug Intoxication Withdrawal: No Have you been hit, kicked, punched, or otherwise hurt by someone within the past year? If so, by whom?: No Do you feel safe in your current relationship?: No Current Relationship Is there a partner from a previous relationship who is making you feel unsafe now?: No Are you made to feel afraid or neglected: No Advance Directives: No Advance Directives Information Provided: No Advance Directives on File: No Do you have a plan to hurt others: No Plan Recently lost weight without trying: No How much weight loss: 24-33 pounds Eating poorly because of decreased appetite: Yes Nutrition screen score: 4 Nutrition Risks: Dental problems, Difficulty chewing, On aspiration precautions and Poor intake 0-25% >4 days Patient : No : No Poor oral hygiene: No service: No Meds Allergies Allergy/AdvReac Type Severity Reaction Status Date / Time SEAFOOD Allergy Severe ANAPHYLAXIS Uncoded 05/11/25 18:03 Active Medications: Current Medications Acetaminophen (Acetaminophen 325 Mg Tablet) 650 mg PO Q6H PRN PRN Reason: Pain, Mild 1-3,fever,headache Last Admin: 05/13/25 23:45 Dose: 650 mg Allopurinol (Allopurinol 100 Mg Tablet) 100 mg PO DAILY [facility] Last Admin: 05/14/25 08:00 Dose: 100 mg Amlodipine Besylate (Amlodipine Besylate 5 Mg Tablet) 5 mg PO DAILY [facility]; Protocol Last Admin: 05/14/25 08:01 Dose: 5 mg Atorvastatin Calcium (Atorvastatin Calcium 80 Mg Tablet) 80 mg PO DAILY [facility] Last Admin: 05/14/25 08:01 Dose: 80 mg Calcium Carbonate (Calcium Carbonate 750 Mg Tab.Chew) 750 mg PO Q4H PRN PRN Reason: Heartburn Clopidogrel Bisulfate (Clopidogrel Bisulfate 75 Mg Tablet) 75 mg PO DAILY [facility] Last Admin: 05/14/25 08:00 Dose: 75 mg Dextrose (Dextrose 50 % 25 Gm/50 Ml Syringe) 25 gm IVPUSH Q15M PRN; Protocol PRN Reason: per Hypoglycemia Standing Ord. Glucose (Glucose Gel 15 Gm Gel..Gram.) 15 gm PO Q15M PRN; Protocol PRN Reason: per Hypoglycemia Standing Ord. Insulin Human Lispro (Insulin Lispro 100 Unit/Ml 3 Ml Vial) 0 unit SUBCUT QIDACHS [facility]; Protocol Last Admin: 05/14/25 11:18 Dose: Not Given Lisinopril (Lisinopril 5 Mg Tablet) 5 mg PO DAILY [facility]; Protocol Last Admin: 05/14/25 08:30 Dose: 5 mg Magnesium Hydroxide (Milk Of Magnesia 30 Ml Oral.Susp) 30 ml PO DAILY PRN PRN Reason: Constipation Melatonin (Melatonin 3 Mg Tablet) 6 mg PO BEDTIME PRN PRN Reason: Insomnia Sodium Chloride (0.9 % Sodium Chloride Flush 3 Ml Syringe) 3 ml IVFLUSH [facility] Last Admin: 05/14/25 08:02 Dose: 3 ml Home Medications ?Medication ?Instructions ?Recorded ?Confirmed ?Last Taken ?Type allopurinol 100 mg tablet 100 mg PO DAILY 04/27/24 05/11/25 05/11/25 History atorvastatin 40 mg tablet 40 mg PO BEDTIME 04/27/24 05/11/25 05/10/25 History metformin 500 mg tablet 500 mg PO BID 04/27/24 05/11/25 05/11/25 History alendronate 70 mg tablet 70 mg PO ROYAL 05/11/25 05/11/25 05/06/25 History amlodipine 5 mg tablet 5 mg PO DAILY 05/11/25 05/11/25 05/11/25 History clopidogrel 75 mg tablet 75 mg PO DAILY 05/11/25 05/11/25 05/11/25 History lisinopril 5 mg tablet 5 mg PO DAILY 05/11/25 05/11/25 05/11/25 History Physical Exam Vital Signs: Vital Signs: Last Vital Signs Temp 98.2 F 05/14/25 08:00 Pulse 58 05/14/25 10:39 Resp 20 05/14/25 08:00 BP 146/76 H 05/14/25 10:39 Pulse Ox 96 05/14/25 10:39 O2 Del Method Room Air 05/14/25 08:00 BMI result Body Mass Index 23.9 Const: General: comfortable and no acute distress Orientation/consciousness: patient oriented x3 HEENT: Other: Unremarkable Head: Yes normal to inspection Neck: Neck: Yes normal visual inspection Chest: Chest palpation & inspection: normal inspection of the chest Resp: Auscultation: clear to auscultation bilaterally Cardio: Palpation: normal PMI Heart sounds: S1 normal heart sound present, S2 normal heart sound present, no gallops, no murmurs and no rubs GI: Palpation (GI): Soft to palpation Back/Spine/Pelvis: Other: unremarkable Skin: General skin exam: no rashes or lesions noted Neuro: General: patient oriented x3 Extrem: General: Yes normal to inspection Psych: Mental Status: mental status grossly normal Objective Labs and Meds 05/12/25 08:34 05/13/25 08:53 Lab results: Laboratory Results - last 24 hr 05/11/25 05/13/25 05/13/25 17:47 11:59 15:36 Whole Blood PT 11.4 Whole Blood INR 1.0 POC Glucose 177 H 94 05/13/25 05/14/25 05/14/25 21:09 07:18 11:12 Whole Blood PT Whole Blood INR POC Glucose 118 H 93 145 H ECG Interpretation: The initial EKG, underlying rhythm is sinus at 85/Min; inferior as well as anterolateral T inversions. In the repeat EKG, that seems improved. The T-wave changes go back many years, and can be seen in prior EKG from 2016. Assessment and Plan (1) CVA (cerebral vascular accident): Qualifiers: CVA mechanism: unspecified Qualified Code(s): I63.9 - Cerebral infarction, unspecified Status: Acute (2) Difficulty speaking: Status: Acute (3) Aortic valve calcification: Status: Acute Plan Echocardiogram images as well as report reviewed. In the aortic valve, suspect mostly calcification. Less likely something else like fibroelastoma but image quality is less than ideal to confirm this. Discussed with patient about a transesophageal echocardiogram under anesthesia but she states that she would not want anything done. In the CTA head, report of new encephalomalacia/gliosis in the left bundle lobe and anterior right frontal lobe. Overall, treat with antiplatelet drugs, statins per neurology recommendations. Procedures Date of Service Date of Service: 05/14/25
[2025-05-14 12:00] VITALS: BP 108/59; PULSE 70; RESP 17; TEMP 36.4; O2SAT 98
--- NOTE | 2025-05-14 12:55 | MHC.CM.PN ---
Addendum entered by Sagrario Rebolledo 05/14/25 13:26: PATIENTS SON ROSITA CALLED THIS CM BACK, HE STATES HE IS NOT ABLE TO PICK HIS MOTHER UP UNTIL 7:30PM THIS EVENING. THIS CM SET UP C SHUTTLE RIDE FOR THIS PATIENT TODAY AT 2:30PM. PATIENT IS AWARE AND IN AGREEMENT WITH DISCHARGE PLAN. Original Note: PATIENT IS MEDICALLY CLEARED FOR DISCHARGE HOME WITH RESUMPTION OF PREVIOUS [facility] SERVICES. THIS CM PLACED CALL AND LEFT A VOICEMAIL TO HER SON ROSITA AND [id number], IN REGARDS TO HER TRANSPORT HOME TODAY, AWAITING RETURN CALL.
--- NOTE | 2025-05-14 13:03 | P.DS_ITS ---
DS: Providers Provider Date of Service: 05/14/25 Date of admission: 05/11/25 19:00 Date of discharge: 05/14/25 Primary care physician: Elizabeth Shepard NP Consults: 05/11/25 18:53 Consult to Neurology Routine Consulting Provider: Guerita Altamirano Reason for consultation: CVA 05/13/25 15:21 Consult to Cardiology Routine Consulting Provider: [facility] [place] [facility] Reason for consultation: Echo showing possible small mass attached to aortic valve; pt here for ?CVA DS: Diagnosis Discharge Diagnosis (1) CVA (cerebral vascular accident): Status: Acute (2) Difficulty speaking: Status: Acute (3) Aortic valve calcification: Status: Acute DS: Summary Hospital Course Hospital Course: 79-year-old with a past medical history of HTN, HLD, dm, breast cancer presented to the hospital today with a chief complaint of difficulty speaking. Patient had difficult time finding words to explain her symptoms. Has been complaining of dizziness. Denies any chest pain or palpitations. Denies any fever chills cough or sputum production. ER course: Per ER team, patient has equal strength bilaterally; sensations intact; noted to have profound dysarthria associated with right facial droop. NIH stroke scale was 3. Patient was out of window for tPA. CT head and CT angio head and neck were done which showed new encephalomalacia and no acute LVO. Hospital Course Admitted to telemetry where monitor failed to demonstrate any acute dysrhythmias. Seen in consultation by Cardiology; echo reviewed by Cardiology without acute recommendations. Seen in consultation by Neurology who could not explain symptoms but recommended MRI. Cardiology also recommended a BEN. Patient declined both. She was seen in consultation by speech therapy; she saw the same therapist she has been seeing at home for a year. Therapist states that she is back at baseline now. Currently she is medically acceptable for discharge and will follow up at home with speech as she has been prior to hospitalization Time Attestation Discharge Coordination Time (in mins): 35 Quality: Safe Use of Opioids Does Pt have an Active Cancer Diagnosis on the Problem List?: No Quality: Stroke Does the patient have a stroke diagnosis?: No Physical Exam Vital Signs: Vital Signs: Last Vital Signs Temp 97.6 F 05/14/25 12:00 Pulse 70 05/14/25 12:00 Resp 17 05/14/25 12:00 BP 108/59 L 05/14/25 12:00 Pulse Ox 98 05/14/25 12:00 O2 Del Method Room Air 05/14/25 12:00 BMI result Body Mass Index 23.9 Const: Other: Awake alert no acute distress. Resp: Other: Clear to auscultation bilaterally no rales rhonchi or wheezes Cardio: Other: No S4; positive S1-S2; no S3 murmurs rubs or gallops GI: Other: Soft nontender nondistended normoactive bowel sounds Extrem: Other: No edema bilaterally DS: Data Data Completed and Pending Labs on day of discharge: Laboratory Results - last 24 hr 05/11/25 05/13/25 05/13/25 17:47 15:36 21:09 Whole Blood PT 11.4 Whole Blood INR 1.0 POC Glucose 94 118 H 05/14/25 05/14/25 07:18 11:12 Whole Blood PT Whole Blood INR POC Glucose 93 145 H Discharge Plan Discharge Anticipated Discharge Date/Time: 05/14/25 13:01 Patient Disposition: Home Health Service Discharge Diagnosis: Difficulty speaking Referrals: Elizabeth Shepard NP [Primary Care Provider, [facility]] - 1 Week Discharge Medications: Continued allopurinol 100 mg Tablet 100 mg PO DAILY atorvastatin 40 mg Tablet 40 mg PO BEDTIME metformin 500 mg Tablet 500 mg PO BID alendronate 70 mg tablet 70 mg PO ROYAL clopidogrel 75 mg tablet 75 mg PO DAILY amlodipine 5 mg tablet 5 mg PO DAILY lisinopril 5 mg tablet 5 mg PO DAILY Discharge Orders: Discharge Order (Routine); Ordered 05/14/25 Ordered By: Jonathan Mascorro Diet: Advance to usual diet Activity on Discharge: As tolerated Stand Alone Forms: Patient Portal Discharge page Print Language: Danish Care Plan Goals: Continue all meds as outlined on discharge summary. Health Concerns: Continue all outpatient services as prior to hospitalization Plan of Treatment: Follow up with PCP next available Assessment: See discharge summary
--- NOTE | 2025-05-14 13:06 | PC.NURSE ---
Pt alert and oriented x3 today. Speech is difficult to understand, but she communicates her needs with writing or careful repetition. This is baseline per Speech therapist. Pt up to chair and toilet with standby assistance. Reports chronic knee pain, but refused pain medication. Reports that she takes it at bedtime. Eating well. Voiding independently. Pediatric Acute Care Unit Nurse called her family and anticipate discharging her to home today.
--- NOTE | 2025-05-14 13:25 | MHC.SP.ADU ---
Addendum entered and electronically signed by Elena Carvalho MS, CCC-TR[facility]IRD 05/14/25 13:28: 05/14/25 Pt seen for dysarthria tx, pt motor speech production has returned to baseline, pt 60% intelligible in contextual communication. Pt tolerating diet as ordred (NDD3 with thins). Continued TRAPPER BIRD intervention indicated upon d/c. MD consulted. Original Note: Referring provider: Donte Reason for Referral: Assess Swallow Type of Treatment: 60627 Clinical Swallowing Evaluation Date of Plan of Treatment: 05/13/25 Onset of Symptoms/Illness: 05/11/25 Date Treatment Started: 05/13/25 Medical Diagnosis: Difficulty speaking/?New onset CVA/TIA Primary Speech Language Diagnosis: R47.1 Dysarthria Secondary Speech Language Diagnosis: R13.10 Dysphagia History Patient is a 79 year old woman who presented to the ED due to having difficulty speaking and increased right facial droop. Presentation was concerning for acute stroke, Patient NIH stroke scale on presentation was 3. Out of window for tPA. CT head showed new encephalomalacia. CT angio head and neck showed no acute large vessel occlusion. Patient reported history of CVA 05/11. To this therapist, patient reported that she has had Speech Therapy at home through the [facility] for roughly a year. 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 Patient is bilingual Indonesian/Dialect of Lisa. Patient seen today for Clinical Swallow and Speech/Language CVA Screening. Medical History: Other: CVA Breast cancer Hyperlipidemia Diabetes HTN Medication List: Please see chart Recent Hospitalizations: No Respiratory Needs: Room Air Patient Orientation: Alert & Oriented x 4 Social History: Employment Status: Highest level of education obtained: Current Living Situation: Lives alone in private apartment Assistive Devices in use: Comment: Past Speech Language Therapy: [facility] -[facility] weekly Other Therapies Seen in Current Calendar Year: Speech Therapy Other: Swallowing History: Dysphagia Specific: Oral Phase Dysphagia Comments: Patient seen for Clinical Swallow Assessment, currently NPO at time of evaluation. Oral Motor: Mild unilateral Right weakness of tongue, lips, gaps in dentition, all other aspects WFL. Swallow: Normal Oral and Pharyngeal phases of swallow with adequate laryngeal elevation and timing on swallow of liquid (water) and puree (pudding). On ground (crushed cracker in puree) and chopped (whole piece of cracker dipped in puree), moderately prolonged period of mastication, timely swallow, mild oral residual after swallow, cleared by sip of liquid. No clinical signs of aspiration. Summary: Mild oral phase dysphagia secondary to mild unilateral R weakness, decreased dentition. Recommend START diet of Chopped/Advanced (NDD3) with THIN liquids, pills WHOLE with liquid. MD/RD notified of recommendation by secure text, RN in person. Pre-eval Risk for Aspiration: Neurological Condition Pre-evaluation Dietary Consistencies: NPO Pre-eval Liquid Intake: NPO Pre-eval Medication Intake: NPO Reported Speech, Language, Cognition difficulties: Speaking Comments: Patient presents with moderate-severe dysarthria, which is patient's current baseline, s/p stroke 05/11. Patient is currently receiving [facility] services at home through [facility] weekly. Quality of Life: Good Patient Stated Goal of Speech-Language Therapy: Assess for any new onset symptoms related to possible new CVA/TIA Assessment Speech Production: Dysarthric Clinical Impression: Impaired Observations: Patient presents with moderate to severe dysarthria, which is likely patient's baseline secondary to stroke (05/11). Patient evidenced ability to articulate at the word level with significantly greater accuracy, likely due to speech therapy intervention for the past year. At word level, some sounds are still omitted (e.g. /th/) however this is likely secondary to ESL issues. In connected speech, Patient is severely dysarthric, with multiple consonants imprecise or omitted, speech is slurred, at times unintelligible. Informal Voice Assessment: Voice Loudness: Normal Voice Nasal Resonance: Normal Voice Oral Resonance: Normal Voice Phonatory-based Quality: Normal Voice Pitch: Normal Voice Other Observations: Clinical Impression: Intact Clinicial Observations: Tests of Speech & Lang Adults: BDAE Clinical Impression: Intact Observations: Stroke Alert Speech Language Screening Patient was seen today for a Speech/Language Screening secondary to admission on ?Stroke Alert. Subtests from the short form of the Hanna Diagnostic Aphasia Examination were used to briefly assess receptive and expressive language and speech articulation: Hanna Naming Test (BNT) Short Form: - errors secondary to unfamiliar words/not in patient's vocabulary/Indonesian is secondary language (not word finding) Karina Theft Picture (Narrative/Word finding in context): n/a Word Comprehension: 100% Complex Ideational Material: 100% Oral Expression: Clearer articulation on single words, marked dysarthria on multi-syllabic words, phrases, sentences and connected speech. Summary: On screening, patient presenting with receptive and expressive language broadly WFL (no evidence of aphasia), moderate to severe dysarthria, which patient acknowledged as baseline/residual from previous CVA. Tests of Cognition: Clinical Impression: Observations: Augmentative and Alternative Communication: Observations: Impressions and Recommendations Summary: Impact on Daily Function/Activity Limitations: Daily Activities: Moderate Interpersonal Interactions: Moderate Education: Employment: Community: Moderate Prognosis for Improvement: Good Comment: Recommendation for Speech Therapy: Inpatient Speech Therapy 05/14/25 Pt seen for dysarthria tx, pt motor speech production has returned to baseline, pt 60% intelligible in contextual communication. Continued TRAP[facility] BIRD intervention indicated. Recommended Referrals to be Discussed with Primary Care Provider: Patient Education: Completed: Yes Patient/Caregiver Education: Described Results of Evaluation Patient expressed understanding of evaluation Comments/Barriers to Learning: Manager Of Applications Development Clinican/Clinical Fellow: No Supervisory Statement: N/A Speech Language Pathologist: Elena Carvalho M.S., CCC-[facility]
== END 2025-05-14 14:30 | disposition home health service (06) | DRG 65 ==
LOC: HO.ED 19:04 → HO.EDOVER 19:07 → HO.IMC 20:29
PROVIDERS: Student in an Organized Health Care Education/Training Program; Admitting Provider Hospitalist; Emergency Provider Emergency Medicine; PCP Nurse Practitioner Family; Visit Provider Hospitalist
DX: I63.9 Cerebral infarction, unspecified (principal); I47.19 Other supraventricular tachycardia; R29.810 Facial weakness; I10 Essential (primary) hypertension; I70.0 Atherosclerosis of aorta; E11.9 Type 2 diabetes mellitus without complications; R47.9 Unspecified speech disturbances; R29.703 NIHSS score 3; Z79.02 Long term (current) use of antithrombotics/antiplatelets; Z79.84 Long term (current) use of oral hypoglycemic drugs; Z79.899 Other long term (current) drug therapy
CPT/HCPCS: 36415; 70450; 70496; 70498; 80048; 80053; 80061; 82947; 84443; 84484; 85025; 85610; 85730; 92507; 92610; 93005; 93306; 97162; 97165; 97530; 99285; Q9967

== ENCOUNTER → 2025-05-11 17:49 | Outpatient (BNV) | payer MEDICARE, SELFPAY | PROVIDERS: Admitting Provider Hospitalist; Emergency Provider Emergency Medicine; PCP Nurse Practitioner Family; Visit Provider Internal Medicine Cardiovascular Disease | DX: I44.0 Atrioventricular block, first degree (principal) | CPT/HCPCS: 93010 ==

== ENCOUNTER 2025-05-11 19:00 | Outpatient (BNV) | payer MEDICARE, SELFPAY | END 2025-05-12 16:57 | PROVIDERS: Admitting Provider Hospitalist; Emergency Provider Emergency Medicine; PCP Nurse Practitioner Family; Visit Provider Internal Medicine Cardiovascular Disease | DX: I63.9 Cerebral infarction, unspecified (principal); I35.8 Other nonrheumatic aortic valve disorders; I51.89 Other ill-defined heart diseases; R00.1 Bradycardia, unspecified | CPT/HCPCS: 93010; 93306 ==

== ENCOUNTER 2025-05-11 19:00 | Outpatient (BNV) | payer MEDICARE, SELFPAY | END 2025-05-13 16:31 | PROVIDERS: Admitting Provider Hospitalist; Emergency Provider Emergency Medicine; PCP Nurse Practitioner Family; Visit Provider Radiology Diagnostic Radiology | DX: Z03.89 Encounter for observation for other suspected diseases and conditions ruled out (principal) | CPT/HCPCS: 70450 ==

== ENCOUNTER → 2025-05-11 19:00 | Outpatient (BNV) | payer MEDICARE, SELFPAY | PROVIDERS: Admitting Provider Hospitalist; Emergency Provider Emergency Medicine; PCP Nurse Practitioner Family; Visit Provider Student in an Organized Health Care Education/Training Program | DX: R47.1 Dysarthria and anarthria (principal) | CPT/HCPCS: 99233 ==

== ENCOUNTER → 2025-05-11 19:00 | Outpatient (BNV) | payer MEDICARE, SELFPAY | PROVIDERS: Admitting Provider Hospitalist; Emergency Provider Emergency Medicine; PCP Nurse Practitioner Family; Visit Provider Internal Medicine | DX: I63.9 Cerebral infarction, unspecified (principal); R47.9 Unspecified speech disturbances; I35.9 Nonrheumatic aortic valve disorder, unspecified | CPT/HCPCS: 99222 ==

== ENCOUNTER → 2025-05-11 19:00 | Outpatient (BNV) | payer MEDICARE, SELFPAY | PROVIDERS: Admitting Provider Hospitalist; Emergency Provider Emergency Medicine; PCP Nurse Practitioner Family; Visit Provider Psychiatry & Neurology Neurology | DX: R47.9 Unspecified speech disturbances (principal) | CPT/HCPCS: 99222 ==